=== PATIENT | female | born 1970 | race Caucasian/White ===

== ENCOUNTER 2020-10-27 07:29 | Outpatient (CLI) | payer OTHER, SELFPAY ==
--- NOTE | 2020-10-27 07:42 | CT_ITS ---
WS: [id number] CT ABDOMEN AND PELVIS WITH CONTRAST HISTORY: RUQ PAIN TECHNIQUE: Imaging performed of the abdomen and pelvis with IV contrast. Single phase imaging of the abdomen. Coronal and sagittal reformats are submitted. All CT scans at [facility] use at least one of these dose optimization techniques: automated exposure control; mA and/or kV adjustment per patient size (includes targeted exams where dose is matched to clinical indication); or iterativ e reconstruction. IV CONTRAST: Omnipaque 300; 95 mL IV. Oral contrast: Yes. DLP: 1544.01 mGy.cm COMPARISON: 10/17/2009 Lower thorax: Lung bases are clear. Mild enlargement of the LEFT heart chambers. No hiatal hernia. Liver/biliary system: Mildly enlarged liver with hepatic steatosis. No bile duct dilatation or mass. Gallbladder: Status post cholecystectomy. Pancreas: Normal. Spleen: Normal. Adrenal glands: Normal RIGHT adrenal gland. Well-circumscribed 15 mm mass in the LEFT adrenal gland i s stable since 2008. Right kidney: Normal. Left kidney: Normal. Aorta: Mild atherosclerosis with no aneurysm. Lymphadenopathy: Very small retroperitoneal shoddy lymph nodes. No enlarged lymph nodes. Free fluid: None. GI tract: The appendix is not definitely visualized but there is no evidence for acute appendicitis. There is mild diffuse fecal retention throughout the colon. There is significant wall thickening and narrowing of the lumen of the sigmoid associated with diverticulitis. There is mild inflammatory easley ges and asymmetric wall thickening in the distal sigmoid. Mild pericolonic inflammation. Abdominal wall: Unremarkable abdominal wall. No hernia. Pelvis: Prior hysterectomy. Nondistended urinary bladder. Bones: Unremarkable. CT/CT abdomen pelvis w con* [id number] IMPRESSION: 1. Mild acute diverticulitis superimposed on changes of diverticulosis involvi ng the sigmoid colon. There is marked thickening of the sigmoid wall and narrow ing of the lumen. 2. No abscess or free fluid or free air. 3. Prior cholecystectomy and hysterectomy. 4. LEFT adrenal nodule stable over multiple years, most significant for adenom a.
[2020-10-27] MEDS: iohexol 300 mg/mL 50 mL Btl PO (09:16)
[2020-10-27] MEDS: iohexol 300 mg/mL 100 mL Btl IV (09:16)
== END 2020-10-27 07:30 | disposition home or self-care (01) ==
PROVIDERS: PCP Physician Assistant; Visit Provider Physician Assistant
DX: R10.11 Right upper quadrant pain (principal); K57.32 Diverticulitis of large intestine without perforation or abscess without bleeding; Z90.49 Acquired absence of other specified parts of digestive tract; D35.02 Benign neoplasm of left adrenal gland
CPT/HCPCS: 74177

== ENCOUNTER 2022-05-25 12:08 | Inpatient (IN) | payer OTHER, SELFPAY ==
[2022-05-25] VITALS (12 sets, daily range): BP systolic 128–169; BP diastolic 84–108; PULSE 96–106; RESP 16–24; TEMP 36.7–36.8; O2SAT 94–106; BMI 34.0
--- NOTE | 2022-05-25 14:37 | ECG_ITS ---
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 Measurements Intervals [place] Rate: 104 P: 54 [place]: 162 QRS: -29 QRSD: 101 T: 89 QT: 342 QTc: 451 Interpretive Statements SINUS TACHYCARDIA LEFT ATRIAL ENLARGEMENT [-0.15mV P-WAVE IN V1/V2] BORDERLINE LEFT AXIS DEVIATION [QRS AXIS < -20] POSSIBLE LEFT VENTRICULAR HYPERTROPHY [VOLTAGE CRITERIA PLUS LAE OR QRS WIDENING] NONSPECIFIC T-WAVE ABNORMALITY Compared to ECG 03/19/2017 00:15:08 Atrial abnormality now present T-wave abnormality now present Electronically Signed On 05-27-2022 8:10:51 CDT by Justo Maurer M.D. [id number] f
--- NOTE | 2022-05-25 14:53 | XRR_ITS ---
PROCEDURE INFORMATION: Exam: XR Chest Exam date and time: 05/25/2022 3:16 PM Age: 52 years old Clinical indication: Cough TECHNIQUE: Imaging protocol: Radiologic exam of the chest. Views: 1 view. COMPARISON: CR Chest 2 views* [id number] 03/18/2017 4:21 PM FINDINGS: Lungs: The lung bases are suboptimally assessed due to technique however the upper lungs are clear of focal consolidation. Pleural spaces: Unremarkable. No pleural effusion. No pneumothorax. Heart/Mediastinum: Cardiac silhouette appears moderately enlarged, increased since prior exam. Slight cephalized vascularity suggesting element of mild vascular congestion. Findings may also be related to cardiomegaly and/or pericardial effusion. Echocardiographic correlation may be helpful. Bones/joints: No acute osseous findings. Other findings: Single view was submitted. XR/XR chest 1V portable [id number] IMPRESSION: 1. Interval enlargement of cardiac silhouette size. Probable element of mild vascular congestion. See discussion above. 2. No obvious acute consolidation. Suboptimal lung base assessment. Followup including lateral view may be obtained if clinically indicated.
--- NOTE | 2022-05-25 14:54 | ECG_ITS ---
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 Measurements Intervals [place] Rate: 100 P: 58 [place]: 163 QRS: -32 QRSD: 101 T: 90 QT: 347 QTc: 447 Interpretive Statements SINUS TACHYCARDIA LEFT ATRIAL ENLARGEMENT [-0.15mV P-WAVE IN V1/V2] LEFT AXIS DEVIATION [QRS AXIS < -30] NONSPECIFIC T-WAVE ABNORMALITY Compared to ECG 03/19/2017 00:15:08 Atrial abnormality now present Left-axis deviation now present T-wave abnormality now present Electronically Signed On 05-27-2022 8:10:44 CDT by Justo Maurer M.D. [id number] f
--- NOTE | 2022-05-25 14:56 | W.ED.SOB ---
HPI - SOB/Dyspnea General: Chief Complaint: Shortness of Breath/Dyspnea Stated Complaint: high BP, sent by pastor astudillo Time Seen by Provider: 05/25/22 14:41 Source: patient Mode of arrival: ambulatory Limitations: no limitations History of Present Illness: HPI Narrative: This patient with a known history of COPD and tobacco use presents to our emergency department because of cough increasing shortness of breath and wheezing since . She also complained that she is getting some lower extremity swelling. She denies any chest pain other than painful chest wall with coughing. She denies any known history of congestive heart failure, arrhythmia, coronary artery disease. She does relate she has family members that have congestive heart failure. She states that she is fully immunized against COVID-19 and gets tested twice weekly due to her job requirements. She denies any nausea vomiting or diarrhea. Had 1 previous hospitalization for COPD. MD elicited complaint: shortness of breath, cough and pain with inspiration Pertinent past history: COPD Exacerbating factors: coughing Relieving factors: nothing Known history of: COPD Associated symptoms: Deny abdominal pain, extremity pain, fever(s), hemoptysis, nausea, palpitations, polydipsia, polyuria, syncope or vomiting Related Data: Home oxygen amount: none Review of Systems Const: Denies: fever(s), chills or body aches Eyes: Denies: change in vision ENMT: Denies: odynophagia, change in hearing, nasal congestion or sinus pain Card: Reports: swelling of feet/ankles; Denies: palpitations, irregular heart rhythm or syncope Resp: Reports: dyspnea and wheezing; Denies: hemoptysis GI: Denies: abdominal pain, nausea, vomiting or diarrhea : Denies: flank pain, difficulty voiding, dysuria or urinary frequency Musc: Reports: extremity swelling; Denies: neck pain, back pain or extremity pain Skin/Breast: Denies: rash or pruritus Neuro: Denies: headache(s), numbness in extremities or weakness in extremities Psych: Denies: anxiety, depression or mood swings Endo: Denies: polyuria or polydipsia Physical Exam Narrative: EXAM NARRATIVE: She is alert she is able to talk in complete sentences. No acute distress. Const: COMMON NORMALS: no acute distress, patient oriented x3 and healthy appearing GENERAL APPEARANCE: cooperative and comfortable HENMT: COMMON NORMALS: normocephalic, Normal nasal mucous membranes and turbinates present and moist oral mucous membranes HEAD & SCALP: normocephalic FACE & SINUS: normal facial exam and sinuses nontender NOSE: Normal nasal mucous membranes and turbinates present Eye: COMMON NORMALS: Equal, round and reactive pupils present, EOMs intact bilaterally and conjunctivae normal CONJUNCTIVA: Yes conjunctivae normal PUPIL: Yes Equal, round and reactive pupils present Neck/C-Spine: COMMON NORMALS: full ROM, no lymphadenopathy, supple and no JVD Chest: COMMONS NORMALS: normal inspection of the chest OTHER: Anterior chest wall tenderness. No skin rashes. No ecchymosis. No subcutaneous emphysema. Resp: COMMON NORMALS: No retractions and No use of accessory muscles EFFORT & INSPECTION: Yes able to speak in complete sentences and Yes symmetric chest movement AUSCULTATION: rhonchi and wheezes Cardio: COMMON NORMALS: no JVD, regular rate, regular rhythm, No murmurs present (Cardio) and Peripheral pulses 2+ throughout RATE: regular rate RHYTHM: regular rhythm PERIPHERAL PULSES: Peripheral pulses 2+ throughout GI: COMMON NORMALS: Normal to inspection, nondistended, normoactive bowel sounds present, Soft to palpation and no masses PALPATION: Yes Soft to palpation : COMMON NORMALS: Yes no CVA tenderness BLADDER/KIDNEY EXAM: Yes no CVA tenderness Back/Pelvis: COMMON NORMALS: no CVA tenderness, thoracic and lumbar spine normal to inspection, no thoracic nor lumbar tenderness and thoraco-lumbar ROM normal Extremity: COMMON NORMALS: full ROM, capillary refill normal and no calf tenderness NARRATIVE EXTREMITY EXAM: Trace nonpitting edema of both lower extremities. No calf tenderness. Negative Homans' sign. Good capillary refill. Neuro: COMMON NORMALS: patient oriented x3, moves all extremities, no focal motor deficits and no sensory deficits noted CRANIAL NERVES: Yes CN normal except as noted SPEECH: speech normal Psych: COMMON NORMALS: mental status grossly normal and cooperative Skin: COMMON NORMALS: no rashes or lesions noted, no wounds, turgor normal and no petechiae GENERAL SKIN EXAM: no rashes or lesions noted and turgor normal Course Consultations: Consultation #1: Discussed with on-call hospitalist who agreed with plan for observation and continued work-up and evaluation. Time: 17:00 Vital Signs: Vital signs: Vital Signs Temperature 98.1 F 05/25/22 14:47 Pulse Rate 100 07/16/22 16:30 Respiratory Rate 18 05/25/22 15:09 Blood Pressure 138/84 05/25/22 16:30 Pulse Oximetry 97 05/25/22 16:30 MDM - SOB/Dyspnea Medical Decision Making Patient with history of chest congestion, lower extremity swelling and shortness of breath symptoms with COPD history but no fevers productive cough etc. Her findings today suggest congestive heart failure and pulmonary congestion. This is a new diagnosis for her so I think is appropriate that we put her in observation for diuresis, serial troponins, echocardiogram and other usual evaluation. Low risk for infection and certainly does not strongly suggest thromboembolic events or other concerns at this time. Medical Records I reviewed the patient's medical records. Lab Data I reviewed the patient's lab results. : 05/25/22 15:43 05/25/22 15:43 Labs/Radiology: Radiology Impressions Chest X-Ray 05/25/22 14:53 IMPRESSION: 1. Interval enlargement of cardiac silhouette size. Probable element of mild vascular congestion. See discussion above. 2. No obvious acute consolidation. Suboptimal lung base assessment. Followup including lateral view may be obtained if clinically indicated. Laboratory Results WBC 10.1 10^3/uL (4.0-10.0) H 05/25/22 15:43 RBC 4.90 10^6/uL (4.1-5.3) 05/25/22 15:43 Hgb 14.1 g/dL (11.5-15.3) 05/25/22 15:43 Hct 44.1 % (37.0-47.0) 05/25/22 15:43 MCV 90.0 fl (81-99) 05/25/22 15:43 MCH 28.8 pg (28.0-34.0) 05/25/22 15:43 MCHC 32.0 g/dL (30.0-36.0) 05/25/22 15:43 RDW 15.2 % (12.1-15.1) H 05/25/22 15:43 Plt Count 289 10^3/cmm (130-400) 05/25/22 15:43 MPV 10.0 fL (7.4-10.4) 05/25/22 15:43 Neut % (Auto) 61.9 % 05/25/22 15:43 Lymph % (Auto) 28.2 % 05/25/22 15:43 Creek % (Auto) 6.0 % 05/25/22 15:43 Eos % (Auto) 2.6 % 05/25/22 15:43 Baso % (Auto) 0.9 % 05/25/22 15:43 Neut # (Auto) 6.24 10^3/uL (1.8-7.7) 05/25/22 15:43 Lymph # (Auto) 2.8 10^3/uL (0.8-4.8) 05/25/22 15:43 Creek # (Auto) 0.6 10^3/uL (0.2-0.9) 05/25/22 15:43 Eos # (Auto) 0.3 10^3/uL (0.0-0.8) 05/25/22 15:43 Baso # (Auto) 0.1 10^3/uL (0.0-0.1) 05/25/22 15:43 Nucleated RBC % (auto) 0 % 05/25/22 15:43 Nucleated RBCs # 0.0 /100WBC 05/25/22 15:43 Sodium 141 mmol/L (136-145) 05/25/22 15:43 Potassium 4.0 mmol/L (3.5-5.1) 05/25/22 15:43 Chloride 102 mmol/L (98-107) 05/25/22 15:43 Carbon Dioxide 28 mmol/L (22-29) 05/25/22 15:43 Anion Gap 15.0 (5-19) 05/25/22 15:43 BUN 7 mg/dL (6-20) 05/25/22 15:43 Creatinine 0.6 mg/dL (0.5-0.9) 05/25/22 15:43 GFR Calculation 104.2 mL/min (90-130) 05/25/22 15:43 Glucose 112 mg/dL (65-115) 05/25/22 15:43 Calculated Osmolality 291 mOsm/kg (285-295) 05/25/22 15:43 Calcium 8.6 mg/dL (8.5-10.5) 05/25/22 15:43 Total Bilirubin 0.8 mg/dL (0.15-1.2) 05/25/22 15:43 AST 15 U/L (0-32) 05/25/22 15:43 ALT 10 U/L (0-33) 05/25/22 15:43 Alkaline Phosphatase 96 IU/L (35-105) 05/25/22 15:43 Troponin T Baseline 27 ng/L (0-10) H 05/25/22 15:43 NT-Pro-B Natriuret Pep 1912 pg/mL (0-125) H 05/25/22 15:43 Total Protein 6.9 g/dL (6.6-8.7) 05/25/22 15:43 Albumin 4.2 g/dL (3.5-5.2) 05/25/22 15:43 Globulin 2.7 g/dL (1.3-4.6) 05/25/22 15:43 SARS-CoV-2 Ag (Rapid) Negative (Negative) 05/25/22 15:00 EKG Data EKG 1: I personally reviewed and interpreted this EKG as follows: EKG interpretation time: 15:05 Interpretation: EKG was reviewed she has a ventricular rate of 100 bpm. She has a normal AL interval. She has normal QRS duration. QTc is normal. She has a slight leftward axis suggestive of possible left anterior Heema block. She has some nonspecific ST-T wave changes noted in the V5 and V6 but no other changes noted. Discharge Plan Discharge Patient Disposition: Placed in Observation Clinical Impression: Congestive heart failure Condition: Stable Referrals: Tess Ko PA [Primary Care Provider] - Coding Level of Care Code ED Professional Programmer Analyst for Chg Fwd Exam Comprehensive
[2022-05-25] MEDS: ipratropium-albuterol 3 mL Neb INHALATION ×2 (15:09→21:54)
[2022-05-25 15:50] LABS: Basophils # 0.1 10^3/uL (0.0-0.1); Basophils % 0.9 %; Eosinophils # 0.3 10^3/uL (0.0-0.8); Eosinophils % 2.6 %; Hematocrit 44.1 % (37.0-47.0); Hemoglobin 14.1 g/dL (11.5-15.3); Lymphocytes # 2.8 10^3/uL (0.8-4.8); Lymphocytes % 28.2 %; Mean Corpuscular Hemoglobin 28.8 pg (28.0-34.0); Monocytes # 0.6 10^3/uL (0.2-0.9); Neutrophils # 6.24 10^3/uL (1.8-7.7); Neutrophils % 61.9 %; Nucleated Red Blood Cells % 0 %; Platelet Count 289 10^3/cmm (130-400); Red Cell Distribution Width 15.2 % (12.1-15.1); White Blood Count 10.1 10^3/uL (4.0-10.0)
[2022-05-25 16:18] LABS: Troponin(5th) Baseline 27 ng/L (0-10)
[2022-05-25 16:22] LABS: SARS Covid-2 Antigen Negative (Negative)
[2022-05-25 16:23] LABS: Alanine Aminotransferase 10 U/L (0-33); Albumin Level 4.2 g/dL (3.5-5.2); Alkaline Phosphatase 96 IU/L (35-105); Aspartate Amino Transferase 15 U/L (0-32); Blood Urea Nitrogen 7 mg/dL (6-20); Calcium 8.6 mg/dL (8.5-10.5); Carbon Dioxide 28 mmol/L (22-29); Chloride 102 mmol/L (98-107); Globulin 2.7 g/dL (1.3-4.6); Glomerular Filtration Rate 104.2 mL/min (90-130); Glucose 112 mg/dL (65-115); NT Pro B Type Natriuretic Pept 1912 pg/mL (0-125); Osmolality Calculated 291 mOsm/kg (285-295); Sodium 141 mmol/L (136-145); Total Bilirubin 0.8 mg/dL (0.15-1.2); Total Protein 6.9 g/dL (6.6-8.7)
--- NOTE | 2022-05-25 16:54 | ECG_ITS ---
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 Measurements Intervals [place] Rate: 105 P: 66 [place]: 163 QRS: -36 QRSD: 97 T: 79 QT: 348 QTc: 461 Interpretive Statements SINUS TACHYCARDIA LEFT ATRIAL ENLARGEMENT [-0.15mV P-WAVE IN V1/V2] LEFT AXIS DEVIATION [QRS AXIS < -30] NONSPECIFIC T-WAVE ABNORMALITY Compared to ECG 05/25/2022 15:01:00 No significant changes Electronically Signed On 05-27-2022 18:16:29 CDT by Justo Maurer M.D. [id number]
[2022-05-25] MEDS: FUROsemide 10 mg/mL SDV 4mL 40 MG IVP (16:57)
--- NOTE | 2022-05-25 18:10 | PM.HP ---
Providers/Chief Complaint Admitting Physician: Patrice Mariscal MD Primary Care Provider: Tess Ko Chief Complaint: high BP, sent by pastor astudillo History of Present Illness Alesha Mack is a 52 year old female significant past medical history presented today with chief, shortness of breath. Patient is stating that she started having symptoms this Friday with shortness of breath, orthopnea and PND. She has gained 15 pounds at least. She is active for her age she works for a [employer]. She works 4 days a week. She smokes half a pack a day. Has not seen a PCP in a while. She does not take any medications at home. No recent tick bites. No recent chest pain, fever, nausea or vomiting she is endorsing right upper quadrant pain. In the ER she has been diagnosed with sinus tachycardia, new onset CHF, she has been given IV Lasix Troponin not significantly Review of Systems Const: Denies: chills Eyes: Denies: change in vision ENMT: Denies: throat pain Card: Reports: swelling of feet/ankles, dyspnea on exertion and orthopnea; Denies: chest pain Resp: Reports: dyspnea GI: Reports: abdominal pain : Denies: flank pain Musc: Denies: neck pain Skin/Breast: Denies: rash Neuro: Denies: headache(s) Psych: Denies: anxiety Endo: Denies: polyuria [place]/Lymph: Denies: easy bruising All/Imm: Denies: urticaria Medications/Allergies Home Medications Medication Instructions Recorded Confirmed Last Taken Type albuterol sulfate 90 mcg/actuation 2 puff INHALATION Q4H PRN 05/25/22 05/25/22 Unknown History aerosol inhaler gabapentin 100 mg capsule 100 mg PO BID 05/25/22 05/25/22 05/25/22 History pantoprazole 40 mg tablet,delayed 40 mg PO DAILY 05/25/22 05/25/22 05/25/22 History release Allergies Allergy/AdvReac Type Severity Reaction Status Date / Time No Known Allergies Allergy Verified 05/25/22 12:48 PFSH Acute PFSH: Medical History (Updated 05/25/22 @ 18:20 by Patrice Mariscal MD) No pertinent past medical history Surgical History (Updated 05/25/22 @ 18:20 by Patrice Mariscal MD) No pertinent past surgical history Family History (Updated 05/25/22 @ 18:20 by Patrice Mariscal MD) Other CAD (coronary artery disease) Diabetes Social History (Updated 05/25/22 @ 18:21 by Patrice Mariscal MD) Smoking and tobacco status: current every day smoker cigarettes Number of cigarettes per day: 6-10 Alcohol intake: never Substance/Drug Use: never Household members: spouse Housing: House Vitals/I&O/Wt Last Vital Signs Temp 98.1 F 05/25/22 14:47 Pulse 106 H 05/25/22 17:30 Resp 24 H 05/25/22 17:30 BP 155/92 05/25/22 17:30 Pulse Ox 95 05/25/22 17:30 Weight last 48 hrs Weight 94.347 kg Physical Exam Narrative: Patient is sitting at the bedside Saturating well on room air Sinus tachycardia Signs of fluid overload 2+ pitting edema of legs Right upper quadrant tenderness Abdomen is bloated nontender soft Bilateral breast without adventitious rhonchi or crackles Awake and alert Nonfocal neuro exam Pleasant cooperative No skin ulcers Data : 05/25/22 15:43 05/25/22 15:43 A&P Assessment and plan (1) Sinus tachycardia: Status: Acute (2) New onset of congestive heart failure: Status: Acute Plan New onset CHF EF unknown Will get echo Start gentle diuresis as she is na?ve to Lasix Trend troponin and EKG Check D-dimer Check TSH Monitor urine output overnight Check lipid panel, A1c panel Cardiac diet Full code DVT prophylaxis Lovenox Attestations Medical Necessity Statement*: Anticipating discharge within 48 hours for new onset CHF Time Spent in Patient Care: 35 Coding Level of Care Code Acute Multimedia Specialist for Chg Fwd Diagnoses Sinus tachycardia R00.0 New onset of congestive heart failure I50.9
--- NOTE | 2022-05-25 18:19 | PC.NURSE ---
report called to M/S talked to lyric.
[2022-05-25 19:35] LABS: Troponin 5 2HR 23.86 ng/L (0-10)
[2022-05-25 19:38] LABS: Troponin 5 2HR Delta -3.14 ABS# (0-10)
--- NOTE | 2022-05-25 20:08 | USR_ITS ---
PROCEDURE INFORMATION: Exam: US Abdomen, Limited; Right Upper Quadrant Exam date and time: 05/25/2022 9:21 PM Age: 52 years old Clinical indication: Abdominal pain; Prior surgery; Surgery date: 6+ months; Additional info: Congestive hepatopathy, ruq pain TECHNIQUE: Imaging protocol: Real time ultrasound of the abdomen with image documentation. Limited exam focused on the right upper quadrant. COMPARISON: CT abdomen pelvis w con* [id number] 10/27/2020 9:06 AM FINDINGS: Liver: Liver is mildly enlarged with slightly heterogeneous parenchyma which may be related to mild steatosis or other parenchymal disease. No obvious cirrhosis. No regional ascites. No large hepatic mass however detection of hepatic lesions is limited in this setting. Gallbladder: Gallbladder not visualized.. Biliary ducts: No obvious intrahepatic biliary dilatation. Proximal CBD appears slightly prominent however at 8 mm. Distal CBD is obscured. Pancreas: Pancreas is mostly obscured by bowel gas. Right kidney: Normal. No mass. No hydronephrosis. Aorta: Details are limited due to body habitus and gaseous abdomen. IVC and aorta are poorly seen. Portal venous: Main portal vein is patent with normal flow direction. US/US gall bladder [id number] IMPRESSION: 1. Mild hepatomegaly without cirrhosis. Probable mild steatosis or other parenchymal disease. 2. Minimal extrahepatic biliary ductal dilatation which could be related to normal status post cholecystectomy. However distal CBD obstruction cannot be excluded. Clinical/LFT correlation should be obtained. Followup imaging such as contrast-enhanced MRI/MRCP may also be considered if clinically indicated. Comparison with previous studies may also be helpful if available. 3. Poorly visualized pancreas.
[2022-05-25] MEDS: enoxaparin 40 mg/0.4 mL Syringe SUBCUT (20:34)
[2022-05-25] MEDS: ketorolac 30 mg/mL INJ 15 MG IVP (20:34)
--- NOTE | 2022-05-25 20:54 | ECG_ITS ---
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 Measurements Intervals [place] Rate: 98 P: 18 [place]: 166 QRS: -27 QRSD: 106 T: 12 QT: 370 QTc: 474 Interpretive Statements SINUS RHYTHM POSSIBLE LEFT ATRIAL ENLARGEMENT [-0.1mV P-WAVE IN V1/V2] BORDERLINE LEFT AXIS DEVIATION [QRS AXIS < -20] NONSPECIFIC T-WAVE ABNORMALITY Compared to ECG 05/25/2022 17:11:57 Sinus tachycardia no longer present T-wave abnormality still present Electronically Signed On 05-27-2022 18:16:09 CDT by Justo Maurer M.D. [id number]
[2022-05-25 22:04] LABS: Amphetamines Screen Urine Negative (Negative); Barbiturates Screen Urine Negative (Negative); Benzodiazepines Screen Urine Negative (Negative); Cocaine Screen Urine Negative (Negative); Opiate Screen Urine Negative (Negative); PCP Screen Urine Negative (Negative); THC Screen Urine Negative (Negative)
[2022-05-25 22:47] LABS: D Dimer 0.65 ug/mIFEU (0-0.59)
[2022-05-25 22:59] LABS: Troponin 5 6HR 23.64 ng/L (0-10)
[2022-05-25 23:03] LABS: Chol HDL Ratio 4.12 mg/dL (0.0-4.40); Cholesterol 177 mg/dL (0-200); HDL Cholesterol 43 mg/dL (60-100); LDL Cholesterol Calculated 110 mg/dL (50-129); LDL HDL Ratio 2.56 RATIO (0.00-3.22); Thyroid Stimulating Hormone 1.78 uIU/mL (0.27-4.20); Triglycerides 122 mg/dL (0-150)
[2022-05-25 23:05] LABS: Troponin 5 6HR Delta -3.36 ng/L (0-12)
[2022-05-25 23:24] LABS: Estmated Average Glucose 143; Hemoglobin A1C 6.6 % (4.0-6.0)
[2022-05-26] VITALS (8 sets, daily range): BP systolic 141–150; BP diastolic 72–99; PULSE 94–102; RESP 16–18; TEMP 35.9–36.8; O2SAT 91–94
[2022-05-26] MEDS: FUROsemide 10 mg/mL SDV 10mL 40 MG IVP (04:15)
[2022-05-26 05:43] LABS: Basophils # 0.1 10^3/uL (0.0-0.1); Eosinophils # 0.3 10^3/uL (0.0-0.8); Eosinophils % 3.3 %; Hematocrit 43.6 % (37.0-47.0); Hemoglobin 13.6 g/dL (11.5-15.3); Lymphocytes # 2.7 10^3/uL (0.8-4.8); Lymphocytes % 33.6 %; Mean Corpuscular HGB Conc 31.2 g/dL (30.0-36.0); Mean Corpuscular Hemoglobin 28.6 pg (28.0-34.0); Mean Corpuscular Volume 91.6 fl (81-99); Mean Platelet Volume 9.6 fL (7.4-10.4); Monocytes # 0.6 10^3/uL (0.2-0.9); Neutrophils # 4.37 10^3/uL (1.8-7.7); Nucleated Red Blood Cells % 0 %; Platelet Count 285 10^3/cmm (130-400); Red Blood Count 4.76 10^6/uL (4.1-5.3); Red Cell Distribution Width 15.2 % (12.1-15.1)
[2022-05-26 06:28] LABS: Alanine Aminotransferase 9 U/L (0-33); Albumin Level 3.7 g/dL (3.5-5.2); Alkaline Phosphatase 90 IU/L (35-105); Anion Gap 13.4 (5-19); Aspartate Amino Transferase 13 U/L (0-32); Blood Urea Nitrogen 8 mg/dL (6-20); Calcium 8.8 mg/dL (8.5-10.5); Carbon Dioxide 33 mmol/L (22-29); Chloride 97 mmol/L (98-107); Globulin 3.3 g/dL (1.3-4.6); Glomerular Filtration Rate 87.2 mL/min (90-130); Glucose 123 mg/dL (65-115); Magnesium 1.9 mg/dL (1.7-2.3); Osmolality Calculated 290 mOsm/kg (285-295); Potassium 3.4 mmol/L (3.5-5.1); Sodium 140 mmol/L (136-145); Total Bilirubin 0.6 mg/dL (0.15-1.2)
[2022-05-26] MEDS: sennosides-docusate Tablet 1 TAB PO (09:52)
[2022-05-26] MEDS: acetaminophen 500 mg Tablet PO ×2 (09:52→20:12)
--- NOTE | 2022-05-26 11:36 | P.PN_ITS ---
Subjective Subjective: Patient is showing sinus tachycardia on EKG Is endorsing slightly feeling better Still fluid overloaded Urine output has not been measured respiratory Echo report is pending I will like to keep her here 1 more day patient is agreeable Vitals/I&O/Wt Last Vital Signs Temp 98.2 F 05/26/22 08:13 Pulse 102 H 05/26/22 08:13 Resp 18 05/26/22 08:13 BP 143/89 05/26/22 08:13 Pulse Ox 93 05/26/22 08:13 05/25/22 05/26/22 05/26/22 22:59 06:59 14:59 Intake Total 240 / 240 120 / 360 120 / 120 Output Total 100 / 100 Balance 140 / 140 120 / 260 120 / 120 Weight last 48 hrs Weight 89.981 kg Weight 94.347 kg Physical Exam Narrative: Clinical signs of fluid overload Bilateral breath sounds with mild crackles Abdomen soft Pitting edema of lower extremities Awake and alert Complaining of headache Nonfocal neuro exam Sinus tachycardia Data : 05/26/22 05:28 05/26/22 05:28 A&P Assessment and plan (1) Sinus tachycardia: Status: Acute (2) New onset of congestive heart failure: Status: Acute Plan Signs of fluid overload still present New onset CHF Echo report is pending Hemoglobin A1c consistent with diabetes Patient was counseled I would like to keep her here diurese her aggressively Other doctors on discharge congestive hepatopathy She is sinus tachycardic which could be decompensated mechanism to acute heart failure D-dimer is not remarkably high She is now requiring oxygen Full code Cardiac diet DVT prophylaxis on board Attestations Medical Necessity Statement*: Continue medical management Time Spent in Patient Care: 30 Coding Level of Care Code Acute Musical String Maker for Chg Fwd Diagnoses Sinus tachycardia R00.0 New onset of congestive heart failure I50.9
--- NOTE | 2022-05-26 11:40 | USR_ITS ---
PROCEDURE INFORMATION: Exam: US Duplex Lower Extremity Veins, Bilateral Exam date and time: 05/26/2022 12:56 PM Age: 52 years old Clinical indication: Edema, localized; Lower extremity, bilateral; Additional info: Swelling of legs, tachycardia TECHNIQUE: Imaging protocol: Real-time Duplex ultrasound of the bilateral extremities with 2-D moncada scale, color Doppler flow and spectral waveform analysis with image documentation. Complete exam focused on the bilateral lower extremity veins. COMPARISON: CT abdomen pelvis w con* [id number] 10/27/2020 9:06 AM FINDINGS: Right deep veins: Unremarkable. The common femoral, femoral, proximal profunda femoral and popliteal veins are patent without thrombus. Normal Doppler waveforms. Normal compressibility and/or augmentation response. Calf vein assessment is limited due to body habitus and soft tissue swelling. Right superficial veins: Saphenofemoral junction is patent without thrombus. Left deep veins: The common femoral, femoral, proximal profunda femoral and popliteal veins are patent without thrombus. Normal Doppler waveforms. Normal compressibility and/or augmentation response. Calf vein assessment is limited due to body habitus and soft tissue swelling. Left superficial veins: Saphenofemoral junction is patent without thrombus. Soft tissues: Mild soft tissue edema is present. US/[place] [id number] IMPRESSION: No evidence of deep vein thrombosis.
[2022-05-26] MEDS: FUROsemide 10 mg/mL SDV 10mL 60 MG IVP (17:32)
[2022-05-26] MEDS: potassium chloride ER 20 mEq Tablet 40 MEQ PO (17:32)
--- NOTE | 2022-05-26 20:08 | USCV_ITS ---
Alesha Mack Age: 52 Gender: F : 1970 Exam Date: 05/26/2022 09:09 Ordering Phys: Patrice Mariscal MD Technologist: Matthew Chou [place] [facility] [place]: congestive heart failure BP: 151 / 92 HR: 43 Rhythm: Sinus Technical Quality: Adequate MEASUREMENTS (Male / Female) Normal Values 2D ECHO LV Diastolic Diameter PLAX 6.5 cm 4.2 - 5.9 / 3.9 - 5.3 cm LV Systolic Diameter PLAX 5.1 cm IVS Diastolic Thickness 1.1 cm 0.6 - 1.0 / 0.6 - 0.9 cm IVS Systolic Thickness 1.2 cm LVPW Diastolic Thickness 1.1 cm 0.6 - 1.0 / 0.6 - 0.9 cm LVPW Systolic Thickness 1.4 cm LVOT Diameter 2.1 cm LV Ejection Fraction 2D Teich 35.5 % LV Ejection Fraction MOD 2C 31.7 % LV Ejection Fraction 2C AL 30.7 % LA Diameter 4.6 cm Aorta at Sinotubular Diameter 2.1 cm IVC Diameter 1.7 cm M-MODE LV Diastolic Diameter MM 7.1 cm 4.2 - 5.9 / 3.9 - 5.3 cm LV Systolic Diameter MM 6.1 cm LV Ejection Fraction MM Teich 29.0 % IVS Diastolic Thickness MM 0.8 cm 0.6 - 1.0 / 0.6 - 0.9 cm IVS Systolic Thickness MM 1.4 cm LVPW Diastolic Thickness MM 1.4 cm 0.6 - 1.0 / 0.6 - 0.9 cm LVPW Systolic Thickness MM 1.9 cm RV Diastolic Diameter MM 1.5 cm Aortic Annulus Diameter 2.8 cm LA Ao Ratio MM 2.0 MV E Point Septal Separation 2.3 cm DOPPLER AV Peak Velocity 121.0 cm/s LVOT Peak Velocity 346.7 cm/s AV Area Cont Eq vti 16.0 cm squared AV Area Cont Eq pk 9.7 cm squared MV Area PHT 5.0 cm squared Mitral E to A Ratio 2.3 MV E' Velocity 70.0 cm/s Mitral E to MV E' Ratio 15.5 Mitral E to LV E' Lateral Ratio 14.1 Mitral E to LV E' Septal Ratio 17.1 TR Peak Velocity 188.0 cm/s TR Peak Gradient 14.1 mmHg Right Atrial Pressure 3.0 mmHg Pulmonary Artery Systolic Pressu 17.1 mmHg PV Peak Velocity 99.0 cm/s FINDINGS Left Ventricle Left ventricle is severely dilated. LV systolic function is severely reduced with EF 25 to 30%. Severe global hypokinesis. Grade III diastolic dysfunction Right Ventricle The right ventricle is normal in size and function. Right Atrium The right atrium is normal in size. Left Atrium The left atrium is dilated Mitral Valve Mitral valve is thickened without significant stenosis or prolapse. There is moderate mitral regurgitation. Aortic Valve Structurally normal aortic valve without significant sclerosis or stenosis. There is no aortic regurgitation. Tricuspid Valve Structurally normal tricuspid valve without significant stenosis. Trace tricuspid regurgitation. Insufficient TR jet to calculate RVSP Pulmonic Valve Not well visualized Pericardium Normal pericardium without effusion. Aorta Normal ascending aorta dimension. IVC CONCLUSIONS Left ventricle is severely dilated. LV systolic function is severely reduced with EF of 25-30%. Severe global hypokinesis Grade 3 diastolic dysfunction Left atrium dilated There is moderate mitral regurgitation. Trace tricuspid regurgitation. No comparison studies are available Justo Maurer MD (Electronically Signed) Final Date: 26 May 2022 14:53 S
[2022-05-26] MEDS: enoxaparin 40 mg/0.4 mL Syringe SUBCUT (20:11)
[2022-05-27] VITALS (8 sets, daily range): BP systolic 117–135; BP diastolic 75–91; PULSE 87–103; RESP 16–20; TEMP 36.4–36.7; O2SAT 90–93
[2022-05-27] MEDS: FUROsemide 10 mg/mL SDV 10mL 60 MG IVP (04:18)
[2022-05-27] MEDS: acetaminophen 500 mg Tablet PO ×2 (04:21→15:03)
[2022-05-27 04:45] LABS: Anion Gap 14.5 (5-19); Blood Urea Nitrogen 15 mg/dL (6-20); Calcium 9.2 mg/dL (8.5-10.5); Carbon Dioxide 34 mmol/L (22-29); Chloride 95 mmol/L (98-107); Glomerular Filtration Rate 87.2 mL/min (90-130); Glucose 124 mg/dL (65-115); Osmolality Calculated 290 mOsm/kg (285-295); Potassium 4.5 mmol/L (3.5-5.1); Sodium 139 mmol/L (136-145)
--- NOTE | 2022-05-27 07:38 | P.CONIM_ITS ---
Providers/Reason For Consult Consulting Physician/Specialty*: JUAN CARLOS Robles MD/cardiology Reason for Consult*: Patient with new onset of heart failure and echocardiographic evidence of severe LV systolic dysfunction Requesting Physician: Attending Physician: Patrice Mariscal MD Primary Care Provider: Tess Ko History of Present Illness History of Present Illness Alesha Mack is a 52 year old female with a questionable history of hypertension, COPD, smoking abuse and dyslipidemia is presenting with progressive shortness of breath over the last several months. For the last week or so, she also has been noticing swelling of both lower extremities. She denies any fever or chills. No cough. She has occasional chest cramps that may last for few seconds and goes away by itself. It may happen once a week or so. No other associated symptoms. Has been having some amount of orthopnea. No abdominal pain or dysuria. She has no previous history for any coronary artery disease, myocardial infarction or congestive heart failure. She was seen by the primary care provider last week for these symptoms. She was advised for hospital admission for further evaluation management. Patient has a strong family history of premature atherosclerotic heart disease. Her father had open heart surgery in his 50s. One of her brothers also is known to have some heart problems, who is in his 50s now. 3 of the paternal uncles had myocardial infarction or coronary interventions in their 40s and 50s. One of the paternal aunts also had? Myocardial infarction. Patient smokes half pack a day for the last more than 30 years. No alcohol abuse or any substance abuse. 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 Review of Systems Narrative: CONSTITUTIONAL: No fever or chills. Has been having shortness of breath and easy fatigability as mentioned above. She also may have gained more than 15 pounds the last few weeks EYES: No blurring of vision or other visual disturbances lately. ENT: No hoarseness of voice, auditory disturbances or sore throat. CARDIOVASCULAR: As mentioned above. RESPIRATORY: No significant cough. GASTROINTESTINAL: No hematemesis or melena. GENITOURINARY: No dysuria or hematuria. INTEGUMENTARY: No skin rashes or history of skin cancer. NEURO: No transient ischemic attacks or amaurosis. PSYCHIATRIC: No history of psychosis or major depression. HEMATOLOGIC: No bleeding disorders or significant anemia. ENDOCRINE: No history of polyuria or polydipsia. MUSCULOSKELETAL: Leg swelling for the last week or so. ALLERGY/IMMUNOLOGY: As mentioned above. Medications/Allergies Home Medications Medication Instructions Recorded Confirmed Last Taken Type albuterol sulfate 90 mcg/actuation 2 puff INHALATION Q4H PRN 05/25/22 05/25/22 Unknown History aerosol inhaler gabapentin 100 mg capsule 100 mg PO BID 05/25/22 05/25/22 05/25/22 History pantoprazole 40 mg tablet,delayed 40 mg PO DAILY 05/25/22 05/25/22 05/25/22 History release Allergies Allergy/AdvReac Type Severity Reaction Status Date / Time No Known Allergies Allergy Verified 05/25/22 12:48 Current Medications Generic Name Dose Route Start Last Admin Trade Name Freq PRN Reason Stop Dose Admin Acetaminophen 500 mg 05/25/22 20:08 05/27/22 04:21 Acetaminophen 500 Mg Tablet PO 500 mg Q4H PRN Administration fever Albuterol/Ipratropium 3 ml 05/25/22 20:08 05/25/22 21:54 Ipratropium-Albuterol 3 Ml Neb INHALATION 3 ml Q6H PRN Administration SHORTNESS OF BREATH Enoxaparin Sodium 40 mg 05/25/22 20:30 05/26/22 20:11 Enoxaparin 40 Mg/0.4 Ml Syringe SUBCUT 40 mg Q24H LANDON Administration Senna/Docusate Sodium 1 tab 05/26/22 09:00 05/26/22 09:52 Sennosides-Docusate Tablet PO 1 tab DAILY LANDON Administration PFSH Acute PFSH: Medical History No pertinent past medical history Surgical History No pertinent past surgical history Family History Other CAD (coronary artery disease) Diabetes Social History Smoking and tobacco status: current every day smoker cigarettes Number of cigarettes per day: 6-10 Alcohol intake: never Substance/Drug Use: never Household members: spouse Housing: House Vitals/I&O/Wt Last Vital Signs Temp 97.6 F 05/27/22 04:00 Pulse 97 05/27/22 04:00 Resp 20 H 05/27/22 04:00 BP 129/83 05/27/22 04:00 Pulse Ox 90 05/27/22 04:00 05/26/22 05/27/22 05/27/22 22:59 06:59 14:59 Intake Total 480 / 600 360 / 960 Output Total 3400 / 3400 2500 / 5900 Balance -2920 / -2800 -2140 / -4940 Weight last 48 hrs Weight 198 lb 6 oz Weight 208 lb Physical Exam Narrative: GENERAL: The patient is alert and oriented times three. Not in any acute distress. HEENT: No significant pallor, icterus or lymphadenopathy. The pupils are adin ctant to light. Oral cavity: There are no mucous membrane lesions. Funduscopic examination: The fundus is not visualized NECK: Trachea appears to be central. No masses noted. No JVD or thyromegaly leonarda reciated. No carotid bruit. RESPIRATORY: Chest is symmetrical. No intercostals muscle retraction or any accessory muscle activation. There is no chest wall tenderness. Breath sounds are heard bilaterally. No rales or rhonchi heard. No evidence of any consolidation. BREASTS: Deferred. HEART: The PMI could not be palpated. No palpable precordial events. S1 and S2 are normal. No S3 or S4 heard. No pericardial rub or any click heard. ABDOMEN: No vessel pulsations or distention. No tenderness. No organomegaly appreciated. No abdominal bruit. Bowel sounds are normally heard. : Deferred. RECTAL: Deferred. LYMPHATIC: No lymphadenopathy noted in the neck or groin. EXTREMITIES: Trace edema with no cyanosis. No clubbing. The pulses are symmetrical bilaterally. The radial, femoral, dorsalis pedis and the posterior tibial pulses are palpated and found to be in good volume and amplitude. MUSCULOSKELETAL: No acute joint deformities or swelling. SKIN: There are no significant scars or skin rash noted. NEUROPSYCHIATRIC: The patient is alert and oriented x3. Appears to be in a good mood. The higher functions are grossly within normal limits. No tremors or rigidity noted. Data : 05/26/22 05:28 05/27/22 03:26 Other Labs: Laboratory Last Values WBC 8.0 10^3/uL (4.0-10.0) 07/17/22 05:28 RBC 4.76 10^6/uL (4.1-5.3) 05/26/22 05:28 Hgb 13.6 g/dL (11.5-15.3) 05/26/22 05:28 Hct 43.6 % (37.0-47.0) 05/26/22 05:28 MCV 91.6 fl (81-99) 05/26/22 05:28 MCH 28.6 pg (28.0-34.0) 05/26/22 05:28 MCHC 31.2 g/dL (30.0-36.0) 05/26/22 05:28 RDW 15.2 % (12.1-15.1) H 05/26/22 05:28 Plt Count 285 10^3/cmm (130-400) 05/26/22 05:28 MPV 9.6 fL (7.4-10.4) 05/26/22 05:28 Neut % (Auto) 55.0 % 05/26/22 05:28 Lymph % (Auto) 33.6 % 05/26/22 05:28 Dale % (Auto) 7.0 % 05/26/22 05:28 Eos % (Auto) 3.3 % 05/26/22 05:28 Baso % (Auto) 1.0 % 05/26/22 05:28 Neut # (Auto) 4.37 10^3/uL (1.8-7.7) 05/26/22 05:28 Lymph # (Auto) 2.7 10^3/uL (0.8-4.8) 05/26/22 05:28 Dale # (Auto) 0.6 10^3/uL (0.2-0.9) 05/26/22 05:28 Eos # (Auto) 0.3 10^3/uL (0.0-0.8) 05/26/22 05:28 Baso # (Auto) 0.1 10^3/uL (0.0-0.1) 05/26/22 05:28 Nucleated RBC % (auto) 0 % 05/26/22 05:28 Nucleated RBCs # 0.0 /100WBC 05/26/22 05:28 D-Dimer 0.65 ug/mIFEU (0-0.59) H 05/25/22 22:00 Sodium 139 mmol/L (136-145) 05/27/22 03:26 Potassium 4.5 mmol/L (3.5-5.1) 05/27/22 03:26 Chloride 95 mmol/L (98-107) L 05/27/22 03:26 Carbon Dioxide 34 mmol/L (22-29) H 05/27/22 03:26 Anion Gap 14.5 (5-19) 05/27/22 03:26 BUN 15 mg/dL (6-20) 05/27/22 03:26 Creatinine 0.7 mg/dL (0.5-0.9) 05/27/22 03:26 GFR Calculation 87.2 mL/min (90-130) L 05/27/22 03:26 Glucose 124 mg/dL (65-115) H 05/27/22 03:26 Estimat Average Glucose 143 05/25/22 22:00 Hemoglobin A1c 6.6 % (4.0-6.0) H 05/25/22 22:00 Calculated Osmolality 290 mOsm/kg (285-295) 05/27/22 03:26 Calcium 9.2 mg/dL (8.5-10.5) 05/27/22 03:26 Magnesium 1.9 mg/dL (1.7-2.3) 05/26/22 05:28 Total Bilirubin 0.6 mg/dL (0.15-1.2) 05/26/22 05:28 AST 13 U/L (0-32) 05/26/22 05:28 ALT 9 U/L (0-33) 05/26/22 05:28 Alkaline Phosphatase 90 IU/L (35-105) 05/26/22 05:28 Troponin T Baseline 27 ng/L (0-10) H 05/25/22 15:43 Troponin T 120 Minute 23.86 ng/L (0-10) H 05/25/22 18:30 Delta Troponin T -3.14 ABS# (0-10) L 05/25/22 18:30 Troponin T Hi Sens 6Hr 23.64 ng/L (0-10) H 05/25/22 22:00 Troponin T Hi Sens 6Hr Delta -3.36 ng/L (0-12) L 05/25/22 22:00 NT-Pro-B Natriuret Pep 1912 pg/mL (0-125) H 05/25/22 15:43 Total Protein 7.0 g/dL (6.6-8.7) 05/26/22 05:28 Albumin 3.7 g/dL (3.5-5.2) 05/26/22 05:28 Globulin 3.3 g/dL (1.3-4.6) 05/26/22 05:28 Triglycerides 122 mg/dL (0-150) 05/25/22 22:00 Cholesterol 177 mg/dL (0-200) 05/25/22 22:00 LDL Cholesterol, Calc 110 mg/dL (50-129) 05/25/22 22:00 HDL Cholesterol 43 mg/dL (60-100) L 05/25/22 22:00 LDL/HDL Ratio 2.56 RATIO (0.00-3.22) 05/25/22 22:00 Cholesterol/HDL Ratio 4.12 mg/dL (0.0-4.40) 05/25/22 22:00 TSH 1.78 uIU/mL (0.27-4.20) 05/25/22 22:00 Urine Opiates Screen Negative ng/mL (Negative) 05/25/22 21:00 Ur Barbiturates Screen Negative ng/mL (Negative) 05/25/22 21:00 Ur Phencyclidine Scrn Negative ng/mL (Negative) 05/25/22 21:00 Ur Amphetamines Screen Negative ng/mL (Negative) 05/25/22 21:00 U Benzodiazepines Scrn Negative ng/mL (Negative) 05/25/22 21:00 Urine Cocaine Screen Negative ng/mL (Negative) 05/25/22 21:00 U Marijuana (THC) Screen Negative ng/mL (Negative) 05/25/22 21:00 SARS-CoV-2 Ag (Rapid) Negative (Negative) 05/25/22 15:00 Echo: My impression: Left ventricle is severely dilated. ?LV systolic function is severely reduced with EF of 25-30%. ?Severe global hypokinesis ?Grade 3 diastolic dysfunction ?Left atrium dilated ?There is moderate mitral regurgitation.? ?Trace tricuspid regurgitation.? ?No comparison studies are available EKG 1: My Interpretation: normal sinus rhythm with possible left atrial enlargement. Nonspecific T wave changes. Minimal left axis deviation. EKG computer-generated impression: Chest X-Ray 05/25/22 14:53 IMPRESSION: 1. Interval enlargement of cardiac silhouette size. Probable element of mild vascular congestion. See discussion above. 2. No obvious acute consolidation. Suboptimal lung base assessment. Followup including lateral view may be obtained if clinically indicated. Gallbladder Ultrasound 05/25/22 20:08 IMPRESSION: 1. Mild hepatomegaly without cirrhosis. Probable mild steatosis or other parenchymal disease. 2. Minimal extrahepatic biliary ductal dilatation which could be related to normal status post cholecystectomy. However distal CBD obstruction cannot be excluded. Clinical/LFT correlation should be obtained. Followup imaging such as contrast-enhanced MRI/MRCP may also be considered if clinically indicated. Comparison with previous studies may also be helpful if available. 3. Poorly visualized pancreas. Venous Duplex 05/26/22 11:40 IMPRESSION: No evidence of deep vein thrombosis. A&P Assessment and plan (1) New onset of congestive heart failure: The etiology of the patient's heart failure /LV systolic dysfunction is not clear at this time. It is possible that he may have some form of nonischemic cardiomyopathy. However she has a strong family history for premature atherosclerotic heart disease. Her EKG changes are nonspecific. For further management of the congestive heart failure, a Myocardial perfusion imaging would be appropriate. This was discussed with the patient in detail which is understood well. Status: Acute (2) Cardiomyopathy: I may start the patient on Entresto / 1 tablet. Twice daily. Her blood pressure will be closely monitored. Status: Acute (3) COPD exacerbation: May continue on the current treatment Status: Acute (4) Smoking addiction: Patient is strongly advised to quit smoking. Status: Acute (5) Family history of premature coronary heart disease: In view of the patient is a strong family history, possibility of her having underlying coronary artery disease causing these is a strong consideration. Status: Acute (6) Dyslipidemia: May continue on the current medications. Follow-up evaluations as per schedule. Status: Acute Plan In the event of the patient developing any unusual chest pain, palpitations, SOB or any other new symptoms, advised to contact our office. 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
[2022-05-27] MEDS: sennosides-docusate Tablet 1 TAB PO (08:08)
[2022-05-27] MEDS: acetaZOLAMIDE 250 mg Tablet PO (08:08)
--- NOTE | 2022-05-27 09:09 | PM.PN ---
Subjective Subjective: This morning I have notified the patient and her family that EF is too low and she will need angiogram to rule out ischemic cardiomyopathy, she is showing signs of contraction alkalosis discontinue IV diuretics and use acetazolamide today bicarb is 34 she is hemodynamically stable She is able to lay flat to some extent now Sinus tachycardia has improved no signs of DVT Vitals/I&O/Wt Last Vital Signs Temp 97.7 F 05/27/22 08:00 Pulse 87 05/27/22 08:00 Resp 16 05/27/22 08:00 BP 130/91 05/27/22 08:00 Pulse Ox 93 05/27/22 08:00 05/26/22 05/27/22 05/27/22 22:59 06:59 14:59 Intake Total 480 / 600 360 / 960 140 / 140 Output Total 3400 / 3400 2500 / 5900 Balance -2920 / -2800 -2140 / -4940 140 / 140 Weight last 48 hrs Weight 89.981 kg Weight 94.347 kg Physical Exam Narrative: Patient sitting in her bed Awake and alert Signs of fluid overload Leg swelling slightly improved Sinus tachycardia has improved Abdomen is soft She is awake and alert Nonfocal neuro exam EOMI, PERRLA Data : 05/26/22 05:28 05/27/22 03:26 A&P Assessment and plan (1) Sinus tachycardia: Status: Acute (2) New onset of congestive heart failure: Status: Acute (3) Alkalosis, metabolic: Status: Acute Plan New onset CHF EF extremely low Requested Dr. Robles Might need coronary angiogram D-dimer 0.6 No signs of DVT Sinus tachycardia is improved I do believe sinus tachycardia was in compensation to her new onset heart failure Contraction alkalosis, discontinue IV diuretics I would use acetazolamide today Her bicarb is 34 Troponins were not significantly elevated, family history positive for coronary disease, drug screen negative, tick panel is pending, nonischemic cardiomyopathy concern? She will need LifeVest I would recommend her to take 2 weeks off at least from her work Cardiac diet Dr. Robles has been consulted Full code DVT prophylaxis on board Attestations Medical Necessity Statement*: Continue medical management changed to inpatient Time Spent in Patient Care: 30 Coding Level of Care Code Acute Prepress Operator for Chg Fwd Diagnoses Sinus tachycardia R00.0 New onset of congestive heart failure I50.9 Alkalosis, metabolic E87.3
--- NOTE | 2022-05-27 11:10 | PC.NURSE ---
pt laying in bed on phone. Denies pain at this time.
[2022-05-27] MEDS: cyclobenzaprine 10 mg Tablet 5 MG PO (12:03)
--- NOTE | 2022-05-27 15:29 | PC.NURSE ---
Pt family keeps supplying patient with drinks and is over her fluid restriction amount. Pt has consumed caffeine and is instructed at this time to not consume anymore caffeine.
--- NOTE | 2022-05-27 15:41 | PC.NURSE ---
pt was provided reinforced education about fluid restriction.
--- NOTE | 2022-05-27 16:35 | PC.NURSE ---
Pt laying in bed with eye closed and melissa resp
[2022-05-27] MEDS: sacubitril/valsartan 24-26 mg Tablet 1 EACH PO (17:59)
--- NOTE | 2022-05-27 19:01 | PC.NURSE ---
Bedside report given to Alicia FAN at this time.
[2022-05-27] MEDS: enoxaparin 40 mg/0.4 mL Syringe SUBCUT (20:16)
[2022-05-28] VITALS (23 sets, daily range): BP systolic 88–116; BP diastolic 65–78; PULSE 93–116; RESP 0–31; TEMP 36.5–36.8; O2SAT 88–96
[2022-05-28 05:12] LABS: Basophils # 0.1 10^3/uL (0.0-0.1); Basophils % 1.3 %; Eosinophils # 0.3 10^3/uL (0.0-0.8); Eosinophils % 3.6 %; Hemoglobin 16.8 g/dL (11.5-15.3); Lymphocytes # 2.6 10^3/uL (0.8-4.8); Lymphocytes % 28.8 %; Mean Corpuscular HGB Conc 32.9 g/dL (30.0-36.0); Mean Corpuscular Hemoglobin 28.8 pg (28.0-34.0); Mean Corpuscular Volume 87.3 fl (81-99); Mean Platelet Volume 9.5 fL (7.4-10.4); Monocytes # 0.9 10^3/uL (0.2-0.9); Monocytes % 9.3 %; Neutrophils # 5.16 10^3/uL (1.8-7.7); Neutrophils % 56.7 %; Nucleated Red Blood Cells % 0 %; Platelet Count 290 10^3/cmm (130-400); Red Blood Count 5.84 10^6/uL (4.1-5.3); Red Cell Distribution Width 14.8 % (12.1-15.1); White Blood Count 9.1 10^3/uL (4.0-10.0)
--- NOTE | 2022-05-28 06:00 | NMCV_ITS ---
NM juan carlos perf SPECT r/s* [id number] Alesha Mack Age: 52 Gender: F : 1970 Exam Date: 05/28/2022 06:49 Ordering Phys: Patrice Mariscal MD Technologist: RADHA Hsu Exam Location: [facility] Indications: CHEST PAIN STRESS TEST [facility] IMAGE PROTOCOL Rest/Stress 1 Lexiscan Day Radiopharmaceutical Dose (mCi) Administration Site Administered by Rest: Tc-99m 10.9 IV RADHA Connelly Sestamibi Stress:Tc-99m 33.0 IV RADHA Connelly Sestamibi Rest: 28-May-2022 60 Discovery 630 Stress: 28-May-2022 30 Discovery 630 Images obtained in supine and prone position. 0.4mg Lexiscan. SPECT RESULTS Technical Quality: Excellent Raw Data Analysis: Normal Image Corrections: No attenuation or motion correction applied Summed Stress Score: 13 Summed Rest Score: 6 Summed Difference Score: 7 PERFUSION FINDINGS Areas of moderate to severely decreased tracer uptake in the basal, mid and apical inferior, mid inferolateral, mid anterior, apical septal and LV apex. Significant reversibility was noted in these regions FUNCTIONAL RESULTS (calculated via Gated SPECT) Stress Image LV EF (%): 19 Stress EDV (mL):247 TID: 1 Stress ESV (mL):199 FUNCTIONAL FINDINGS: Segmental wall motion analysis revealed severe diffuse hypokinesia left ventricle. Markedly dilated LV cavity IMPRESSIONS 1. Myocardial perfusion imaging revealing areas of moderate to severely decreased tracer uptake in the inferior, inferolateral, anterior and apical regions with significant reversibility, suggesting ischemia in the distribution of right coronary artery and left anterior descending artery- predominantly with some involvement of the circumflex artery. 2. Markedly diminished LV ejection fraction of 19%. 3. Wall motion normalities as mentioned above. 4. Moderate to markedly dilated LV cavity with an end-systolic volume of 199 mL. No similar previous studies are available for comparison Dr Angelo Robles MD [facility] (Electronically Signed) Final Date: 28 May 2022 12:54 S
--- NOTE | 2022-05-28 07:21 | ECG_ITS ---
[facility] Test Date: 2022-05-28 Pat Name: Alesha Mack Department: Room: 259 Gender: Female General Activities Therapist: Valeri Wylie : 1970 Requested By: Patrice Mariscal Order Number: [id number] Jose MD: Angelo Robles M.D. Interpretive Statements NAME OF STUDY: LEXISCAN SESTAMIBI STRESS TEST INDICATION: Shortness of Breath, PROCEDURE: At the baseline, the EKG revealed sinus rhythm with a rate of 100 bpm. Possible left atrial enlargement. Possible right atrial enlargement. Left axis deviation. The baseline blood pressure was 96/74 mm Hg with a heart rate of 100 beats/min. Lexiscan was infused over a period of 20 seconds. A total of 0.4 milligrams of Lexiscan was infused. The stress phase was continued for a total of 5 minutes. Heart rate at the end of the stress phase was 106 with a blood pressure 105/76. The EKG at the peak infusion revealed no significant changes. Sestamibi was injected 20 seconds after the Lexiscan infusion. Blood pressure at the end of the recovery phase was 91/73 with a heart rate of 106 per minute. CONCLUSION: 1. No significant EKG changes with the LexiScan infusion 2. No LexiScan induced chest pain or cardiac arrhythmia 3. Normal blood pressure and heart rate response 4. Sestamibi/sestamibi perfusion scan pending; see separate report. Electronically Signed On 05-31-2022 11:28:02 CDT by Angelo Robles M.D. [email or web address]
[2022-05-28] MEDS: aminophylline 25 mg/mL SDV 10 mL IVP (07:30)
--- NOTE | 2022-05-28 07:30 | PC.NURSE ---
Report received from Fatmata FAN at this time.
[2022-05-28 10:09] LABS: Alanine Aminotransferase 11 U/L (0-33); Albumin Level 3.7 g/dL (3.5-5.2); Alkaline Phosphatase 93 IU/L (35-105); Aspartate Amino Transferase 18 U/L (0-32); Blood Urea Nitrogen 18 mg/dL (6-20); Calcium 9.6 mg/dL (8.5-10.5); Carbon Dioxide 25 mmol/L (22-29); Chloride 96 mmol/L (98-107); Globulin 3.8 g/dL (1.3-4.6); Glomerular Filtration Rate 74.7 mL/min (90-130); Glucose 117 mg/dL (65-115); Osmolality Calculated 279 mOsm/kg (285-295); Sodium 133 mmol/L (136-145); Total Bilirubin 0.9 mg/dL (0.15-1.2); Total Protein 7.5 g/dL (6.6-8.7)
--- NOTE | 2022-05-28 12:27 | P.PN_ITS ---
Subjective Subjective: Patient is getting stress test today Qualify for sleep study Apneic spells and hypoxia overnight Persistent sinus tachycardia Her blood pressure is low today, hold Entresto Vitals/I&O/Wt Last Vital Signs Temp 98.2 F 05/28/22 11:36 Pulse 103 H 05/28/22 11:36 Resp 20 H 05/28/22 11:36 BP 88/65 05/28/22 11:36 Pulse Ox 92 05/28/22 11:36 05/27/22 05/28/22 05/28/22 22:59 06:59 14:59 Intake Total 967 / 1960 Output Total 400 / 1300 1400 / 2700 Balance 567 / 660 -1400 / -740 Physical Exam Narrative: Patient showing signs of fluid overload S1, S2 sinus tachycardia Signs of fluid overload with bilateral lower extremity edema Abdomen soft Pleasant cooperative Currently on room air Daughter is also at the bedside Data : 05/28/22 05:01 05/28/22 09:20 A&P Assessment and plan (1) Dyslipidemia: Status: Acute (2) Family history of premature coronary heart disease: Status: Acute (3) Smoking addiction: Status: Acute (4) Cardiomyopathy: Status: Acute (5) Acute on chronic systolic heart failure: Status: Acute (6) Alkalosis, metabolic: Status: Acute (7) Sinus tachycardia: Status: Acute (8) New onset of congestive heart failure: Status: Acute Plan Acute CHF exacerbation Reduced ejection fraction Stress test today Hold Entresto Patient is hypotensive I am also holding her diuretics for today Sinus tachycardia D-dimer was unremarkable I do believe this is compensatory mechanism to new onset CHF We will follow-up with cardiology recommendations Patient would also need LifeVest She will also need sleep study at discharge She will stay in the hospital For the primary male after stress test results today Full code Cardiac diet DVT prophylaxis: Lovenox Attestations Medical Necessity Statement*: Continue medical management Time Spent in Patient Care: 30 Coding Level of Care Code Acute Zoning Technician for Davidg Fwd Diagnoses Dyslipidemia E78.5 Family history of premature coronary heart disease Z82.49 Smoking addiction F17.200 Cardiomyopathy I42.9 Acute on chronic systolic heart failure I50.23 Alkalosis, metabolic E87.3 Sinus tachycardia R00.0 New onset of congestive heart failure I50.9
--- NOTE | 2022-05-28 17:04 | P.PN_ITS ---
Subjective Subjective: Patient had a Myocardial perfusion imaging today. She was found to have a areas of reversible defect in the distribution of the left anterior descending artery and right coronary artery. She continues to have exertional dyspnea and weakness. Has significant improvement of the leg swelling. No chest pain. No fever or chills. Has a cough. Medications: Medication Review Details: Current Medications Acetaminophen (Acetaminophen 500 Mg Tablet) 500 mg PO Q4H PRN PRN Reason: pain or fever Last Admin: 05/27/22 15:03 Dose: 500 mg Documented by: Albuterol/Ipratropium (Ipratropium-Albuterol 3 Ml Neb) 3 ml INHALATION Q6H PRN PRN Reason: SHORTNESS OF BREATH Last Admin: 05/25/22 21:54 Dose: 3 ml Documented by: Aspirin (Aspirin 81 Mg Ec Tablet) 81 mg PO DAILY [facility] Last Admin: 05/28/22 09:26 Dose: Not Given Documented by: Cyclobenzaprine HCl (Cyclobenzaprine 10 Mg Tablet) 5 mg PO TID PRN PRN Reason: MUSCLE SPASMS Last Admin: 05/27/22 12:03 Dose: 5 mg Documented by: Enoxaparin Sodium (Enoxaparin 40 Mg/0.4 Ml Syringe) 40 mg SUBCUT Q24H [facility] Last Admin: 05/27/22 20:16 Dose: 40 mg Documented by: Ondansetron HCl (Ondansetron 2 Mg/Ml Sdv 2 Ml) 4 mg IVP Q6H PRN PRN Reason: NAUSEA AND VOMITING Sacubitril/Valsartan (Sacubitril/Valsartan 24-26 Mg Tablet) 1 each PO BID [facility] Last Admin: 05/28/22 09:27 Dose: Not Given Documented by: Senna/Docusate Sodium (Sennosides-Docusate Tablet) 1 tab PO DAILY [facility] Last Admin: 05/28/22 09:27 Dose: Not Given Documented by: Vitals/I&O/Wt Last Vital Signs Temp 98.2 F 05/28/22 15:27 Pulse 116 H 05/28/22 15:27 Resp 16 05/28/22 15:27 BP 109/75 05/28/22 15:27 Pulse Ox 93 05/28/22 15:27 07/19/22 07/19/22 07/19/22 06:59 14:59 22:59 Output Total 1400 / 2700 650 / 650 Balance -1400 / -740 -650 / -650 Physical Exam Narrative: GENERAL: The patient is alert and oriented times three. Not in any acute distress. Obese HEENT: No significant pallor, icterus or lymphadenopathy.Oral cavity: There are no mucous membrane lesions. NECK: Trachea appears to be central. No masses noted. No JVD or thyromegaly appr eciated. RESPIRATORY: Chest is symmetrical. No intercostals muscle retraction or any accessory muscle activation. There is no chest wall tenderness. Breath sounds are heard bilaterally. No rales or rhonchi heard. No evidence of any consolidation. BREASTS: Deferred. HEART: The heart sounds are normal. No S3 or S4. No significant murmurs. No pericardial rub ABDOMEN: No vessel pulsations or distention. No tenderness. No organomegaly appreciated. Bowel sounds are normally heard. : Deferred. RECTAL: Deferred. LYMPHATIC: No lymphadenopathy noted in the neck. EXTREMITIES: Trace edema with no cyanosis. No clubbing. MUSCULOSKELETAL: No acute joint deformities or swelling SKIN: There are no significant rashes or ecchymosis NEUROPSYCHIATRIC: The patient is alert and oriented x3. Appears to be in a good mood. No tremors or rigidity noted. Data : 05/28/22 05:01 05/28/22 09:20 Other Labs: Laboratory Last Values WBC 9.1 10^3/uL (4.0-10.0) 05/28/22 05:01 RBC 5.84 10^6/uL (4.1-5.3) H 05/28/22 05:01 Hgb 16.8 g/dL (11.5-15.3) H 05/28/22 05:01 Hct 51.0 % (37.0-47.0) H 05/28/22 05:01 MCV 87.3 fl (81-99) 05/28/22 05:01 MCH 28.8 pg (28.0-34.0) 05/28/22 05:01 MCHC 32.9 g/dL (30.0-36.0) 05/28/22 05:01 RDW 14.8 % (12.1-15.1) 05/28/22 05:01 Plt Count 290 10^3/cmm (130-400) 05/28/22 05:01 MPV 9.5 fL (7.4-10.4) 05/28/22 05:01 Neut % (Auto) 56.7 % 05/28/22 05:01 Lymph % (Auto) 28.8 % 05/28/22 05:01 Bureau % (Auto) 9.3 % 05/28/22 05:01 Eos % (Auto) 3.6 % 05/28/22 05:01 Baso % (Auto) 1.3 % 05/28/22 05:01 Neut # (Auto) 5.16 10^3/uL (1.8-7.7) 05/28/22 05:01 Lymph # (Auto) 2.6 10^3/uL (0.8-4.8) 05/28/22 05:01 Bureau # (Auto) 0.9 10^3/uL (0.2-0.9) 05/28/22 05:01 Eos # (Auto) 0.3 10^3/uL (0.0-0.8) 05/28/22 05:01 Baso # (Auto) 0.1 10^3/uL (0.0-0.1) 05/28/22 05:01 Nucleated RBC % (auto) 0 % 05/28/22 05:01 Nucleated RBCs # 0.0 /100WBC 05/28/22 05:01 D-Dimer 0.65 ug/mIFEU (0-0.59) H 05/25/22 22:00 Sodium 133 mmol/L (136-145) L 05/28/22 09:20 Potassium 4.0 mmol/L (3.5-5.1) 05/28/22 09:20 Chloride 96 mmol/L (98-107) L 05/28/22 09:20 Carbon Dioxide 25 mmol/L (22-29) 05/28/22 09:20 Anion Gap 16.0 (5-19) 05/28/22 09:20 BUN 18 mg/dL (6-20) 05/28/22 09:20 Creatinine 0.8 mg/dL (0.5-0.9) 05/28/22 09:20 GFR Calculation 74.7 mL/min (90-130) L 05/28/22 09:20 Glucose 117 mg/dL (65-115) H 05/28/22 09:20 Estimat Average Glucose 143 05/25/22 22:00 Hemoglobin A1c 6.6 % (4.0-6.0) H 05/25/22 22:00 Calculated Osmolality 279 mOsm/kg (285-295) L 05/28/22 09:20 Calcium 9.6 mg/dL (8.5-10.5) 05/28/22 09:20 Magnesium 1.9 mg/dL (1.7-2.3) 05/26/22 05:28 Total Bilirubin 0.9 mg/dL (0.15-1.2) 05/28/22 09:20 AST 18 U/L (0-32) 05/28/22 09:20 ALT 11 U/L (0-33) 05/28/22 09:20 Alkaline Phosphatase 93 IU/L (35-105) 05/28/22 09:20 Troponin T Baseline 27 ng/L (0-10) H 05/25/22 15:43 Troponin T 120 Minute 23.86 ng/L (0-10) H 05/25/22 18:30 Delta Troponin T -3.14 ABS# (0-10) L 05/25/22 18:30 Troponin T Hi Sens 6Hr 23.64 ng/L (0-10) H 05/25/22 22:00 Troponin T Hi Sens 6Hr Delta -3.36 ng/L (0-12) L 05/25/22 22:00 NT-Pro-B Natriuret Pep 1912 pg/mL (0-125) H 05/25/22 15:43 Total Protein 7.5 g/dL (6.6-8.7) 05/28/22 09:20 Albumin 3.7 g/dL (3.5-5.2) 05/28/22 09:20 Globulin 3.8 g/dL (1.3-4.6) 05/28/22 09:20 Triglycerides 122 mg/dL (0-150) 05/25/22 22:00 Cholesterol 177 mg/dL (0-200) 05/25/22 22:00 LDL Cholesterol, Calc 110 mg/dL (50-129) 05/25/22 22:00 HDL Cholesterol 43 mg/dL (60-100) L 05/25/22 22:00 LDL/HDL Ratio 2.56 RATIO (0.00-3.22) 05/25/22 22:00 Cholesterol/HDL Ratio 4.12 mg/dL (0.0-4.40) 05/25/22 22:00 TSH 1.78 uIU/mL (0.27-4.20) 05/25/22 22:00 Urine Opiates Screen Negative ng/mL (Negative) 05/25/22 21:00 Ur Barbiturates Screen Negative ng/mL (Negative) 05/25/22 21:00 Ur Phencyclidine Scrn Negative ng/mL (Negative) 05/25/22 21:00 Ur Amphetamines Screen Negative ng/mL (Negative) 05/25/22 21:00 U Benzodiazepines Scrn Negative ng/mL (Negative) 05/25/22 21:00 Urine Cocaine Screen Negative ng/mL (Negative) 05/25/22 21:00 U Marijuana (THC) Screen Negative ng/mL (Negative) 05/25/22 21:00 SARS-CoV-2 Ag (Rapid) Negative (Negative) 05/25/22 15:00 A&P Assessment and plan (1) New onset of congestive heart failure: I discussed with the patient in detail the implications of the Myocardial perfusion imaging results. The test is highly suggesting ischemia in the distribution of the left anterior descending and right coronary artery. Most likely this may be causing the LV dysfunction and the heart failure. For further evaluation of her coronary status, she requires a cardiac catheterization. The risk of bleeding, hematoma, vascular injury, myocardial infarction, CVA, renal failure and other concomitant complications were explained in detail. Patient understood this well and consented to proceed. We may go ahead and schedule her for the procedure in the morning. Status: Acute (2) Cardiomyopathy: Patient is started on Entresto. Seems to be tolerating the medication so far well. After reviewing the cardiac catheterization data, further recommendations will be made. Status: Acute (3) COPD exacerbation: May continue on the current treatment. She may be given an nebulizer treatment prior to the cardiac catheterization. Status: Acute (4) Smoking addiction: Patient is strongly advised to quit smoking. Status: Acute (5) Family history of premature coronary heart disease: Continue the current management for the time being. Status: Acute (6) Dyslipidemia: May continue on the current medications. After reviewing the cardiac catheterization data, further management decisions will be made. Status: Acute Plan Based on the results of the above tests and the patient's clinical progress, further recommendations will be made. Pre cardiac catheterization orders are written Attestations Medical Necessity Statement*: Patient requires continued hospital stay for close monitoring and further management Coding Level of Care Code Acute Data Conversion Operator for Chg Fwd History Expanded Problem Focused Exam Detailed Medical Decision Making Moderate Complexity Diagnoses New onset of congestive heart failure I50.9 Cardiomyopathy I42.9 COPD exacerbation J44.1 Smoking addiction F17.200 Family history of premature coronary heart disease Z82.49 Dyslipidemia E78.5
--- NOTE | 2022-05-28 18:20 | PC.NURSE ---
pt lying in bed resting with eyes closed and equal chest rise.
[2022-05-28] MEDS: cyclobenzaprine 10 mg Tablet 5 MG PO (19:08)
[2022-05-28] MEDS: acetaminophen 500 mg Tablet PO (19:09)
--- NOTE | 2022-05-28 19:18 | PC.NURSE ---
Bedside report given to Fatmata FAN at this time.
[2022-05-28] MEDS: enoxaparin 40 mg/0.4 mL Syringe SUBCUT (20:19)
[2022-05-29] VITALS (73 sets, daily range): BP systolic 77–137; BP diastolic 49–92; PULSE 84–119; RESP 0–36; TEMP 36.4–37; O2SAT 88–97
--- NOTE | 2022-05-29 05:12 | XACV_ITS ---
Exam Room: [facility] Ht: 163 cm Wt: 90 kg BSA: 2.05 m2 Gender: Female : 1970 Any Known Allergies: No known allergies Exam Priority: Routine Procedure(s): Procedure Description: Diagnostic procedure Procedure Description: PCI procedure Procedure Description: Left Heart Catheterization Procedure Description: Drug Eluting Coronary Stent Procedure Description: PTCA Procedure Description: Miscellaneous Procedure Description: ACT Procedure Description: Coronary Angiography Travis HERNANDEZ; Diagnostic Cath Status: Urgent Diagnostic Findings * The left main is a medium caliber vessel with no significant stenotic lesion. * The left anterior descending artery is a medium caliber vessel which was found to have mild diffuse intimal irregularities in the mid and distal segment. No significant stenotic lesions were noted. The first diagonal branch was found to have around 30% ostial narrowing. * The left circumflex artery is a medium caliber vessel which gives off a high obtuse marginal branch. This artery was found to have around 50% proximal narrowing. No other significant stenotic lesions were noted. The mid and distal circumflex artery was found to have minimal intimal irregularities. * The right coronary artery is a medium caliber dominant vessel, found to have mild diffuse disease in the midsegment. The distal segment of the artery was found to have a eccentric ulcerated plaque with 60 to 70% luminal narrowing. The PDA branch of the artery was found to have around 90% ostial narrowing. The PLV branch was found to have minimal intimal regularities. PCI Status: Urgent PCI Indication: Other Interventional Findings * Procedure detail: We engaged RCA with hockey-stick guide catheter. IV heparin was administered to maintain ACT above 250 s. 0.014 cougar guidewire was used to cross RCA stenosis and post cannula distal PDA. We predilated PDA lesion with 2.5 x 12 mm noncompliant balloon. This was followed by placement of 2.75 x 18 mm resolute [place] drug-eluting stent. It was postdilated in the proximal segment with 3.25 x 8 mm NC balloon. We then predilated distal RCA stenosis with 2.5 x 12 mm stent implantation. IVUS 3.0 x 18 mm resolute Tyree drug-eluting stent was placed in the vessel. In the proximal section we postdilated the stent with 3.25 x 8 mm NC balloon. At this time final angiogram was performed that showed excellent stent expansion, no residual stenosis and PATRICIA-3 flow. Guidewire and guide catheter were removed. Patient left the Custom Decorating Consultant in a stable condition. . * Distal Right Coronary Artery: 70% stenosis treated with a AB TREK 2.50X12 RX BALLOON, MDT R TYREE 2.75X18 DEAN, MDT R TYREE 3.0X18 DEAN, and MDT NC EUPHORA RX [id number] BALLOON. 0% residual stenosis, PATRICIA: 3 flow. * Posterior Descending Right: 90% stenosis treated with a AB TREK 2.50X12 RX BALLOON, MDT R TYREE 2.75X18 DEAN, and MDT NC EUPHORA RX 3.50I00IV BALLOON. 0% residual stenosis, PATRICIA: 3 flow. Conclusions 1. 52-year-old white female, presenting with a progressive shortness of breath, clinical features of decompensated heart failure with a severe LV systolic dysfunction. Myocardial perfusion imaging revealing areas of reversible and irreversible defects in the distribution of the right coronary artery and left anterior descending artery. For further evaluation of the patient coronary status, a cardiac catheterization was recommended. She underwent left heart catheterization with left and right coronary angiogram today. The findings are as follows.. 2. Ulcerated moderate to high-grade lesion in the distal right coronary artery. Critical stenosis in the ostium of the PDA branch of the right coronary artery. Mild diffuse disease in the other vessels. LVEDP of 13 mmHg. 3. The angiogram was reviewed and discussed with Dr. Maurer. It was thought to be appropriate to consider PCI of the RCA lesions. Dr. Maurer concurred with this plan. He took over further management of this patient at this point. 4. S/p successful revascularization of distal RCA with DEAN x1 and PDA with DEAN x1. 5. Distal Right Coronary Artery was treated with a Balloon, Drug Eluting Stent, Drug Eluting Stent, and Balloon. 6. Posterior Descending Right was treated with a Balloon, Drug Eluting Stent, and Balloon. Recommendations * Aspirin and Plavix for at least 1 year. * High intensity statin therapy. * Outpatient cardiology follow-up in 4 weeks. Interventional RX Recommendation: PCI w/o planned CABG Diagnostic RX Recommendation: PCI w/o planned CABG LV EDP: 13 mmHg Left Ventriculography Findings: * The LV gram was not performed because of the limitations on the dye usage. LVEDP was 13 mmHg. Pressures Phase:Rest AO : 99 / 85 ( 92 ) @ 7:33:00 AM 108 / 61 ( 77 ) @ 7:45:00 AM 108 / 62 ( 77 ) @ 7:45:00 AM 99 / 66 ( 83 ) @ 7:53:00 AM 110 / 62 ( 83 ) @ 7:53:00 AM 134 / 63 ( 82 ) @ 8:11:00 AM LV : 112 / -12 / 10 @ 7:44:00 AM 110 / -10 / 13 @ 7:45:00 AM Valves Phase:DefaultPhase AV : 2.0 @ 7:24:54 AM AV Mean Gradient: 18.0 @ 7:24:54 AM Clinical Evaluation EBL: 5mL-10mL Procedural Details Procedure Consent Obtained. Pre-Procedure Time Out. Identified patient by full name and date of as verbalized by the patient/guarantor. Does the consent match the physician's order: Yes. Accurate & Complete Informed Consent: Yes. Inpatient/Outpatient History & Physical on Chart: Yes. If H&P is completed, is and addenduem needed: No; If yes, is the addendum complete: N/A. Visualize and Verify Site with Patient/Guarantor: N/A. Relevant Radiology Images available: Yes. Pre-op teaching completed and patient verbalized understanding. The risks, benefits, and alternatives of sedation and/or procedure were discussed by physician. The patient agrees to continue. Procedure started. [facility] Clinical Fraility Score: 3: Managing Well. Custom Decorating Consultant Indications: Suspected CAD. Chest Pain Symptom Assessment: Atypical Angina. Correct patient, site and procedure confirmed by cath team. Current diagnosis: Chest Pain. PERRLA. Strong, equal hand cycle counter bilaterally. Lungs clear x 5 lobes. IV Site on Arrival: 18 gauge in the left anticubital. IV Fluids: 0.9% NaCl at KVO. 0 mL infused prior to chemical laboratory tester. Oxygen started at 2liters/min via nasal canula. right groin was prepped with chloroprep then draped in the usual sterile fashion. right radial was prepped with chloroprep then draped in the usual sterile fashion. Physician notified. Baseline sample Acquired. HR: 101 BPM. Equipment: 6F - Radial. Cardiac Cath Pack. ACIST Manifold Kit Model BT 2000. Heparinized Saline (2 units/mL), 1000 mL bag. Valeri Wylie RN, CHRONIC SPECIALIST was relieved by Douglas Esquivel RRT as monitoring person. Physician arrived. Physician scrubbed in. Immediate Pre-Procedure Time Out. Correct Patient: Yes; Correct Procedure: Yes; Correct Site: Yes; Correct Patient Position: Yes; Correct Supplies: Yes; Dried Flammable Prep: Yes; Blood Products Available: N/A;. Lidocaine 1% infiltrated to the right radial. Arterial access obtained. Wire and needle out. Manual pressure held. Unable to obtain radial access. MD attempting to gain access in the Femoral artery. TR band applied to right wrist. An attempt to gain access to the right radial artery was unsuccessful. Manual pressure was held as needed to stop the bleeding. Lidocaine 1% infiltrated to the right groin. Arterial access obtained with micropuncture set. A 5 djiboutian JL4 catheter in over wire. Multiple views taken of left coronary artery. Catheter removed over the standard wire. A 5 djiboutian JR4 catheter in over wire. Multiple views taken of right coronary artery. Called Dr Maurer to come view images. Catheter removed over the standard wire. A 5 djiboutian Angled Pig catheter in over wire. Dr Maurer arrived. EDP Sample taken: LV 112/-13,10; HR: 106 BPM; SpO2: 93%. Pullback taken: LV 110/-11,13; AO 108/61(77); Mean: 18mmHg, Peak to Peak: 2mmHg, SEP: 12sec/min; HR: 103 BPM; SpO2: 94%. Catheter removed over the standard wire. Side port of sheath attached to Normal Saline flush at KVO to maintain patency. Dr. Maurer scrubbed in to perform intervention. Inventory is CRD 6FR H-STICK GUIDE. Inventory is [employer] [place] XT .014 190cm Str. Guidewire. Sheath upsized to a 6 Fr. 6 djiboutian H-STICK guide catheter was inserted over the wire. [place] guidewire was advanced through the guide catheter to lesion in the distal RCA. Inflation number : 1 A AB TREK 2.50X12 RX BALLOON was prepped and advanced across the R PDA , then inflated to 12 FRANCESCA for 0:07 seconds. Inflation number: 2 The AB TREK 2.50X12 RX BALLOON was reinflated across the R PDA, to 12 FRANCESCA for 0:17 seconds. Inflation number: 1 The AB TREK 2.50X12 RX BALLOON was reinflated across the Dist RCA, to 14 FRANCESCA for 0:13 seconds. Inflation number: 2 The AB TREK 2.50X12 RX BALLOON was reinflated across the Dist RCA, to 14 FRANCESCA for 0:18 seconds. Inflation number: 3 The AB TREK 2.50X12 RX BALLOON was reinflated across the Dist RCA, to 14 FRANCESCA for 0:16 seconds. Balloon out. Inflation Number : 3 A T R TYREE 2.75X18 DEAN -Lot Number# [id number] exp date 12/10/2024 was prepped and advanced across the R PDA. The stent was deployed at 12 FRANCESCA for 0:21 seconds. Inflation number: 4 The stent balloon was then re-inflated across the Dist RCA to 12 FRANCESCA for 0:07 seconds. Stent balloon out over wire. Inflation Number : 5 A MDT R TYREE 3.0X18 DEAN -Lot Number# [id number] exp date 02/07/2025 was prepped and advanced across the Dist RCA. The stent was deployed at 12 FRANCESCA for 0:22 seconds. Stent balloon out over wire. Results checked. Inflation number : 4 A MDT NC EUPHORA RX [id number] BALLOON was prepped and advanced across the R PDA , then inflated to 12 FRANCESCA for 0:17 seconds. Inflation number: 6 The MDT NC EUPHORA RX [id number] BALLOON was reinflated across the Dist RCA, to 14 FRANCESCA for 0:16 seconds. Inflation number: 7 The MDT NC EUPHORA RX 3.68Y53DW BALLOON was reinflated across the Dist RCA, to 14 FRANCESCA for 0:09 seconds. Inflation number: 8 The MDT NC EUPHORA RX 3.92Q34FG BALLOON was reinflated across the Dist RCA, to 14 FRANCESCA for 0:10 seconds. Balloon out. Results checked. Wire out. Guide catheter out. ACT drawn. Results 244 seconds. Therapeutic limits - pre-heparin administration 90-150 seconds and monitoring heparin during a vascular procedure >[address] Maurer scrubbed out. A Suture was successful obtaining hemostatsis at the Right Femoral artery insertion site. Sheath(s) sutured into position with 2-0 silk and sterile 4x4's and Op-site applied over the site. No oozing or signs and symptoms of hematoma noted. Arterial sheath flushed and connected to tranducer and pressure bag with heparinized saline. Post Procedure: Pulses reassessed and unchanged. PERRLA. Strong, equal hand cycle counter bilaterally. No VTE prophylaxis required. Post-op diagnosis: severe stenosis distal RCA and PDA. Complications: none. Estimated blood loss: 5mL-10mL. Total IV fluids: 300 mL. Medication's Wasted: Nitro = 49.8 mg. Medication's Wasted: Heparin = 3500 units. Contrast type used: Omnipaque 300 mgI/mL, 500 mL bottle. Responsiveness - Normal response to verbal stimuli; alert and oriented, PERRLA. Airway - Unaffected, no intervention required; spontaneous ventilation. Circulation: W/N/L, pulses unchanged. Nausea/Vomiting: No. Procedure completed. Patient transferred by bed to [facility]. Access Site Site: Right Femoral artery Sheath Size: 5 Fr Hemostasis Method: Suture Hemostasis Success: Successful Procedure Medications Start: 6:09 AM Stop: 6:09 AM Medication: Versed Amount: 1 mg Route: I.V. Start: 6:09 AM Stop: 6:09 AM Medication: Fentanyl Amount: 50 mcg Route: I.V. Start: 6:20 AM Stop: 6:20 AM Medication: Versed Amount: 1 mg Route: I.V. Start: 6:20 AM Stop: 6:20 AM Medication: Fentanyl Amount: 25 mcg Route: I.V. Start: 6:38 AM Stop: 6:38 AM Medication: Heparin Amount: 1500 units Route: I.V. Start: 6:53 AM Stop: 6:53 AM Medication: Versed Amount: 1 mg Route: I.V. Start: 6:53 AM Stop: 6:53 AM Medication: Fentanyl Amount: 25 mcg Route: I.V. Start: 6:57 AM Stop: 6:57 AM Medication: Heparin Amount: 7000 units Route: I.V. Start: 7:11 AM Stop: 7:11 AM Medication: Nitrogylcerin Amount: 200 mcg Route: I.C. Start: 7:21 AM Stop: 7:21 AM Medication: Heparin Amount: 2000 units Route: I.V. Start: 7:23 AM Stop: 7:23 AM Medication: Plavix Amount: 600 mg Route: P.O. I, the attending physician, have reviewed and verified all procedure medications. Yes, all medications given per verbal order History/Risk Factors Hypertension: No Dyslipidemia: Yes Peripheral Arterial Disease (PAD): No Myocardial Infarction ([place]): No Obesity: Yes Renal Disease: No Tobacco Use: Current/Recent(w/in 1 year) Prior Interventions PCI: No CABG: No Valve Surgery: No Report Signatures Interventional Workflow Finalized by Justo Maurer MD on 06/10/2022 11:34 AM Diagnostic Workflow Finalized by Dr Angelo Robles MD [facility] on 05/30/2022 08:14 PM
[2022-05-29] MEDS: acetaminophen 500 mg Tablet PO (05:24)
[2022-05-29] MEDS: diphenhydrAMINE 50 mg Capsule PO (05:25)
[2022-05-29] MEDS: cyclobenzaprine 10 mg Tablet 5 MG PO ×2 (05:25→12:26)
[2022-05-29] MEDS: sodium chloride 0.9% 1,000 ML 50 ML IV (05:27)
--- NOTE | 2022-05-29 06:07 | P.HPUD_ITS ---
Surgery/Procedure H&P Update DATE OF PROCEDURE: May 29, 2022 DATE H&P PERFORMED: 05/27/22 H&P UPDATE INFORMATION: I have reviewed H&P completed within last 30 days, I have examined patient prior to procedure and No changes to prior documentation PREOP DIAGNOSIS: CHF/ Cardiomyopathy/ASHD PRIMARY INDICATION FOR PROCEDURE: Abnormal stress test/ cardiomyopathy PLANNED PROCEDURE: [facility] with coronary angio and possible PCI PATIENT REASSESSED PRIOR TO SEDATION, WITH NO CHANGE NOTED: Yes PHYSICAL EXAM: alert, oriented x 3, clear to auscultation bilaterally and regular rate & rhythm AIRWAY EVAL/ANESTHESIA PLAN: normal airway, ASA III, Monitored Anesthesia, Local Anesthesia, Risks, benefits & alternatives of sedation and/or procedure discussed and Patient agrees to continue as planned
--- NOTE | 2022-05-29 06:11 | PM.PN ---
Subjective Subjective: Negative fluid balance Hemodynamically stable Sinus tachycardia Plan for angiogram Vitals/I&O/Wt Last Vital Signs Temp 97.6 F 05/29/22 04:00 Pulse 102 H 05/29/22 04:00 Resp 18 05/29/22 04:00 BP 119/85 05/29/22 04:00 Pulse Ox 96 05/29/22 04:00 05/28/22 05/28/22 05/29/22 14:59 22:59 06:59 Intake Total 118 / 118 Output Total 650 / 650 700 / 1350 Balance -650 / -650 118 / -532 -700 / -1232 Physical Exam Narrative: Pleasant cooperative female Saturating well on room air Signs of fluid overload improving Abdomen soft EOMI, PERRLA Nonfocal neuro exam Saturating well without any respiratory difficulty No active chest pain Data : 05/28/22 05:01 05/28/22 09:20 A&P Assessment and plan (1) Dyslipidemia: Status: Acute (2) Family history of premature coronary heart disease: Status: Acute (3) Smoking addiction: Status: Acute (4) COPD exacerbation: Status: Acute (5) Cardiomyopathy: Status: Acute (6) Acute on chronic systolic heart failure: Status: Acute (7) Sinus tachycardia: Status: Acute (8) New onset of congestive heart failure: Status: Acute Plan Ms. Mack has a positive stress test, there is plan for angiogram today For her acute systolic congestive heart failure she she was diuresed aggressively, suffered from contraction alkalosis, she did not get any diuretic yesterday, today I will start low-dose Bumex Sinus tachycardia, no sign of DVT, To rule out ischemic cardiomyopathy she will need an angiogram She will also need LifeVest later on Full code After her angiogram she will get cardiac diet Her hemoglobin A1c was 6.6 She qualified for sleep apnea She will need CPAP and outpatient sleep study Angiogram: She was found to have a high-grade lesion in the ostium of the PDA branch of the right coronary artery.? She had a moderately severe ulcerated lesion at the distal RCA as well Attestations Medical Necessity Statement*: Angiogram Time Spent in Patient Care: 20 Coding Level of Care Code Acute Truck Rental Service Attendant for Melisa Fwpaulette Diagnoses Dyslipidemia E78.5 Family history of premature coronary heart disease Z82.49 Smoking addiction F17.200 COPD exacerbation J44.1 Cardiomyopathy I42.9 Acute on chronic systolic heart failure I50.23 Sinus tachycardia R00.0 New onset of congestive heart failure I50.9
--- NOTE | 2022-05-29 07:24 | PM.PN ---
Subjective Subjective: And underwent left heart catheterization this morning. She was found to have a high-grade lesion in the ostium of the PDA branch of the right coronary artery. She had a moderately severe ulcerated lesion at the distal RCA as well. She is undergoing PCI of these lesions at this point. Medications: Medication Review Details: Current Medications Acetaminophen (Acetaminophen 500 Mg Tablet) 500 mg PO Q4H PRN PRN Reason: pain or fever Last Admin: 05/29/22 05:24 Dose: 500 mg Documented by: Albuterol/Ipratropium (Ipratropium-Albuterol 3 Ml Neb) 3 ml INHALATION Q6H PRN PRN Reason: SHORTNESS OF BREATH Last Admin: 05/25/22 21:54 Dose: 3 ml Documented by: Aspirin (Aspirin 81 Mg Ec Tablet) 81 mg PO DAILY [facility] Last Admin: 05/28/22 09:26 Dose: Not Given Documented by: Cyclobenzaprine HCl (Cyclobenzaprine 10 Mg Tablet) 5 mg PO TID PRN PRN Reason: MUSCLE SPASMS Last Admin: 05/29/22 05:25 Dose: 5 mg Documented by: Enoxaparin Sodium (Enoxaparin 40 Mg/0.4 Ml Syringe) 40 mg SUBCUT Q24H [facility] Last Admin: 05/28/22 20:19 Dose: 40 mg Documented by: Sodium Chloride (Sodium Chloride 0.9%) 1,000 mls @ 50 mls/hr IV .Q20H ONE Stop: 05/29/22 13:24 Last Admin: 05/29/22 05:27 Dose: 50 mls/hr Documented by: Ondansetron HCl (Ondansetron 2 Mg/Ml Sdv 2 Ml) 4 mg IVP Q6H PRN PRN Reason: NAUSEA AND VOMITING Sacubitril/Valsartan (Sacubitril/Valsartan 24-26 Mg Tablet) 1 each PO BID [facility] Last Admin: 05/28/22 09:27 Dose: Not Given Documented by: Senna/Docusate Sodium (Sennosides-Docusate Tablet) 1 tab PO DAILY [facility] Last Admin: 05/28/22 09:27 Dose: Not Given Documented by: Vitals/I&O/Wt Last Vital Signs Temp 97.6 F 05/29/22 04:00 Pulse 102 H 05/29/22 04:00 Resp 18 05/29/22 04:00 BP 119/85 05/29/22 04:00 Pulse Ox 96 05/29/22 04:00 05/28/22 05/29/22 05/29/22 22:59 06:59 14:59 Intake Total 118 / 118 Output Total 700 / 1350 Balance 118 / -532 -700 / -1232 Physical Exam Narrative: GENERAL: The patient is alert and oriented times three. Not in any acute distress. Obese HEENT: No significant pallor, icterus or lymphadenopathy.Oral cavity: There are no mucous membrane lesions. NECK: Trachea appears to be central. No masses noted. No JVD or thyromegaly appreciated. RESPIRATORY: Chest is symmetrical. No intercostals muscle retraction or any accessory muscle activation. There is no chest wall tenderness. Breath sounds are heard bilaterally. No rales or rhonchi heard. No evidence of any consolidation. BREASTS: Deferred. HEART: The heart sounds are normal. No S3 or S4. No significant murmurs. No pericardial rub ABDOMEN: No vessel pulsations or distention. No tenderness. No organomegaly appreciated. Bowel sounds are normally heard. : Deferred. RECTAL: Deferred. LYMPHATIC: No lymphadenopathy noted in the neck. EXTREMITIES: Trace edema with no cyanosis. No clubbing. No hematoma bleeding from the arterial puncture site MUSCULOSKELETAL: No acute joint deformities or swelling SKIN: There are no significant rashes or ecchymosis NEUROPSYCHIATRIC: The patient is alert and oriented x3. Appears to be in a good mood. No tremors or rigidity noted. Data : 05/28/22 05:01 05/28/22 09:20 Other Labs: Laboratory Last Values WBC 9.1 10^3/uL (4.0-10.0) 05/28/22 05:01 RBC 5.84 10^6/uL (4.1-5.3) H 05/28/22 05:01 Hgb 16.8 g/dL (11.5-15.3) H 05/28/22 05:01 Hct 51.0 % (37.0-47.0) H 05/28/22 05:01 MCV 87.3 fl (81-99) 05/28/22 05:01 MCH 28.8 pg (28.0-34.0) 05/28/22 05:01 MCHC 32.9 g/dL (30.0-36.0) 05/28/22 05:01 RDW 14.8 % (12.1-15.1) 05/28/22 05:01 Plt Count 290 10^3/cmm (130-400) 05/28/22 05:01 MPV 9.5 fL (7.4-10.4) 05/28/22 05:01 Neut % (Auto) 56.7 % 05/28/22 05:01 Lymph % (Auto) 28.8 % 05/28/22 05:01 [place] % (Auto) 9.3 % 05/28/22 05:01 Eos % (Auto) 3.6 % 05/28/22 05:01 Baso % (Auto) 1.3 % 05/28/22 05:01 Neut # (Auto) 5.16 10^3/uL (1.8-7.7) 05/28/22 05:01 Lymph # (Auto) 2.6 10^3/uL (0.8-4.8) 05/28/22 05:01 [place] # (Auto) 0.9 10^3/uL (0.2-0.9) 05/28/22 05:01 Eos # (Auto) 0.3 10^3/uL (0.0-0.8) 05/28/22 05:01 Baso # (Auto) 0.1 10^3/uL (0.0-0.1) 05/28/22 05:01 Nucleated RBC % (auto) 0 % 05/28/22 05:01 Nucleated RBCs # 0.0 /100WBC 05/28/22 05:01 D-Dimer 0.65 ug/mIFEU (0-0.59) H 05/25/22 22:00 Sodium 133 mmol/L (136-145) L 05/28/22 09:20 Potassium 4.0 mmol/L (3.5-5.1) 05/28/22 09:20 Chloride 96 mmol/L (98-107) L 05/28/22 09:20 Carbon Dioxide 25 mmol/L (22-29) 05/28/22 09:20 Anion Gap 16.0 (5-19) 05/28/22 09:20 BUN 18 mg/dL (6-20) 05/28/22 09:20 Creatinine 0.8 mg/dL (0.5-0.9) 05/28/22 09:20 GFR Calculation 74.7 mL/min (90-130) L 05/28/22 09:20 Glucose 117 mg/dL (65-115) H 05/28/22 09:20 Estimat Average Glucose 143 05/25/22 22:00 Hemoglobin A1c 6.6 % (4.0-6.0) H 05/25/22 22:00 Calculated Osmolality 279 mOsm/kg (285-295) L 05/28/22 09:20 Calcium 9.6 mg/dL (8.5-10.5) 05/28/22 09:20 Magnesium 1.9 mg/dL (1.7-2.3) 05/26/22 05:28 Total Bilirubin 0.9 mg/dL (0.15-1.2) 05/28/22 09:20 AST 18 U/L (0-32) 05/28/22 09:20 ALT 11 U/L (0-33) 05/28/22 09:20 Alkaline Phosphatase 93 IU/L (35-105) 05/28/22 09:20 Troponin T Baseline 27 ng/L (0-10) H 05/25/22 15:43 Troponin T 120 Minute 23.86 ng/L (0-10) H 05/25/22 18:30 Delta Troponin T -3.14 ABS# (0-10) L 05/25/22 18:30 Troponin T Hi Sens 6Hr 23.64 ng/L (0-10) H 05/25/22 22:00 Troponin T Hi Sens 6Hr Delta -3.36 ng/L (0-12) L 05/25/22 22:00 NT-Pro-B Natriuret Pep 1912 pg/mL (0-125) H 05/25/22 15:43 Total Protein 7.5 g/dL (6.6-8.7) 05/28/22 09:20 Albumin 3.7 g/dL (3.5-5.2) 05/28/22 09:20 Globulin 3.8 g/dL (1.3-4.6) 05/28/22 09:20 Triglycerides 122 mg/dL (0-150) 05/25/22 22:00 Cholesterol 177 mg/dL (0-200) 05/25/22 22:00 LDL Cholesterol, Calc 110 mg/dL (50-129) 05/25/22 22:00 HDL Cholesterol 43 mg/dL (60-100) L 05/25/22 22:00 LDL/HDL Ratio 2.56 RATIO (0.00-3.22) 05/25/22 22:00 Cholesterol/HDL Ratio 4.12 mg/dL (0.0-4.40) 05/25/22 22:00 TSH 1.78 uIU/mL (0.27-4.20) 05/25/22 22:00 Urine Opiates Screen Negative ng/mL (Negative) 05/25/22 21:00 Ur Barbiturates Screen Negative ng/mL (Negative) 05/25/22 21:00 Ur Phencyclidine Scrn Negative ng/mL (Negative) 05/25/22 21:00 Ur Amphetamines Screen Negative ng/mL (Negative) 05/25/22 21:00 U Benzodiazepines Scrn Negative ng/mL (Negative) 05/25/22 21:00 Urine Cocaine Screen Negative ng/mL (Negative) 05/25/22 21:00 U Marijuana (THC) Screen Negative ng/mL (Negative) 05/25/22 21:00 SARS-CoV-2 Ag (Rapid) Negative (Negative) 05/25/22 15:00 A&P Assessment and plan (1) New onset of congestive heart failure: Patient's history of lymphoma nonischemic cardiomyopathy and atherosclerotic heart disease. High-grade lesion in the right coronary artery as mentioned above. She will be started on Plavix along with aspirin. Other medications will be continued. Status: Acute (2) Cardiomyopathy: The Entresto is tolerated fairly well so far. This needs to be uptitrated as the blood pressure tolerates. Status: Acute (3) COPD exacerbation: May continue on the current treatment. She may be given an nebulizer treatment prior to the cardiac catheterization. Status: Acute (4) Smoking addiction: Patient is strongly advised to quit smoking. Status: Acute (5) Dyslipidemia: May continue on the current medications. After reviewing the cardiac catheterization data, further management decisions will be made. Status: Acute Plan We will continue very close monitoring and medication management. Possible discharge home tomorrow. We will go ahead and order for a LifeVest today. Possible discharge home tomorrow Attestations Medical Necessity Statement*: Patient requires continued hospital stay for close monitoring and further management Coding Level of Care Code Acute Network Security Architect for Melisa Fwd History Detailed Exam Detailed Medical Decision Making Moderate Complexity Diagnoses New onset of congestive heart failure I50.9 Cardiomyopathy I42.9 COPD exacerbation J44.1 Smoking addiction F17.200 Dyslipidemia E78.5
--- NOTE | 2022-05-29 07:54 | PC.NURSE ---
received from cardiac prestressed concrete laborer at 0735 via bed.report received.pt is alert and awake and oriented x 4.denies pain at present.st (104) on monitor.right wrist with tr band on and inflated.right hand is warm to touch and with brisk capillary refill.palpabble radial pulse noted distal to tr band.no hematoma noted.right femoral arterial sheath intact to pressurized system.drsg is dry and intact.no hematoma noted.right foot is cool to touch (as is left foot).capillary refill 3-5 sec. dopplerable pt pulse.unable to dopple dp pulse.pt instructed in activity restrictions s/p radial and femoral procedures...and instructed to notify staff for any bleeding,pain,sob,numbness,cp..or for any concerns at all.pt verb understanding of instructions.
[2022-05-29] MEDS: sacubitril/valsartan 24-26 mg Tablet 1 EACH PO (10:27)
[2022-05-29 11:31] LABS: Basophils # 0.1 10^3/uL (0.0-0.1); Basophils % 0.9 %; Eosinophils # 0.2 10^3/uL (0.0-0.8); Eosinophils % 2.1 %; Hematocrit 50.1 % (37.0-47.0); Hemoglobin 15.4 g/dL (11.5-15.3); Lymphocytes # 2.8 10^3/uL (0.8-4.8); Lymphocytes % 34.3 %; Mean Corpuscular HGB Conc 30.7 g/dL (30.0-36.0); Mean Corpuscular Hemoglobin 28.4 pg (28.0-34.0); Mean Corpuscular Volume 92.4 fl (81-99); Mean Platelet Volume 9.7 fL (7.4-10.4); Monocytes # 0.6 10^3/uL (0.2-0.9); Monocytes % 7.9 %; Neutrophils # 4.39 10^3/uL (1.8-7.7); Neutrophils % 54.4 %; Nucleated Red Blood Cells % 0 %; Platelet Count 281 10^3/cmm (130-400); Red Blood Count 5.42 10^6/uL (4.1-5.3); Red Cell Distribution Width 15.3 % (12.1-15.1); White Blood Count 8.1 10^3/uL (4.0-10.0)
[2022-05-29 11:43] LABS: Partial Thromboplastin Time 66.2 SECONDS (23.9-36.7)
[2022-05-29] MEDS: ondansetron 2 mg/ML SDV 2 mL 4 MG IVP (12:26)
[2022-05-29 13:20] LABS: Partial Thromboplastin Time 31.4 SECONDS (23.9-36.7)
[2022-05-29 13:43] LABS: Anion Gap 12.6 (5-19); Blood Urea Nitrogen 18 mg/dL (6-20); Calcium 8.7 mg/dL (8.5-10.5); Carbon Dioxide 24 mmol/L (22-29); Chloride 99 mmol/L (98-107); Glomerular Filtration Rate 104.2 mL/min (90-130); Glucose 149 mg/dL (65-115); Osmolality Calculated 279 mOsm/kg (285-295); Potassium 3.6 mmol/L (3.5-5.1); Sodium 132 mmol/L (136-145)
--- NOTE | 2022-05-29 14:33 | PC.NURSE ---
right femoral arterial sheath removed at 1400.manual pressure applied x 20 min.bp became soft for a short period of time.150 cc ns bolus given.no hematoma noted.site dressed with 2x2 gauze and secured with bioccclusive .pt instructed in activity restrictions s/p femoral sheath pull...and instructed to notify staff immediately for bleeding,sob,cp,dizziness,numbness, or for any concerns at all.pt verb understanding of instructions.
--- NOTE | 2022-05-29 18:25 | PC.NURSE ---
carrie kennedy'paulette by dr vergara due to low bp
--- NOTE | 2022-05-29 18:52 | PC.NURSE ---
transferred to room 250-1 via bed at this time
[2022-05-29] MEDS: atorvastatin 40 mg Tablet PO (20:40)
[2022-05-30] VITALS: BP 102/69; PULSE 109; RESP 12; TEMP 36.9; O2SAT 88
[2022-05-30 03:56] LABS: Basophils # 0.1 10^3/uL (0.0-0.1); Eosinophils # 0.3 10^3/uL (0.0-0.8); Eosinophils % 2.9 %; Hematocrit 49.1 % (37.0-47.0); Hemoglobin 14.7 g/dL (11.5-15.3); Lymphocytes % 28.8 %; Mean Corpuscular HGB Conc 29.9 g/dL (30.0-36.0); Mean Corpuscular Hemoglobin 28.7 pg (28.0-34.0); Mean Corpuscular Volume 95.9 fl (81-99); Monocytes % 9.8 %; Neutrophils # 5.87 10^3/uL (1.8-7.7); Neutrophils % 57.2 %; Nucleated Red Blood Cells % 0 %; Platelet Count 284 10^3/cmm (130-400); Red Blood Count 5.12 10^6/uL (4.1-5.3); Red Cell Distribution Width 15.5 % (12.1-15.1); White Blood Count 10.3 10^3/uL (4.0-10.0)
[2022-05-30 04:00] VITALS: BP 101/65; PULSE 103; RESP 13; TEMP 36.7; O2SAT 90
[2022-05-30 04:05] LABS: Blood Urea Nitrogen 15 mg/dL (6-20); Calcium 8.8 mg/dL (8.5-10.5); Carbon Dioxide 24 mmol/L (22-29); Chloride 102 mmol/L (98-107); Glomerular Filtration Rate 104.2 mL/min (90-130); Glucose 110 mg/dL (65-115); Osmolality Calculated 283 mOsm/kg (285-295); Sodium 136 mmol/L (136-145)
[2022-05-30 04:06] LABS: Anion Gap 14.8 (5-19); Potassium 4.8 mmol/L (3.5-5.1)
[2022-05-30] MEDS: acetaminophen 500 mg Tablet PO (05:49)
[2022-05-30] MEDS: cyclobenzaprine 10 mg Tablet 5 MG PO (05:51)
[2022-05-30 06:00] VITALS: PULSE 101
[2022-05-30 07:33] VITALS: PULSE 100; RESP 16; O2SAT 91
[2022-05-30 08:00] VITALS: BP 112/74; PULSE 103; RESP 16; TEMP 36.7; O2SAT 91
[2022-05-30] MEDS: sennosides-docusate Tablet 1 TAB PO (08:27)
[2022-05-30] MEDS: clopidogrel 75 mg Tablet PO (08:27)
[2022-05-30] MEDS: aspirin 81 mg EC Tablet PO (08:27)
[2022-05-30] MEDS: metoprolol succinate ER (24 HR) 25 mg Tablet 12.5 MG PO (08:27)
--- NOTE | 2022-05-30 09:23 | P.DS_ITS ---
Discharge Providers Date of Admission: 05/27/22 11:42 Date of Discharge: May 30, 2022 Attending Provider at Admission: Patrice Mariscal MD Attending Provider at Discharge: Patrice Mariscal MD Primary Care Provider: Tess Ko Diagnoses at Discharge Discharge Diagnosis (1) Dyslipidemia: Status: Acute (2) Family history of premature coronary heart disease: Status: Acute (3) Smoking addiction: Status: Acute (4) COPD exacerbation: Status: Acute (5) Cardiomyopathy: Status: Acute (6) Acute on chronic systolic heart failure: Status: Acute (7) Sinus tachycardia: Status: Acute (8) New onset of congestive heart failure: Status: Acute Reason for Visit Reason for Visit: high BP, sent by [facility] Course Hospital Course 52-year female who was admitted for management evaluation of shortness of breath. She was diagnosed with new onset congestive heart failure. Her ejection fraction was extremely low, cardiology was consulted who recommended cardiac stress test first which came back positive, she went for coronary angiogram status post 2 stents( Distal RCA and PDA) please refer to cardiology notes for further details. She did not tolerate Entresto, she was getting hypotensive every time she was getting Entresto decision was made to discharge her on aspirin, Plavix, atorvastatin, low-dose metoprolol succinate. She will follow-up with Pooja Venegas within a week and Dr. Robles within a month. We have arranged for LifeVest for her. For congestive heart failure she will get Lasix and potassium supplementation. Her hemoglobin A1c 6.6, she will start taking metformin 3 days after her angiogram. Physical Exam Narrative: Pleasant cooperative female Saturating well on room air Signs of fluid overload improving Abdomen soft EOMI, PERRLA Nonfocal neuro exam Saturating well without any respiratory difficulty No active chest pain ? Discharge Data Studies Completed and Pending Completed Studies During Hospitalization Category Date Time Status CXRP [XR chest 1V portable [id number]] Urgent Exams 05/25/22 14:53 Completed NM juan carlos perf SPECT r/s* [id number] Routine Nuc Med 05/28/22 06:00 Completed CV. echo complete* [id number] Routine Ultrasound 05/26/22 20:08 Completed US gall bladder 22058 Routine Ultrasound 05/25/22 20:08 Completed US venous duplex lower extremity bilat [CV venous Ultrasound 05/26/22 11:40 [place] [id number]] Routine Pending at discharge Category Date Time Status PATTERNMAKER HELPER request for service Routine Exams 05/29/22 05:12 Taken Sestamibi Stress Test Request Routine Exams 05/27/22 11:56 Stop Req Sestamibi Stress Test Request Routine Exams 05/28/22 07:21 Ordered Tick Panel Routine Lab 05/25/22 22:00 Received Radiology Impressions Chest X-Ray 05/25/22 14:53 IMPRESSION: 1. Interval enlargement of cardiac silhouette size. Probable element of mild vascular congestion. See discussion above. 2. No obvious acute consolidation. Suboptimal lung base assessment. Followup including lateral view may be obtained if clinically indicated. Gallbladder Ultrasound 05/25/22 20:08 IMPRESSION: 1. Mild hepatomegaly without cirrhosis. Probable mild steatosis or other parenchymal disease. 2. Minimal extrahepatic biliary ductal dilatation which could be related to normal status post cholecystectomy. However distal CBD obstruction cannot be excluded. Clinical/LFT correlation should be obtained. Followup imaging such as contrast-enhanced MRI/MRCP may also be considered if clinically indicated. Comparison with previous studies may also be helpful if available. 3. Poorly visualized pancreas. Venous Duplex 05/26/22 11:40 IMPRESSION: No evidence of deep vein thrombosis. Laboratory Results WBC 10.3 10^3/uL (4.0-10.0) H 05/30/22 03:12 RBC 5.12 10^6/uL (4.1-5.3) 05/30/22 03:12 Hgb 14.7 g/dL (11.5-15.3) 05/30/22 03:12 Hct 49.1 % (37.0-47.0) H 05/30/22 03:12 MCV 95.9 fl (81-99) 05/30/22 03:12 MCH 28.7 pg (28.0-34.0) 05/30/22 03:12 MCHC 29.9 g/dL (30.0-36.0) L 05/30/22 03:12 RDW 15.5 % (12.1-15.1) H 05/30/22 03:12 Plt Count 284 10^3/cmm (130-400) 05/30/22 03:12 MPV 10.0 fL (7.4-10.4) 05/30/22 03:12 Neut % (Auto) 57.2 % 05/30/22 03:12 Lymph % (Auto) 28.8 % 05/30/22 03:12 [place] % (Auto) 9.8 % 05/30/22 03:12 Eos % (Auto) 2.9 % 05/30/22 03:12 Baso % (Auto) 1.0 % 05/30/22 03:12 Neut # (Auto) 5.87 10^3/uL (1.8-7.7) 05/30/22 03:12 Lymph # (Auto) 3.0 10^3/uL (0.8-4.8) 05/30/22 03:12 [place] # (Auto) 1.0 10^3/uL (0.2-0.9) H 05/30/22 03:12 Eos # (Auto) 0.3 10^3/uL (0.0-0.8) 05/30/22 03:12 Baso # (Auto) 0.1 10^3/uL (0.0-0.1) 05/30/22 03:12 Nucleated RBC % (auto) 0 % 05/30/22 03:12 Nucleated RBCs # 0.0 /100WBC 05/30/22 03:12 APTT 31.4 SECONDS (23.9-36.7) D 05/29/22 12:50 D-Dimer 0.65 ug/mIFEU (0-0.59) H 05/25/22 22:00 Sodium 136 mmol/L (136-145) 05/30/22 03:12 Potassium 4.8 mmol/L (3.5-5.1) 05/30/22 03:12 Chloride 102 mmol/L (98-107) 05/30/22 03:12 Carbon Dioxide 24 mmol/L (22-29) 05/30/22 03:12 Anion Gap 14.8 (5-19) 05/30/22 03:12 BUN 15 mg/dL (6-20) 05/30/22 03:12 Creatinine 0.6 mg/dL (0.5-0.9) 05/30/22 03:12 GFR Calculation 104.2 mL/min (90-130) 05/30/22 03:12 Glucose 110 mg/dL (65-115) 05/30/22 03:12 Estimat Average Glucose 143 05/25/22 22:00 Hemoglobin A1c 6.6 % (4.0-6.0) H 05/25/22 22:00 Calculated Osmolality 283 mOsm/kg (285-295) L 05/30/22 03:12 Calcium 8.8 mg/dL (8.5-10.5) 05/30/22 03:12 Magnesium 1.9 mg/dL (1.7-2.3) 05/26/22 05:28 Total Bilirubin 0.9 mg/dL (0.15-1.2) 05/28/22 09:20 AST 18 U/L (0-32) 05/28/22 09:20 ALT 11 U/L (0-33) 05/28/22 09:20 Alkaline Phosphatase 93 IU/L (35-105) 05/28/22 09:20 Troponin T Baseline 27 ng/L (0-10) H 05/25/22 15:43 Troponin T 120 Minute 23.86 ng/L (0-10) H 05/25/22 18:30 Delta Troponin T -3.14 ABS# (0-10) L 05/25/22 18:30 Troponin T Hi Sens 6Hr 23.64 ng/L (0-10) H 05/25/22 22:00 Troponin T Hi Sens 6Hr Delta -3.36 ng/L (0-12) L 05/25/22 22:00 NT-Pro-B Natriuret Pep 1912 pg/mL (0-125) H 05/25/22 15:43 Total Protein 7.5 g/dL (6.6-8.7) 05/28/22 09:20 Albumin 3.7 g/dL (3.5-5.2) 05/28/22 09:20 Globulin 3.8 g/dL (1.3-4.6) 05/28/22 09:20 Triglycerides 122 mg/dL (0-150) 05/25/22 22:00 Cholesterol 177 mg/dL (0-200) 05/25/22 22:00 LDL Cholesterol, Calc 110 mg/dL (50-129) 05/25/22 22:00 HDL Cholesterol 43 mg/dL (60-100) L 05/25/22 22:00 LDL/HDL Ratio 2.56 RATIO (0.00-3.22) 05/25/22 22:00 Cholesterol/HDL Ratio 4.12 mg/dL (0.0-4.40) 05/25/22 22:00 TSH 1.78 uIU/mL (0.27-4.20) 05/25/22 22:00 Urine Opiates Screen Negative ng/mL (Negative) 05/25/22 21:00 Ur Barbiturates Screen Negative ng/mL (Negative) 05/25/22 21:00 Ur Phencyclidine Scrn Negative ng/mL (Negative) 05/25/22 21:00 Ur Amphetamines Screen Negative ng/mL (Negative) 05/25/22 21:00 U Benzodiazepines Scrn Negative ng/mL (Negative) 05/25/22 21:00 Urine Cocaine Screen Negative ng/mL (Negative) 05/25/22 21:00 U Marijuana (THC) Screen Negative ng/mL (Negative) 05/25/22 21:00 SARS-CoV-2 Ag (Rapid) Negative (Negative) 05/25/22 15:00 Vitals Last Vital Signs Temp 98.0 F 05/30/22 08:00 Pulse 103 H 05/30/22 08:00 Resp 16 05/30/22 08:00 BP 112/74 05/30/22 08:00 Pulse Ox 91 05/30/22 08:00 Discharge Plan Discharge Patient Disposition: Home Condition: Stable Prescriptions: New atorvastatin 40 mg Tablet 40 mg PO BEDTIME Qty: 90 2RF clopidogrel 75 mg Tablet 75 mg PO DAILY Qty: 90 3RF aspirin 81 mg Tablet,Delayed Release (Dr/Ec) 81 mg PO DAILY Qty: 90 3RF metoprolol succinate 25 mg Tablet Extended Release 24 Hr 12.5 mg PO DAILY Qty: 60 2RF metformin 500 mg tablet 500 mg PO DAILY Qty: 60 2RF Lasix 20 mg tablet 20 mg PO DAILY PRN (Reason: weight gain) Qty: 60 1RF potassium chloride 10 mEq tablet extended release 10 meq PO DAILY Qty: 30 1RF Continued pantoprazole 40 mg tablet,delayed release (DR/EC) 40 mg PO DAILY 0RF gabapentin 100 mg capsule 100 mg PO BID 0RF albuterol sulfate 90 mcg/actuation HFA aerosol inhaler 2 puff INHALATION Q4H PRN (Reason: Shortness Of Breath) 0RF Discharge Orders: Discharge Order (Routine); Ordered 05/30/22 Ordered By: Patrice Mariscal Referrals: Angelo Robles MD [Physician] - 1 month Pooja Venegas FNP [Nurse Practitioner] - 4-7 days Tess Ko PA [Primary Care Provider] - 06/03/22 2:30 pm Discharge Diet: Cardiac Discharge Activity: Increase activity as tolerated Patient Instructions: Metoprolol (By mouth), Furosemide (By mouth), Potassium Chloride (By mouth), Aspirin (By mouth), Metformin (By mouth), Atorvastatin (By mouth), Clopidogrel (By mouth), Coronary Angioplasty (DC), Opioid Safety, Post Angiogram Home Care Instructions Activity Restrictions/Additional Instructions: Please start metformin from 06/01 because we want to give you some gap between the angiogram contrast and initiation of metformin You have been diagnosed with severely reduced ejection fraction heart failure you will take Lasix with potassium supplementation, Do not take potassium along, it is to be supplemented with Lasix You will take aspirin, Plavix for at least 1 year Hemoglobin A1c 6.6 that is why you are getting metformin Your blood pressure was running soft on medication which was started by line technician Li I am holding that medication for now, he will get metoprolol succinate low-dose You can take 2 weeks off from work Discharge Attestations Time Spent in Discharge Care*: less than 30 min Quality Metrics Clinical Quality Measures [ No reported AMI, CVA or VTE this stay] Coding Level of Care Code Acute Chg FW DC note Diagnoses Dyslipidemia E78.5 Family history of premature coronary heart disease Z82.49 Smoking addiction F17.200 COPD exacerbation J44.1 Cardiomyopathy I42.9 Acute on chronic systolic heart failure I50.23 Sinus tachycardia R00.0 New onset of congestive heart failure I50.9
--- NOTE | 2022-05-30 09:35 | PM.PN ---
Subjective Subjective: The patient is doing okay with no chest pain or shortness of breath. Her exertional dyspnea has significantly improved. No fever or chills. No hematoma bleeding from the radial arterial puncture site. Medications: Medication Review Details: Current Medications Acetaminophen (Acetaminophen 500 Mg Tablet) 500 mg PO Q4H PRN PRN Reason: pain or fever Last Admin: 05/30/22 05:49 Dose: 500 mg Documented by: Albuterol/Ipratropium (Ipratropium-Albuterol 3 Ml Neb) 3 ml INHALATION Q6H PRN PRN Reason: SHORTNESS OF BREATH Last Admin: 05/25/22 21:54 Dose: 3 ml Documented by: Aspirin (Aspirin 81 Mg Ec Tablet) 81 mg PO DAILY [facility] Last Admin: 05/30/22 08:27 Dose: 81 mg Documented by: Atorvastatin Calcium (Atorvastatin 40 Mg Tablet) 40 mg PO BEDTIME [facility] Last Admin: 05/29/22 20:40 Dose: 40 mg Documented by: Clopidogrel Bisulfate (Clopidogrel 75 Mg Tablet) 75 mg PO DAILY [facility] Last Admin: 05/30/22 08:27 Dose: 75 mg Documented by: Cyclobenzaprine HCl (Cyclobenzaprine 10 Mg Tablet) 5 mg PO TID PRN PRN Reason: MUSCLE SPASMS Last Admin: 05/30/22 05:51 Dose: 5 mg Documented by: Enoxaparin Sodium (Enoxaparin 40 Mg/0.4 Ml Syringe) 40 mg SUBCUT Q24H [facility] Last Admin: 05/28/22 20:19 Dose: 40 mg Documented by: Metoprolol Succinate (Metoprolol Succinate Er (24 Hr) 25 Mg Tablet) 12.5 mg PO DAILY [facility] Last Admin: 05/30/22 08:27 Dose: 12.5 mg Documented by: Ondansetron HCl (Ondansetron 2 Mg/Ml Sdv 2 Ml) 4 mg IVP Q6H PRN PRN Reason: NAUSEA AND VOMITING Last Admin: 05/29/22 12:26 Dose: 4 mg Documented by: Senna/Docusate Sodium (Sennosides-Docusate Tablet) 1 tab PO DAILY [facility] Last Admin: 05/30/22 08:27 Dose: 1 tab Documented by: Vitals/I&O/Wt Last Vital Signs Temp 98.0 F 05/30/22 08:00 Pulse 103 H 05/30/22 08:00 Resp 16 05/30/22 08:00 BP 112/74 05/30/22 08:00 Pulse Ox 91 05/30/22 08:00 05/29/22 05/30/22 05/30/22 22:59 06:59 14:59 Intake Total 444 / 1109 380 / 1489 236 / 236 Output Total 325 / 400 Balance 119 / 709 380 / 1089 236 / 236 Physical Exam Narrative: GENERAL: The patient is alert and oriented times three. Not in any acute distress. HEENT: No significant pallor, icterus or lymphadenopathy.Oral cavity: There are no mucous membrane lesions. NECK: Trachea appears to be central. No masses noted. No JVD or thyromegaly appreciated. RESPIRATORY: Chest is symmetrical. No intercostals muscle retraction or any accessory muscle activation. There is no chest wall tenderness. Breath sounds are heard bilaterally. No rales or rhonchi heard. No evidence of any consolidation. BREASTS: Deferred. HEART: The heart sounds are normal. No S3 or S4. No significant murmurs. No pericardial rub ABDOMEN: No vessel pulsations or distention. No tenderness. No organomegaly appreciated. Bowel sounds are normally heard. : Deferred. RECTAL: Deferred. LYMPHATIC: No lymphadenopathy noted in the neck. EXTREMITIES: No edema or cyanosis. No hematoma or bleeding from the radial artery puncture site. Good distal pulses MUSCULOSKELETAL: No acute joint deformities or swelling SKIN: There are no significant rashes or ecchymosis NEUROPSYCHIATRIC: The patient is alert and oriented x3. Appears to be in a good mood. No tremors or rigidity noted. Data : 05/30/22 03:12 05/30/22 03:12 A&P Assessment and plan (1) New onset of congestive heart failure: The heart failure is currently compensated. Patient is on Entresto and a low-dose of furosemide. May continue the current medications. Status: Acute (2) Cardiomyopathy: The dose of the Entresto need to be uptitrated as outpatient. May continue on the current dose for the time being. The LifeVest is ordered. Status: Acute (3) COPD exacerbation: May continue on the current treatment. She may be given an nebulizer treatment prior to the cardiac catheterization. Status: Acute (4) Smoking addiction: Patient is strongly advised to quit smoking. Status: Acute (5) Dyslipidemia: May continue on the current medications. Need to have a repeat lipid profile in 2 months. Status: Acute Plan If the patient continues to remain stable, may be discharged home on Plavix, aspirin, atorvastatin, metoprolol and other medications. Metformin need to be held for a total of 3 days. Please make an appointment to be seen by the nurse practitioner next week in the office. Appointment with me in the office in 1 month. Patient needs to be discharged with a LifeVest. Attestations Medical Necessity Statement*: If the the patient continues to remain stable, may be discharged home from a cardiac standpoint Coding Level of Care Code Acute Assistant Store Manager for Melisa Fwpaulette History Detailed Exam Detailed Medical Decision Making Moderate Complexity Diagnoses New onset of congestive heart failure I50.9 Cardiomyopathy I42.9 COPD exacerbation J44.1 Smoking addiction F17.200 Dyslipidemia E78.5
--- NOTE | 2022-05-30 10:12 | PC.NURSE ---
Spoke with physician regarding life vest. Life vest is pending approval via insurance. Physician approved patient to be fit as an outpatient. Patient discharge instructions provided, IV removed and patient left facility with daughter.
[2022-05-30 10:45] VITALS: BP 112/74; PULSE 103; RESP 16; TEMP 36.7; O2SAT 91
[2022-05-31 14:14] LABS: Lyme AB Screen <0.90 index
[2022-06-07 17:52] LABS: E. Chaffeensis AB IGG <1:64; E. Chaffeensis AB IGM <1:20; RMSF IGG NOT DETECTED; RMSF IGM NOT DETECTED
== END 2022-05-30 10:46 | disposition home or self-care (01) | DRG 246 ==
LOC: ER 17:01 → MEDSURG 18:02 → MS 2A 05-29 09:02 → CSU 05-29 09:09 → MEDSURG 05-29 20:23
PROVIDERS: Internal Medicine; Internal Medicine Cardiovascular Disease; Admitting Provider Internal Medicine; Emergency Provider Emergency Medicine; PCP Physician Assistant; Visit Provider Internal Medicine
PROC: B2111ZZ Fluoroscopy of Multiple Coronary Arteries using Low Osmolar Contrast (ICD-10-PCS; principal; 2022-05-29 06:00)
DX: I25.118 Atherosclerotic heart disease of native coronary artery with other forms of angina pectoris (principal); I50.21 Acute systolic (congestive) heart failure; E87.3 Alkalosis; J44.1 Chronic obstructive pulmonary disease with (acute) exacerbation; I42.8 Other cardiomyopathies; R00.0 Tachycardia, unspecified; F17.210 Nicotine dependence, cigarettes, uncomplicated; E78.5 Hyperlipidemia, unspecified; E11.9 Type 2 diabetes mellitus without complications; I95.2 Hypotension due to drugs; T50.995A Adverse effect of other drugs, medicaments and biological substances, initial encounter; Z82.49 Family history of ischemic heart disease and other diseases of the circulatory system
CPT/HCPCS: 36415; 71045; 76705; 78452; 80048; 80053; 80061; 80306; 83036; 83735; 83880; 84443; 84484; 85025; 85347; 85378; 85730; 86618; 86666; 86757; 87426; 93005; 93017; 93306; 93452; 93458; 93970; 94640; 94760; 96360; 96372; 96374; 99152; 99153; 99285; A9500; C1725; C1769; C1874; C1887; C1894; C9600; G0378; J0280; J1644; J1650; J1885; J1940; J2250; J2405; J3010; J3490; J7030; Q0163; Q9967

== ENCOUNTER → 2022-06-07 09:39 | Outpatient (BNVA) | payer OTHER, SELFPAY | PROVIDERS: PCP Physician Assistant; Visit Provider Nurse Practitioner Family | DX: I50.23 Acute on chronic systolic (congestive) heart failure (principal); I25.5 Ischemic cardiomyopathy | CPT/HCPCS: 36415; 80048; 83880 ==

== ENCOUNTER 2022-09-05 12:59 | Outpatient (CLI) | payer OTHER, SELFPAY ==
--- NOTE | 2022-09-05 13:30 | USCV_ITS ---
Alesha Mack Age: 52 Gender: F : 1970 Exam Date: 09/05/2022 13:21 Ordering Phys: Lance Landeros MD ([email or web address]) Technologist: [place] [facility] [place]: kishan cardia BP: 140 / 80 HR: 96 Rhythm: Sinus Technical Quality: Adequate MEASUREMENTS (Male / Female) Normal Values 2D ECHO LV Diastolic Diameter PLAX 5.7 cm 4.2 - 5.9 / 3.9 - 5.3 cm LV Systolic Diameter PLAX 4.3 cm IVS Diastolic Thickness 1.1 cm 0.6 - 1.0 / 0.6 - 0.9 cm IVS Systolic Thickness 1.5 cm LVPW Diastolic Thickness 1.4 cm 0.6 - 1.0 / 0.6 - 0.9 cm LVPW Systolic Thickness 1.6 cm LVOT Diameter 2.1 cm LV Ejection Fraction 2D Teich 46.9 % LV Ejection Fraction MOD 2C 41.5 % LV Ejection Fraction 2C AL 40.0 % LA Diameter 4.2 cm Aorta at Sinotubular Diameter 2.2 cm M-MODE Aortic Annulus Diameter 3.4 cm LA Ao Ratio MM 1.4 MV E Point Septal Separation 2.3 cm DOPPLER AV Peak Velocity 123.0 cm/s LVOT Peak Velocity 89.0 cm/s AV Area Cont Eq vti 2.5 cm squared AV Area Cont Eq pk 2.4 cm squared MV Area PHT 5.0 cm squared Mitral E to A Ratio 0.4 MV E' Velocity 26.0 cm/s Mitral E to MV E' Ratio 6.8 Mitral E to LV E' Lateral Ratio 4.8 Mitral E to LV E' Septal Ratio 12.1 TR Peak Velocity 154.3 cm/s TR Peak Gradient 9.5 mmHg TV Peak E Velocity 69.0 cm/s Right Atrial Pressure 3.0 mmHg Pulmonary Artery Systolic Pressu 12.5 mmHg RV Acceleration Time 0.1 s FINDINGS Left Ventricle Moderately increased left ventricular cavity size. Normal left ventricular wall thickness. Severely decreased left ventricular systolic function. Global left ventricular hypokinesis. Grade II/IV diastolic dysfunction, moderately elevated filling pressures. Left ventricular ejection fraction is estimated at 25-30 %. Right Ventricle Normal right ventricular size and systolic function. Normal right ventricular systolic pressure. Right Atrium Mildly increased right atrial size. Left Atrium Mildly increased left atrial size. Mitral Valve Structurally normal mitral valve. Moderate mitral valve regurgitation. Aortic Valve Structurally normal aortic valve without significant sclerosis or stenosis. There is no aortic regurgitation. Tricuspid Valve Structurally normal tricuspid valve. Trace tricuspid valve regurgitation. Pulmonic Valve Pulmonic valve not well visualized. Pericardium Normal pericardium without effusion. Aorta Normal ascending aorta dimension. IVC The inferior vena cava appears normal. CONCLUSIONS Moderately increased left ventricular cavity size. Normal left ventricular wall thickness. Severely decreased left ventricular systolic function. Global left ventricular hypokinesis. Grade II/IV diastolic dysfunction, moderately elevated filling pressures. Left ventricular ejection fraction is estimated at 25-30 %. Mildly increased right atrial size. Mildly increased left atrial size. Structurally normal mitral valve. Moderate mitral valve regurgitation. No significant change since the prior echocardiogram study of 05/26/22 Dr. Lance Landeros MD (Electronically Signed) Final Date: 06 September 2022 12:32 S
== END 2022-09-05 13:00 | disposition home or self-care (01) ==
PROVIDERS: PCP Physician Assistant; Visit Provider Internal Medicine Cardiovascular Disease
DX: I25.5 Ischemic cardiomyopathy (principal); R00.1 Bradycardia, unspecified; I34.0 Nonrheumatic mitral (valve) insufficiency
CPT/HCPCS: 93306

== ENCOUNTER 2022-09-12 12:41 | Emergency (ER) | payer SELFPAY ==
[2022-09-12] VITALS (54 sets, daily range): BP systolic 98–134; BP diastolic 54–78; PULSE 66–88; RESP 14–26; TEMP 36.5; O2SAT 91–98; BMI 33.1
--- NOTE | 2022-09-12 12:54 | XRR_ITS ---
PROCEDURE INFORMATION: Exam: XR Chest Exam date and time: 09/12/2022 1:09 PM Age: 52 years old Clinical indication: Pain; Other: Not specified; Patient HX: BP, hr and o2 dropped, heart PT; Additional info: Cp TECHNIQUE: Imaging protocol: Radiologic exam of the chest. Views: 1 view. COMPARISON: CR (CHEST, ) 05/25/2022 3:16 PM FINDINGS: Lungs: No pulmonary vascular congestion, pulmonary edema or pneumonia. Pleural spaces: No pleural effusion or pneumothorax. Heart/Mediastinum: The cardiac silhouette is not enlarged. The mediastinal contours are normal. Bones/joints: No acute osseous abnormality. XR/XR chest 1V portable [id number] IMPRESSION: No acute finding.
--- NOTE | 2022-09-12 13:02 | ECG_ITS ---
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 Measurements Intervals [place] Rate: 85 P: 28 DE: 160 QRS: -5 QRSD: 101 T: 9 QT: 406 QTc: 484 Interpretive Statements SINUS RHYTHM LEFT VENTRICULAR HYPERTROPHY AND ST-T CHANGE [VOLTAGE CRITERIA PLUS ST/T ABNORMALITY] Compared to ECG 05/25/2022 20:50:09 Left ventricular hypertrophy now present ST (T wave) deviation now present T-wave abnormality no longer present Electronically Signed On 09-12-2022 15:07:26 CDT by Lance Landeros M.D. [id number]
--- NOTE | 2022-09-12 13:04 | ED_ITS ---
HPI - Chest Pain General: Chief Complaint: Chest Pain Stated Complaint: Bp, hr and O2 dropped, heart pt Time Seen by Provider: 09/12/22 13:04 History of Present Illness: Ms. Mack is a 52-year-old lady with significant past medical history of ischemic cardiomyopathy, history of LA with PCI, currently wearing LifeVest presenting to the emergency department due to chest discomfort. She reports perhaps more fatigue over the past few days and was at work earlier today. She had onset of lightheaded feeling and chest discomfort in the left anterior chest with radiation down the left arm. She noted that time her blood pressure was low when she sat. Currently still has some chest discomfort the lightheadedness is largely resolved. Density symptoms at worst moderate to severe. Reports compliance with medication regimen and has not had frequent similar episodes in the past. No other specific changes in health, exacerbating, or alleviating factors identified. Onset (ago): hour(s) Timing of current episode: constant Pain location: left chest Severity: moderate Quality: tightness and heaviness Associated symptoms: Reports other Review of Systems General: Reports: 10 or more systems reviewed and unremarkable except in HPI and below PFSH ED PFSH: Medical History Acute on chronic systolic heart failure Alkalosis, metabolic COPD exacerbation Dyslipidemia Family history of premature coronary heart disease Glucose intolerance New onset of congestive heart failure No pertinent past medical history Sinus tachycardia Smoking addiction Surgical History History of PTCA No pertinent past surgical history Family History Father CAD (coronary artery disease) Diabetes Family/Other CAD (coronary artery disease) Grandmother CAD (coronary artery disease) Cancer Denies family history of Clotting disorder Dementia Chronic kidney disease (CKD) Suicide Anesthesia complication Bleeding disorder Lung disease Stroke Social History Smoking and tobacco status: current every day smoker cigarettes Alcohol intake: former Household members: spouse Housing: House Physical Exam Const: COMMON NORMALS: alert GENERAL APPEARANCE: cooperative and well developed HENMT: COMMON NORMALS: normocephalic and atraumatic HEAD & SCALP: normocephalic and atraumatic Eye: COMMON NORMALS: conjunctivae normal CONJUNCTIVA: Yes conjunctivae norm al SCLERA: sclerae normal Neck/C-Spine: COMMON NORMALS: supple GENERAL: Yes trachea midline Resp: COMMON NORMALS: normal respiratory effort and clear to auscultation bilaterally EFFORT & INSPECTION: Yes able to speak in complete sentences AUSCULTATION: clear to auscultation bilaterally Cardio: COMMON NORMALS: regular rate and regular rhythm RATE: regular rate RHYTHM: regular rhythm GI: COMMON NORMALS: Soft to palpation PALPATION: Yes Soft to palpation and No Tenderness to palpation present (GI) Extremity: GENERAL: Yes normal exam except as noted and Yes edema (1+ symmetric bilateral) Neuro: COMMON NORMALS: moves all extremities SENSORIUM/ORIENTATION: Yes alert and No Orientation impaired Psych: COMMON NORMALS: mental status grossly normal and Normal thought process present THOUGHT PROCESS: Normal thought process present Course Vital Signs: Vital signs: Vital Signs Temperature 97.7 F 09/12/22 12:44 Pulse Rate 73 09/12/22 18:06 Respiratory Rate 18 09/12/22 18:06 Blood Pressure 124/75 09/12/22 18:06 Pulse Oximetry 96 09/12/22 18:06 Oxygen Delivery Me thod 09/12/22 12:44 MDM - Chest Pain Medical Decision Making 52-year-old lady with complex recent history presenting to the emergency room for chest discomfort and near syncope. Symptoms have largely improved and patient is nontoxic on exam but no focal neurologic deficits. EKG showing sinus rhythm with nonspecific ST segment abnormalities. Labs notable for mild leukocytosis, normal hemoglobin. Metabolic panel with hypokalemia and increased creatinine compared to baseline as well as low magnesium. Delta troponin at 2 hours is negative. Electrolyte replenishment ordered and IV fluids given. No lobar consolidation or pneumothorax on chest x-ray. Upon reassessment patient feels improved. Most likely etiology of patient's symptoms is unclear though may be related to dehydration and electrolyte abnormalities. Discussed case with cardiology. The results of ED evaluation were discussed with the patient including possible disposition options, patient is comfortable with outpatient management. Plan to have close follow-up with cardiology. I discussed prescriptions and/or symptomatic cares (if applicable) including appropriate and responsible use, followup plan, and return precautions. The patient verbalized understanding and felt safe for discharge. Medical Records I reviewed the patient's medical records. Lab Data I reviewed the patient's lab results. : 09/12/22 13:20 09/12/22 13:20 Radiology Impressions Chest X-Ray 09/12/22 12:54 IMPRESSION: No acute finding. Laboratory Results WBC 12.6 10^3/uL (4.0-10.0) H 09/12/22 13:20 RBC 4.37 10^6/uL (4.1-5.3) 09/12/22 13:20 Hgb 12.6 g/dL (11.5-15.3) 09/12/22 13:20 Hct 39.9 % (37.0-47.0) 09/12/22 13:20 MCV 91.3 fl (81-99) 09/12/22 13:20 MCH 28.8 pg (28.0-34.0) 09/12/22 13:20 MCHC 31.6 g/dL (30.0-36.0) 09/12/22 13:20 RDW 17.0 % (12.1-15.1) H 09/12/22 13:20 Plt Count 294 10^3/cmm (130-400) 09/12/22 13:20 MPV 9.6 fL (7.4-10.4) 09/12/22 13:20 Neut % (Auto) 63.6 % 09/12/22 13:20 Lymph % (Auto) 25.8 % 09/12/22 13:20 [place] % (Auto) 6.0 % 09/12/22 13:20 Eos % (Auto) 3.0 % 09/12/22 13:20 Baso % (Auto) 1.0 % 09/12/22 13:20 Neut # (Auto) 8.01 10^3/uL (1.8-7.7) H 09/12/22 13:20 Lymph # (Auto) 3.2 10^3/uL (0.8-4.8) 09/12/22 13:20 [place] # (Auto) 0.8 10^3/uL (0.2-0.9) 09/12/22 13:20 Eos # (Auto) 0.4 10^3/uL (0.0-0.8) 09/12/22 13:20 Baso # (Auto) 0.1 10^3/uL (0.0-0.1) 09/12/22 13:20 Nucleated RBC % (auto) 0 % 09/12/22 13:20 Nucleated RBCs # 0.0 /100WBC 09/12/22 13:20 Sodium 136 mmol/L (136-145) 09/12/22 13:20 Potassium 2.8 mmol/L (3.5-5.1) L* 09/12/22 13:20 Chloride 94 mmol/L (98-107) L 09/12/22 13:20 Carbon Dioxide 29 mmol/L (22-29) 09/12/22 13:20 Anion Gap 15.8 (5-19) 09/12/22 13:20 BUN 12 mg/dL (6-20) 09/12/22 13:20 Creatinine 1.4 mg/dL (0.5-0.9) H 09/12/22 13:20 GFR Calculation 39.2 mL/min (90-130) L 09/12/22 13:20 Glucose 107 mg/dL (65-115) 09/12/22 13:20 Calculated Osmolality 282 mOsm/kg (285-295) L 09/12/22 13:20 Calcium 9.2 mg/dL (8.5-10.5) 09/12/22 13:20 Magnesium 1.6 mg/dL (1.7-2.3) L 09/12/22 13:20 Total Bilirubin 0.7 mg/dL (0.15-1.2) 09/12/22 13:20 AST 12 U/L (0-32) 09/12/22 13:20 ALT 10 U/L (0-33) 09/12/22 13:20 Alkaline Phosphatase 105 U/L (35-105) 09/12/22 13:20 Troponin T Baseline 17 ng/L (0-10) H 09/12/22 13:20 Troponin T 120 Minute 14.40 ng/L (0-10) H 09/12/22 15:30 Delta Troponin T -2.60 ABS# (0-10) L 09/12/22 15:30 NT-Pro-B Natriuret Pep 675 pg/mL (0-125) H 09/12/22 13:20 Total Protein 7.6 g/dL (6.6-8.7) 09/12/22 13:20 Albumin 4.0 g/dL (3.5-5.2) 09/12/22 13:20 Globulin 3.6 g/dL (1.3-4.6) 09/12/22 13:20 TSH 2.12 uIU/mL (0.27-4.20) 09/12/22 13:20 Discharge Plan Discharge Patient Disposition: Home Clinical Impression: Chest pain, Hypotension, Dehydration, Hypokalemia, Hypomagnesemia Condition: Stable Prescriptions: No Action Lasix 20 mg tablet 20 mg PO QAM potassium chloride 10 mEq tablet extended release 20 meq PO DAILY lisinopril 10 mg tablet 10 mg PO DAILY Qty: 30 5RF spironolactone 25 mg tablet 25 mg PO DAILY Qty: 30 5RF Rx Instructions: Take 20meq daily, except on Friday take 10meq pantoprazole 40 mg tablet,delayed release (DR/EC) 40 mg PO QAM albuterol sulfate 90 mcg/actuation HFA aerosol inhaler 2 puff INHALATION Q4H PRN (Reason: Shortness Of Breath) atorvastatin 40 mg Tablet 40 mg PO BEDTIME Qty: 90 2RF Tylenol Ex Str Rapid Release 500 mg Tablet 1,000 mg PO Q6H PRN (Reason: Pain) ibuprofen 200 mg Tablet 800 mg PO Q6H PRN (Reason: Pain) metformin 500 mg tablet 500 mg PO QAM metoprolol succinate 50 mg tablet extended release 24 hr 50 mg PO QAM clopidogrel 75 mg tablet 75 mg PO QAM aspirin 81 mg tablet,delayed release (DR/EC) 81 mg PO QAM Discharge Orders: Discharge ED (Routine); Ordered 09/12/22 Ordered By: Merrill Infante Referrals: Lewis oK MD [Primary Care Provider] - Discharge Diet: Usual diet Discharge Activity: Increase activity as tolerated Patient Instructions: Chest Pain (ED), Dehydration (ED), Near Syncope (ED) Activity Restrictions/Additional Instructions: Thank you for visiting the emergency department. You were seen and evaluated for near syncope associated with chest pain. The exact cause of your symptoms is unclear though does not appear to need hospitalization at this time. You were found to be dehydrated and your potassium and magnesium were low. I recommend ensuring that you are staying hydrated. Please increase your potassium supplementation from 10 mEq daily to 20 mEq daily for 5 days and then resume normal 10 mg daily. 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 Return to the emergency department for recurrent symptoms, worsening chest pain, or anything else that you are concerned about a feel needs emergency department evaluation. Stand Alone Forms: Work/School Release Coding Level of Care Code ED Wood Repatcher for Chg Fwd Exam Comprehensive
[2022-09-12 13:30] LABS: Basophils # 0.1 10^3/uL (0.0-0.1); Eosinophils # 0.4 10^3/uL (0.0-0.8); Hematocrit 39.9 % (37.0-47.0); Hemoglobin 12.6 g/dL (11.5-15.3); Lymphocytes # 3.2 10^3/uL (0.8-4.8); Lymphocytes % 25.8 %; Mean Corpuscular HGB Conc 31.6 g/dL (30.0-36.0); Mean Corpuscular Hemoglobin 28.8 pg (28.0-34.0); Mean Corpuscular Volume 91.3 fl (81-99); Mean Platelet Volume 9.6 fL (7.4-10.4); Monocytes # 0.8 10^3/uL (0.2-0.9); Neutrophils # 8.01 10^3/uL (1.8-7.7); Neutrophils % 63.6 %; Nucleated Red Blood Cells % 0 %; Platelet Count 294 10^3/cmm (130-400); Red Blood Count 4.37 10^6/uL (4.1-5.3); White Blood Count 12.6 10^3/uL (4.0-10.0)
[2022-09-12] MEDS: aspirin 81 mg Chew Tablet 324 MG PO (13:45)
[2022-09-12 13:55] LABS: Troponin(5th) Baseline 17 ng/L (0-10)
[2022-09-12 14:12] LABS: Alanine Aminotransferase 10 U/L (0-33); Alkaline Phosphatase 105 U/L (35-105); Anion Gap 15.8 (5-19); Aspartate Amino Transferase 12 U/L (0-32); Blood Urea Nitrogen 12 mg/dL (6-20); Calcium 9.2 mg/dL (8.5-10.5); Carbon Dioxide 29 mmol/L (22-29); Chloride 94 mmol/L (98-107); Creatinine Clr Calc Pharmacy 49.1954; Globulin 3.6 g/dL (1.3-4.6); Glomerular Filtration Rate 39.2 mL/min (90-130); Glucose 107 mg/dL (65-115); Magnesium 1.6 mg/dL (1.7-2.3); NT Pro B Type Natriuretic Pept 675 pg/mL (0-125); Osmolality Calculated 282 mOsm/kg (285-295); Sodium 136 mmol/L (136-145); Thyroid Stimulating Hormone 2.12 uIU/mL (0.27-4.20); Total Bilirubin 0.7 mg/dL (0.15-1.2); Total Protein 7.6 g/dL (6.6-8.7)
[2022-09-12 14:14] LABS: Potassium 2.8 mmol/L (3.5-5.1)
[2022-09-12] MEDS: lidocaine 1% 5 ML in potassium chloride premix 100 ML 50 ML IV (15:18)
[2022-09-12] MEDS: potassium chloride ER 20 mEq Tablet 40 MEQ PO (15:19)
[2022-09-12] MEDS: magnesium sulfate premix 2 GM/50 ML PIGGYBACK IV (15:19)
[2022-09-12] MEDS: sodium chloride 0.9% 500 ML 250 ML IV (15:19)
== END 2022-09-12 18:07 | disposition home or self-care (01) ==
PROVIDERS: Emergency Provider Emergency Medicine; PCP Family Medicine
DX: R07.9 Chest pain, unspecified (principal); I95.9 Hypotension, unspecified; E86.0 Dehydration; E87.6 Hypokalemia; E83.42 Hypomagnesemia; Z79.84 Long term (current) use of oral hypoglycemic drugs; Z79.02 Long term (current) use of antithrombotics/antiplatelets; Z79.82 Long term (current) use of aspirin; J44.9 Chronic obstructive pulmonary disease, unspecified; E78.5 Hyperlipidemia, unspecified; I50.23 Acute on chronic systolic (congestive) heart failure; F17.210 Nicotine dependence, cigarettes, uncomplicated
CPT/HCPCS: 36415; 71045; 80053; 83735; 83880; 84443; 84484; 85025; 93005; 96365; 96366; 96367; 99285; J3475; J3480; J7040

== ENCOUNTER → 2022-09-16 15:15 | Outpatient (BNVA) | payer SELFPAY | PROVIDERS: PCP Family Medicine; Visit Provider Internal Medicine Cardiovascular Disease | DX: R06.02 Shortness of breath (principal) | CPT/HCPCS: 36415; 80048 ==

== ENCOUNTER 2022-12-11 20:34 | Inpatient (IN) | payer OTHER, SELFPAY ==
--- NOTE | 2022-12-11 20:35 | XRR_ITS ---
PROCEDURE INFORMATION: Exam: XR Chest Exam date and time: 12/11/2022 8:42 PM Age: 52 years old Clinical indication: Dyspnea; Additional info: Cp TECHNIQUE: Imaging protocol: Radiologic exam of the chest. Views: 1 view. COMPARISON: CR XR chest 1V portable [id number] 09/12/2022 1:09 PM FINDINGS: Lungs: Unremarkable. No consolidation. Pleural spaces: Unremarkable. No pleural effusion. No pneumothorax. Heart/Mediastinum: Cardiac silhouette is borderline enlarged. There is a pacemaker and ICD monitor extending into the right atrium and right ventricle. Bones/joints: Unremarkable for age. XR/XR chest 1V portable [id number] IMPRESSION: Borderline cardiomegaly otherwise negative chest.
--- NOTE | 2022-12-11 20:36 | ECG_ITS ---
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 Measurements Intervals [place] Rate: 87 P: 12 ME: 167 QRS: -9 QRSD: 105 T: 31 QT: 390 QTc: 472 Interpretive Statements SINUS RHYTHM NONSPECIFIC ST & T-WAVE ABNORMALITY Compared to ECG 09/12/2022 13:02:18 T-wave abnormality now present Left ventricular hypertrophy no longer present ST (T wave) deviation no longer present Electronically Signed On 12-12-2022 8:09:09 OBSTETRICAL NURSE by Justo Maurer M.D. [id number]
[2022-12-11 20:47] VITALS: BP 121/82; PULSE 84; RESP 18; TEMP 36.7; O2SAT 99; BMI 34.7
--- NOTE | 2022-12-11 20:50 | ED_ITS ---
HPI - Dizziness General: Chief Complaint: Dizziness Stated Complaint: Defib, low bp, dizzy Time Seen by Provider: 12/11/22 20:35 Source: patient Mode of arrival: ambulatory Limitations: no limitations History of Present Illness: HPI Narrative: 48-year-old female with a history of congestive heart failure she had had stents placed back in May as well she has ischemic cardiomyopathy with a defibrillator states over the last 2 days has been feeling fatigue along with some malaise she states her blood pressures been running low at home is 121/87 she states she is having some mild chest pains along with back pain. No shortness of breath states she just has felt dizzy lightheaded and weak. Associated symptoms: Reports malaise; Denies chest pain, chills, headache(s), nausea or vomiting Review of Systems Const: Reports: fatigue and malaise; Denies: fever(s), chills, body aches or change in appetite Eyes: Denies: blurry vision or eye discomfort ENMT: Denies: throat pain or dental pain Card: Denies: chest pain Resp: Denies: dyspnea GI: Denies: abdominal pain, nausea, vomiting or diarrhea : Denies: dysuria Musc: Denies: neck pain or back pain Skin/Breast: Denies: rash Neuro: Denies: headache(s) Psych: Denies: depression Carlton/Lymph: Denies: easy bruising All/Imm: Denies: urticaria PFSH ED PFSH: Medical History Acute on chronic systolic heart failure Alkalosis, metabolic COPD exacerbation Dyslipidemia Family history of premature coronary heart disease Glucose intolerance New onset of congestive heart failure No pertinent past medical history Sinus tachycardia Smoking addiction Surgical History History of PTCA No pertinent past surgical history Family History Father CAD (coronary artery disease) Diabetes Family/Other CAD (coronary artery disease) Grandmother CAD (coronary artery disease) Cancer Denies family history of Clotting disorder Dementia Chronic kidney disease (CKD) Suicide Anesthesia complication Bleeding disorder Lung disease Stroke Social History Smoking and tobacco status: current every day smoker cigarettes Alcohol intake: former Household members: spouse Housing: House Physical Exam Const: COMMON NORMALS: no acute distress, patient oriented x3 and healthy ap pearing HENMT: COMMON NORMALS: normocephalic and atraumatic HEAD & SCALP: normocephalic and atraumatic Eye: COMMON NORMALS: Equal, round and reactive pupils present and EOMs intact bilaterally PUPIL: Yes Equal, round and reactive pupils present Neck/C-Spine: COMMON NORMALS: full ROM and supple Chest: COMMONS NORMALS: normal inspection of the chest and normal palpation of entire chest wall Resp: COMMON NORMALS: normal respiratory effort, No retractions, No use of accessory muscles and clear to auscultation bilaterally AUSCULTATION: clear to auscultation bilaterally Cardio: COMMON NORMALS: regular rate, regular rhythm and No murmurs present (Cardio) RATE: regular rate RHYTHM: regular rhythm GI: COMMON NORMALS: Normal to inspection, nondistended, normoactive bowel sounds present, Soft to palpation, non-tender and no masses PALPATION: Yes Soft to palpation Extremity: COMMON NORMALS: normal to inspection and full ROM Neuro: COMMON NORMALS: patient oriented x3, moves all extremities and no focal motor deficits Psych: COMMON NORMALS: mental status grossly normal, Normal thought process pr esent and cooperative THOUGHT PROCESS: Normal thought process present Skin: COMMON NORMALS: no rashes or lesions noted and no wounds GENERAL SKIN EXAM: no rashes or lesions noted Course Vital Signs: Vital signs: Vital Signs Temperature 98.0 F 12/11/22 20:47 Pulse Rate 84 12/11/22 20:47 Respiratory Rate 18 12/11/22 20:47 Blood Pressure 121/82 12/11/22 20:47 Pulse Oximetry 99 12/11/22 20:47 Oxygen Delivery Me thod 12/11/22 20:47 MDM - Dizziness Medical Decision Making Patient presents here with acute kidney injury could be due to medication her troponin here is also elevated which could be due to her kidney function. She is having some chest pain its mild in nature she could also be having an NSTEMI we will trend her troponin and start her on heparin she is currently pain-free I spoke to the hospitalist and will admit at this time. Lab Data 12/11/22 20:10 12/11/22 20:10 Radiology Impressions Chest X-Ray 12/11/22 20:35 IMPRESSION: Borderline cardiomegaly otherwise negative chest. Laboratory Results WBC 12.6 10^3/uL (4.0-10.0) H 12/11/22 20:10 RBC 3.87 10^6/uL (4.1-5.3) L 12/11/22 20:10 Hgb 11.8 g/dL (11.5-15.3) 12/11/22 20:10 Hct 36.8 % (37.0-47.0) L 12/11/22 20:10 MCV 95.1 fl (81-99) 12/11/22 20:10 MCH 30.5 pg (28.0-34.0) 12/11/22 20:10 MCHC 32.1 g/dL (30.0-36.0) 12/11/22 20:10 RDW 13.5 % (12.1-15.1) 12/11/22 20:10 Plt Count 276 10^3/cmm (130-400) 12/11/22 20:10 MPV 9.8 fL (7.4-10.4) 12/11/22 20:10 Neut % (Auto) 58.4 % 12/11/22 20:10 Lymph % (Auto) 31.1 % 12/11/22 20:10 [place] % (Auto) 6.8 % 12/11/22 20:10 Eos % (Auto) 2.6 % 12/11/22 20:10 Baso % (Auto) 0.7 % 12/11/22 20:10 Neut # (Auto) 7.34 10^3/uL (1.8-7.7) 12/11/22 20:10 Lymph # (Auto) 3.9 10^3/uL (0.8-4.8) 12/11/22 20:10 [place] # (Auto) 0.9 10^3/uL (0.2-0.9) 12/11/22 20:10 Eos # (Auto) 0.3 10^3/uL (0.0-0.8) 12/11/22 20:10 Baso # (Auto) 0.1 10^3/uL (0.0-0.1) 12/11/22 20:10 Nucleated RBC % (auto) 0 % 12/11/22 20:10 Nucleated RBCs # 0.0 /100WBC 12/11/22 20:10 PT 13.10 SECONDS (12.1-14.9) 12/11/22 20:10 INR 0.96 (0.8-1.2) 12/11/22 20:10 Sodium 135 mmol/L (136-145) L 12/11/22 20:10 Potassium 3.1 mmol/L (3.5-5.1) L 12/11/22 20:10 Chloride 91 mmol/L (98-107) L 12/11/22 20:10 Carbon Dioxide 26 mmol/L (22-29) 12/11/22 20:10 Anion Gap 21.1 (5-19) H 12/11/22 20:10 BUN 27 mg/dL (6-20) H 12/11/22 20:10 Creatinine 2.5 mg/dL (0.5-0.9) H 12/11/22 20:10 GFR Calculation 20.1 mL/min (90-130) L 12/11/22 20:10 Glucose 125 mg/dL (65-115) H 12/11/22 20:10 Calculated Osmolality 287 mOsm/kg (285-295) 12/11/22 20:10 Calcium 9.0 mg/dL (8.5-10.5) 12/11/22 20:10 Total Bilirubin 0.5 mg/dL (0.15-1.2) 12/11/22 20:10 AST 16 U/L (0-32) 12/11/22 20:10 ALT 8 U/L (0-33) 12/11/22 20:10 Alkaline Phosphatase 119 U/L (35-105) H 12/11/22 20:10 Troponin T Baseline 104 ng/L (0-10) H* 12/11/22 20:10 NT-Pro-B Natriuret Pep 155 pg/mL (0-125) H 12/11/22 20:10 Total Protein 8.0 g/dL (6.6-8.7) 12/11/22 20:10 Albumin 4.1 g/dL (3.5-5.2) 12/11/22 20:10 Globulin 3.9 g/dL (1.3-4.6) 12/11/22 20:10 EKG Data EKG 1: I personally reviewed and interpreted this EKG as follows: EKG interpretation date: 12/11/22 EKG interpretation time: 20:41 Interpretation: nsr hr [address] or t wave abnormalities qrs 105 qtc 435 Critical Care Time Critical Care Time: Critical Care Time: Yes Total Critical Care Time: 45 Attestation: The high probability of a clinically significant, sudden or life threatening deterioration of the patient's cvsystem(s) required my full and direct attention, intervention and personal management. The critical care time is as shown. This time is in addition to time spent performing any reported procedures but includes the following: [x] Data and vital sign review and interpretation [x] Patient assessment, examination and intervention [x] Documentation [x] Medication orders and management Discharge Plan Discharge Patient Disposition: Admitted As Inpatient Clinical Impression: Acute kidney injury, Non-ST elevation RI (NSTEMI) Condition: Stable Prescriptions: No Action Lasix 20 mg tablet 20 mg PO QAM potassium chloride 10 mEq tablet extended release 20 meq PO DAILY lisinopril 10 mg tablet 10 mg PO DAILY Qty: 30 5RF spironolactone 25 mg tablet 25 mg PO DAILY Qty: 30 5RF pantoprazole 40 mg tablet,delayed release (DR/EC) 40 mg PO QAM albuterol sulfate 90 mcg/actuation HFA aerosol inhaler 2 puff INHALATION Q4H PRN (Reason: Shortness Of Breath) atorvastatin 40 mg Tablet 40 mg PO BEDTIME Qty: 90 2RF Tylenol Ex Str Rapid Release 500 mg Tablet 1,000 mg PO Q6H PRN (Reason: Pain) ibuprofen 200 mg Tablet 800 mg PO Q6H PRN (Reason: Pain) metformin 500 mg tablet 500 mg PO QAM metoprolol succinate 50 mg tablet extended release 24 hr 50 mg PO QAM clopidogrel 75 mg tablet 75 mg PO QAM aspirin 81 mg tablet,delayed release (DR/EC) 81 mg PO QAM Referrals: Lewis Ko MD [Primary Care Provider] - Coding Level of Care Code ED 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
[2022-12-11 20:53] LABS: Basophils # 0.1 10^3/uL (0.0-0.1); Basophils % 0.7 %; Eosinophils # 0.3 10^3/uL (0.0-0.8); Eosinophils % 2.6 %; Hematocrit 36.8 % (37.0-47.0); Hemoglobin 11.8 g/dL (11.5-15.3); Lymphocytes # 3.9 10^3/uL (0.8-4.8); Lymphocytes % 31.1 %; Mean Corpuscular HGB Conc 32.1 g/dL (30.0-36.0); Mean Corpuscular Hemoglobin 30.5 pg (28.0-34.0); Mean Corpuscular Volume 95.1 fl (81-99); Mean Platelet Volume 9.8 fL (7.4-10.4); Monocytes # 0.9 10^3/uL (0.2-0.9); Monocytes % 6.8 %; Neutrophils # 7.34 10^3/uL (1.8-7.7); Neutrophils % 58.4 %; Nucleated Red Blood Cells % 0 %; Platelet Count 276 10^3/cmm (130-400); Red Blood Count 3.87 10^6/uL (4.1-5.3); Red Cell Distribution Width 13.5 % (12.1-15.1); White Blood Count 12.6 10^3/uL (4.0-10.0)
[2022-12-11 21:06] LABS: INR 0.96 (0.8-1.2)
[2022-12-11 21:16] LABS: Troponin(5th) Baseline 104 ng/L (0-10)
[2022-12-11 21:21] LABS: Alanine Aminotransferase 8 U/L (0-33); Albumin Level 4.1 g/dL (3.5-5.2); Alkaline Phosphatase 119 U/L (35-105); Anion Gap 21.1 (5-19); Aspartate Amino Transferase 16 U/L (0-32); Blood Urea Nitrogen 27 mg/dL (6-20); Carbon Dioxide 26 mmol/L (22-29); Chloride 91 mmol/L (98-107); Globulin 3.9 g/dL (1.3-4.6); Glomerular Filtration Rate 20.1 mL/min (90-130); Glucose 125 mg/dL (65-115); NT Pro B Type Natriuretic Pept 155 pg/mL (0-125); Osmolality Calculated 287 mOsm/kg (285-295); Potassium 3.1 mmol/L (3.5-5.1); Sodium 135 mmol/L (136-145); Total Bilirubin 0.5 mg/dL (0.15-1.2)
[2022-12-11] MEDS: sodium chloride 0.9% 250 ML IV (21:29)
[2022-12-11] MEDS: acetaminophen 325 mg Tablet 650 MG PO (21:51)
[2022-12-11] MEDS: heparin 5,000 unit/mL INJ 1 mL 4000 UNIT IVP (21:51)
--- NOTE | 2022-12-11 21:52 | PM.HP ---
Providers/Chief Complaint Primary Care Provider: Lewis Ko MD Chief Complaint: Defib, low bp, dizzy History of Present Illness Alesha Mack is a 52 year old female with history of ischemic cardiomyopathy, EF 25 to 30%, status post AICD placement in October 2022, smoking history, COPD, could not tolerate Entresto because of hypotension presented with chief complaint of , low blood pressure In the ER she was diagnosed with NSTEMI, low blood pressure and BALBIR Patient is stating that she has been feeling weak, lethargic and dizzy. She never experienced any chest pain nausea vomiting or febrile events. She is compliant with her medications. She is denying orthopnea, PND but endorsing some dyspnea on exertion. She is denying nausea, vomiting, diarrhea recent febrile events. Review of Systems Const: Denies: fever(s) Eyes: Denies: change in vision ENMT: Denies: throat pain Card: Reports: dyspnea on exertion Resp: Reports: dyspnea GI: Denies: abdominal pain : Denies: flank pain Musc: Denies: neck pain Skin/Breast: Denies: rash Neuro: Denies: headache(s) Psych: Reports: anxiety Endo: Denies: polyuria Carlton/Lymph: Denies: easy bruising All/Imm: Denies: urticaria Medications/Allergies Home Medications Medication Instructions Recorded Confirmed Last Taken Type albuterol sulfate 90 mcg/actuation 2 puff inhalation Q4H PRN 05/25/22 09/16/22 Unknown History aerosol inhaler Shortness Of Breath pantoprazole 40 mg tablet,delayed 40 mg PO QAM 05/25/22 09/16/22 09/12/22 History release atorvastatin 40 mg tablet 40 mg PO BEDTIME #90 tabs 05/30/22 09/16/22 09/11/22 Rx furosemide 20 mg tablet (Lasix) 20 mg PO QAM 07/01/22 09/16/22 09/12/22 History acetaminophen 500 mg tablet 1,000 mg PO Q6H PRN Pain 09/12/22 09/16/22 Unknown History aspirin 81 mg tablet,delayed 81 mg PO QAM 09/12/22 09/16/22 09/12/22 03:00 History release clopidogrel 75 mg tablet 75 mg PO QAM 09/12/22 09/16/22 09/12/22 03:00 History ibuprofen 200 mg tablet 800 mg PO Q6H PRN Pain 09/12/22 09/16/22 09/12/22 History metformin 500 mg tablet 500 mg PO QAM 09/12/22 09/16/22 09/12/22 03:00 History metoprolol succinate 50 mg 50 mg PO QAM 09/12/22 09/16/22 09/12/22 History tablet,extended release 24 hr lisinopril 10 mg tablet 10 mg PO DAILY #30 tabs 09/16/22 09/16/22 Unknown Rx potassium chloride 10 mEq 20 meq PO DAILY 09/16/22 09/16/22 Unknown History tablet,extended release spironolactone 25 mg tablet 25 mg PO DAILY #30 tabs 12/06/22 Unknown Rx Allergies Allergy/AdvReac Type Severity Reaction Status Date / Time sacubitril [From Entresto] AdvReac hypotension Verified 09/16/22 14:28 valsartan [From Entresto] AdvReac hypotension Verified 09/16/22 14:28 PFSH Acute PFSH: Medical History Acute on chronic systolic heart failure Alkalosis, metabolic COPD exacerbation Dyslipidemia Family history of premature coronary heart disease Glucose intolerance New onset of congestive heart failure No pertinent past medical history Sinus tachycardia Smoking addiction Surgical History (Updated 12/11/22 @ 22:56 by Patrice Mariscal MD) History of bilateral ligation of fallopian tubes History of PTCA Hx of cholecystectomy Hx of hysterectomy No pertinent past surgical history Family History Father CAD (coronary artery disease) Diabetes Family/Other CAD (coronary artery disease) Grandmother CAD (coronary artery disease) Cancer Denies family history of Clotting disorder Dementia Chronic kidney disease (CKD) Suicide Anesthesia complication Bleeding disorder Lung disease Stroke Social History Smoking and tobacco status: current every day smoker cigarettes Alcohol intake: former Household members: spouse Housing: House Vitals/I&O/Wt Last Vital Signs Temp 98.0 F 12/11/22 20:47 Pulse 84 12/11/22 20:47 Resp 18 12/11/22 20:47 BP 121/82 12/11/22 20:47 Pulse Ox 99 12/11/22 20:47 O2 Del Method 12/11/22 20:47 Weight last 48 hrs Weight 91.626 kg Physical Exam Narrative: Patient is awake and alert Euvolemic S1, S2 Abdomen soft No signs of edema of legs Currently on room air Currently no chest pain Awake and alert Pleasant and cooperative is at the bedside Blood pressure is stable 130/82 bilirubin Afebrile Appears stated age Data 12/11/22 20:10 12/11/22 20:10 A&P Assessment and plan (1) Acute kidney injury: (2) Non-ST elevation HI (NSTEMI): (3) Smoking addiction: (4) Ischemic cardiomyopathy: Plan Generalized weakness and dizziness Likely related to hypotension Polypharmacy Patient has not tolerated Entresto secondary to low blood pressure in the past as well She takes Lasix, 40 mg daily along with spironolactone, lisinopril. Hold antihypertensive regimen I will give her normal saline until 7 AM, clinically she is not fluid overloaded NSTEMI No active chest pain T wave inversion lateral leads History of stent placement in PDA and RCA Start ACS protocol Continue aspirin Plavix along heparin BALBIR related to hypotension metformin should be discontinued from her home meds Patient is full code Cardiac diet Repeat echo in the morning Hold antihypertensive regimen Active smoker smokes 6 cigarettes a day Attestations Medical Necessity Statement*: Spent more than 2 midnights for NSTEMI Time Spent in Patient Care: 40 Coding Level of Care Code Acute Code for [facility] Diagnoses Acute kidney injury N17.9 Non-ST elevation HI (NSTEMI) I21.4 Smoking addiction F17.200 Ischemic cardiomyopathy I25.5
--- NOTE | 2022-12-11 22:17 | PC.NURSE ---
Heparin drip order discontinued due to incorrect patient weight.
--- NOTE | 2022-12-11 22:22 | ECG_ITS ---
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 Measurements Intervals [place] Rate: 74 P: 43 W[place]: 176 QRS: 0 QRSD: 103 T: -1 QT: 393 QTc: 438 Interpretive Statements SINUS RHYTHM ST DEVIATION AND MODERATE T-WAVE ABNORMALITY, CONSIDER LATERAL ISCHEMIA [-0.1+ mV T-WAVE IN I/aVL/V5/V6] ST DEVIATION AND MODERATE T-WAVE ABNORMALITY, CONSIDER INFERIOR ISCHEMIA [-0.1+ mV T-WAVE IN II/aVF] Compared to ECG 12/11/2022 20:41:59 Possible ischemia now present T-wave abnormality still present Electronically Signed On 12-12-2022 8:09:26 COUNTY HOME DEMONSTRATION AGENT by Justo Maurer M.D. [email or web address] in [id number]
[2022-12-11] MEDS: heparin drip 25,000 UNIT/500 ML PREMIX 21.99 UNIT IV (22:25)
[2022-12-11 22:35] VITALS: BP 130/82; PULSE 86; RESP 21; O2SAT 98
[2022-12-11 22:39] LABS: Troponin 5 2HR Delta 3.3 ABS# (0-10)
[2022-12-11 22:45] VITALS: BP 130/82; PULSE 86; RESP 21; O2SAT 98
[2022-12-11 22:45] LABS: Troponin 5 2HR 107.3 ng/L (0-10)
--- NOTE | 2022-12-11 23:00 | USCV_ITS ---
Frederick Alesha Age: 52 Gender: F : 1970 Exam Date: 12/11/2022 00:06 Ordering Phys: Patrice Mariscal MD Technologist: NEVILLE Exam Location: [facility] [place] Indication: c/o fatigue, malaise, chest pain, dizziness . History of cardiac stenting May 2022; s/p defibrillator October 2022 eval for CHF BP: 111 / 68 HR: 74 Rhythm: Sinus Technical Quality: Adequate MEASUREMENTS (Male / Female) Normal Values 2D ECHO LV Diastolic Diameter PLAX 4.3 cm 4.2 - 5.9 / 3.9 - 5.3 cm LV Systolic Diameter PLAX 3.4 cm IVS Diastolic Thickness 1.9 cm 0.6 - 1.0 / 0.6 - 0.9 cm IVS Systolic Thickness 1.9 cm LVPW Diastolic Thickness 1.7 cm 0.6 - 1.0 / 0.6 - 0.9 cm LVPW Systolic Thickness 1.8 cm LVOT Diameter 2.3 cm LV Ejection Fraction 2D Teich 41.3 % LV Ejection Fraction MOD 2C 51.1 % LV Ejection Fraction 2C AL 52.0 % LA Diameter 3.9 cm LA Width 4.3 cm LA Height 5.1 cm RA Width 3.8 cm RA Height 4.3 cm Aorta at Sinotubular Diameter 2.8 cm IVC Diameter 1.4 cm M-MODE Aortic Annulus Diameter 2.8 cm LA Ao Ratio MM 1.4 MV E Point Septal Separation 0.8 cm DOPPLER AV Peak Velocity 124.0 cm/s LVOT Peak Velocity 69.0 cm/s AV Area Cont Eq vti 2.3 cm squared AV Area Cont Eq pk 2.4 cm squared MV Area PHT 2.8 cm squared Mitral E to A Ratio 0.8 MV E' Velocity 50.5 cm/s Mitral E to MV E' Ratio 17.1 Mitral E to LV E' Lateral Ratio 19.1 Mitral E to LV E' Septal Ratio 15.4 TR Peak Velocity 225.0 cm/s TR Peak Gradient 20.3 mmHg TV Peak E Velocity 60.0 cm/s Right Atrial Pressure 5.0 mmHg Pulmonary Artery Systolic Pressu 25.3 mmHg PV Peak Velocity 108.0 cm/s RV Acceleration Time 0.1 s RV Ejection Time 0.3 s RV AcT/ET 0.3 FINDINGS Left Ventricle Normal left ventricular cavity size. Increased left ventricular wall thickness. Moderately decreased left ventricular systolic function. Left ventricular ejection fraction is estimated at 35 %. Moderate global hypokinesis. Abnormal septal motion. Grade II diastolic dysfunction, moderately elevated filling pressures. Right Ventricle Normal right ventricular size and systolic function. Right ventricular systolic pressure 25.3 mmHg. ICD/pacemaker wire visualized in the right ventricle. Right Atrium Normal right atrial size. Left Atrium Moderately increased left atrial size. Mitral Valve Structurally normal mitral valve. No mitral valve stenosis. Mild mitral valve regurgitation. Aortic Valve Structurally normal trileaflet aortic valve. No aortic valve stenosis. No aortic valve regurgitation. Tricuspid Valve Structurally normal tricuspid valve. Pulmonic Valve Structurally normal pulmonic valve. No pulmonary valve stenosis. Trace pulmonary valve regurgitation. Pericardium Trivial pericardial effusion. No evidence of hemodynamic compromise. Aorta Normal size aortic root and proximal ascending aorta. IVC Normal IVC dimension with >50% respiratory change of the inferior vena cava. CONCLUSIONS 1. Normal left ventricular cavity size. Increased left ventricular wall thickness. Moderately decreased left ventricular systolic function. Left ventricular ejection fraction is estimated at 35 %. Moderate global hypokinesis. Abnormal septal motion. Grade II diastolic dysfunction, moderately elevated filling pressures. 2. When compared to study dated 09/05/22, left ventricular systolic function seems to have improved. Stephenie Davenport MD (Electronically Signed) Final Date: 13 December 2022 12:15 S
[2022-12-11 23:01] VITALS: BP 111/68; BP 130/76; BP 133/76; PULSE 85; PULSE 89; PULSE 95
[2022-12-11] MEDS: heparin drip 25,000 UNIT/500 ML PREMIX 22 UNIT IV (23:16)
[2022-12-11] MEDS: sodium chlor 0.9% + KCl 20 mEq 20 MEQ/1,000 ML BAG 75 MEQ IV (23:16)
[2022-12-11] MEDS: pneumococcal (23 valent) SDV 0.5 mL IM (23:38)
[2022-12-11 23:44] VITALS: BP 111/68; PULSE 80; RESP 28; TEMP 36.6; O2SAT 95
[2022-12-12] VITALS (58 sets, daily range): BP systolic 111–152; BP diastolic 61–74; PULSE 76–99; RESP 14–37; TEMP 36.6–36.7; O2SAT 92–99
[2022-12-12 01:53] LABS: Troponin 5 6HR 97.96 ng/L (0-10)
[2022-12-12 02:28] LABS: Troponin 5 6HR Delta -6.04 ng/L (0-12)
--- NOTE | 2022-12-12 02:36 | ECG_ITS ---
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 Measurements Intervals [place] Rate: 78 P: 83 AR: 169 QRS: -31 QRSD: 106 T: 26 QT: 395 QTc: 450 Interpretive Statements SINUS RHYTHM LEFT AXIS DEVIATION [QRS AXIS < -30] NONSPECIFIC T-WAVE ABNORMALITY Compared to ECG 12/11/2022 22:22:33 Left-axis deviation now present Possible ischemia no longer present T-wave abnormality still present Electronically Signed On 12-12-2022 8:40:25 TRACTOR DISTRIBUTOR by Stephenie Davenport M.D. [id number]
[2022-12-12 04:14] LABS: Basophils # 0.1 10^3/uL (0.0-0.1); Basophils % 0.6 %; Eosinophils # 0.4 10^3/uL (0.0-0.8); Eosinophils % 3.9 %; Hematocrit 34.6 % (37.0-47.0); Hemoglobin 11.2 g/dL (11.5-15.3); Lymphocytes % 36.9 %; Mean Corpuscular HGB Conc 32.4 g/dL (30.0-36.0); Mean Corpuscular Hemoglobin 30.9 pg (28.0-34.0); Mean Corpuscular Volume 95.6 fl (81-99); Mean Platelet Volume 9.5 fL (7.4-10.4); Monocytes # 0.6 10^3/uL (0.2-0.9); Monocytes % 5.5 %; Neutrophils # 5.64 10^3/uL (1.8-7.7); Neutrophils % 52.6 %; Nucleated Red Blood Cells % 0 %; Platelet Count 242 10^3/cmm (130-400); Red Blood Count 3.62 10^6/uL (4.1-5.3); Red Cell Distribution Width 13.3 % (12.1-15.1); White Blood Count 10.7 10^3/uL (4.0-10.0)
[2022-12-12 04:26] LABS: Partial Thromboplastin Time 50.4 SECONDS (23.9-36.7)
[2022-12-12 04:32] LABS: Anion Gap 17.1 (5-19); Blood Urea Nitrogen 25 mg/dL (6-20); Calcium 8.6 mg/dL (8.5-10.5); Carbon Dioxide 25 mmol/L (22-29); Chloride 96 mmol/L (98-107); Glomerular Filtration Rate 29.3 mL/min (90-130); Glucose 160 mg/dL (65-115); Magnesium 1.5 mg/dL (1.7-2.3); Osmolality Calculated 288 mOsm/kg (285-295); Phosphorus 4.1 mg/dL (2.5-4.5); Potassium 3.1 mmol/L (3.5-5.1); Sodium 135 mmol/L (136-145)
[2022-12-12] MEDS: heparin 5,000 unit/mL INJ 1 mL IV (04:38)
[2022-12-12] MEDS: pantoprazole DR 40 mg Tablet PO (04:43)
[2022-12-12] MEDS: clopidogrel 75 mg Tablet PO (04:44)
[2022-12-12] MEDS: aspirin 81 mg EC Tablet PO (04:44)
[2022-12-12 04:45] LABS: Creatinine Clr Calc Pharmacy 39.8878
[2022-12-12 11:00] LABS: Partial Thromboplastin Time 59.5 SECONDS (23.9-36.7)
--- NOTE | 2022-12-12 15:11 | PM.PN ---
Subjective Subjective: Patient was seen and examined this morning, she was complaining of weakness, denied any significant chest pain or shortness of breath. Medications: Medication Review Details: Generic Name Dose Route Start Last Admin Trade Name Marc PRN Reason Stop Dose Admin Aspirin 81 mg 12/12/22 06:00 12/12/22 04:44 Aspirin 81 Mg Ec Tablet PO 81 mg QAM LANDON Administration Clopidogrel Bisulf ate 75 mg 12/12/22 06:00 12/12/22 04:44 Clopidogrel 75 M g Tablet PO 75 mg QAM LANDON Administration Heparin Sodium (Po rcine) 0 unit 12/11/22 22:51 12/12/22 04:38 Heparin 5,000 Un it/Ml Inj 1 Ml IV 1,900 unit PRN PRN Administration Heparin weight-ba se protocol Protocol Heparin Sodium/Sod ium Chloride 25,000 unit in 50 0 mls @ 21.99 mls/ hr 12/11/22 22:30 12/11/22 23:15 Heparin Drip IV 12/12/22 20:00 Infused .[id number] LANDON Infusion 12 UNIT/KG/HR Heparin Sodium/Sod ium Chloride 25,000 unit in 50 0 mls @ 0 mls/hr 12/12/22 20:00 12/12/22 04:34 Heparin Drip IV 13.1 unit/kg/hr .Q0M LANDON 24 mls/hr Titration Protocol Per Protocol Pantoprazole Sodiu m 40 mg 12/12/22 06:00 12/12/22 04:[address] 40 Mg Tablet PO 40 mg QAM LANDON Administration Senna/Docusate Sod ium 1 tab 12/12/22 09:00 12/12/22 08:20 Sennosides-Docus ate Tablet PO Not Given DAILY LANDON Vitals/I&O/Wt Last Vital Signs Temp 97.8 F 12/12/22 03:53 Pulse 87 12/12/22 09:30 Resp 18 12/12/22 09:30 BP 136/74 12/12/22 09:30 Pulse Ox 96 12/12/22 09:30 O2 Del Method 12/12/22 08:00 O2 Flow Rate 2 12/12/22 00:00 12/12/22 12/12/22 12/12/22 06:59 14:59 22:59 Intake Total 374.925 / 624.925 Balance 374.925 / 624.925 Weight last 48 hrs Weight 94.744 kg Weight 91.626 kg Physical Exam Const: COMMON NORMALS: patient oriented x3 HENMT: COMMON NORMALS: normocephalic and atraumatic HEAD & SCALP: normocephalic and atraumatic Resp: COMMON NORMALS: clear to auscultation bilaterally AUSCULTATION: clear to auscultation bilaterally Cardio: COMMON NORMALS: regular rate, regular rhythm, S1 normal heart sound present, S2 normal heart sound present, No gallops present (Cardio), No murmurs present (Cardio), No rub (Cardio) and Peripheral pulses 2+ throughout RATE: regular rate RHYTHM: regular rhythm HEART SOUNDS: S1 normal heart sound present and S2 normal heart sound present PERIPHERAL PULSES: Peripheral pulses 2+ throughout GI: COMMON NORMALS: Normal to inspection, nondistended, normoactive bowel sounds present, Soft to palpation, non-tender, No hepatosplenomegaly present and no masses AUSCULTATION: Yes normoactive bowel sounds PALPATION: Yes Soft to palpation and Yes No hepatosplenomegaly present RECTAL EXAM: deferred Extremity: COMMON NORMALS: no clubbing, cyanosis or edema and no pedal edema Neuro: COMMON NORMALS: patient oriented x3 Data 12/12/22 04:01 12/12/22 04:01 A&P Assessment and plan (1) Acute kidney injury: (2) Non-ST elevation PA (NSTEMI): (3) Smoking addiction: (4) Ischemic cardiomyopathy: Plan 52-year-old female with past medical history of COPD, coronary artery disease, status post recent PCI, ischemic cardiomyopathy, heart failure with reduced ejection fraction with EF of 25 to 30%,s/p AICD placement, came in with chief complaint of generalized weakness, lightheadedness, she was hypotensive at home.Currently being managed for. Assessment: NSTEMI: Patient is complaining of generalized weakness but has denied any shortness of breath, has denied any active chest. Troponin trend: 119-104-107 EKG: S/R, LAD, nonspecific T wave abnormality Most recent 2D echo: Done In August last year: Has shown moderately increased LV cavity size, normal LV wall thickness, LVEF of 25 to 30%, global left ventricular hypokinesis grade 2 out of 4 diastolic dysfunction. Follow repeat limited 2D echo. For now continue with ACS protocol (currently on heparin drip, aspirin Plavix statin ) BALBIR on CKD: Baseline serum creatinine is likely around 0.6-1 Admission serum creatinine 2.5 Likely secondary to hypotension, medication use Hold Lasix, lisinopril, spironolactone, metoprolol Monitor BMP Monitor intake output charting Avoid nephrotoxic's Patient has received gentle IV hydration, serum creatinine is coming down. History of coronary artery disease s/p PCI: Patient has history of PCI done to PDA and RCA Continue aspirin Plavix statin Heart failure with reduced ejection fraction with EF of 25 to 30%,s/p AICD: Currently compensated Continue to hold Lasix Monitor intake output charting Monitor daily weight Monitor electrolytes History of COPD: Currently not in exacerbation DuoNebs as needed CODE STATUS: Full code DVT prophylaxis not needed on therapeutic AC. Attestations Medical Necessity Statement*: Patient is in the hospital for management of NSTEMI. Coding Level of Care Code Acute Code for Chg Fwd Exam Detailed Diagnoses Acute kidney injury N17.9 Non-ST elevation PA (NSTEMI) I21.4 Smoking addiction F17.200 Ischemic cardiomyopathy I25.5
[2022-12-12 17:58] LABS: Partial Thromboplastin Time 50.2 SECONDS (23.9-36.7)
[2022-12-12] MEDS: heparin drip 25,000 UNIT/500 ML PREMIX 26 UNIT IV (19:06)
--- NOTE | 2022-12-12 19:20 | PC.NURSE ---
Spoke with regarding pt complaints of allergy sx. DR solorzano ordered claritin PRN.
[2022-12-12] MEDS: acetaminophen 500 mg Tablet PO (20:01)
[2022-12-12] MEDS: atorvastatin 40 mg Tablet PO (20:01)
[2022-12-12] MEDS: loratadine 10 mg Tablet PO (20:01)
[2022-12-13] VITALS (9 sets, daily range): BP systolic 142–156; BP diastolic 71–87; PULSE 76–87; RESP 17–18; TEMP 36.6–36.8; O2SAT 94–97
[2022-12-13 00:16] LABS: Partial Thromboplastin Time 65.1 SECONDS (23.9-36.7)
[2022-12-13] MEDS: clopidogrel 75 mg Tablet PO (05:46)
[2022-12-13] MEDS: pantoprazole DR 40 mg Tablet PO (05:46)
[2022-12-13] MEDS: aspirin 81 mg EC Tablet PO (05:46)
[2022-12-13 06:37] LABS: Basophils # 0.1 10^3/uL (0.0-0.1); Basophils % 0.8 %; Eosinophils # 0.3 10^3/uL (0.0-0.8); Eosinophils % 4.2 %; Hematocrit 32.6 % (37.0-47.0); Hemoglobin 10.1 g/dL (11.5-15.3); Lymphocytes # 2.6 10^3/uL (0.8-4.8); Lymphocytes % 39.6 %; Mean Corpuscular Hemoglobin 30.9 pg (28.0-34.0); Mean Corpuscular Volume 99.7 fl (81-99); Mean Platelet Volume 10.3 fL (7.4-10.4); Monocytes # 0.4 10^3/uL (0.2-0.9); Monocytes % 5.9 %; Neutrophils # 3.24 10^3/uL (1.8-7.7); Nucleated Red Blood Cells % 0 %; Platelet Count 257 10^3/cmm (130-400); Red Blood Count 3.27 10^6/uL (4.1-5.3); Red Cell Distribution Width 13.4 % (12.1-15.1); White Blood Count 6.6 10^3/uL (4.0-10.0)
[2022-12-13 06:42] LABS: Partial Thromboplastin Time 55.8 SECONDS (23.9-36.7)
[2022-12-13 06:43] LABS: Alanine Aminotransferase 7 U/L (0-33); Albumin Level 3.4 g/dL (3.5-5.2); Alkaline Phosphatase 95 U/L (35-105); Blood Urea Nitrogen 13 mg/dL (6-20); Calcium 8.6 mg/dL (8.5-10.5); Carbon Dioxide 24 mmol/L (22-29); Chloride 106 mmol/L (98-107); Globulin 3.2 g/dL (1.3-4.6); Glomerular Filtration Rate 74.7 mL/min (90-130); Glucose 105 mg/dL (65-115); Osmolality Calculated 290 mOsm/kg (285-295); Sodium 140 mmol/L (136-145); Total Bilirubin 0.3 mg/dL (0.15-1.2); Total Protein 6.6 g/dL (6.6-8.7)
[2022-12-13 06:50] LABS: Anion Gap 14.3 (5-19); Aspartate Amino Transferase 16 U/L (0-32); Potassium 4.3 mmol/L (3.5-5.1)
[2022-12-13] MEDS: spironolactone 25 mg Tablet PO (08:58)
[2022-12-13] MEDS: metoprolol succinate ER (24 HR) 50 mg Tablet PO (08:58)
[2022-12-13] MEDS: acetaminophen 500 mg Tablet PO ×2 (08:58→21:15)
[2022-12-13] MEDS: amlodipine 5 mg Tablet PO (08:58)
[2022-12-13] MEDS: cetirizine 10 mg Tablet PO (13:24)
--- NOTE | 2022-12-13 14:49 | PM.PN ---
Subjective Subjective: Patient was seen and examined this morning, denied any chest pain shortness of breath, lightheadedness dizziness. Medications: Medication Review Details: Generic Name Dose Route Start Last Admin Trade Name Marc PRN Reason Stop Dose Admin Acetaminophen 500 mg 12/11/22 22:51 12/13/22 08:58 Acetaminophen 50 0 Mg Tablet PO 500 mg Q4H PRN Administration fever Aspirin 81 mg 12/12/22 06:00 12/13/22 05:46 Aspirin 81 Mg Ec Tablet PO 81 mg QAM LANDON Administration Atorvastatin Calci um 40 mg 12/12/22 21:00 12/12/22 20:01 Atorvastatin 40 Mg Tablet PO 40 mg BEDTIME LANDON Administration Cetirizine HCl 10 mg 12/13/22 11:45 12/13/22 13:24 Cetirizine 10 Mg Tablet PO 10 mg DAILY LANDON Administration Clopidogrel Bisulf ate 75 mg 12/12/22 06:00 12/13/22 05:46 Clopidogrel 75 M g Tablet PO 75 mg QAM LANDON Administration Heparin Sodium (Po rcine) 0 unit 12/11/22 22:51 12/12/22 04:38 Heparin 5,000 Un it/Ml Inj 1 Ml IV 1,900 unit PRN PRN Administration Heparin weight-ba se protocol Protocol Metoprolol Succina te 50 mg 12/13/22 09:00 12/13/22 08:58 Metoprolol Succi kimberly Er (24 Hr) 50 Mg Tablet PO 50 mg QAM LANDON Administration Pantoprazole Sodiu m 40 mg 12/12/22 06:00 12/13/22 05:[address] 40 Mg Tablet PO 40 mg QAM LANDON Administration Senna/Docusate Sod ium 1 tab 12/12/22 09:00 12/13/22 08:49 Sennosides-Docus ate Tablet PO Not Given DAILY LANDON Spironolactone 25 mg 12/13/22 09:00 12/13/22 08:58 Spironolactone 2 5 Mg Tablet PO 25 mg DAILY LANDON Administration Vitals/I&O/Wt Last Vital Signs Temp 97.8 F 12/12/22 23:48 Pulse 78 12/13/22 14:02 Resp 18 12/13/22 14:02 BP 142/71 12/13/22 10:53 Pulse Ox 95 12/13/22 14:02 O2 Del Method 12/13/22 14:02 O2 Flow Rate 2 12/12/22 00:00 12/12/22 12/13/22 12/13/22 22:59 06:59 14:59 Intake Total 1950.833 / 2310.833 1113.2 / 1113.2 Balance 1950.833 / 2310.833 1113.2 / 1113.2 Weight last 48 hrs Weight 94.393 kg Weight 94.744 kg Weight 91.626 kg Physical Exam Const: COMMON NORMALS: patient oriented x3 HENMT: COMMON NORMALS: normocephalic and atraumatic HEAD & SCALP: normocephalic and atraumatic Resp: COMMON NORMALS: clear to auscultation bilaterally AUSCULTATION: clear to auscultation bilaterally Cardio: COMMON NORMALS: regular rate, regular rhythm, S1 normal heart sound present, S2 normal heart sound present, No gallops present (Cardio), No murmurs present (Cardio), No rub (Cardio) and Peripheral pulses 2+ throughout RATE: regular rate RHYTHM: regular rhythm HEART SOUNDS: S1 normal heart sound present and S2 normal heart sound present PERIPHERAL PULSES: Peripheral pulses 2+ throughout GI: COMMON NORMALS: Normal to inspection, nondistended, normoactive bowel sounds present, Soft to palpation, non-tender, No hepatosplenomegaly present and no masses AUSCULTATION: Yes normoactive bowel sounds PALPATION: Yes Soft to palpation and Yes No hepatosplenomegaly present RECTAL EXAM: deferred Extremity: COMMON NORMALS: no clubbing, cyanosis or edema and no pedal edema Neuro: COMMON NORMALS: patient oriented x3 Data 12/13/22 06:19 12/13/22 06:19 A&P Assessment and plan (1) Acute kidney injury: (2) Non-ST elevation MA (NSTEMI): (3) Smoking addiction: (4) Ischemic cardiomyopathy: Plan 52-year-old female with past medical history of COPD, coronary artery disease, status post recent PCI, ischemic cardiomyopathy, heart failure with reduced ejection fraction with EF of 25 to 30%,s/p AICD placement, came in with chief complaint of generalized weakness, lightheadedness, she was hypotensive at home.Currently being managed for. Assessment: NSTEMI: Likely type II Patient is complaining of generalized weakness but has denied any shortness of breath, has denied any active chest. Troponin trend: 119-104-107 EKG: S/R, LAD, nonspecific T wave abnormality Most recent 2D echo: Done In August last year: Has shown moderately increased LV cavity size, normal LV wall thickness, LVEF of 25 to 30%, global left ventricular hypokinesis grade 2 out of 4 diastolic dysfunction. Repeat limited 2D echo. Normal LV size, moderately decreased LV systolic function with LVEF of 35%, improved EF from prior studies, moderate global hypokinesis, grade 2 diastolic dysfunction. Was on ACS protocol ( heparin drip, aspirin Plavix statin ), has been discontinued, as likely type II NSTEMI. BALBIR on CKD: Resolved Baseline serum creatinine is likely around 0.6-1 Admission serum creatinine 2.5 Likely secondary to hypotension, medication use Hold Lasix, lisinopril, spironolactone, metoprolol Monitor BMP Monitor intake output charting Avoid nephrotoxic's Patient has received gentle IV hydration, serum creatinine is coming down. History of coronary artery disease s/p PCI: Patient has history of PCI done to PDA and RCA Continue aspirin Plavix statin Heart failure with reduced ejection fraction with EF of 25 to 30%,s/p AICD: Currently compensated Continue to hold Lasix Monitor intake output charting Monitor daily weight Monitor electrolytes History of COPD: Currently not in exacerbation DuoNebs as needed CODE STATUS: Full code DVT prophylaxis : On Lovenox Attestations Medical Necessity Statement*: Needs to be in the hospital for medical optimization. Coding Level of Care Code Acute Code for [facility] Diagnoses Acute kidney injury N17.9 Non-ST elevation MA (NSTEMI) I21.4 Smoking addiction F17.200 Ischemic cardiomyopathy I25.5
[2022-12-13] MEDS: atorvastatin 40 mg Tablet PO (21:15)
[2022-12-14] VITALS: BP 162/80; PULSE 87; RESP 17; O2SAT 92
[2022-12-14 03:37] VITALS: BP 152/88; PULSE 79; RESP 12; TEMP 36.6; O2SAT 97
[2022-12-14 04:27] LABS: Basophils # 0.1 10^3/uL (0.0-0.1); Basophils % 0.9 %; Eosinophils # 0.5 10^3/uL (0.0-0.8); Eosinophils % 5.8 %; Hematocrit 32.7 % (37.0-47.0); Hemoglobin 10.3 g/dL (11.5-15.3); Lymphocytes # 2.8 10^3/uL (0.8-4.8); Lymphocytes % 35.2 %; Mean Corpuscular HGB Conc 31.5 g/dL (30.0-36.0); Mean Corpuscular Volume 98.5 fl (81-99); Mean Platelet Volume 10.1 fL (7.4-10.4); Monocytes # 0.5 10^3/uL (0.2-0.9); Monocytes % 6.9 %; Neutrophils # 3.98 10^3/uL (1.8-7.7); Neutrophils % 50.8 %; Nucleated Red Blood Cells % 0 %; Platelet Count 250 10^3/cmm (130-400); Red Blood Count 3.32 10^6/uL (4.1-5.3); Red Cell Distribution Width 13.3 % (12.1-15.1); White Blood Count 7.8 10^3/uL (4.0-10.0)
[2022-12-14 04:46] LABS: Alanine Aminotransferase 7 U/L (0-33); Albumin Level 3.5 g/dL (3.5-5.2); Alkaline Phosphatase 98 U/L (35-105); Anion Gap 13.4 (5-19); Aspartate Amino Transferase 11 U/L (0-32); Blood Urea Nitrogen 12 mg/dL (6-20); Calcium 9.1 mg/dL (8.5-10.5); Carbon Dioxide 26 mmol/L (22-29); Chloride 104 mmol/L (98-107); Globulin 2.9 g/dL (1.3-4.6); Glomerular Filtration Rate 74.7 mL/min (90-130); Glucose 99 mg/dL (65-115); Osmolality Calculated 288 mOsm/kg (285-295); Potassium 4.4 mmol/L (3.5-5.1); Sodium 139 mmol/L (136-145); Total Bilirubin 0.3 mg/dL (0.15-1.2); Total Protein 6.4 g/dL (6.6-8.7)
[2022-12-14] MEDS: aspirin 81 mg EC Tablet PO (05:41)
[2022-12-14] MEDS: pantoprazole DR 40 mg Tablet PO (05:41)
[2022-12-14] MEDS: metoprolol succinate ER (24 HR) 50 mg Tablet PO (05:41)
[2022-12-14] MEDS: clopidogrel 75 mg Tablet PO (05:41)
[2022-12-14] MEDS: enoxaparin 40 mg/0.4 mL Syringe SUBCUT (05:43)
[2022-12-14 05:54] VITALS: PULSE 75
[2022-12-14] MEDS: lisinopril 20 mg Tablet 40 MG PO (08:42)
[2022-12-14] MEDS: cetirizine 10 mg Tablet PO (08:42)
[2022-12-14] MEDS: spironolactone 25 mg Tablet PO (08:42)
[2022-12-14] MEDS: sennosides-docusate Tablet 1 TAB PO (08:43)
[2022-12-14 08:47] VITALS: BP 153/83; PULSE 73; RESP 16; TEMP 37.1; O2SAT 95
--- NOTE | 2022-12-14 08:48 | PM.DCS ---
Discharge Providers Date of Admission: 12/11/22 21:48 Date of Discharge: December 14, 2022 Attending Provider at Admission: Patrice Mariscal MD Attending Provider at Discharge: Thomas Rene MD Primary Care Provider: Lewis Ko MD Diagnoses at Discharge Discharge Diagnosis (1) Acute kidney injury: Status: Acute (2) Non-ST elevation MA (NSTEMI): Status: Acute (3) Smoking addiction: Status: Acute (4) Ischemic cardiomyopathy: Status: Acute Reason for Visit Reason for Visit: Defib, low bp, dizzy Hospital Course Hospital Course 52-year-old female with past medical history of COPD, coronary artery disease, status post recent PCI, ischemic cardiomyopathy, heart failure with reduced ejection fraction with EF of 25 to 30%,s/p AICD placement, came in with chief complaint of generalized weakness, lightheadedness, she was hypotensive at home.she was admitted for the management of NSTEMI : Troponin trend: 119-104-107 EKG: S/R, LAD, nonspecific T wave abnormality,Most recent 2D echo: Done In August last year: Has shown moderately increased LV cavity size, normal LV wall thickness, LVEF of 25 to 30%, global left ventricular hypokinesis grade 2 out of 4 diastolic dysfunction.Repeat limited 2D echo.? Normal LV size, moderately decreased LV systolic function with LVEF of 35%, improved EF from prior studies, moderate global hypokinesis, grade 2 diastolic dysfunction. She Was initially kept on ACS protocol ( heparin drip, aspirin Plavix statin ), which was later discontinued as likely type II NSTEMI. She was also managed for BALBIR on CKD: Baseline serum creatinine is likely around 0.6-1Admission serum creatinine 2.5, Likely secondary to hypotension, medication use initially during the hospital stay Lasix, lisinopril, spironolactone, metoprolol was kept on hold, gradually once the blood pressure stabilized metoprolol spironolactone and lisinopril were resumed on discharge as her blood pressure was at the baseline at the time of discharge, and also BALBIR had resolved. Lasix has been kept on hold on discharge for another couple of days, she has been asked to resume Lasix if she started experiencing shortness of breath, increasing lower extremity, or weight gain greater than 3 pounds in 2 days. Patient was chest pain-free during the hospital stay, generalized weakness had resolved. Overall she responded well to above medical management and was discharged in stable condition to home she will follow cardiology as outpatient. Physical Exam Const: COMMON NORMALS: patient oriented x3 HENMT: COMMON NORMALS: normocephalic and atraumatic HEAD & SCALP: normocephalic and atraumatic Resp: COMMON NORMALS: clear to auscultation bilaterally AUSCULTATION: clear to auscultation bilaterally Cardio: COMMON NORMALS: regular rate, regular rhythm, S1 normal heart sound present, S2 normal heart sound present, No gallops present (Cardio), No murmurs present (Cardio), No rub (Cardio) and Peripheral pulses 2+ throughout RATE: regular rate RHYTHM: regular rhythm HEART SOUNDS: S1 normal heart sound present and S2 normal heart sound present PERIPHERAL PULSES: Peripheral pulses 2+ throughout GI: COMMON NORMALS: Normal to inspection, nondistended, normoactive bowel sounds present, Soft to palpation, non-tender, No hepatosplenomegaly present and no masses AUSCULTATION: Yes normoactive bowel sounds PALPATION: Yes Soft to palpation and Yes No hepatosplenomegaly present RECTAL EXAM: deferred Extremity: COMMON NORMALS: no clubbing, cyanosis or edema and no pedal edema Neuro: COMMON NORMALS: patient oriented x3 Discharge Data Studies Completed and Pending Completed Studies During Hospitalization Category Date Time Status XR chest 1V portable [id number] Stat Exams 12/11/22 20:35 Completed CV. echo complete* [id number] Routine Ultrasound 12/11/22 23:00 Completed Pending at discharge Category Date Time Status CBC Auto Diff [Complete Blood Count w/Auto] AM LABS Lab 12/15/22 04:00 Ordered CMP [Comprehensive Metabolic Panel] AM LABS Lab 12/15/22 04:00 Ordered Radiology Impressions Chest X-Ray 12/11/22 20:35 IMPRESSION: Borderline cardiomegaly otherwise negative chest. Laboratory Results WBC 7.8 10^3/uL (4.0-10.0) 12/14/22 03:33 RBC 3.32 10^6/uL (4.1-5.3) L 12/14/22 03:33 Hgb 10.3 g/dL (11.5-15.3) L 12/14/22 03:33 Hct 32.7 % (37.0-47.0) L 12/14/22 03:33 MCV 98.5 fl (81-99) 12/14/22 03:33 MCH 31.0 pg (28.0-34.0) 12/14/22 03:33 MCHC 31.5 g/dL (30.0-36.0) 12/14/22 03:33 RDW 13.3 % (12.1-15.1) 12/14/22 03:33 Plt Count 250 10^3/cmm (130-400) 12/14/22 03:33 MPV 10.1 fL (7.4-10.4) 12/14/22 03:33 Neut % (Auto) 50.8 % 12/14/22 03:33 Lymph % (Auto) 35.2 % 12/14/22 03:33 Swisher % (Auto) 6.9 % 12/14/22 03:33 Eos % (Auto) 5.8 % 12/14/22 03:33 Baso % (Auto) 0.9 % 12/14/22 03:33 Neut # (Auto) 3.98 10^3/uL (1.8-7.7) 12/14/22 03:33 Lymph # (Auto) 2.8 10^3/uL (0.8-4.8) 12/14/22 03:33 Swisher # (Auto) 0.5 10^3/uL (0.2-0.9) 12/14/22 03:33 Eos # (Auto) 0.5 10^3/uL (0.0-0.8) 12/14/22 03:33 Baso # (Auto) 0.1 10^3/uL (0.0-0.1) 12/14/22 03:33 Nucleated RBC % (auto) 0 % 12/14/22 03:33 Nucleated RBCs # 0.0 /100WBC 12/14/22 03:33 PT 13.10 SECONDS (12.1-14.9) 12/11/22 20:10 INR 0.96 (0.8-1.2) 12/11/22 20:10 APTT 55.8 SECONDS (23.9-36.7) H 12/13/22 06:19 Sodium 139 mmol/L (136-145) 12/14/22 03:33 Potassium 4.4 mmol/L (3.5-5.1) 12/14/22 03:33 Chloride 104 mmol/L (98-107) 12/14/22 03:33 Carbon Dioxide 26 mmol/L (22-29) 12/14/22 03:33 Anion Gap 13.4 (5-19) 12/14/22 03:33 BUN 12 mg/dL (6-20) 12/14/22 03:33 Creatinine 0.8 mg/dL (0.5-0.9) 12/14/22 03:33 GFR Calculation 74.7 mL/min (90-130) L 12/14/22 03:33 Glucose 99 mg/dL (65-115) 12/14/22 03:33 Calculated Osmolality 288 mOsm/kg (285-295) 12/14/22 03:33 Calcium 9.1 mg/dL (8.5-10.5) 12/14/22 03:33 Phosphorus 4.1 mg/dL (2.5-4.5) 12/12/22 04:01 Magnesium 1.5 mg/dL (1.7-2.3) L 12/12/22 04:01 Total Bilirubin 0.3 mg/dL (0.15-1.2) 12/14/22 03:33 AST 11 U/L (0-32) 12/14/22 03:33 ALT 7 U/L (0-33) 12/14/22 03:33 Alkaline Phosphatase 98 U/L (35-105) 12/14/22 03:33 Troponin T Baseline 104 ng/L (0-10) H* 12/11/22 20:10 Troponin T 120 Minute 107.3 ng/L (0-10) H 12/11/22 21:57 Delta Troponin T 3.3 ABS# (0-10) 12/11/22 21:57 Troponin T Hi Sens 6Hr 97.96 ng/L (0-10) H 12/12/22 01:16 Troponin T Hi Sens 6Hr Delta -6.04 ng/L (0-12) L 12/12/22 01:16 NT-Pro-B Natriuret Pep 155 pg/mL (0-125) H 12/11/22 20:10 Total Protein 6.4 g/dL (6.6-8.7) L 12/14/22 03:33 Albumin 3.5 g/dL (3.5-5.2) 12/14/22 03:33 Globulin 2.9 g/dL (1.3-4.6) 12/14/22 03:33 Vitals Last Vital Signs Temp 97.8 F 12/14/22 03:37 Pulse 75 12/14/22 05:54 Resp 12 12/14/22 03:37 BP 152/88 12/14/22 03:37 Pulse Ox 97 12/14/22 03:37 O2 Del Method 12/14/22 03:37 O2 Flow Rate 2 12/12/22 00:00 Discharge Plan Discharge Patient Disposition: Home Condition: Stable Prescriptions: New cetirizine 10 mg Tablet 10 mg PO ONCE PRN (Reason: allergy symptoms) 7 Days Qty: 7 0RF Continued spironolactone 25 mg tablet 25 mg PO DAILY Qty: 30 5RF lisinopril 40 mg Tablet 40 mg PO DAILY potassium 99 mg Tablet 99 mg PO 2XD pantoprazole 40 mg tablet,delayed release (DR/EC) 40 mg PO QAM albuterol sulfate 90 mcg/actuation HFA aerosol inhaler 2 puff INHALATION DAILY PRN (Reason: Shortness Of Breath) atorvastatin 40 mg Tablet 40 mg PO BEDTIME Qty: 90 2RF acetaminophen 500 mg Tablet 1,000 mg PO Q6H PRN (Reason: Pain) ibuprofen 200 mg Tablet 800 mg PO Q6H PRN (Reason: Pain) metformin 500 mg tablet 500 mg PO QAM metoprolol succinate 50 mg tablet extended release 24 hr 50 mg PO QAM clopidogrel 75 mg tablet 75 mg PO QAM aspirin 81 mg tablet,delayed release (DR/EC) 81 mg PO QAM Held furosemide 40 mg Tablet 40 mg PO DAILY Hold Instructions: Resume on 12/19/22. Discharge Orders: Discharge Order (Routine); Ordered 12/14/22 Ordered By: Thomas Rene Referrals: Angelo Robles MD [Physician] - 01/15/23 12:00 am (Please keep follow up with Dr. Robles on January 15.) Tess Ko PA [Physician] - 12/19/22 9:45 am Discharge Diet: Diabetic Patient Instructions: Cetirizine (By mouth), Heart Attack (DC), Acute Kidney Injury (DC), Opioid Safety Activity Restrictions/Additional Instructions: Hold Lasix until Friday12/21/22 UNLESS you start to feel short of breath or gain more than 3lb in one day, then continue to take as prescribed. Discharge Attestations Time Spent in Discharge Care*: less than 30 min Quality Metrics Clinical Quality Measures [ No reported AMI, CVA or VTE this stay] Coding Level of Care Code Acute Code for [facility] Diagnoses Acute kidney injury N17.9 Non-ST elevation MA (NSTEMI) I21.4 Smoking addiction F17.200 Ischemic cardiomyopathy I25.5
[2022-12-14 08:50] VITALS: PULSE 70; RESP 16; O2SAT 96
[2022-12-14 08:51] VITALS: BP 156/83; PULSE 70; RESP 16; TEMP 37.1; O2SAT 96
== END 2022-12-14 09:05 | disposition home or self-care (01) | DRG 682 ==
LOC: ER 21:44 → CSU 22:47
PROVIDERS: Admitting Provider Internal Medicine; Emergency Provider Emergency Medicine; PCP Family Medicine; Visit Provider Internal Medicine
DX: N17.9 Acute kidney failure, unspecified (principal); I21.A1 Myocardial infarction type 2; I50.22 Chronic systolic (congestive) heart failure; I95.9 Hypotension, unspecified; F17.210 Nicotine dependence, cigarettes, uncomplicated; I25.5 Ischemic cardiomyopathy; J44.9 Chronic obstructive pulmonary disease, unspecified; I25.10 Atherosclerotic heart disease of native coronary artery without angina pectoris; Z95.5 Presence of coronary angioplasty implant and graft; N18.9 Chronic kidney disease, unspecified; Z95.810 Presence of automatic (implantable) cardiac defibrillator; Z79.51 Long term (current) use of inhaled steroids; Z79.02 Long term (current) use of antithrombotics/antiplatelets
CPT/HCPCS: 36415; 71045; 80048; 80053; 83735; 83880; 84100; 84484; 85025; 85610; 85730; 90471; 90732; 93005; 93306; 96365; 96372; 96375; 99285; J1644; J1650; J3480; J7050

== ENCOUNTER 2023-11-02 13:48 | Emergency (ER) | payer OTHER, SELFPAY ==
[2023-11-02 14:01] VITALS: BP 162/92; PULSE 101; RESP 16; TEMP 36.8; O2SAT 95
[2023-11-02 14:32] LABS: Basophils # 0.1 10^3/uL (0.0-0.1); Basophils % 0.6 %; Eosinophils # 0.2 10^3/uL (0.0-0.8); Eosinophils % 1.3 %; Hematocrit 38.7 % (36-47); Lymphocytes # 2.6 10^3/uL (0.8-4.8); Lymphocytes % 18.3 %; Mean Corpuscular HGB Conc 31.5 g/dL (30-55); Mean Corpuscular Hemoglobin 29.6 pg (27-33); Mean Corpuscular Volume 93.9 fl (85-98); Mean Platelet Volume 9.5 fL (7.4-10.4); Monocytes # 0.8 10^3/uL (0.2-0.9); Monocytes % 5.9 %; Neutrophils # 10.28 10^3/uL (1.8-7.7); Nucleated Red Blood Cells % 0 %; Platelet Count 326 10^3/cmm (157-399); Red Blood Count 4.12 10^6/uL (3.85-5.65); Red Cell Distribution Width 14.1 % (12.1-15.1); White Blood Count 14.06 10^3/uL (3.29-11.43)
[2023-11-02 14:49] LABS: Alanine Aminotransferase 10 U/L (0-33); Albumin Level 4.3 g/dL (3.5-5.2); Alkaline Phosphatase 118 U/L (35-105); Anion Gap 16.1 (5-19); Aspartate Amino Transferase 15 U/L (0-32); Blood Urea Nitrogen 24 mg/dL (6-20); Calcium 9.8 mg/dL (8.5-10.5); Carbon Dioxide 27 mmol/L (22-29); Chloride 102 mmol/L (98-107); Globulin 3.6 g/dL (1.3-4.6); Glomerular Filtration Rate 29.2 mL/min (90-130); Glucose 139 mg/dL (65-115); Lipase 48 U/L (13-60); Osmolality Calculated 298 mOsm/kg (285-295); Potassium 4.1 mmol/L (3.5-5.1); Sodium 141 mmol/L (136-145); Total Bilirubin 0.5 mg/dL (0.15-1.2); Total Protein 7.9 g/dL (6.6-8.7)
[2023-11-02] MEDS: ondansetron 2 mg/ML SDV 2 mL 4 MG IVP (15:35)
[2023-11-02] MEDS: sodium chloride 0.9% 1,000 ML 999 ML IV (15:35)
--- NOTE | 2023-11-02 15:41 | ED_ITS ---
HPI - Abdominal Pain 2 General: Chief Complaint: Abdominal Pain Stated Complaint: Vomiting for past two days Time Seen by Provider: 11/02/23 15:31 History of Present Illness: Patient presents to the ER complaining of nausea vomiting abdominal pain for the last 2 days. Patient says she has not been able to keep anything down even her medicines. Patient says her pain is in the epigastric area. And she has this somewhat frequent. Patient is currently on Protonix but she has not been able to take it. Patient is not been around anyone has been sick. Patient denies any fevers chills coughs colds constipation diarrhea etc. etc. Review of Systems 2 General: Reports: 10 or more systems reviewed and unremarkable except in HPI and below PFSH ED 2 PFSH: Medical History Non-ST elevation SC (NSTEMI) Acute kidney injury Glucose intolerance Ischemic cardiomyopathy Dyslipidemia Family history of premature coronary heart disease Smoking addiction COPD exacerbation Acute on chronic systolic heart failure Alkalosis, metabolic Sinus tachycardia New onset of congestive heart failure No pertinent past medical history Surgical History Hx of cholecystectomy History of bilateral ligation of fallopian tubes Hx of hysterectomy History of PTCA No pertinent past surgical history Family History Father CAD (coronary artery disease) Diabetes Family/Other CAD (coronary artery disease) Grandmother CAD (coronary artery disease) Cancer Denies family history of Clotting disorder Dementia Chronic kidney disease (CKD) Suicide Anesthesia complication Bleeding disorder Lung disease Stroke Social History Smoking and tobacco/nicotine status: current every day tobacco/nicotine user cigarettes Alcohol intake: former Substance/Drug Use: never Household members: spouse Housing: House Physical Exam 2 Const: COMMON NORMALS: no acute distress, average body habitus, patient oriented x3, no limitations, healthy appearing, alert and well nourished HENMT: COMMON NORMALS: normocephalic, atraumatic, hearing grossly normal bilaterally, external ears normal, Normal external nose present, moist oral mucous membranes and oropharynx normal HEAD & SCALP: normocephalic and atraumatic NOSE: Normal external nose present EXTERNAL EAR: Yes external ears normal Eye: COMMON NORMALS: Equal, round and reactive pupils present, EOMs intact bilaterally, conjunctivae normal and no scleral icterus CONJUNCTIVA: Yes conjunctivae normal PUPIL: Yes Equal, round and reactive pupils present Neck/C-Spine: COMMON NORMALS: full ROM, no lymphadenopathy, supple, no meningeal signs, no JVD and Thyroid normal THYROID: Thyroid normal Chest: COMMONS NORMALS: normal inspection of the chest and normal palpation of entire chest wall Resp: COMMON NORMALS: normal respiratory effort, No retractions, No use of accessory muscles and clear to auscultation bilaterally AUSCULTATION: clear to auscultation bilaterally Cardio: COMMON NORMALS: no JVD, regular rate, regular rhythm, S1 normal heart sound present, S2 normal heart sound present, No gallops present (Cardio), No clicks present (Cardio), No murmurs present (Cardio) and No rub (Cardio) R ATE: regular rate RHYTHM: regular rhythm HEART SOUNDS: S1 normal heart sound present and S2 normal heart sound present GI: COMMON NORMALS: Normal to inspection, nondistended, normoactive bowel sounds present, Soft to palpation, No hepatosplenomegaly present and no masses; negative for non-tender (Mildly tender to palpate over epigastric area) P ALPATION: Yes Soft to palpation and Yes No hepatosplenomegaly present Neuro: COMMON NORMALS: patient oriented x3 SENSORIUM/ORIENTATION: Yes alert MENINGEAL SIGNS: Yes no meningeal signs Course 2 Vital Signs: Vital signs: Vital Signs Temperature 98.2 F 11/02/23 14:01 Pulse Rate 82 11/02/23 17:05 Respiratory Rate 18 11/02/23 17:05 Blood Pressure 156/99 11/02/23 17:05 Pulse Oximetry 93 11/02/23 17:05 Oxygen Delivery Me thod Room Air 11/02/23 17:05 MDM - Abdominal Pain Medical Decision Making Patient presents with 2 days history of vomiting and abdominal pain epigastric region. Lab work was obtained which showed a white count of 14,000 and elevated BUN/creatinine of 24 and 1.8, otherwise labs unremarkable. Patient did receive 1 L normal saline and 4 mg Zofran in the ER. Patient was feeling much better. Patient be discharged to follow-up with her PCP in approximately 7 to 10 days or sooner as needed. Patient be given a prescription for Zofran to go home with. Patient should continue take her Protonix as directed. Differential Diagnosis Likely abdominal pain; Unlikely acute appendicitis, calculus of kidney, constipation, diverticulitis, endometriosis, gastroenteritis, pancreatitis or small bowel obstruction Medical Records I reviewed the patient's medical records. Lab Data I reviewed the patient's lab results. 11/02/23 14:27 11/02/23 14:27 Labs/Radiology: Laboratory Results WBC 14.06 10^3/uL (3.29-11.43) H 11/02/23 14:27 RBC 4.12 10^6/uL (3.85-5.65) 11/02/23 14:27 Hgb 12.20 g/dL (11.27-16.99) 11/02/23 14:27 Hct 38.7 % (36-47) 11/02/23 14: MCV 93.9 fl (85-98) 11/02/23 14: MCH 29.6 pg (27-33) 11/02/23 14:27 MCHC 31.5 g/dL (30-55) 11/02/23 14:27 RDW 14.1 % (12.1-15.1) 11/02/23 14:27 Plt Count 326 10^3/cmm (157-399) 11/02/23 14:27 MPV 9.5 fL (7.4-10.4) 11/02/23 14:27 Neut % (Auto) 73.0 % 11/02/23 14:27 Lymph % (Auto) 18.3 % 11/02/23 14:27 Ramsey % (Auto) 5.9 % 11/02/23 14:27 Eos % (Auto) 1.3 % 11/02/23 14:27 Baso % (Auto) 0.6 % 11/02/23 14:27 Neut # (Auto) 10.28 10^3/uL (1.8-7.7) H 11/02/23 14:27 Lymph # (Auto) 2.6 10^3/uL (0.8-4.8) 11/02/23 14:27 Ramsey # (Auto) 0.8 10^3/uL (0.2-0.9) 11/02/23 14:27 Eos # (Auto) 0.2 10^3/uL (0.0-0.8) 11/02/23 14:27 Baso # (Auto) 0.1 10^3/uL (0.0-0.1) 11/02/23 14:27 Nucleated RBC % (auto) 0 % 11/02/23 14:27 Nucleated RBCs # 0.0 /100WBC 11/02/23 14:27 Sodium 141 mmol/L (136-145) 11/02/23 14:27 Potassium 4.1 mmol/L (3.5-5.1) 11/02/23 14:27 Chloride 102 mmol/L (98-107) 11/02/23 14:27 Carbon Dioxide 27 mmol/L (22-29) 11/02/23 14:27 Anion Gap 16.1 (5-19) 11/02/23 14:27 BUN 24 mg/dL (6-20) H 11/02/23 14:27 Creatinine 1.8 mg/dL (0.5-0.9) H 11/02/23 14:27 GFR Calculation 29.2 mL/min (90-130) L 11/02/23 14:27 Glucose 139 mg/dL (65-115) H 11/02/23 14:27 Calculated Osmolality 298 mOsm/kg (285-295) H 11/02/23 14:27 Calcium 9.8 mg/dL (8.5-10.5) 11/02/23 14:27 Total Bilirubin 0.5 mg/dL (0.15-1.2) 11/02/23 14:27 AST 15 U/L (0-32) 11/02/23 14:27 ALT 10 U/L (0-33) 11/02/23 14:27 Alkaline Phosphatase 118 U/L (35-105) H 11/02/23 14:27 Total Protein 7.9 g/dL (6.6-8.7) 11/02/23 14:27 Albumin 4.3 g/dL (3.5-5.2) 11/02/23 14:27 Globulin 3.6 g/dL (1.3-4.6) 11/02/23 14:27 Lipase 48 U/L (13-60) 11/02/23 14:27 Urine Color Dark yellow (Yellow) 11/02/23 17:10 Urine Appearance Clear (CLEAR) 11/02/23 17:10 Urine pH 5 (5-7) 11/02/23 17:10 Ur Specific Hiland 1.010 (1.005-1.030) 11/02/23 17:10 Urine Protein Trace (Negative) 11/02/23 17:10 Urine Glucose (UA) Norm (Normal) 11/02/23 17:10 Urine Ketones Negative (Negative) 11/02/23 17:10 Urine Blood Neg (Negative) 11/02/23 17:10 Urine Nitrate Negative (Negative) 11/02/23 17:10 Urine Bilirubin 1+ (Negative) H 11/02/23 17:10 Urine Urobilinogen 1 mg/dL (Negative) H 11/02/23 17:10 Ur Leukocyte Esterase Negative (Negative) 11/02/23 17:10 Urine RBC None /hpf (0-2) 11/02/23 17:10 Urine WBC 0-4 /hpf (0-5) H 11/02/23 17:10 Ur Squamous Epith Cells 10-15 /hpf (0-5) H 11/02/23 17:10 Amorphous Sediment Not Reportable 11/02/23 17:10 Urine Bacteria 2+ /hpf (NONE) H 11/02/23 17:10 XR interpretation done by ED provider, pending radiology final review Discharge Plan Discharge Patient Disposition: Home Clinical Impression: Gastritis, Abdominal pain, Nausea & vomiting Condition: Stable Prescriptions: No Action metoprolol succinate 50 mg tablet extended release 24 hr 50 mg PO QAM Qty: 90 3RF spironolactone 25 mg tablet See Rx Instructions .ROUTE .COMPLEX Qty: 30 0RF Dose Instruction: Take 1 tablet by mouth once daily for 30 days Rx Instructions: Take 1 tablet by mouth once daily for 30 days lisinopril 40 mg Tablet 40 mg PO DAILY furosemide 40 mg Tablet 40 mg PO DAILY Hold Instructions: Resume on 12/19/22. potassium 99 mg Tablet 99 mg PO 2XD pantoprazole 40 mg tablet,delayed release (DR/EC) 40 mg PO QAM albuterol sulfate 90 mcg/actuation HFA aerosol inhaler 2 puff INHALATION DAILY PRN (Reason: Shortness Of Breath) atorvastatin 40 mg Tablet 40 mg PO BEDTIME Qty: 90 2RF acetaminophen 500 mg Tablet 1,000 mg PO Q6H PRN (Reason: Pain) ibuprofen 200 mg Tablet 800 mg PO Q6H PRN (Reason: Pain) metformin 500 mg tablet 500 mg PO QAM clopidogrel 75 mg tablet 75 mg PO QAM aspirin 81 mg tablet,delayed release (DR/EC) 81 mg PO QAM Discharge Orders: Discharge ED (Routine); Ordered 11/02/23 Ordered By: Devonte Franz Referrals: Tess Ko PA [Primary Care Provider] - 1 week Patient Instructions: Abdominal Pain (ED) Activity Restrictions/Additional Instructions: Please take all prescriptions as directed. Please push plenty of fluids. Follow-up with your family practice physician within the next 7 to 10 days for further evaluation and treatment as needed. Coding Level of Care Code ED Sales Support Technician for Melisa Muñoz
[2023-11-02] MEDS: lidocaine 2% viscous 15 ML, aluminum-mag hydrox-simethicon 30 ML, sucralfate oral liq 1 GM PO (16:12)
[2023-11-02 16:26] VITALS: BP 155/89; PULSE 83; RESP 18; O2SAT 93
[2023-11-02 16:30] VITALS: BP 155/89; PULSE 91; RESP 18; O2SAT 91
[2023-11-02 17:05] VITALS: BP 156/99; PULSE 82; RESP 18; O2SAT 93
[2023-11-02 17:29] LABS: Blood Urine Neg (Negative); Glucose Urine UA Norm (Normal); Ketones Urine Negative (Negative); Nitrate Urine Negative (Negative); Protein Urine Trace (Negative); Urine Appearance Clear (CLEAR); Urine Color Dark Yellow (Yellow); pH Urine 5 (5-7)
[2023-11-02 17:30] LABS: Add Urine Culture? No; Add Urine Microscopic? YES; Bacteria Urine 2+ /hpf; Bilirubin Urine 1+ (Negative); Leukocyte Esterase Urine Negative (Negative); Urobilinogen Urine 1 mg/dL (Negative); WBC Urine 0-4 /hpf (0-5)
== END 2023-11-02 17:41 | disposition home or self-care (01) ==
PROVIDERS: Emergency Medicine; Emergency Provider Emergency Medicine; PCP Physician Assistant
DX: K29.70 Gastritis, unspecified, without bleeding (principal); Z79.84 Long term (current) use of oral hypoglycemic drugs; Z79.02 Long term (current) use of antithrombotics/antiplatelets; Z79.82 Long term (current) use of aspirin; F17.210 Nicotine dependence, cigarettes, uncomplicated; I25.2 Old myocardial infarction; I25.5 Ischemic cardiomyopathy; E78.5 Hyperlipidemia, unspecified; J44.9 Chronic obstructive pulmonary disease, unspecified; I50.9 Heart failure, unspecified
CPT/HCPCS: 36415; 80053; 81001; 83690; 85025; 96374; 99284; J2405; J7030

== ENCOUNTER 2023-12-28 10:53 | Emergency (ER) | payer OTHER, SELFPAY ==
[2023-12-28] VITALS (8 sets, daily range): BP systolic 112–127; BP diastolic 70–77; PULSE 76–93; RESP 16–17; TEMP 36.6; O2SAT 96–99; BMI 34.9
--- NOTE | 2023-12-28 11:25 | XRR_ITS ---
PROCEDURE INFORMATION: Exam: XR Bilateral Hips Exam date and time: 12/28/2023 12:56 PM Age: 53 years old Clinical indication: Other: Trent hip pain; Additional info: Trauma/pain TECHNIQUE: Imaging protocol: Radiologic exam of the bilateral hips. Views: 2 views of hips with pelvis when performed. COMPARISON: CT abdomen pelvis w con* [id number] 10/27/2020 9:06 AM FINDINGS: Bones/joints: There appears to be a left superior pubic ramus fracture. The rest of the visualized osseous structures are intact. Soft tissues: Unremarkable. XR/XR hip BI 3-4V wo/w pel [id number] IMPRESSION: There appears to be a left superior pubic ramus fracture.
--- NOTE | 2023-12-28 12:39 | W.ED.EXTPRO ---
HPI - Extremity Problem General: Chief complaint: Extremity Injury, Lower Stated complaint: left hip pain Time Seen by Provider: 12/28/23 12:21 History of Present Illness: 53-year-old female presents emergency department complaints of left hip pain. She states that the pain is a 10 out of 10. She states that she did not fall or have any known trauma. She states this morning she was putting her pants on and felt it pop and has been unable to ambulate or stand on it. She states that any movement makes the pain worse and sitting completely still makes it slightly better but it is still very painful. She denies numbness or tingling to the extremity. She states that approximately 1 week ago she did pull a hamstring on the same leg. Review of Systems General: Reports: 10 or more systems reviewed and unremarkable except in HPI and below Musc: Reports: extremity pain and joint pain PFSH ED PFSH: Medical History Non-ST elevation [place] (NSTEMI) Acute kidney injury Glucose intolerance Ischemic cardiomyopathy Dyslipidemia Family history of premature coronary heart disease Smoking addiction COPD exacerbation Acute on chronic systolic heart failure Alkalosis, metabolic Sinus tachycardia New onset of congestive heart failure No pertinent past medical history Surgical History Hx of cholecystectomy History of bilateral ligation of fallopian tubes Hx of hysterectomy History of PTCA No pertinent past surgical history Family History Father CAD (coronary artery disease) Diabetes Family/Other CAD (coronary artery disease) Grandmother CAD (coronary artery disease) Cancer Denies family history of Clotting disorder Dementia Chronic kidney disease (CKD) Suicide Anesthesia complication Bleeding disorder Lung disease Stroke Social History Smoking and tobacco/nicotine status: current every day tobacco/nicotine user cigarettes Alcohol intake: former Substance/Drug Use: never Household members: spouse Housing: House Physical Exam Narrative: EXAM NARRATIVE: Constitutional: the patient appears well nourished and with normal development. Vital signs reviewed as documented. HENMT: Normocephalic, atraumatic. External ears normal appearance without drainage. Nose without drainage, normal appearance. Mucus membranes moist. Neck is supple, No jugular venous distension, trachea is midline, no appreciable carotid bruits. No lymphadenopathy. No meningeal signs. Flexion, extension and lateral rotation is without pain. Eyes: Pupils are equal, round, reactive to light and accommodation. No scleral icterus. Extra-ocular movement are intact. Thorax is symmetrical and with equal rise and fall with respirations. Resp: Lungs are clear to auscultation. No wheezes, rales, crackles or ronchi at present. Cardio: Regular rate and rhythm. Positive S1, S2. No appreciable murmurs, rubs or gallops. GI: Abdominal exam reveals normal bowel sounds to all quadrants. No organomegaly. No obvious palpable masses noted. No hepatomegally appreciated. Soft, non-tender to palpation. Extremity: Extremities are non-edematous and both femoral and pedal pulses are 2+ and equal bilaterally. sensation in all extremities. The left lower leg does appear to be internally rotated, she is tender to palpation to the iliac crest area and also to the posterior aspect of the left hip and gluteus region. Neuro: Alert and oriented x4, person, place, time and situation. Cranial nerves II through XII are grossly intact, there is no focal neurological deficits that I can appreciate at present. Motor strength in the upper and lower extremities are equal and bilateral 5/5. Psych: Cooperative, calm, normal thought process, appropriate judgment. Skin: No lesions, rashes. No gross abnormalities noted. Back: Symmetrical, no obvious deformity, No CVA tenderness Course ED course: I contacted the on-call orthopedic physician Dr. Calero to discuss the patient's radiographic findings and a plan of care. Dr. Calero advised weight bearing as tolerated and pain control and no additional treatment needed.. Reevaluation(s): Reevaluation #1: I discussed the patient's radiographic findings and reevaluation of her pain after she received pain medication. Patient states that her pain is much improved. I did advise her of the orthopedic physicians recommendation of weightbearing as tolerated and they will prescribe the patient both muscle relaxer and Flexeril and have her follow-up with her primary care provider. Time: 13:49 Vital Signs: Vital signs: Vital Signs Temperature 97.9 F 12/28/23 11:06 Pulse Rate 83 12/28/23 14:27 Respiratory Rate 17 12/28/23 13:58 Blood Pressure 127/77 12/28/23 14:27 Pulse Oximetry 98 12/28/23 14:27 Oxygen Delivery Me thod Room Air 12/28/23 13:30 MDM - Extremity (Nontraumatic) Medical Decision Making Physical exam completed and documented I will obtain radiographic examination to evaluate for fracture/dislocation and will provide IV pain medications and muscle relaxer. Medical Records I reviewed the patient's medical records. Lab Data Radiology Impressions Hip/Pelvis X-Ray 12/28/23 11:25 IMPRESSION: There appears to be a left superior pubic ramus fracture. All radiology interpretation(s) finalized by discharge Discharge Plan Discharge Patient Disposition: Home Clinical Impression: Closed fracture of single pubic ramus of pelvis Qualifiers: Encounter type: initial encounter Laterality: left Qualified Code(s): S32.592A - Other specified fracture of left pubis, initial encounter for closed fracture Condition: Stable Prescriptions: New cyclobenzaprine 10 mg tablet 10 mg PO Q8H Qty: 14 0RF hydrocodone-acetaminophen 5-325 mg tablet 1 tab PO Q8H PRN (Reason: pain) Qty: 14 0RF No Action metoprolol succinate 50 mg tablet extended release 24 hr 50 mg PO QAM Qty: 90 3RF spironolactone 25 mg tablet See Rx Instructions .ROUTE .COMPLEX Qty: 30 0RF Dose Instruction: Take 1 tablet by mouth once daily Rx Instructions: Take 1 tablet by mouth once daily lisinopril 40 mg Tablet 40 mg PO DAILY furosemide 40 mg Tablet 40 mg PO DAILY Hold Instructions: Resume on 12/19/22. potassium 99 mg Tablet 99 mg PO 2XD pantoprazole 40 mg tablet,delayed release (DR/EC) 40 mg PO QAM albuterol sulfate 90 mcg/actuation HFA aerosol inhaler 2 puff INHALATION DAILY PRN (Reason: Shortness Of Breath) atorvastatin 40 mg Tablet 40 mg PO BEDTIME Qty: 90 2RF acetaminophen 500 mg Tablet 1,000 mg PO Q6H PRN (Reason: Pain) ibuprofen 200 mg Tablet 800 mg PO Q6H PRN (Reason: Pain) metformin 500 mg tablet 500 mg PO QAM clopidogrel 75 mg tablet 75 mg PO QAM aspirin 81 mg tablet,delayed release (DR/EC) 81 mg PO QAM ondansetron HCl 4 mg tablet 4 mg PO TID PRN (Reason: nausea and vomiting) Qty: 14 0RF Discharge Orders: Discharge ED (Routine); Ordered 12/28/23 Ordered By: Leopoldo Gu Referrals: Tess Ko PA [Primary Care Provider] - Discharge Diet: Advance as tolerated Discharge Activity: Use walker/crutches as instructed Patient Instructions: Opioid Safety, Pain Management Activity Restrictions/Additional Instructions: Activity Restrictions/Additional Instructions: Thank you for choosing [facility] for your healthcare needs today. Please realize that you were seen in the Emergency Department and that we are providing you with an emergency medical screening exam and this may not be a complete and all inclusive of all the testing and or medical work-up that you may need to determine your ailment or severity of your illness. It is very important that you follow-up as instructed with your Primary care provider or Specialist for additional evaluation and to discuss your medical treatment plan. You may return to the Emergency Department should you have concerns or if your condition changes or worsens in any way. Stand Alone Forms: Work/School Release Coding Level of Care Code ED [facility] for Melisa Muñoz
[2023-12-28] MEDS: ketorolac 30 mg/mL INJ IVP (12:52)
[2023-12-28] MEDS: orphenadrine 30 mg/mL Inj 2 mL 60 MG IVP (12:52)
[2023-12-28] MEDS: sodium chloride 0.9% 1,000 ML 999 ML IV (13:49)
[2023-12-28] MEDS: morphine 4 mg/mL SDV 1 mL IVP (13:58)
== END 2023-12-28 14:31 | disposition home or self-care (01) ==
PROVIDERS: Emergency Provider Internal Medicine; PCP Physician Assistant
DX: S32.592A Other specified fracture of left pubis, initial encounter for closed fracture (principal); Z79.82 Long term (current) use of aspirin; Z79.02 Long term (current) use of antithrombotics/antiplatelets; Z79.84 Long term (current) use of oral hypoglycemic drugs; I25.2 Old myocardial infarction; I25.5 Ischemic cardiomyopathy; E78.5 Hyperlipidemia, unspecified; J44.9 Chronic obstructive pulmonary disease, unspecified; I50.23 Acute on chronic systolic (congestive) heart failure; F17.210 Nicotine dependence, cigarettes, uncomplicated; X50.9XXA Other and unspecified overexertion or strenuous movements or postures, initial encounter
CPT/HCPCS: 73522; 96361; 96374; 96375; 99284; E0114; J1885; J2270; J2360; J7030

== ENCOUNTER 2024-01-16 08:36 | Outpatient (CLI) | payer OTHER, SELFPAY ==
--- NOTE | 2024-01-16 08:46 | CT_ITS ---
WS: [id number] CT PELVIS NONCONTRAST HISTORY: PELVIC FX TECHNIQUE: Contiguous imaging is performed of the pelvis without contrast. Coronal and sagittal refor mats are reviewed. All CT scans at [facility] use at least one of these dose optimization reynold hniques: automated exposure control; mA and/or kV adjustment per patient size (includes targeted exam s where dose is matched to clinical indication); or iterative reconstruction. DLP: 1370.78 mGy.cm COMPARISON: Prior CT 10/27/2022, hip radiograph 01/07/2024 Subacute, nondisplaced fracture noted in the LEFT superior and inferior pubic rami. There is callus f ormation around each fracture but the fracture is still evident. There is no displacement. The hips a re negative. No hip fracture. No significant narrowing of either hip joint. Normal SI joints. Mild atherosclerotic plaque in the distal aorta extending into the common iliac arteries. Urinary maribel dder is negative. No free fluid or adenopathy. Facet joint arthropathy at L4-5 and L5-S1. LEFT foraminal disc protrusion at L5-S1. IMPRESSION: 1. Subacute nondisplaced fractures involve the LEFT superior and inferior pubic rami. Callus is deve loping but the fractures are incompletely healed. 2. LEFT foraminal disc protrusion at L5-S1.
--- NOTE | 2024-01-16 08:46 | CT_ITS ---
WS: [id number] CT LUMBAR SPINE, noncontrast. HISTORY: PELVIC FX TECHNIQUE: Contiguous 2.0 mm axial imaging are performed. Sagittal and coronal reformats are submitte d and reviewed. All CT scans at [facility] use at least one of these dose optimization techni ques: automated exposure control; mA and/or kV adjustment per patient size (includes targeted exams w here dose is matched to clinical indication); or iterative reconstruction. IV contrast: None DLP: 1370.78 mGy.cm COMPARISON: None available. Normal posterior lumbar alignment. No fractures or disc space narrowing. There is mild to moderate fa cet joint arthropathy most significant at L4-5 and L5-S1. Pedicles are intact. No sacral fracture or insufficiency fracture. L1-2: Normal. L2-3: Normal. L3-4: Mild diffuse annular disc bulging with ligamentum flavum hypertrophy and facet arthritis. Disc encroachment upon the ventral thecal sac and the subarticular recesses. Mild bilateral foraminal sten osis, LEFT greater than RIGHT. Mild central and subarticular recess stenosis. L4-5: Diffuse moderate annular disc bulging with a LEFT foraminal disc protrusion. Ligamentum flavum and mild facet arthritis. Moderate central and bilateral subarticular recess encroachment. Mild LEFT foraminal stenosis. L5-S1: Mild annular disc bulging, asymmetric to the LEFT. LEFT paracentral and foraminal disc protrus ion contacting the LEFT L5 and S1 nerve roots. Moderate LEFT foraminal stenosis. No RIGHT foraminal s tenosis. Moderate bilateral facet joint arthritis. Degenerative air in the RIGHT L5-S1 facet joint. Calcified plaque in the lower abdominal aorta and iliac arteries. 1.8 cm LEFT adrenal adenoma. IMPRESSION: 1. L3-4: Mild central and bilateral subarticular recess stenosis and mild foraminal stenosis. 2. L4-5: Moderate central and bilateral subarticular recess and mild LEFT foraminal stenosis. 3. L5-S1: Asymmetric disc bulging to the LEFT. LEFT paracentral foraminal disc protrusion contacting the LEFT L5 and S1 nerve roots. Moderate LEFT and no RIGHT foraminal stenosis.
== END 2024-01-16 08:37 | disposition home or self-care (01) ==
LOC: RAD 08:36
PROVIDERS: PCP Physician Assistant; Visit Provider Physician Assistant
DX: S32.512A Fracture of superior rim of left pubis, initial encounter for closed fracture (principal); S32.592A Other specified fracture of left pubis, initial encounter for closed fracture; M51.27 Other intervertebral disc displacement, lumbosacral region; X58.XXXA Exposure to other specified factors, initial encounter
CPT/HCPCS: 72131; 72192

== ENCOUNTER 2024-01-22 12:31 | Outpatient (CLI) | payer OTHER, SELFPAY ==
--- NOTE | 2024-01-22 12:33 | XR_ITS ---
WS: [email or web address] SCREENING DEXA SCAN [employer] CLINICAL INFORMATION: POSTMENOPAUSAL COMPARISON: None. FINDINGS: The L1-L4 bone mineral density measures 0.889 g/cm2. This corresponds to a T score score of -2.4 and Z score of -2.4. Left femoral neck bone mineral density measures 0.711 g/cm2. This corresponds to a T score of -2.4 an d Z score of -2.3. Right femoral neck bone mineral density measures 0.810 g/cm2. This corresponds to a T score -1.6of an d Z score of -1.5. Mean femoral neck bone mineral density measures 0.761 g/cm2. This corresponds to a T score of -2.0 an d Z score of -1.9. IMPRESSION: Osteopenia lumbar spine approaching osteoporosis. Osteopenia femoral necks. Patient's FRAX calculated 10 year probability for major osteoporotic fracture is 32.3% and osteoporot ic hip fracture is 8.3%.
== END 2024-01-22 12:32 | disposition home or self-care (01) ==
LOC: RAD 12:31
PROVIDERS: PCP Physician Assistant; Visit Provider Physician Assistant
DX: Z78.0 Asymptomatic menopausal state (principal); M85.89 Other specified disorders of bone density and structure, multiple sites
CPT/HCPCS: 77080

== ENCOUNTER → 2024-06-24 15:32 | Outpatient (BNVA) | payer MEDICAID, SELFPAY | PROVIDERS: PCP Physician Assistant; Visit Provider Internal Medicine Cardiovascular Disease | DX: I50.22 Chronic systolic (congestive) heart failure (principal) | CPT/HCPCS: 36415; 80048 ==

== ENCOUNTER → 2024-07-01 13:50 | Outpatient (BNVA) | payer MEDICAID, SELFPAY | PROVIDERS: PCP Physician Assistant; Visit Provider Internal Medicine Cardiovascular Disease | DX: R06.02 Shortness of breath (principal); I50.23 Acute on chronic systolic (congestive) heart failure | CPT/HCPCS: 36415; 80048; 83880 ==

== ENCOUNTER 2024-08-12 09:44 | Outpatient (CLI) | payer OTHER, SELFPAY ==
--- NOTE | 2024-08-12 09:54 | XR_ITS ---
WS: [email or web address] Exam: XR pelvis 1-2V* [id number] Date/Time of Exam: 08/12/2024 9:59 AM Reason For Exam: HX OF PELVIS FX, NON UNION There are healed fractures of the superior and inferior LEFT pubic rami. No other sign of pelvic frac ture. Mild DJD of the SI joints. The hips are intact. XR/XR pelvis 1-2V* [id number] IMPRESSION: 1. Healed LEFT pelvic fractures as above. No other significant finding.
--- NOTE | 2024-08-12 09:54 | XR_ITS ---
WS: [email or web address] Exam: XR chest 2V* [id number] Date/Time of Exam: 08/12/2024 9:59 AM Reason For Exam: COPD Comparison 12/11/2022. Lungs are fully inflated and clear. Normal cardiomediastinal silhouette. A cardiac pacer superimposes the LEFT chest. No pleural effusions. Bony structures are intact. XR/XR chest 2V* [id number] IMPRESSION: 1. No acute cardiopulmonary finding.
== END 2024-08-12 09:45 | disposition home or self-care (01) ==
LOC: RAD 09:45
PROVIDERS: PCP Physician Assistant; Visit Provider Family Medicine
DX: Z02.71 Encounter for disability determination (principal); Z95.0 Presence of cardiac pacemaker
CPT/HCPCS: 71046; 72170

== ENCOUNTER 2024-08-12 09:48 | Outpatient (CLI) | payer MEDICAID, SELFPAY ==
--- NOTE | 2024-08-12 12:00 | USCV_ITS ---
Frederick Alesha Age: 54 Gender: F : 1970 Exam Date: 08/12/2024 10:48 Ordering Phys: Angelo Robles MD ([email or web address]) Technologist: ANUEL [place] [facility] [place]: CARDIOM[place]OPATH[place] BP: / HR: 82 Rhythm: Sinus Technical Quality: Adequate MEASUREMENTS (Male / Female) Normal Values 2D ECHO LV Diastolic Diameter PLAX 5.2 cm 4.2 - 5.9 / 3.9 - 5.3 cm IVS Diastolic Thickness 1.7 cm 0.6 - 1.0 / 0.6 - 0.9 cm IVS Systolic Thickness 1.7 cm LVPW Diastolic Thickness 1.2 cm 0.6 - 1.0 / 0.6 - 0.9 cm LVPW Systolic Thickness 1.3 cm LVOT Diameter 2.0 cm LV Ejection Fraction 2D Teich 31.2 % LV Ejection Fraction MOD 4C 54.3 % LV Ejection Fraction MOD 2C 51.6 % LV Ejection Fraction 2C AL 40.2 % LA Diameter 3.4 cm RA Systolic Volume 4C AL 17.6 ml RA Systolic Volume 4C MOD 16.8 ml LA Sys Volume AL 67.8 cm cubed LA Sys Volume Index AL 32.1 cm cubed/m squared Aorta at Sinotubular Diameter 2.8 cm IVC Diameter 1.3 cm M-MODE LA Ao Ratio MM 1.3 AV Cusp Separation MM 2.0 cm DOPPLER AV Peak Velocity 144.0 cm/s LVOT Peak Velocity 98.0 cm/s AV Area Cont Eq vti 2.5 cm squared AV Area Cont Eq pk 2.2 cm squared MV Area PHT 8.4 cm squared Mitral E to A Ratio 0.8 TR Peak Velocity 122.0 cm/s TR Peak Gradient 6.0 mmHg TR Mean Velocity 79.0 cm/s TR Mean Gradient 3.0 mmHg TR Velocity Time Integral 29.5 cm TV Peak E Velocity 61.0 cm/s Right Atrial Pressure 3.0 mmHg Pulmonary Artery Systolic Pressu 9.0 mmHg PV Peak Velocity 99.0 cm/s FINDINGS Left Ventricle Normal LV size with borderline low ejection fraction of 50 to 55%. Moderate hypokinesia of the basal mid inferior wall segment. Grade I/IV diastolic dysfunction (abnormal relaxation filling pattern), normal to mildly elevated filling pressures. Right Ventricle Pacemaker wire in the right ventricle Right Atrium Pacemaker wire in the right atrium Left Atrium Normal left atrial size. Mitral Valve Mild mitral valve regurgitation. Aortic Valve Thickened aortic valve. Tricuspid Valve No gross abnormalities noted Pulmonic Valve Mild pulmonary valve regurgitation. Pericardium Normal pericardium without effusion. Aorta Normal ascending aorta dimension. IVC Inferior vena cava not visualized. CONCLUSIONS Normal LV size with borderline low ejection fraction of 50 to 55%. Moderate hypokinesia of the basal mid inferior wall segment. Grade I/IV diastolic dysfunction (abnormal relaxation filling pattern), normal to mildly elevated filling pressures. Mild mitral valve regurgitation. Thickened aortic valve. Mild pulmonary valve regurgitation. There is no pericardial effusion. There are no intracardiac masses. Compared to the study from 08-10, there is significant improvement in the LV ejection fraction from 35% to 50-55% Dr Angelo Robles MD [facility] (Electronically Signed) Final Date: 18 August 2024 13:31 S
== END 2024-08-12 09:49 | disposition home or self-care (01) ==
LOC: RAD 09:49
PROVIDERS: PCP Physician Assistant; Visit Provider Internal Medicine Cardiovascular Disease
DX: I50.30 Unspecified diastolic (congestive) heart failure (principal); I35.2 Nonrheumatic aortic (valve) stenosis with insufficiency; I51.7 Cardiomegaly; Z95.0 Presence of cardiac pacemaker; R06.09 Other forms of dyspnea
CPT/HCPCS: 36415; 80048; 83880; 93306

== ENCOUNTER → 2024-10-05 13:56 | Outpatient (BNVA) | payer MEDICAID, SELFPAY | PROVIDERS: PCP Physician Assistant; Visit Provider Podiatrist Foot & Ankle Surgery | DX: M79.672 Pain in left foot (principal); R21 Rash and other nonspecific skin eruption | CPT/HCPCS: 73630 ==

== ENCOUNTER 2024-10-22 09:28 | Outpatient (CLI) | payer MEDICAID, SELFPAY ==
--- NOTE | 2024-10-22 09:36 | FL_ITS ---
WS: [email or web address] Exam: FL barium swallow [id number] Date/Time of Exam: 10/22/2024 9:43 AM Reason For Exam: DYSPHAGIA Fluoroscopy time: 1min [id number] minutes # of spot films: 9 Oral pharyngeal phase of swallowing was normal. The esophagus is smooth in contour. No sign of esopha geal stricture or mass. Motility was normal. The esophagus is not displaced. There was no sign of hia jessika hernia or gastroesophageal reflux. FL/FL barium swallow [id number] IMPRESSION: 1. Normal esophagram.
== END 2024-10-22 09:29 | disposition home or self-care (01) ==
PROVIDERS: PCP Physician Assistant; Visit Provider Otolaryngology
DX: R13.10 Dysphagia, unspecified (principal); K21.9 Gastro-esophageal reflux disease without esophagitis; R09.82 Postnasal drip
CPT/HCPCS: 74220

== ENCOUNTER 2024-10-26 10:28 | Outpatient (CLI) | payer MEDICAID, SELFPAY ==
--- NOTE | 2024-10-26 10:32 | FL_ITS ---
WS: [email or web address] Modified barium swallow, 10/26/2024 Clinical Data: Other dysphagia Comparison: Esophagram, 10/22/2024 Fluoroscopy time: 2min [id number] # of spot films: 0 Findings: The patient initiated swallowing with minimal difficulty. There is a small oral residue. There was pr emature spillage with thin liquids. There was minimal vallecular residue but the hypopharynx shows no rmal propulsion. There is no significant penetration or aspiration. The oral tablet passed normally f rom the oral pharynx into the hypopharynx and then the esophagus into the stomach. FL/FL barium swallow modifd [id number] Impression: 1. Minimal oral residue with occasional premature spillage. 2. No significant aspiration or penetration.
== END 2024-10-26 10:29 | disposition home or self-care (01) ==
LOC: RAD 10:28
PROVIDERS: PCP Physician Assistant; Visit Provider Otolaryngology
DX: R13.10 Dysphagia, unspecified (principal); K21.9 Gastro-esophageal reflux disease without esophagitis; R09.82 Postnasal drip; R93.3 Abnormal findings on diagnostic imaging of other parts of digestive tract
CPT/HCPCS: 74230; 92611

== ENCOUNTER 2024-12-08 14:08 | Outpatient (CLI) | payer MEDICAID, SELFPAY ==
[2024-12-08 15:28] LABS: Hepatitis A Antibody IgM Non-Reactive (Nonreactive); Hepatitis B Core AB, Total Non-Reactive (Nonreactive); Hepatitis B Surface AB 178.3 (11.5-1000); Hepatitis B Surface Antigen Non-Reactive (Nonreactive); Hepatitis C Virus Antibody Non-Reactive (Nonreactive)
== END 2024-12-08 14:09 | disposition home or self-care (01) ==
LOC: LAB 14:11
PROVIDERS: PCP Physician Assistant; Visit Provider Nurse Practitioner Family
DX: L43.8 Other lichen planus (principal)
CPT/HCPCS: 86705; 86706; 86709; 86803; 87340

== ENCOUNTER 2024-12-10 04:38 | Inpatient (IN) | payer MEDICAID, SELFPAY ==
[2024-12-10] VITALS (70 sets, daily range): BP systolic 80–180; BP diastolic 44–104; PULSE 79–134; RESP 14–30; TEMP 37.3–38.2; O2SAT 87–100; BMI 37.8; BMI 43.3
--- NOTE | 2024-12-10 04:51 | XRR_ITS ---
PROCEDURE INFORMATION: Exam: XR Chest Exam date and time: 12/10/2024 4:53 AM Age: 54 years old Clinical indication: Dyspnea; Prior surgery; Surgery date: 6+ months; Surgery type: Pacemaker TECHNIQUE: Imaging protocol: Radiologic exam of the chest. Views: 1 view. COMPARISON: CR XR chest 2V* [id number] 01/18/2024 10:02 FINDINGS: Tubes, catheters and devices: A left pacemaker device is present and its leads are in appropriate position. Lungs: There is no consolidation. Pleural spaces: No pleural effusion or pneumothorax. Heart/Mediastinum: The heart and mediastinum are normal in size. Bones/joints: Unremarkable. XR/XR chest 1V portable [id number] IMPRESSION: No acute findings.
--- NOTE | 2024-12-10 04:52 | W.ED.SOB ---
Documented by User: Devonte Franz DO 12/10/24 05:41 HPI - SOB/Dyspnea General: Chief Complaint: Shortness of Breath/Dyspnea Stated Complaint: SOB CHF Time Seen by Provider: 12/10/24 04:52 History of Present Illness: HPI Narrative: Patient presents to the ER with complaints of shortness of breath. This been worsening the last couple days. There is bug going around her house for the last several days. In the last couple days she has went downhill. Patient does have a history of CHF and ischemic cardiomyopathy. Patient is on Lasix. Patient denies any fever or chills. Upon arrival patient was having shortness of breath and working harder to breathe. She was placed on BiPAP almost immediately. Related Data Home Medications Medication Instructions Recorded Confirmed albuterol sulfate 90 mcg/actuation 2 puff inhalation DAILY PRN 05/25/22 10/05/24 aerosol inhaler Shortness Of Breath pantoprazole 40 mg tablet,delayed 40 mg PO QAM 05/25/22 10/05/24 release acetaminophen 500 mg tablet 1,000 mg PO Q6H PRN Pain 09/12/22 10/05/24 aspirin 81 mg tablet,delayed 81 mg PO QAM 09/12/22 10/05/24 release furosemide 40 mg tablet 40 mg PO DAILY 12/11/22 10/05/24 lisinopril 40 mg tablet 40 mg PO DAILY 12/11/22 10/05/24 potassium 99 mg tablet 99 mg PO 2XD 12/11/22 10/05/24 gabapentin 100 mg capsule 100 mg PO BID 06/24/24 10/05/24 budesonide-formoterol HFA 160 1 inh inhalation BID 08/27/24 10/05/24 mcg-4.5 mcg/actuation aerosol inhaler (Symbicort) Previous Rx's Medication Instructions Recorded atorvastatin 40 mg tablet 40 mg PO BEDTIME #90 tabs 05/30/22 ondansetron HCl 4 mg tablet 4 mg PO TID PRN nausea and 11/02/23 vomiting #14 tabs spironolactone 25 mg tablet See Rx Instructions .Route 07/05/24 .COMPLEX #90 tabs metoprolol succinate 50 mg 50 mg PO QAM #90 tabs 08/18/24 tablet,extended release 24 hr fluconazole 150 mg tablet 150 mg PO .QWeekly 4 weeks #4 tabs 08/27/24 triamcinolone acetonide 0.1 % 1 applic topical BID 30 days #454 10/05/24 topical cream grams Allergies Allergy/AdvReac Type Severity Reaction Status Date / Time sacubitril [From Entresto] AdvReac hypotension Verified 10/05/24 14:37 valsartan [From Entresto] AdvReac hypotension Verified 10/05/24 14:37 Review of Systems General: Reports: 10 or more systems reviewed and unremarkable except in HPI and below PFSH ED PFSH: Medical History Non-ST elevation SC (NSTEMI) Acute kidney injury Glucose intolerance Ischemic cardiomyopathy Dyslipidemia Family history of premature coronary heart disease Smoking addiction COPD exacerbation Acute on chronic systolic heart failure Alkalosis, metabolic Sinus tachycardia New onset of congestive heart failure No pertinent past medical history Surgical History Hx of cholecystectomy History of bilateral ligation of fallopian tubes Hx of hysterectomy History of PTCA No pertinent past surgical history Family History Father CAD (coronary artery disease) Diabetes Family/Other CAD (coronary artery disease) Grandmother CAD (coronary artery disease) Cancer Denies family history of Clotting disorder Dementia Chronic kidney disease (CKD) Suicide Anesthesia complication Bleeding disorder Lung disease Stroke Social History Smoking and tobacco/nicotine status: current every day tobacco/nicotine user cigarettes Alcohol intake: former Substance/Drug Use: never Household members: spouse Housing: House Physical Exam Const: COMMON NORMALS: average body habitus, patient oriented x3, no limitations, alert and well nourished HENMT: COMMON NORMALS: normocephalic, atraumatic, hearing grossly normal bilaterally, external ears normal, Normal external nose present and moist oral mucous membranes HEAD & SCALP: normocephalic and atraumatic NOSE: Normal external nose present EXTERNAL EAR: Yes external ears normal Neck/C-Spine: COMMON NORMALS: no JVD Chest: COMMONS NORMALS: normal inspection of the chest and normal palpation of entire chest wall Resp: COMMON NORMALS: negative for normal respiratory effort (Tachypneic) and negative for clear to auscultation bilaterally (Rales and decreased breath sounds bilaterally) AUSCULTATION: not clear to auscultation bilaterally (Rales and decreased breath sounds bilaterally) Cardio: COMMON NORMALS: no JVD, regular rhythm, S1 normal heart sound present and S2 normal heart sound present; negative for regular rate (Mildly tachycardic) RATE: abnormal rate (Mildly tachycardic) RHYTHM: regular rhythm HEART SOUNDS: S1 normal heart sound present and S2 normal heart sound present GI: COMMON NORMALS: Normal to inspection, nondistended, normoactive bowel sounds present, Soft to palpation, non-tender, No hepatosplenomegaly present and no masses PALPATION: Yes Soft to palpation and Yes No hepatosplenomegaly present Neuro: COMMON NORMALS: patient oriented x3 SENSORIUM/ORIENTATION: Yes alert Course Vital Signs: Vital signs: Vital Signs Pulse Rate 128 H 12/10/24 06:38 Respiratory Rate 29 H 12/10/24 06:38 Blood Pressure 121/71 12/10/24 06:38 Pulse Oximetry 99 12/10/24 06:38 Oxygen Delivery Me thod BiPAP 12/10/24 06:38 Oxygen Flow Rate 15 12/10/24 04:54 Fraction of Inspir ed Oxygen 60 12/10/24 05:42 MDM - SOB/Dyspnea Medical Decision Making Patient was not given sepsis bolus due to the fact she has congestive heart failure, elevated BNP, ischemic cardiomyopathy, and is on chronic diuretic therapy. Medical Records I reviewed the patient's medical records. Lab Data I reviewed the patient's lab results. 12/10/24 04:57 12/10/24 04:57 Labs/Radiology: Radiology Impressions Chest X-Ray 12/10/24 04:51 IMPRESSION: No acute findings. Laboratory Results WBC 17.00 10^3/uL (3.29-11.43) H 12/10/24 04:57 RBC 4.54 10^6/uL (3.85-5.65) 12/10/24 04:57 Hgb 12.70 g/dL (11.27-16.99) 12/10/24 04:57 Hct 41.3 % (36-47) 12/10/24 04:57 MCV 91.0 fl (85-98) 12/10/24 04:57 MCH 28.0 pg (27-33) 12/10/24 04:57 MCHC 30.8 g/dL (30-55) 12/10/24 04:57 RDW 18.3 % (12.1-15.1) H 12/10/24 04:57 Plt Count 311 10^3/cmm (157-399) 12/10/24 04:57 MPV 9.9 fL (7.4-10.4) 12/10/24 04:57 Neut % (Auto) 90.1 % 12/10/24 04:57 Lymph % (Auto) 3.8 % 12/10/24 04:57 Stephenson % (Auto) 4.4 % 12/10/24 04:57 Eos % (Auto) 0.1 % 12/10/24 04:57 Baso % (Auto) 0.7 % 12/10/24 04:57 Neut # (Auto) 15.33 10^3/uL (1.8-7.7) H 12/10/24 04:57 Lymph # (Auto) 0.6 10^3/uL (0.8-4.8) L 12/10/24 04:57 Stephenson # (Auto) 0.7 10^3/uL (0.2-0.9) 12/10/24 04:57 Eos # (Auto) 0.0 10^3/uL (0.0-0.8) 12/10/24 04:57 Baso # (Auto) 0.1 10^3/uL (0.0-0.1) 12/10/24 04:57 Nucleated RBC % (auto) 0 % 12/10/24 04:57 Nucleated RBCs # 0.0 /100WBC 12/10/24 04:57 Specimen Type Arterial 12/10/24 05:05 Sample Site Radial, right 12/10/24 05:05 ABG pH 7.16 (7.35-7.45) L* 12/10/24 05:05 ABG pCO2 76.5 mmHg (35-45) H* 12/10/24 05:05 ABG pO2 197.0 mmHg (80.0-100.0) H 12/10/24 05:05 ABG PO2/FiO2 Ratio 197 12/10/24 05:05 ABG HCO3 26.9 mmol/L (22-26) H 12/10/24 05:05 ABG O2 Saturation > 99.1 12/10/24 05:05 ABG Base Excess -3.6 mmol/L (-2.0-2.0) L 12/10/24 05:05 Luis Test Pos 12/10/24 05:05 A-a O2 Gradient 54.2 mmHg (5-10) H 12/10/24 05:05 Hematocrit 40.8 % (37-47) 12/10/24 05:05 Hgb O2 Saturation 95.4 % (95-100) 12/10/24 05:05 Carboxyhemoglobin 4.2 %THgb (0.4-20.1) 12/10/24 05:05 Methemoglobin 0.3 % (0.4-1.5) L 12/10/24 05:05 Total Hemoglobin 13.3 g/dL (12-16) 12/10/24 05:05 Sodium 135.0 mmol/L (131-143) 12/10/24 05:05 Potassium 4.9 mmol/L (3.5-5.0) 12/10/24 05:05 Glucose 247.0 mg/dL (70-115) H 12/10/24 05:05 Ionized Calcium 1.1 mmol/L (1.1-1.4) 12/10/24 05:05 O2 Delivery Device Nrb 12/10/24 05:05 O2 Liters/Min 15.0 % 12/10/24 05:05 FiO2 100.0 % 12/10/24 05:05 Vending Machine Technician ID [email or web address] 12/10/24 05:05 Sodium 133 mmol/L (136-145) L 12/10/24 04:57 Potassium 5.1 mmol/L (3.5-5.1) 12/10/24 04:57 Chloride 92 mmol/L (98-107) L 12/10/24 04:57 Carbon Dioxide 24 mmol/L (22-29) 12/10/24 04:57 Anion Gap 22.1 (5-19) H 12/10/24 04:57 BUN 34 mg/dL (6-20) H 12/10/24 04:57 Creatinine 3.4 mg/dL (0.5-0.9) H 12/10/24 04:57 GFR Calculation 14.0 mL/min (90-130) L 12/10/24 04:57 Glucose 241 mg/dL (65-115) H 12/10/24 04:57 Calculated Osmolality 292 mOsm/kg (285-295) 12/10/24 04:57 Lactic Acid 2.9 mmol/L (0.5-2.2) H 12/10/24 04:57 Calcium 8.2 mg/dL (8.5-10.5) L 12/10/24 04:57 Magnesium 1.9 mg/dL (1.7-2.3) 12/10/24 04:57 Total Bilirubin 0.8 mg/dL (0.15-1.2) 12/10/24 04:57 AST 35 U/L (0-32) H 12/10/24 04:57 ALT 14 U/L (0-33) 12/10/24 04:57 Alkaline Phosphatase 118 U/L (35-105) H 12/10/24 04:57 Troponin T Baseline 20 ng/L (0-10) H 12/10/24 04:57 NT-Pro-B Natriuret Pep 1657 pg/mL (0-125) H 12/10/24 04:57 Total Protein 7.0 g/dL (6.6-8.7) 12/10/24 04:57 Albumin 4.1 g/dL (3.5-5.2) 12/10/24 04:57 Globulin 2.9 g/dL (1.3-4.6) 12/10/24 04:57 Procalcitonin 0.88 ng/mL (0-0.5) H 12/10/24 04:57 Coronavirus (PCR) Negative (Negative) 12/10/24 04:57 Influenza A (PCR) Positive (Negative) 12/10/24 04:57 Influenza Type B (PCR) Negative (Negative) 12/10/24 04:57 RSV (PCR) Negative (Negative) 12/10/24 04:57 All radiology interpretation(s) finalized by discharge Discharge Plan Discharge Patient Disposition: Admitted As Inpatient Admit Provider: Patrice Mariscal Clinical Impression: Influenza A, Acute respiratory failure with hypoxia and hypercapnia Condition: Stable Coding Level of Care Code ED Quality Technician Fiberglass for Chg Fwd Documented by User: Rand Castellanos MD 12/10/24 06:47 HPI - SOB/Dyspnea General: Chief Complaint: Shortness of Breath/Dyspnea Stated Complaint: SOB CHF Time Seen by Provider: 12/10/24 04:52 Related Data Home Medications Medication Instructions Recorded Confirmed albuterol sulfate 90 mcg/actuation 2 puff inhalation DAILY PRN 05/25/22 10/05/24 aerosol inhaler Shortness Of Breath pantoprazole 40 mg tablet,delayed 40 mg PO QAM 05/25/22 10/05/24 release acetaminophen 500 mg tablet 1,000 mg PO Q6H PRN Pain 09/12/22 10/05/24 aspirin 81 mg tablet,delayed 81 mg PO QAM 09/12/22 10/05/24 release furosemide 40 mg tablet 40 mg PO DAILY 12/11/22 10/05/24 lisinopril 40 mg tablet 40 mg PO DAILY 12/11/22 10/05/24 potassium 99 mg tablet 99 mg PO 2XD 12/11/22 10/05/24 gabapentin 100 mg capsule 100 mg PO BID 06/24/24 10/05/24 budesonide-formoterol HFA 160 1 inh inhalation BID 08/27/24 10/05/24 mcg-4.5 mcg/actuation aerosol inhaler (Symbicort) Previous Rx's Medication Instructions Recorded atorvastatin 40 mg tablet 40 mg PO BEDTIME #90 tabs 05/30/22 ondansetron HCl 4 mg tablet 4 mg PO TID PRN nausea and 11/02/23 vomiting #14 tabs spironolactone 25 mg tablet See Rx Instructions .Route 07/05/24 .COMPLEX #90 tabs metoprolol succinate 50 mg 50 mg PO QAM #90 tabs 08/18/24 tablet,extended release 24 hr fluconazole 150 mg tablet 150 mg PO .QWeekly 4 weeks #4 tabs 08/27/24 triamcinolone acetonide 0.1 % 1 applic topical BID 30 days #454 10/05/24 topical cream grams Allergies Allergy/AdvReac Type Severity Reaction Status Date / Time sacubitril [From Entresto] AdvReac hypotension Verified 10/05/24 14:37 valsartan [From Entresto] AdvReac hypotension Verified 10/05/24 14:37 PFSH ED PFSH: Medical History Non-ST elevation SC (NSTEMI) Acute kidney injury Glucose intolerance Ischemic cardiomyopathy Dyslipidemia Family history of premature coronary heart disease Smoking addiction COPD exacerbation Acute on chronic systolic heart failure Alkalosis, metabolic Sinus tachycardia New onset of congestive heart failure No pertinent past medical history Surgical History Hx of cholecystectomy History of bilateral ligation of fallopian tubes Hx of hysterectomy History of PTCA No pertinent past surgical history Family History Father CAD (coronary artery disease) Diabetes Family/Other CAD (coronary artery disease) Grandmother CAD (coronary artery disease) Cancer Denies family history of Clotting disorder Dementia Chronic kidney disease (CKD) Suicide Anesthesia complication Bleeding disorder Lung disease Stroke Social History Smoking and tobacco/nicotine status: current every day tobacco/nicotine user cigarettes Alcohol intake: former Substance/Drug Use: never Household members: spouse Housing: House Course Vital Signs: Vital signs: Vital Signs Pulse Rate 128 H 12/10/24 06:38 Respiratory Rate 29 H 12/10/24 06:38 Blood Pressure 121/71 12/10/24 06:38 Pulse Oximetry 99 12/10/24 06:38 Oxygen Delivery Me thod BiPAP 12/10/24 06:38 Oxygen Flow Rate 15 12/10/24 04:54 Fraction of Inspir ed Oxygen 60 12/10/24 05:42 MDM - SOB/Dyspnea Medical Decision Making Patient was not given sepsis bolus due to the fact she has congestive heart failure, elevated BNP, ischemic cardiomyopathy, and is on chronic diuretic therapy. Patient has respiratory failure with hypercapnia likely from influenza she is started on BiPAP was given 1 L of fluids did not receive the full sepsis bolus due to ischemic cardiomyopathy I spoke to the hospitalist will admit the ICU at this time Lab Data 12/10/24 04:57 12/10/24 04:57 Labs/Radiology: Radiology Impressions Chest X-Ray 12/10/24 04:51 IMPRESSION: No acute findings. Laboratory Results WBC 17.00 10^3/uL (3.29-11.43) H 12/10/24 04:57 RBC 4.54 10^6/uL (3.85-5.65) 12/10/24 04:57 Hgb 12.70 g/dL (11.27-16.99) 12/10/24 04:57 Hct 41.3 % (36-47) 12/10/24 04:57 MCV 91.0 fl (85-98) 12/10/24 04:57 MCH 28.0 pg (27-33) 12/10/24 04:57 MCHC 30.8 g/dL (30-55) 12/10/24 04:57 RDW 18.3 % (12.1-15.1) H 12/10/24 04:57 Plt Count 311 10^3/cmm (157-399) 12/10/24 04:57 MPV 9.9 fL (7.4-10.4) 12/10/24 04:57 Neut % (Auto) 90.1 % 12/10/24 04:57 Lymph % (Auto) 3.8 % 12/10/24 04:57 Stephenson % (Auto) 4.4 % 12/10/24 04:57 Eos % (Auto) 0.1 % 12/10/24 04:57 Baso % (Auto) 0.7 % 12/10/24 04:57 Neut # (Auto) 15.33 10^3/uL (1.8-7.7) H 12/10/24 04:57 Lymph # (Auto) 0.6 10^3/uL (0.8-4.8) L 12/10/24 04:57 Stephenson # (Auto) 0.7 10^3/uL (0.2-0.9) 12/10/24 04:57 Eos # (Auto) 0.0 10^3/uL (0.0-0.8) 12/10/24 04:57 Baso # (Auto) 0.1 10^3/uL (0.0-0.1) 12/10/24 04:57 Nucleated RBC % (auto) 0 % 12/10/24 04:57 Nucleated RBCs # 0.0 /100WBC 12/10/24 04:57 Specimen Type Arterial 12/10/24 05:05 Sample Site Radial, right 12/10/24 05:05 ABG pH 7.16 (7.35-7.45) L* 12/10/24 05:05 ABG pCO2 76.5 mmHg (35-45) H* 12/10/24 05:05 ABG pO2 197.0 mmHg (80.0-100.0) H 12/10/24 05:05 ABG PO2/FiO2 Ratio 197 12/10/24 05:05 ABG HCO3 26.9 mmol/L (22-26) H 12/10/24 05:05 ABG O2 Saturation > 99.1 12/10/24 05:05 ABG Base Excess -3.6 mmol/L (-2.0-2.0) L 12/10/24 05:05 Luis Test Pos 12/10/24 05:05 A-a O2 Gradient 54.2 mmHg (5-10) H 12/10/24 05:05 Hematocrit 40.8 % (37-47) 12/10/24 05:05 Hgb O2 Saturation 95.4 % (95-100) 12/10/24 05:05 Carboxyhemoglobin 4.2 %THgb (0.4-20.1) 12/10/24 05:05 Methemoglobin 0.3 % (0.4-1.5) L 12/10/24 05:05 Total Hemoglobin 13.3 g/dL (12-16) 12/10/24 05:05 Sodium 135.0 mmol/L (131-143) 12/10/24 05:05 Potassium 4.9 mmol/L (3.5-5.0) 12/10/24 05:05 Glucose 247.0 mg/dL (70-115) H 12/10/24 05:05 Ionized Calcium 1.1 mmol/L (1.1-1.4) 12/10/24 05:05 O2 Delivery Device Nrb 12/10/24 05:05 O2 Liters/Min 15.0 % 12/10/24 05:05 FiO2 100.0 % 12/10/24 05:05 Vending Machine Technician ID [email or web address] 12/10/24 05:05 Sodium 133 mmol/L (136-145) L 12/10/24 04:57 Potassium 5.1 mmol/L (3.5-5.1) 12/10/24 04:57 Chloride 92 mmol/L (98-107) L 12/10/24 04:57 Carbon Dioxide 24 mmol/L (22-29) 12/10/24 04:57 Anion Gap 22.1 (5-19) H 12/10/24 04:57 BUN 34 mg/dL (6-20) H 12/10/24 04:57 Creatinine 3.4 mg/dL (0.5-0.9) H 12/10/24 04:57 GFR Calculation 14.0 mL/min (90-130) L 12/10/24 04:57 Glucose 241 mg/dL (65-115) H 12/10/24 04:57 Calculated Osmolality 292 mOsm/kg (285-295) 12/10/24 04:57 Lactic Acid 2.9 mmol/L (0.5-2.2) H 12/10/24 04:57 Calcium 8.2 mg/dL (8.5-10.5) L 12/10/24 04:57 Magnesium 1.9 mg/dL (1.7-2.3) 12/10/24 04:57 Total Bilirubin 0.8 mg/dL (0.15-1.2) 12/10/24 04:57 AST 35 U/L (0-32) H 12/10/24 04:57 ALT 14 U/L (0-33) 12/10/24 04:57 Alkaline Phosphatase 118 U/L (35-105) H 12/10/24 04:57 Troponin T Baseline 20 ng/L (0-10) H 12/10/24 04:57 NT-Pro-B Natriuret Pep 1657 pg/mL (0-125) H 12/10/24 04:57 Total Protein 7.0 g/dL (6.6-8.7) 12/10/24 04:57 Albumin 4.1 g/dL (3.5-5.2) 12/10/24 04:57 Globulin 2.9 g/dL (1.3-4.6) 12/10/24 04:57 Procalcitonin 0.88 ng/mL (0-0.5) H 12/10/24 04:57 Coronavirus (PCR) Negative (Negative) 12/10/24 04:57 Influenza A (PCR) Positive (Negative) 12/10/24 04:57 Influenza Type B (PCR) Negative (Negative) 12/10/24 04:57 RSV (PCR) Negative (Negative) 12/10/24 04:57 Critical Care Time Critical Care Time: Critical Care Time: Yes Total Critical Care Time: 45 Attestation: The high probability of a clinically significant, sudden or life threatening deterioration of the patient's resp system(s) required my full and direct attention, intervention and personal management. The critical care time is as shown. This time is in addition to time spent performing any reported procedures but includes the following: [x] Data and vital sign review and interpretation [x] Patient assessment, examination and intervention [x] Documentation [x] Medication orders and management Discharge Plan Discharge Patient Disposition: Admitted As Inpatient Admit Provider: Patrice Mariscal Clinical Impression: Influenza A, Acute respiratory failure with hypoxia and hypercapnia Condition: Stable Coding Level of Care Code ED Quality Technician [employer]erglass for Melisa Muñoz
[2024-12-10 05:05] LABS: Basophils # 0.1 10^3/uL (0.0-0.1); Basophils % 0.7 %; Eosinophils % 0.1 %; Hematocrit 41.3 % (36-47); Lymphocytes # 0.6 10^3/uL (0.8-4.8); Lymphocytes % 3.8 %; Mean Corpuscular HGB Conc 30.8 g/dL (30-55); Mean Platelet Volume 9.9 fL (7.4-10.4); Monocytes # 0.7 10^3/uL (0.2-0.9); Monocytes % 4.4 %; Neutrophils # 15.33 10^3/uL (1.8-7.7); Neutrophils % 90.1 %; Nucleated Red Blood Cells % 0 %; Platelet Count 311 10^3/cmm (157-399); Red Blood Count 4.54 10^6/uL (3.85-5.65); Red Cell Distribution Width 18.3 % (12.1-15.1)
[2024-12-10 05:11] LABS: ABG PCO2 76.5 mmHg (35-45); ABG PH Result 7.16 (7.35-7.45); Alveolar-Arterial Oxygen Gradi 54.2 mmHg (5-10); Arterial Blood Gas Hematocrit 40.8 % (37-47); Base Excess ABG -3.6 mmol/L (-2.0-2.0); Blood Gas Allen Test Pos; Blood Gas Sample Site Radial, right; Blood Gas Sample Type Arterial; Carboxyhemoglobin 4.2 %THgb (0.4-20.1); HCO3 ABG 26.9 mmol/L (22-26); HGB O2 Sat 95.4 % (95-100); Ionized Calcium Level - ABG 1.1 mmol/L (1.1-1.4); Methemoglobin 0.3 % (0.4-1.5); Oxygen Device NRB; Oxygen Saturation ABG > 99.1; PO2 FiO2 Ratio Arterial Blood 197; Potassium Level - ABG 4.9 mmol/L (3.5-5.0); Total Hemoglobin 13.3 g/dL (12-16)
[2024-12-10 05:24] LABS: Lactic Sepsis W/Reflex 2.9 mmol/L (0.5-2.2)
[2024-12-10 05:26] LABS: Troponin(5th) Baseline 20 ng/L (0-10)
[2024-12-10 05:36] LABS: NT Pro B Type Natriuretic Pept 1657 pg/mL (0-125); Procalcitonin 0.88 ng/mL (0-0.5)
[2024-12-10] MEDS: ipratropium-albuterol 3 mL Neb INHALATION ×2 (05:41→11:11)
[2024-12-10 05:48] LABS: Alanine Aminotransferase 14 U/L (0-33); Albumin Level 4.1 g/dL (3.5-5.2); Alkaline Phosphatase 118 U/L (35-105); Anion Gap 22.1 (5-19); Aspartate Amino Transferase 35 U/L (0-32); Blood Urea Nitrogen 34 mg/dL (6-20); Calcium 8.2 mg/dL (8.5-10.5); Carbon Dioxide 24 mmol/L (22-29); Chloride 92 mmol/L (98-107); Creatinine Clr Calc Pharmacy 18.9488; Globulin 2.9 g/dL (1.3-4.6); Glucose 241 mg/dL (65-115); Magnesium 1.9 mg/dL (1.7-2.3); Osmolality Calculated 292 mOsm/kg (285-295); Potassium 5.1 mmol/L (3.5-5.1); Sodium 133 mmol/L (136-145); Total Bilirubin 0.8 mg/dL (0.15-1.2)
[2024-12-10 05:51] LABS: Covid PCR NEGATIVE (Negative); Influenza A POSITIVE (Negative); Influenza B NEGATIVE (Negative); Respiratory Syncytial Virus Ce NEGATIVE (Negative)
[2024-12-10] MEDS: cefTRIAXone 1,000 mg SDV 1000 MG IVP (06:30)
[2024-12-10] MEDS: sodium chloride 0.9% 1,000 ML 999 ML IV (06:30)
[2024-12-10 06:50] LABS: Reflex Lactate Order REFLEX LACTIC ORDERD
[2024-12-10] MEDS: AZITHROMYCIN ADD-Vantage 500 MG in 0.9% NaCl ADD-Vantage 250 ML 250 MG IV (07:00)
--- NOTE | 2024-12-10 07:31 | ECG_ITS ---
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 Measurements Intervals Rule Rate: 120 P: 0 GA: 0 QRS: -59 QRSD: 97 T: 72 QT: 313 QTc: 444 Interpretive Statements SINUS TACHYCARDIA PATTERN CONSISTENT WITH PULMONARY DISEASE LEFT ANTERIOR FASCICULAR BLOCK [QRS AXIS <= -45, QR IN I, RS IN II] Compared to ECG 12/10/2024 04:49:49 Left anterior fascicular block now present Sinus tachycardia no longer present Left-axis deviation no longer present Electronically Signed On 12-11-2024 13:34:24 SCAFFOLDER by Justo Maurer M.D. [email or web address]
--- NOTE | 2024-12-10 07:37 | P.HP_ITS ---
Providers/Chief Complaint 2 Admitting Physician: Patrice Mariscal MD Primary Care Provider: Tess Ko Chief Complaint: SOB CHF History of Present Illness Alesha Mack is a 54 year old female with history of not oxygen pendant COPD, active smoker, present to the hospital with chief complaint of worsening shortness of breath. Patient is stating that she was in her usual state of health until 24 hours ago when she started getting sick with shortness of breath, she has been noticing loose stools, body aches, low appetite, lack of energy, fever 101, she has been noticing pain on deep coughing, she is able to pinpoint the area of her pain towards her left upper chest. In the ER she was diagnosed with sepsis related to influenza A she received judicious septic bolus secondary to high BNP she was not given full septic bolus, received antibiotics, endorgan damage acute on chronic kidney disease high lactic acid tachypnea tachycardia and fever She is hypercapnic with hypoxic presentation was put on BiPAP, she is awake and alert at time my evaluation Was able to tell me above HPI Patient is stating that she smokes 6 to 8 cigarettes a day, lives alone at home I have requested another ABG, admit to ICU Troponin trending down Review of records revealed that patient has history of ischemic cardiomyopathy, systolic CHF status post ICD 2021, coronary to disease, [employer] pacemaker Heart rate is 122 new onset atrial flutter Review of Systems 2 Const: Reports: fever(s) and chills Eyes: Denies: change in vision ENMT: Denies: throat pain Card: Denies: chest pain Resp: Reports: dyspnea GI: Denies: abdominal pain : Denies: flank pain Musc: Reports: back pain Skin/Breast: Denies: rash Medications/Allergies Home Medications Medication Instructions Recorded Confirmed Last Taken Type albuterol sulfate 90 mcg/actuation 2 puff inhalation DAILY PRN 05/25/22 12/10/24 12/10/22 History aerosol inhaler Shortness Of Breath pantoprazole 40 mg tablet,delayed 40 mg PO QAM 05/25/22 12/10/24 12/10/24 History release atorvastatin 40 mg tablet 40 mg PO BEDTIME #90 tabs 05/30/22 12/10/24 12/09/24 Rx acetaminophen 500 mg tablet 1,000 mg PO Q6H PRN Pain 11/01/2912/10/24 12/10/22 History aspirin 81 mg tablet,delayed 81 mg PO QAM 09/12/22 12/10/24 12/10/24 History release metoprolol succinate 50 mg 50 mg PO QAM #90 tabs 08/18/24 12/10/24 12/10/24 Rx tablet,extended release 24 hr budesonide-formoterol HFA 160 1 inh inhalation BID 08/27/24 12/10/24 12/10/24 History mcg-4.5 mcg/actuation aerosol inhaler (Symbicort) alendronate 70 mg tablet 70 mg PO Q7D 12/10/24 12/10/24 12/06/24 History betamethasone valerate 0.1 % 1 applic topical DAILY 12/10/24 12/10/24 Unknown History topical cream clobetasol 0.05 % topical cream See Rx Instructions .Route .COMPLEX 12/10/24 12/10/24 Unknown History fluticasone propionate 50 1 spray intranasal DAILY 12/10/24 12/10/24 12/10/24 History mcg/actuation nasal spray,suspension furosemide 20 mg tablet 20 mg PO DAILY PRN Edema 12/10/24 12/10/24 Unknown History gabapentin 300 mg capsule 300 mg PO BID 12/10/24 12/10/24 12/10/24 History potassium gluconate 595 mg (99 mg) 595 mg PO DAILY 12/10/24 12/10/24 12/10/24 History tablet ropinirole 1 mg tablet 1 mg PO BEDTIME 12/10/24 12/10/24 12/09/24 History spironolactone 25 mg tablet 25 mg PO DAILY 12/10/24 12/10/24 12/10/24 History tizanidine 4 mg tablet 4 mg PO Q6H PRN muscle spasms 12/10/24 12/10/24 Unknown History triamcinolone acetonide 0.1 % 1 applic topical BID PRN Skin 12/10/24 12/10/24 Unknown History topical cream Irritation Allergies Allergy/AdvReac Type Severity Reaction Status Date / Time sacubitril [From Entresto] AdvReac hypotension Verified 10/05/24 14:37 valsartan [From Entresto] AdvReac hypotension Verified 10/05/24 14:37 PFSH Acute 2 PFSH: Medical History Non-ST elevation [place] (NSTEMI) Acute kidney injury Glucose intolerance Ischemic cardiomyopathy Dyslipidemia Family history of premature coronary heart disease Smoking addiction COPD exacerbation Acute on chronic systolic heart failure Alkalosis, metabolic Sinus tachycardia New onset of congestive heart failure No pertinent past medical history Surgical History Hx of cholecystectomy History of bilateral ligation of fallopian tubes Hx of hysterectomy History of PTCA No pertinent past surgical history Family History Father CAD (coronary artery disease) Diabetes Family/Other CAD (coronary artery disease) Grandmother CAD (coronary artery disease) Cancer Denies family history of Clotting disorder Dementia Chronic kidney disease (CKD) Suicide Anesthesia complication Bleeding disorder Lung disease Stroke Social History Smoking and tobacco/nicotine status: current every day tobacco/nicotine user cigarettes Alcohol intake: former Substance/Drug Use: never Household members: spouse Housing: House Vitals/I&O/Wt Last Vital Signs Pulse 128 H 12/10/24 06:38 Resp 29 H 12/10/24 06:38 BP 121/71 12/10/24 06:38 Pulse Ox 99 12/10/24 06:38 O2 Del Method BiPAP 12/10/24 06:38 O2 Flow Rate 15 12/10/24 04:54 FiO2 60 12/10/24 05:42 12/09/24 12/10/24 12/10/24 22:59 06:59 14:59 Intake Total 0 / 0 Balance 0 / 0 Weight last 48 hrs Weight 90.718 kg Physical Exam 2 Narrative: Good capillary refill Less than 3-second AOx4 Bilateral breath sounds with wheezing Mild sign of fluid overload Abdomen soft Awake and alert GCS 15 On BiPAP Tachycardic heart rate 122 atrial flutter No active chest pain Variable S1-S2 Data 12/10/24 04:57 12/10/24 04:57 Micro: Microbiology 12/10/24 05:09 Blood Culture - Preliminary Blood SPECIMEN COLLECTED 12/10/24 04:57 Blood Culture - Preliminary Blood SPECIMEN COLLECTED A&P Assessment and plan (1) Acute on chronic systolic heart failure: (2) ICD (implantable cardioverter-defibrillator), dual, in situ: (3) Acute on chronic kidney failure: Qualifiers: Acute renal failure type: unspecified Chronic kidney disease stage: s tage 3 (moderate) Chronic kidney disease stage 3 subtype: stage 3b (GFR 30-44) Qualified Code(s): N17.9 - Acute kidney failure, unspecified; N18.32 - Chronic kidney disease, stage 3b (4) Influenza A: (5) COPD exacerbation: (6) Acute respiratory failure with hypoxia and hypercapnia: (7) Sepsis: (8) New onset a-fib: Plan Sepsis related to influenza A Lung x-ray not showing any consolidation Criteria met with tachypnea tachycardia fever leukocytosis endorgan damage and lactic acid Related to influenza A I do not see any infiltrate on lung x-ray, discontinue antibiotics at this point, procalcitonin mildly hide Add steroids, DuoNeb treatment and budesonide Judicious use of IV fluids cannot give liberal IV septic bolus secondary to mild CHF exacerbation and poor EF Hypoxic hypercarbic respiratory distress Patient is stating that she does not use oxygen at home Active smoker Influenza A Repeat ABG Admit to ICU Add IV steroids along DuoNeb treatment Increase lactic acid is secondary to sepsis, increased work of breathing New onset atrial flutter Will give her therapeutic dose of Lovenox once daily regimen secondary to chronic kidney disease Start amiodarone gtt Will need Eliquis at the time of discharge I will discontinue metoprolol succinate that she takes for poor EF cardiomyopathy Active smoker Cardiac diet Will keep her on insulin sliding scale for steroid-induced hyperglycemia events Full code DVT prophylaxis covered with therapeutic Lovenox Attestations 2 Medical Necessity Statement*: More than 2 midnights anticipated Diagnoses Acute on chronic systolic heart failure I50.23 ICD (implantable cardioverter-defibrillator), dual, in situ Z95.810 Acute renal failure superimposed on stage 3b chronic kidney disease, unspecified acute renal failure type N17.9; N18.32 Acute renal failure type: unspecified Chronic kidney disease stage: stage 3 (moderate) Chronic kidney disease stage 3 subtype: stage 3b (GFR 30-44) Influenza A J10.1 COPD exacerbation J44.1 Acute respiratory failure with hypoxia and hypercapnia J96.01; J96.02 Sepsis A41.9 New onset a-fib I48.91
[2024-12-10 08:04] LABS: Arterial Blood Gas Hematocrit 36.9 % (37-47); Base Excess ABG -5.4 mmol/L (-2.0-2.0); Blood Gas Allen Test Pos; Blood Gas Operator Identificat WALCI; Blood Gas Sample Site Radial, right; Blood Gas Sample Type Arterial; HCO3 ABG 25.6 mmol/L (22-26); Oxygen Device BIPAP; PO2 FiO2 Ratio Arterial Blood 363
[2024-12-10 08:06] LABS: ABG PCO2 80.5 mmHg (35-45); ABG PH Result 7.11 (7.35-7.45)
[2024-12-10 09:28] LABS: Alveolar-Arterial Oxygen Gradi 16.9 mmHg (5-10); Arterial Blood Gas Hematocrit 38.8 % (37-47); Base Excess ABG -5.1 mmol/L (-2.0-2.0); Blood Gas Allen Test Pos; Blood Gas Operator Identificat WALCI; Blood Gas Sample Site Radial, right; Blood Gas Sample Type Arterial; HCO3 ABG 25.8 mmol/L (22-26); HGB O2 Sat 92.2 % (95-100); Ionized Calcium Level - ABG 1.1 mmol/L (1.1-1.4); Methemoglobin 1.5 % (0.4-1.5); Oxygen Device BIPAP; Oxygen Saturation ABG 95.6; PO2 ABG 93.5 mmHg (80.0-100.0); PO2 FiO2 Ratio Arterial Blood 207; Potassium Level - ABG 5.3 mmol/L (3.5-5.0); Total Hemoglobin 12.7 g/dL (12-16)
[2024-12-10 09:29] LABS: ABG PH Result 7.12 (7.35-7.45)
[2024-12-10] MEDS: amiodarone 150 MG/100 ML PREMIX 400 MG IV (09:32)
[2024-12-10] MEDS: etomidate 2 mg/mL INJ SDV 10 mL 20 MG IVP (09:53)
--- NOTE | 2024-12-10 09:56 | XR_ITS ---
WS: [id number] Exam: XR chest 1V portable [id number] Date/Time of Exam: 12/10/2024 9:57 AM Reason For Exam: intubation Comparison 12/10/2024. ET tube has been placed and ends about 6 cm above the clarissa in good position. The lungs are clear an d adequately ventilated. Normal cardiomediastinal silhouette. An enteric tube enters the stomach but the tip is out of the [id number]. No pleural effusion. Bony structures are intact. Permanent cardi ac pacer noted over the LEFT chest. XR/XR chest 1V portable [id number] IMPRESSION: 1. No acute cardiopulmonary finding. 2. ET tube and enteric tube both in satisfactory position.
--- NOTE | 2024-12-10 09:56 | W.ED.SOB ---
HPI - SOB/Dyspnea General: Chief Complaint: Shortness of Breath/Dyspnea Stated Complaint: SOB CHF Time Seen by Provider: 12/10/24 04:52 History of Present Illness: HPI Narrative: .. Related Data Home Medications Medication Instructions Recorded Confirmed albuterol sulfate 90 mcg/actuation 2 puff inhalation DAILY PRN 05/25/22 12/10/24 aerosol inhaler Shortness Of Breath pantoprazole 40 mg tablet,delayed 40 mg PO QAM 05/25/22 12/10/24 release acetaminophen 500 mg tablet 1,000 mg PO Q6H PRN Pain 09/12/22 12/10/24 aspirin 81 mg tablet,delayed 81 mg PO QAM 09/12/22 12/10/24 release budesonide-formoterol HFA 160 1 inh inhalation BID 08/27/24 12/10/24 mcg-4.5 mcg/actuation aerosol inhaler (Symbicort) alendronate 70 mg tablet 70 mg PO Q7D 12/10/24 12/10/24 betamethasone valerate 0.1 % 1 applic topical DAILY 12/10/24 12/10/24 topical cream clobetasol 0.05 % topical cream See Rx Instructions .Route .COMPLEX 12/10/24 12/10/24 fluticasone propionate 50 1 spray intranasal DAILY 12/10/24 12/10/24 mcg/actuation nasal spray,suspension furosemide 20 mg tablet 20 mg PO DAILY PRN Edema 12/10/24 12/10/24 gabapentin 300 mg capsule 300 mg PO BID 12/10/24 12/10/24 potassium gluconate 595 mg (99 mg) 595 mg PO DAILY 12/10/24 12/10/24 tablet ropinirole 1 mg tablet 1 mg PO BEDTIME 12/10/24 12/10/24 spironolactone 25 mg tablet 25 mg PO DAILY 12/10/24 12/10/24 tizanidine 4 mg tablet 4 mg PO Q6H PRN muscle spasms 12/10/24 12/10/24 triamcinolone acetonide 0.1 % 1 applic topical BID PRN Skin 12/10/24 12/10/24 topical cream Irritation Previous Rx's Medication Instructions Recorded atorvastatin 40 mg tablet 40 mg PO BEDTIME #90 tabs 05/30/22 metoprolol succinate 50 mg 50 mg PO QAM #90 tabs 08/18/24 tablet,extended release 24 hr Allergies Allergy/AdvReac Type Severity Reaction Status Date / Time sacubitril [From Entresto] AdvReac hypotension Verified 10/05/24 14:37 valsartan [From Entresto] AdvReac hypotension Verified 10/05/24 14:37 [facility] ED PFSH: Medical History Non-ST elevation [place] (NSTEMI) Acute kidney injury Glucose intolerance Ischemic cardiomyopathy Dyslipidemia Family history of premature coronary heart disease Smoking addiction COPD exacerbation Acute on chronic systolic heart failure Alkalosis, metabolic Sinus tachycardia New onset of congestive heart failure No pertinent past medical history Surgical History Hx of cholecystectomy History of bilateral ligation of fallopian tubes Hx of hysterectomy History of PTCA No pertinent past surgical history Family History Father CAD (coronary artery disease) Diabetes Family/Other CAD (coronary artery disease) Grandmother CAD (coronary artery disease) Cancer Denies family history of Clotting disorder Dementia Chronic kidney disease (CKD) Suicide Anesthesia complication Bleeding disorder Lung disease Stroke Social History Smoking and tobacco/nicotine status: current every day tobacco/nicotine user cigarettes Alcohol intake: former Substance/Drug Use: never Household members: spouse Housing: House Procedures Intubation Time out performed: Yes sedative: Etomidate Mg Given: 20 paralytic: Vecuronium Mg Given: 10 Laryngoscope: Ad ET Tube Size: 8 ET Tube Uncuffed: Yes Tube Secured Depth (cm): 24 Tube Secured Location: teeth Tube Placement Confirmation: visualized tube passing through cords, equal breath sounds bilaterally, no breath sounds over epigastrium and confirmation by capnometry Patient Tolerated Procedure: well Intubation Complications: none Course Vital Signs: Vital signs: Vital Signs Pulse Rate 119 H 12/10/24 09:35 Respiratory Rate 29 H 12/10/24 06:38 Blood Pressure 121/71 12/10/24 06:38 Pulse Oximetry 96 12/10/24 09:35 Oxygen Delivery Me thod BiPAP 12/10/24 06:38 Oxygen Flow Rate 15 12/10/24 04:54 Fraction of Inspir ed Oxygen 45 12/10/24 09:35 MDM - SOB/Dyspnea Medical Decision Making Procedure note for patient in the ER that did not erwin patient has her blood gases have had no improvement on BiPAP. Lab Data 12/10/24 04:57 12/10/24 04:57 Labs/Radiology: Radiology Impressions Chest X-Ray 12/10/24 04:51 IMPRESSION: No acute findings. Laboratory Results WBC 17.00 10^3/uL (3.29-11.43) H 12/10/24 04:57 RBC 4.54 10^6/uL (3.85-5.65) 12/10/24 04:57 Hgb 12.70 g/dL (11.27-16.99) 12/10/24 04:57 Hct 41.3 % (36-47) 12/10/24 04:57 MCV 91.0 fl (85-98) 12/10/24 04:57 MCH 28.0 pg (27-33) 12/10/24 04:57 MCHC 30.8 g/dL (30-55) 12/10/24 04:57 RDW 18.3 % (12.1-15.1) H 12/10/24 04:57 Plt Count 311 10^3/cmm (157-399) 12/10/24 04:57 MPV 9.9 fL (7.4-10.4) 12/10/24 04:57 Neut % (Auto) 90.1 % 12/10/24 04:57 Lymph % (Auto) 3.8 % 12/10/24 04:57 Dickey % (Auto) 4.4 % 12/10/24 04:57 Eos % (Auto) 0.1 % 12/10/24 04:57 Baso % (Auto) 0.7 % 12/10/24 04:57 Neut # (Auto) 15.33 10^3/uL (1.8-7.7) H 12/10/24 04:57 Lymph # (Auto) 0.6 10^3/uL (0.8-4.8) L 12/10/24 04:57 Dickey # (Auto) 0.7 10^3/uL (0.2-0.9) 12/10/24 04:57 Eos # (Auto) 0.0 10^3/uL (0.0-0.8) 12/10/24 04:57 Baso # (Auto) 0.1 10^3/uL (0.0-0.1) 12/10/24 04:57 Nucleated RBC % (auto) 0 % 12/10/24 04:57 Nucleated RBCs # 0.0 /100WBC 12/10/24 04:57 Specimen Type Arterial 12/10/24 09:16 Sample Site Radial, right 12/10/24 09:16 ABG pH 7.12 (7.35-7.45) L* 12/10/24 09:16 ABG pCO2 79.0 mmHg (35-45) H* 12/10/24 09:16 ABG pO2 93.5 mmHg (80.0-100.0) 12/10/24 09:16 ABG PO2/FiO2 Ratio 207 12/10/24 09:16 ABG HCO3 25.8 mmol/L (22-26) 12/10/24 09:16 ABG O2 Saturation 95.6 12/10/24 09:16 ABG Base Excess -5.1 mmol/L (-2.0-2.0) L 12/10/24 09:16 Luis Test Pos 12/10/24 09:16 A-a O2 Gradient 16.9 mmHg (5-10) H 12/10/24 09:16 Hematocrit 38.8 % (37-47) 12/10/24 09:16 Hgb O2 Saturation 92.2 % (95-100) L 12/10/24 09:16 Carboxyhemoglobin 2.0 %THgb (0.4-20.1) 12/10/24 09:16 Methemoglobin 1.5 % (0.4-1.5) 12/10/24 09:16 Total Hemoglobin 12.7 g/dL (12-16) 12/10/24 09:16 Sodium 136.0 mmol/L (131-143) 12/10/24 09:16 Potassium 5.3 mmol/L (3.5-5.0) H 12/10/24 09:16 Glucose 135.0 mg/dL (70-115) H 12/10/24 09:16 Ionized Calcium 1.1 mmol/L (1.1-1.4) 12/10/24 09:16 O2 Delivery Device Bipap 12/10/24 09:16 O2 Liters/Min 15.0 % 12/10/24 05:05 FiO2 45.0 % 12/10/24 09:16 Tidal Volume 0.40 12/10/24 09:16 PEEP 8.0 cmH20 12/10/24 09:16 Real Estate Assessor ID Melvi 12/10/24 09:16 Sodium 133 mmol/L (136-145) L 12/10/24 04:57 Potassium 5.1 mmol/L (3.5-5.1) 12/10/24 04:57 Chloride 92 mmol/L (98-107) L 12/10/24 04:57 Carbon Dioxide 24 mmol/L (22-29) 12/10/24 04:57 Anion Gap 22.1 (5-19) H 12/10/24 04:57 BUN 34 mg/dL (6-20) H 12/10/24 04:57 Creatinine 3.4 mg/dL (0.5-0.9) H 12/10/24 04:57 GFR Calculation 14.0 mL/min (90-130) L 12/10/24 04:57 Glucose 241 mg/dL (65-115) H 12/10/24 04:57 Calculated Osmolality 292 mOsm/kg (285-295) 12/10/24 04:57 Lactic Acid 2.9 mmol/L (0.5-2.2) H 12/10/24 04:57 Lactic Acid (Sepsis) 2.0 mmol/L (0.5-2.2) 12/10/24 09:02 Calcium 8.2 mg/dL (8.5-10.5) L 12/10/24 04:57 Magnesium 1.9 mg/dL (1.7-2.3) 12/10/24 04:57 Total Bilirubin 0.8 mg/dL (0.15-1.2) 12/10/24 04:57 AST 35 U/L (0-32) H 12/10/24 04:57 ALT 14 U/L (0-33) 12/10/24 04:57 Alkaline Phosphatase 118 U/L (35-105) H 12/10/24 04:57 Troponin T Baseline 20 ng/L (0-10) H 12/10/24 04:57 Troponin T 120 Minute 23.80 ng/L (0-10) H 12/10/24 06:55 Delta Troponin T 3.80 ABS# (0-10) 12/10/24 06:55 NT-Pro-B Natriuret Pep 1657 pg/mL (0-125) H 12/10/24 04:57 Total Protein 7.0 g/dL (6.6-8.7) 12/10/24 04:57 Albumin 4.1 g/dL (3.5-5.2) 12/10/24 04:57 Globulin 2.9 g/dL (1.3-4.6) 12/10/24 04:57 Procalcitonin 0.88 ng/mL (0-0.5) H 12/10/24 04:57 Coronavirus (PCR) Negative (Negative) 12/10/24 04:57 Influenza A (PCR) Positive (Negative) 12/10/24 04:57 Influenza Type B (PCR) Negative (Negative) 12/10/24 04:57 RSV (PCR) Negative (Negative) 12/10/24 04:57 All radiology interpretation(s) finalized by discharge Discharge Plan Discharge Patient Disposition: Admitted As Inpatient Admit Provider: Patrice Mariscal Clinical Impression: Influenza A, Acute respiratory failure with hypoxia and hypercapnia Condition: Stable Coding Level of Care Code ED Incoming Freight Clerk for Melisa Muñoz
[2024-12-10] MEDS: vecuronium 10 mg SDV IVP (09:57)
[2024-12-10] MEDS: propofol 1,000 MG/100 ML INJ 2.72 MG IV (10:30)
--- NOTE | 2024-12-10 10:32 | ECG_ITS ---
Jelli Test Date: 2024-12-10 Pat Name: Alesha Mack Department: Room: ICU09 Gender: Female [employer]: : 1970 Requested By: Devonte Franz Order Number: [id number] Jose MD: Justo Maurer M.D. Measurements Intervals [place] Rate: 118 P: 73 FL: 167 QRS: -44 QRSD: 99 T: 74 QT: 302 QTc: 423 Interpretive Statements SINUS TACHYCARDIA WITH OCCASIONAL VENTRICULAR PREMATURE COMPLEXES LEFT AXIS DEVIATION [QRS AXIS < -30] POSSIBLE ANTERIOR MYOCARDIAL INFARCTION , OF INDETERMINATE AGE [30 ms Q WAVE IN V3/V4, OR R < 0.2 mV IN V4] Compared to ECG 12/10/2024 07:31:06 Ventricular premature complex(es) now present Left-axis deviation now present Myocardial infarct finding now present Atrial flutter no longer present Left anterior fascicular block no longer present Electronically Signed On 12-11-2024 13:20:24 WRIST CLOSER by Justo Maurer M.D. [id number]
[2024-12-10] MEDS: budesonide 0.5 mg/2 mL Neb INHALATION (10:38)
--- NOTE | 2024-12-10 10:42 | PC.NURSE ---
Patient arrived from the ER intubated and sedated ,unable to follow commands.
[2024-12-10 11:01] LABS: Base Excess ABG -4.3 mmol/L (-2.0-2.0); Blood Gas Allen Test Pos; Blood Gas Operator Identificat CAK; Blood Gas Sample Site Radial, left; Blood Gas Sample Type Arterial; Blood Gas Tidal Volume 0.42; HCO3 ABG 26.2 mmol/L (22-26); Oxygen Device VENT; PO2 FiO2 Ratio Arterial Blood 434
[2024-12-10 11:05] LABS: ABG PCO2 76.7 mmHg (35-45); ABG PH Result 7.14 (7.35-7.45)
[2024-12-10 11:07] LABS: Glucose Point of Care 136 mg/dL (70-110)
[2024-12-10] MEDS: enoxaparin 100 mg/mL Syringe 90 MG SUBCUT (11:10)
[2024-12-10] MEDS: heparin 5,000 unit/mL INJ 1 mL 5000 UNIT SUBCUT ×2 (11:10→23:12)
[2024-12-10] MEDS: methylPREDNISolone sod succ 40 mg/mL INJ IVP ×2 (11:10→17:42)
[2024-12-10 11:44] LABS: Troponin 5 6HR 24.31 ng/L (0-10); Troponin 5 6HR Delta 4.31 ng/L (0-12)
[2024-12-10] MEDS: levalbuterol 1.25 mg/3 mL Neb INHALATION ×4 (13:34→23:41)
[2024-12-10] MEDS: ipratropium 0.5 mg/2.5 mL Neb INHALATION ×4 (13:34→23:41)
[2024-12-10] MEDS: norepinephrine 4 MG/250 ML BAG 30 MG IV (13:55)
[2024-12-10 14:34] LABS: Alveolar-Arterial Oxygen Gradi 14.4 mmHg (5-10); Arterial Blood Gas Hematocrit 37.4 % (37-47); Blood Gas Allen Test Pos; Blood Gas Operator Identificat CAK; Blood Gas Sample Site Radial, left; Blood Gas Sample Type Arterial; Blood Gas Tidal Volume 0.42; Carboxyhemoglobin 1.2 %THgb (0.4-20.1); HCO3 ABG 24.5 mmol/L (22-26); HGB O2 Sat 94.5 % (95-100); Methemoglobin 1.1 % (0.4-1.5); Oxygen Device VENT; Oxygen Saturation ABG 96.7; PO2 ABG 91.1 mmHg (80.0-100.0); PO2 FiO2 Ratio Arterial Blood 227; Potassium Level - ABG 4.8 mmol/L (3.5-5.0); Total Hemoglobin 12.2 g/dL (12-16)
[2024-12-10 14:36] LABS: ABG PCO2 66.5 mmHg (35-45); ABG PH Result 7.17 (7.35-7.45)
--- NOTE | 2024-12-10 16:02 | PM.CCNAC ---
Critical Care Event Note Patient was seen at the bedside this morning. She was on the BiPAP however not following any commands and very lethargic and somnolent. After rigorous cueing patient would open her eyes and would not tell us her name but otherwise was not responding much. Secondary to severe lethargy somnolence and risk of not protecting her airway on the BiPAP decision was made to intubate. Repeat gas was reviewed which was worsened compared to before and now was 7.11/80. She was intubated for CO2 narcosis. Dr. Castellanos ER doctor was requested to intubate the patient in the ER. Patient was subsequently moved to ICU 9. Patient's history reviewed. Spoke to daughter at bedside as well in ICU 9. Continue management as per assessment and plan with the addition of the following Solu-Medrol 40 every 8 hours Propofol, fentanyl Continue amiodarone drip. Switch to broad-spectrum antibiotics vancomycin and Zosyn. PICC line to be placed Start Levophed. Patient hypotensive. Patient febrile fever 100.8. Continue on Tamiflu reduced dose. BALBIR: Creatinine 3.4 this admission. Consult nephrology Patient does appear to be euvolemic at this time. Will hold off on Lasix. Complete sepsis bolus was not given secondary to history of heart failure. Continue sliding scale insulin every 6 hours Switch DuoNeb to Xopenex and ipratropium. I will place on gentle fluid hydration normal saline 75 cc/h. Continue aspirin atorvastatin, metoprolol Protonix 40 IV daily Hold spironolactone recheck ABG check procalcitonin check sputum gm stain culture check blood cultures The high probability of a clinically significant, sudden or life threatening deterioration of the patient's [respiratory cardiovascular] system(s) required my full and direct attention, intervention and personal management. The critical care time is as shown. This time is in addition to time spent performing any reported procedures but includes the following: [x] Data and vital sign review and interpretation [x] Patient assessment, examination and intervention [x] Documentation [x] Medication orders and management Time spent:45 Critical Care Time Code activated: No Critical Care Time (min): 45 Coding Level of Care Code Acute Code for Melisa Fwpaulette
--- NOTE | 2024-12-10 16:08 | PHA.VACGOAL ---
Vancomycin Goal - Goal Vancomycin Goal:: 15-20 mg/L Vancomycin Indication:: Other (SEPSIS) - Therapy Current therapy:: Pip/Tazo Day of therpy:: Day []of [] . Actual body weight (kg): 229 lb 4.492 oz - Data Labs: WBC 17.00 10^3/uL (3.29-11.43) H 12/10/24 04:57 RBC 4.54 10^6/uL (3.85-5.65) 12/10/24 04:57 Hgb 12.70 g/dL (11.27-16.99) 12/10/24 04:57 Hct 41.3 % (36-47) 12/10/24 04:57 MCV 91.0 fl (85-98) 12/10/24 04:57 MCH 28.0 pg (27-33) 12/10/24 04:57 MCHC 30.8 g/dL (30-55) 12/10/24 04:57 RDW 18.3 % (12.1-15.1) H 12/10/24 04:57 Sodium 133 mmol/L (136-145) L 12/10/24 04:57 Potassium 5.1 mmol/L (3.5-5.1) 12/10/24 04:57 Chloride 92 mmol/L (98-107) L 12/10/24 04:57 Carbon Dioxide 24 mmol/L (22-29) 12/10/24 04:57 Anion Gap 22.1 (5-19) H 12/10/24 04:57 BUN 34 mg/dL (6-20) H 12/10/24 04:57 Creatinine 3.4 mg/dL (0.5-0.9) H 12/10/24 04:57 GFR Calculation 14.0 mL/min (90-130) L 12/10/24 04:57 Last dialysis session:: N/A Treatment plan:: new consult Regimen:: LOADING DOSE OF 3000 MG X 1 PER DOSING PROTOCOL. PATIENT WILL RECEIVE INTERMITTENT DOSING POST LOAD DOSE DUE TO RENAL FUNCTION. Follow up:: TROUGH SCHEDULED 12/11 @1996
[2024-12-10 16:17] LABS: Glucose Point of Care 294 mg/dL (70-110)
[2024-12-10] MEDS: insulin lispro 100 unit/1 mL SUBCUT ×2 (16:34→21:14)
[2024-12-10] MEDS: vancomycin 3,000 MG/600 ML PIGGYBACK 200 MG IV (16:35)
[2024-12-10] MEDS: piperacillin-tazobactam 3.375 GM in sodium chloride 0.9% (plus) 50 ML IV (16:35)
[2024-12-10] MEDS: sodium chloride 0.9% 1,000 ML 75 ML IV (16:35)
--- NOTE | 2024-12-10 17:32 | XRR_ITS ---
PROCEDURE INFORMATION: Exam: XR Chest Exam date and time: 12/10/2024 6:26 PM Age: 54 years old Clinical indication: Other vascular access device placement or adjustment; Central line, non-tunnelled; Central line placement TECHNIQUE: Imaging protocol: Radiologic exam of the chest. Views: 1 view. COMPARISON: CR XR chest 1V portable [id number] 12/10/2024 9:57 AM FINDINGS: Limitations: Overlying medical devices provide some limitation in evaluating the lung parenchyma. Tubes, catheters and devices: AICD/pacer device noted in the left chest wall. Endotracheal tube terminates in proper position above the clarissa. Right central line terminates at the cavoatrial junction. Enteric tube terminates in the stomach. Lungs: No apparent consolidation. Pleural spaces: Unremarkable. No pleural effusion. No pneumothorax. Heart/Mediastinum: Unremarkable. No cardiomegaly. Bones/joints: Unremarkable. XR/XR chest 1V portable [id number] IMPRESSION: Proper positioning of support apparatus.
[2024-12-10] MEDS: morphine 4 mg/mL SDV 1 mL IVP (17:43)
[2024-12-10] MEDS: propofol 1,000 MG/100 ML INJ 21.77 MG IV (17:56)
[2024-12-10 17:57] LABS: Glucose Point of Care 322 mg/dL (70-110)
--- NOTE | 2024-12-10 17:58 | PC.NURSE ---
Dr. Martinez came in and placed a central line in the patient. Time out was performed at 1700.
--- NOTE | 2024-12-10 18:08 | ANES.PROC ---
Anesthesia Procedures Procedure/Date: 12/10/24 Central Venous Insert: Central Venous Line: R IJ Time Out Performed: Yes (1700) Consent: requested by attending/covering physician, from other (Family/daughter), risks and benefits reviewed and emergency procedure Central Line: New Anesthesia monitors: pulse oximetry, EKG, BP cuff and oxygen Vein cannulated: right internal jugular Ultrasound used: to identify patency to vessel and to visualize needle entry to vein Post procedure: Obtain Chest X-Ray Additional Comments: Skin cleansed with chloraprep, sterile gown & gloves, sterile full body drape applied over patient. Chloraprep applied again. Lidocaine 1% injected creating skin wheel. US used to visualize R IJ and entry of 18 [id number] into R IJ. Heme aspirated, angio cath advanced, blood return noted.Guide wire inserted and visualized inside the internal jugular with US both in-plane and [id number]. Dilated vessel, then passed 20 cm catheter over guide wire, guide wire removed, all ports aspirated and flushed, catheter sewn in place, sterile dressing applied, CXR ordered.
[2024-12-10] MEDS: fentaNYL 1,000 MCG/100 ML BAG 2.5 MCG IV (19:28)
[2024-12-10] MEDS: propofol 1,000 MG/100 ML INJ 24.49 MG IV (20:36)
[2024-12-10] MEDS: ropinirole 1 mg Tablet PO (20:36)
[2024-12-10] MEDS: atorvastatin 40 mg Tablet PO (20:36)
[2024-12-10 21:05] LABS: Glucose Point of Care 293 mg/dL (70-110)
[2024-12-10] MEDS: CLOBETASOL PROPIONATE TOPICAL (21:15)
[2024-12-10] MEDS: USP TOPICAL (21:15)
[2024-12-10] MEDS: TACROLIMUS 0.1% 1 EACH TOPICAL (21:16)
--- NOTE | 2024-12-10 21:17 | PM.CONSULT ---
Providers/Reason For Consult Consulting Physician/Specialty*: [facility]/Nephrology Reason for Consult*: BALBIR Attending Physician: Shruthi Treviño MD Primary Care Provider: Tess Ko History of Present Illness History of Present Illness Alesha Mack is a 54 year old female Patient is a 54-year-old female with past medical history of ischemic cardiomyopathy, CHF, coronary artery disease, history of ICD placement, COPD-O2 dependent, smoker, hypertension presented to the hospital due to worsening shortness of breath. Patient also reported having loose stools body aches, fever at home. In the emergency department she was tested positive for influenza A and was hypercapnic and hypoxic. Initially patient was placed on BiPAP. Patient remained very lethargic and ended up getting intubated for airway protection. Currently she is on Levophed at 8 mcg/h. Urine output is about 200 cc in the last 24 hours. She is currently on normal saline at 75 cc an hour. Baseline creatinine previously was 0 intake with most recent creatinines been in the range of 1.5-2.3 last year. And creatinine on presentation today is 3.4. Patient currently intubated sedated. Review of Systems Narrative: Other ROS negative Medications/Allergies Home Medications Medication Instructions Recorded Confirmed Last Taken Type albuterol sulfate 90 mcg/actuation 2 puff inhalation DAILY PRN 05/25/22 12/10/24 12/10/22 History aerosol inhaler Shortness Of Breath pantoprazole 40 mg tablet,delayed 40 mg PO QAM 05/25/22 12/10/24 12/10/24 History release atorvastatin 40 mg tablet 40 mg PO BEDTIME #90 tabs 05/30/22 12/10/24 12/09/24 Rx acetaminophen 500 mg tablet 1,000 mg PO Q6H PRN Pain 09/12/22 12/10/24 12/10/22 History aspirin 81 mg tablet,delayed 81 mg PO QAM 09/12/22 12/10/24 12/10/24 History release metoprolol succinate 50 mg 50 mg PO QAM #90 tabs 08/18/24 12/10/24 12/10/24 Rx tablet,extended release 24 hr budesonide-formoterol HFA 160 1 inh inhalation BID 08/27/24 12/10/24 12/10/24 History mcg-4.5 mcg/actuation aerosol inhaler (Symbicort) alendronate 70 mg tablet 70 mg PO Q7D 12/10/24 12/10/24 12/06/24 History betamethasone valerate 0.1 % 1 applic topical DAILY 12/10/24 12/10/24 Unknown History topical cream clobetasol 0.05 % topical cream See Rx Instructions .Route .COMPLEX 12/10/24 12/10/24 Unknown History fluticasone propionate 50 1 spray intranasal DAILY 12/10/24 12/10/24 12/10/24 History mcg/actuation nasal spray,suspension furosemide 20 mg tablet 20 mg PO DAILY PRN Edema 12/10/24 12/10/24 Unknown History gabapentin 300 mg capsule 300 mg PO BID 12/10/24 12/10/24 12/10/24 History potassium gluconate 595 mg (99 mg) 595 mg PO DAILY 12/10/24 12/10/24 12/10/24 History tablet ropinirole 1 mg tablet 1 mg PO BEDTIME 12/10/24 12/10/24 12/09/24 History spironolactone 25 mg tablet 25 mg PO DAILY 12/10/24 12/10/24 12/10/24 History tizanidine 4 mg tablet 4 mg PO Q6H PRN muscle spasms 12/10/24 12/10/24 Unknown History triamcinolone acetonide 0.1 % 1 applic topical BID PRN Skin 12/10/24 12/10/24 Unknown History topical cream Irritation Allergies Allergy/AdvReac Type Severity Reaction Status Date / Time sacubitril [From Entresto] AdvReac hypotension Verified 10/05/24 14:37 valsartan [From Entresto] AdvReac hypotension Verified 10/05/24 14:37 Current Medications Generic Name Dose Route Start Last Admin Trade Name Freq PRN Reason Stop Dose Admin Atorvastatin Calcium 40 mg 12/10/24 21:00 12/10/24 20:36 Atorvastatin 40 Mg Tablet PO 40 mg BEDTIME LANDON Administration Budesonide 0.5 mg 12/10/24 10:36 12/10/24 10:38 Budesonide 0.5 Mg/2 Ml Neb INHALATION 0.5 mg DAILY.RESPIRATORY LNADON Administration Heparin Sodium (Porcine) 5,000 unit 12/10/24 10:36 12/10/24 11:10 Heparin 5,000 Unit/Ml Inj 1 Ml SUBCUT 5,000 unit Q12H LANDON Administration Amiodarone HCl/Dextrose 360 mg in 200 mls @ 0 mls/hr 12/10/24 07:45 12/10/24 17:01 Nexterone IV 0.5 mg/min .Q0M LANDON 16.67 mls/hr Titration Protocol Per Protocol Propofol 1,000 mg in 100 mls @ 0 mls/hr 12/10/24 09:45 12/10/24 20:36 Diprivan IV 45 mcg/kg/min .Q0M LANDON 24.49 mls/hr Administration Protocol Per Protocol Norepinephrine Bitartrate 4 mg in 250 mls @ 0 mls/hr 12/10/24 13:15 12/10/24 17:30 Levophed IV 6 mcg/min .Q0M LANDON 22.5 mls/hr Titration Protocol Per Protocol Piperacillin Sod/Tazobactam 50 mls @ 12.5 mls/hr 12/10/24 16:30 12/10/24 20:31 Sod 3.375 gm/ Sodium Chloride IV Infused Q12H LANDON Infusion Sodium Chloride 1,000 mls @ 75 mls/hr 12/10/24 16:15 12/10/24 16:35 Sodium Chloride 0.9% IV 75 mls/hr .[id number] LANDON Administration Fentanyl 1,000 mcg in 100 mls @ 0 mls/hr 12/10/24 16:45 12/10/24 20:15 Sublimaze IV 100 mcg/hr .Q0M LANDON 10 mls/hr Titration Protocol Per Protocol Insulin Human Lispro 0 unit 12/10/24 16:15 12/10/24 21:14 Insulin Lispro 100 Unit/1 Ml SUBCUT 10 unit Q6H LANDON Administration Protocol Ipratropium [place] 0.5 mg 12/10/24 12:00 12/10/24 20:42 Ipratropium 0.5 Mg/2.5 Ml Neb INHALATION 0.5 mg Q4H.RESPIRATORY LANDON Administration Levalbuterol HCl 1.25 mg 12/10/24 12:00 12/10/24 20:42 Levalbuterol 1.25 Mg/3 Ml Neb INHALATION 1.25 mg Q4H.RESPIRATORY LANDON Administration Methylprednisolone Sodium Succinate 40 mg 12/10/24 10:36 12/10/24 17:42 Methylprednisolone Sod Succ 40 Mg/Ml Inj IVP 40 mg Q8H LANDON Administration Non-Formulary 1 each 12/10/24 21:00 12/10/24 21:16 Medication TOPICAL 1 each Tacrolimus Ointment BID LANDON Administration 0.1% Non-Formulary 1 each 12/10/24 21:00 12/10/24 21:15 Medication TOPICAL 1 each Clobetasol BID LANDON Administration Propionate Cream Custodial , 0.05% Ropinirole HCl 1 mg 12/10/24 21:00 12/10/24 20:36 Ropinirole 1 Mg Tablet PO 1 mg BEDTIME LANDON Administration PFSH Acute PFSH: Medical History Non-ST elevation [place] (NSTEMI) Acute kidney injury Glucose intolerance Ischemic cardiomyopathy Dyslipidemia Family history of premature coronary heart disease Smoking addiction COPD exacerbation Acute on chronic systolic heart failure Alkalosis, metabolic Sinus tachycardia New onset of congestive heart failure No pertinent past medical history Surgical History Hx of cholecystectomy History of bilateral ligation of fallopian tubes Hx of hysterectomy History of PTCA No pertinent past surgical history Family History Father CAD (coronary artery disease) Diabetes Family/Other CAD (coronary artery disease) Grandmother CAD (coronary artery disease) Cancer Denies family history of Clotting disorder Dementia Chronic kidney disease (CKD) Suicide Anesthesia complication Bleeding disorder Lung disease Stroke Social History Smoking and tobacco/nicotine status: current every day tobacco/nicotine user cigarettes Alcohol intake: former Substance/Drug Use: never Household members: spouse Housing: House Vitals/I&O/Wt Last Vital Signs Temp 99.2 F 12/10/24 17:45 Pulse 105 H 12/10/24 20:00 Resp 16 12/10/24 20:45 BP 96/52 12/10/24 19:45 Pulse Ox 91 12/10/24 20:45 O2 Del Method Mechanical Ventilation 12/10/24 20:00 O2 Flow Rate 15 12/10/24 04:54 FiO2 40 12/10/24 20:45 12/10/24 12/10/2425 06:59 14:59 22:59 Intake Total 0 / 0 1409.853 / 1168.636 6360.695 / 2477.548 Output Total 200 / 200 Balance 0 / 0 1409.853 / 1409.853 867.695 / 2277.548 Weight last 48 hrs Weight 104 kg Weight 90.718 kg Physical Exam Narrative: Intubated, sedated, on 40% FiO2 Urinary Catheter Management: Beck: Cath Placed During This Visit: yes Reason for Continuing Indwelling Catheter: Accurate Measurement of Urinary Output in Critically Ill Patients Urinary Catheter Date of Insertion: 12/10/24 Urinary Catheter Time of Insertion: 12:13 Data 12/10/24 04:57 12/10/24 04:57 Micro: Microbiology 12/10/24 10:40 Gram Stain - Final Sputum - Endotracheal Tube Aspirate 12/10/24 12:12 Bacterial Antigens - Final Urine,Clean Catch 12/10/24 05:09 Blood Culture - Preliminary Blood SPECIMEN COLLECTED 12/10/24 04:57 Blood Culture - Preliminary Blood SPECIMEN COLLECTED A&P Assessment and plan (1) Acute on chronic kidney failure: 1. Acute on chronic kidney disease stage III: Baseline creatinine seems to be in the 1.5-2 range. Patient now has BALBIR with a creatinine of 3.4. Etiology of BALBIR most likely ATN in the setting of acute infection and sepsis. -Agree with IV fluids for now, patient currently on pressors -Once patient pressor requirement improves will give as needed doses of Lasix. -May require temporary dialysis if renal function worsens, for now we will observe renal function closely. 2. Sepsis: On pressors, on broad-spectrum antibiotics, has influenza A 3. Hyponatremia: Mild, monitor 4. History of coronary artery disease, cardiomyopathy Patient evaluated using audiovisual cart. Time spent 40 minutes Qualifiers: Acute renal failure type: unspecified Chronic kidney disease stage: stage 3 (moderate) Chronic kidney disease stage 3 subtype: stage 3b (GFR 30-44) Qualified Code(s): N17.9 - Acute kidney failure, unspecified; N18.32 - Chronic kidney disease, stage 3b Consult Attestations Medical Necessity Statement: per [facility] Coding Level of Care Code Acute Code for [facility] Diagnoses Acute renal failure superimposed on stage 3b chronic kidney disease, unspecified acute renal failure type N17.9; N18.32 Acute renal failure type: unspecified Chronic kidney disease stage: stage 3 (moderate) Chronic kidney disease stage 3 subtype: stage 3b (GFR 30-44)
[2024-12-10] MEDS: norepinephrine 4 MG/250 ML BAG 41.25 MG IV (23:13)
[2024-12-11] VITALS (78 sets, daily range): BP systolic 84–144; BP diastolic 45–65; PULSE 81–113; RESP 14–16; TEMP 36.7; O2SAT 92–97
[2024-12-11] MEDS: propofol 1,000 MG/100 ML INJ 21.77 MG IV (00:25)
[2024-12-11] MEDS: methylPREDNISolone sod succ 40 mg/mL INJ IVP ×3 (01:59→17:10)
[2024-12-11] MEDS: fentaNYL 1,000 MCG/100 ML BAG 17.5 MCG IV (02:14)
[2024-12-11] MEDS: ipratropium 0.5 mg/2.5 mL Neb INHALATION ×5 (03:26→20:09)
[2024-12-11] MEDS: levalbuterol 1.25 mg/3 mL Neb INHALATION ×5 (03:26→20:09)
[2024-12-11] MEDS: norepinephrine 4 MG/250 ML BAG 56.25 MG IV (04:03)
[2024-12-11] MEDS: piperacillin-tazobactam 3.375 GM in sodium chloride 0.9% (plus) 50 ML IV (04:04)
[2024-12-11 04:15] LABS: Glucose Point of Care 320 mg/dL (70-110)
[2024-12-11] MEDS: insulin lispro 100 unit/1 mL SUBCUT ×4 (04:15→22:19)
[2024-12-11 04:29] LABS: ABG PCO2 59.2 mmHg (35-45); Arterial Blood Gas Hematocrit 39.7 % (37-47); Blood Gas Operator Identificat SAM; Blood Gas Sample Site Brachial, right; Blood Gas Sample Type Arterial; Blood Gas Tidal Volume 0.52; HCO3 ABG 19.7 mmol/L (22-26); Oxygen Device VENT; PO2 FiO2 Ratio Arterial Blood 226
[2024-12-11] MEDS: sodium chloride 0.9% 1,000 ML 75 ML IV (04:31)
[2024-12-11] MEDS: propofol 1,000 MG/100 ML INJ 27.22 MG IV (05:01)
[2024-12-11] MEDS: aspirin 81 mg EC Tablet PO (05:01)
[2024-12-11 05:36] LABS: Basophils % 0.1 %; Hematocrit 36.2 % (36-47); Lymphocytes # 0.6 10^3/uL (0.8-4.8); Lymphocytes % 4.6 %; Mean Corpuscular HGB Conc 30.4 g/dL (30-55); Mean Corpuscular Hemoglobin 28.2 pg (27-33); Mean Corpuscular Volume 92.8 fl (85-98); Mean Platelet Volume 10.1 fL (7.4-10.4); Monocytes # 0.3 10^3/uL (0.2-0.9); Monocytes % 2.3 %; Neutrophils # 12.48 10^3/uL (1.8-7.7); Neutrophils % 91.8 %; Nucleated Red Blood Cells % 0 %; Platelet Count 254 10^3/cmm (157-399); Red Cell Distribution Width 18.6 % (12.1-15.1); White Blood Count 13.59 10^3/uL (3.29-11.43)
[2024-12-11 05:53] LABS: Blood Urea Nitrogen 49 mg/dL (6-20); C Reactive Protein 237.2 mg/L (0.0-4.9); Calcium 6.8 mg/dL (8.5-10.5); Carbon Dioxide 17 mmol/L (22-29); Chloride 92 mmol/L (98-107); Creatinine Clr Calc Pharmacy 16.9986; Glomerular Filtration Rate 11.3 mL/min (90-130); Glucose 311 mg/dL (65-115); Magnesium 1.9 mg/dL (1.7-2.3); Osmolality Calculated 293 mOsm/kg (285-295); Phosphorus 5.2 mg/dL (2.5-4.5); Sodium 129 mmol/L (136-145)
[2024-12-11 05:55] LABS: Anion Gap 24.7 (5-19); Potassium 4.7 mmol/L (3.5-5.1)
[2024-12-11 07:34] LABS: Glucose Point of Care 293 mg/dL (70-110)
[2024-12-11] MEDS: fentaNYL 2,500 MCG/250 ML BAG 17.5 MCG IV (07:57)
[2024-12-11] MEDS: TACROLIMUS 0.1% 1 EACH TOPICAL ×2 (07:58→17:10)
[2024-12-11] MEDS: USP TOPICAL ×2 (07:58→17:10)
[2024-12-11] MEDS: CLOBETASOL PROPIONATE TOPICAL ×2 (07:58→17:10)
[2024-12-11] MEDS: pantoprazole 40 mg SDV IVP (08:00)
[2024-12-11] MEDS: budesonide 0.5 mg/2 mL Neb INHALATION (08:34)
--- NOTE | 2024-12-11 08:34 | PC.NURSE ---
Daughter at bedside discussed with this nurse that she was working on getting DPOA paperwork, however papers were not yet signed before this admission. Daughter states that patients is currently incarcerated. Daughter instructed that while patient is intubated and sedated DPOA paperers are not able to be signed. Daughter verbalized understanding and stated she would be able to call patients when and if he was needed for decision making.
[2024-12-11] MEDS: norepinephrine 4 MG/250 ML BAG 52.5 MG IV (08:38)
[2024-12-11] MEDS: oseltamivir phosphate 30 mg Capsule PO (08:39)
[2024-12-11] MEDS: albumin 25 G/100 ML BAG 60 G IV ×2 (09:12→17:05)
[2024-12-11] MEDS: propofol 1,000 MG/100 ML INJ 29.94 MG IV ×5 (09:12→23:19)
--- NOTE | 2024-12-11 09:52 | PM.PN ---
Subjective Subjective: remains on vent Medications: Reviewed: Yes Vitals/I&O/Wt Last Vital Signs Temp 98.1 F 12/11/24 08:00 Pulse 88 12/11/24 08:20 Resp 14 12/11/24 08:25 BP 104/54 12/11/24 08:00 Pulse Ox 95 12/11/24 08:25 O2 Del Method Mechanical Ventilation 12/11/24 08:20 O2 Flow Rate 15 12/10/24 04:54 FiO2 50 12/11/24 08:25 12/10/24 12/11/24 12/11/24 22:59 06:59 14:59 Intake Total 1214.570 / 2624.423 1454.991 / 4079.414 463.042 / 463.042 Output Total 200 / 200 225 / 425 Balance 1014.570 / 2424.423 1229.991 / 3654.414 463.042 / 463.042 Weight last 48 hrs Weight 104 kg Weight 104 kg Weight 90.718 kg Physical Exam Narrative: Intubated, sedated, on 40% FiO2 Urinary Catheter Management: Beck: Cath Placed During This Visit: yes Reason for Continuing Indwelling Catheter: Accurate Measurement of Urinary Output in Critically Ill Patients Urinary Catheter Date of Insertion: 12/10/24 Urinary Catheter Time of Insertion: 12:13 Data 12/11/24 05:11 12/11/24 05:11 Micro: Microbiology 12/10/24 05:09 Blood Culture - Preliminary Blood NEGATIVE TO DATE 12/10/24 04:57 Blood Culture - Preliminary Blood NEGATIVE TO DATE 12/10/24 10:40 Gram Stain - Final Sputum - Endotracheal Tube Aspirate 12/10/24 12:12 Bacterial Antigens - Final Urine,Clean Catch A&P Assessment and plan (1) Acute on chronic kidney failure: 1. Acute on chronic kidney disease stage III: Baseline creatinine seems to be in the 1.5-2 range. Patient now has BALBIR with a creatinine of 4.1 , oliguric . Etiology of BALBIR most likely ATN in the setting of acute infection and sepsis. - patient currently on pressors -watch for another 24 hours , and if no improvement will request temporary HD catheter placement and plan for HD - discussed with pt daughter 2. Sepsis: On pressors, on broad-spectrum antibiotics, has influenza A 3. Hyponatremia: Mild, monitor 4. History of coronary artery disease, cardiomyopathy Patient evaluated using audiovisual cart. Time spent 40 minutes Qualifiers: Acute renal failure type: unspecified Chronic kidney disease stage: stage 3 (moderate) Chronic kidney disease stage 3 subtype: stage 3b (GFR 30-44) Qualified Code(s): N17.9 - Acute kidney failure, unspecified; N18.32 - Chronic kidney disease, stage 3b Attestations Medical Necessity Statement*: per [facility] Coding Level of Care Code Acute Code for [facility] Diagnoses Acute renal failure superimposed on stage 3b chronic kidney disease, unspecified acute renal failure type N17.9; N18.32 Acute renal failure type: unspecified Chronic kidney disease stage: stage 3 (moderate) Chronic kidney disease stage 3 subtype: stage 3b (GFR 30-44)
[2024-12-11] MEDS: heparin 5,000 unit/mL INJ 1 mL 5000 UNIT SUBCUT (09:54)
[2024-12-11] MEDS: sodium bicarbonate 150 MEQ in dextrose 5% 1,000 ML 75 MEQ IV (11:06)
[2024-12-11] MEDS: FUROsemide 10 mg/mL SDV 10mL 60 MG IVP (11:06)
--- NOTE | 2024-12-11 11:24 | CTR_ITS ---
PROCEDURE INFORMATION: Exam: CT Chest Without Contrast; Diagnostic Exam date and time: 12/11/2024 12:08 PM Age: 54 years old Clinical indication: Other: Shock; Shortness of breath; On vent; Additional info: Resp failure, shock TECHNIQUE: Imaging protocol: Diagnostic computed tomography of the chest without contrast. Radiation optimization: All CT scans at this facility use at least one of these dose optimization techniques: automated exposure control; mA and/or kV adjustment per patient size (includes targeted exams where dose is matched to clinical indication); or iterative reconstruction. COMPARISON: CR (CHEST, ) 12/10/2024 6:26 PM RADIATION DOSE METRICS: Total DLP (mGy-cm): 1244.44 FINDINGS: Tubes, catheters and devices: ET tube 2 centimeters from clarissa. NG tube place. Left anterior chest wall cardiac device. Lungs: Mild bibasilar distal bronchial wall thickening and mild symmetrical interlobular septal thickening which can be seen with pulmonary edema. Pleural spaces: Unremarkable. No pneumothorax. No pleural effusion. Heart: Unremarkable. No cardiomegaly. No pericardial effusion. Coronary arteries: No coronary artery calcifications. Lymph nodes: Unremarkable. No enlarged lymph nodes. Vasculature: Unremarkable. No aortic aneurysm. Bones/joints: Unremarkable. No acute fracture. Soft tissues: Unremarkable. PROCEDURE INFORMATION: Exam: CT Abdomen And Pelvis Without Contrast Exam date and time: 12/11/2024 12:08 PM Age: 54 years old Clinical indication: Other: Shock; Shortness of breath; On vent; Additional info: Resp failure, shock TECHNIQUE: Imaging protocol: Computed tomography of the abdomen and pelvis without contrast. Radiation optimization: All CT scans at this facility use at least one of these dose optimization techniques: automated exposure control; mA and/or kV adjustment per patient size (includes targeted exams where dose is matched to clinical indication); or iterative reconstruction. COMPARISON: CT pelvis wo con [id number] 01/16/2024 8:52 AM RADIATION DOSE METRICS: Total DLP (mGy-cm): 1244.44 FINDINGS: Tubes, catheters and devices: A balloon bladder catheter is present. Liver: Normal. No mass. Gallbladder and biliary ducts: Gallbladder not visualized. Pancreas: Normal. No ductal dilation. Spleen: Normal. No splenomegaly. Adrenal glands: Low attenuating left adrenal nodule measuring 1.6 x 1.6 centimeters likely representing an adenoma. Kidneys and ureters: Bilateral perinephric fat stranding, no hydronephrosis or obstructing renal stones. Stomach and bowel: Stomach, small bowel, and large bowel are nondilated. Scattered colonic diverticula without any evidence of acute diverticulitis. Appendix: No evidence of appendicitis. Intraperitoneal space: Unremarkable. No free air. No significant fluid collection. Vasculature: Unremarkable. No abdominal aortic aneurysm. Lymph nodes: Unremarkable. No enlarged lymph nodes. Urinary bladder: Unremarkable as visualized. Reproductive: Unremarkable as visualized. Bones/joints: Unremarkable. No acute fracture. Soft tissues: Unremarkable. CT/[place] [id number] IMPRESSION: 1. ET tube 2 centimeters from clarissa. 2. Mild pulmonary edema, no pleural effusion or consolidations. IMPRESSION: 1. Nonspecific bilateral perinephric fat stranding, no obstructing renal stones. 2. No mechanical bowel obstruction. 3. Diverticulosis without any evidence of acute diverticulitis.
--- NOTE | 2024-12-11 11:27 | USR_ITS ---
PROCEDURE INFORMATION: Exam: US Duplex Lower Extremity Veins, Bilateral Exam date and time: 12/11/2024 4:00 PM Age: 54 years old Clinical indication: Screening exam; R/O dvt TECHNIQUE: Imaging protocol: Real-time duplex ultrasound of the bilateral extremities with 2-D moncada scale, color Doppler flow and spectral waveform analysis including responses to compression and other maneuvers (when performed) with image documentation. Complete exam focused on the lower extremity veins. COMPARISON: US renal BI* [id number] 02/26/2023 4:28 PM FINDINGS: Right deep veins: Unremarkable. The common femoral, femoral, proximal profunda femoral and popliteal veins are patent without thrombus. Normal Doppler waveforms. Normal compressibility and/or augmentation response. Left deep veins: Unremarkable. The common femoral, femoral, proximal profunda femoral and popliteal veins are patent without thrombus. Normal Doppler waveforms. Normal compressibility and/or augmentation response. Superficial veins: Greater saphenous veins at the saphenofemoral junctions are patent bilaterally without thrombus. Soft tissues: Subcutaneous edema. US/[place] [id number] IMPRESSION: No evidence of deep vein thrombosis.
--- NOTE | 2024-12-11 12:09 | CTR_ITS ---
PROCEDURE INFORMATION: Exam: CT Head Without Contrast Exam date and time: 12/11/2024 12:12 PM Age: 54 years old Clinical indication: Altered mental status/memory loss; On vent; Additional info: Shock TECHNIQUE: Imaging protocol: Computed tomography of the head without contrast. Radiation optimization: All CT scans at this facility use at least one of these dose optimization techniques: automated exposure control; mA and/or kV adjustment per patient size (includes targeted exams where dose is matched to clinical indication); or iterative reconstruction. COMPARISON: RF FL barium swallow modifd [id number] 10/26/2024 11:07 AM RADIATION DOSE METRICS: Total DLP (mGy-cm): 55011.8 FINDINGS: Tubes, catheters and devices: Partially included ET and feeding tubes. Brain: Normal. No hemorrhage. Unremarkable white matter. No mass effect. Cerebral ventricles: No ventriculomegaly. Paranasal sinuses: Mild mucosal disease of bilateral sphenoid sinuses. Mastoid air cells: Visualized mastoid air cells are well aerated. Bones: Unremarkable. No acute fracture. Soft tissues: Unremarkable. CT/CT head wo con* [id number] IMPRESSION: No large territorial infarct or intracranial bleed.
[2024-12-11] MEDS: vasopressin 40 UNIT/100 ML PREMIX 4.5 UNIT IV (12:28)
[2024-12-11] MEDS: cefepime 2,000 mg SDV 2000 MG IVP (12:47)
[2024-12-11] MEDS: heparin drip 25,000 UNIT/500 ML PREMIX 29 UNIT IV (13:01)
[2024-12-11 13:07] LABS: Glucose Point of Care 285 mg/dL (70-110)
[2024-12-11] MEDS: norepinephrine 4 MG/250 ML BAG 45 MG IV (13:17)
[2024-12-11 14:33] LABS: ABG PH Result 7.13 (7.35-7.45)
[2024-12-11 16:15] LABS: Glucose Point of Care 341 mg/dL (70-110)
[2024-12-11] MEDS: amiodarone 200 mg Tablet 400 MG PO (17:09)
[2024-12-11 17:35] LABS: D Dimer 0.92 ug/mLFEU (0-0.59)
[2024-12-11 17:42] LABS: Vancomycin Trough 30.2 ug/mL (10-15)
--- NOTE | 2024-12-11 18:04 | P.PN_ITS ---
Subjective 2 Subjective: This morning. Daughter updated at bedside Patient is on 14 mics of Levophed, amiodarone drip and 200 of fentanyl 55 propofol. She will be going for CT chest abdomen pelvis soon. Patient remains acidotic. Bicarb drip was started by nephrology. She was having auto PEEP on ventilator. Settings were adjusted by respiratory therapy. Vitals/I&O/Wt Last Vital Signs Temp 98.0 F 12/11/24 16:30 Pulse 105 H 12/11/24 16:30 Resp 14 12/11/24 15:47 BP 111/60 12/11/24 16:30 Pulse Ox 94 12/11/24 16:30 O2 Del Method Mechanical Ventilation 12/11/24 16:30 O2 Flow Rate 15 12/10/24 04:54 FiO2 50 12/11/24 15:47 12/11/24 12/11/24 12/11/24 06:59 14:59 22:59 Intake Total 1454.991 / 4079.414 1113.649 / 1113.649 140 / 1253.649 Output Total 225 / 425 500 / 500 750 / 1250 Balance 1229.991 / 3654.414 613.649 / 613.649 -610 / 3.649 Weight last 48 hrs Weight 104 kg Weight 104 kg Weight 90.718 kg Physical Exam 2 Narrative: General:intubated, sedated HEENT: Normocephalic, atraumatic, EOMI, Cardio: Laying irregularly irregular rate controlled, normal S1-S2 Respiratory: ronchi b/l GI: Abdomen soft, nontender, nondistended, bowel sounds + Extremities: 1+ edema b/l le Urinary Catheter Management: Beck: Cath Placed During This Visit: yes Reason for Continuing Indwelling Catheter: Accurate Measurement of Urinary Output in Critically Ill Patients Urinary Catheter Date of Insertion: 12/10/24 Urinary Catheter Time of Insertion: 12:13 Data 12/11/24 05:11 12/11/24 05:11 Micro: Microbiology 12/10/24 10:40 Gram Stain - Final Sputum - Endotracheal Tube Aspirate Sputum Culture - Preliminary 12/10/24 05:09 Blood Culture - Preliminary Blood NEGATIVE TO DATE 12/10/24 04:57 Blood Culture - Preliminary Blood NEGATIVE TO DATE 12/10/24 12:12 Bacterial Antigens - Final Urine,Clean Catch A&P Assessment and plan (1) Acute on chronic systolic heart failure: (2) Ischemic cardiomyopathy: (3) ICD (implantable cardioverter-defibrillator), dual, in situ: (4) New onset a-fib: (5) Dyslipidemia: (6) Acute on chronic kidney failure: Qualifiers: Acute renal failure type: unspecified Chronic kidney disease stage: s tage 3 (moderate) Chronic kidney disease stage 3 subtype: stage 3b (GFR 30-44) Qualified Code(s): N17.9 - Acute kidney failure, unspecified; N18.32 - Chronic kidney disease, stage 3b (7) Influenza A: (8) Sepsis: (9) Bilateral carpal tunnel syndrome: (10) COPD exacerbation: (11) Acute respiratory failure with hypoxia and hypercapnia: (12) Ventilator dependence: (13) Respiratory failure: (14) CO2 narcosis: (15) Acute renal failure: (16) Shock: Plan #Septic shock #Influenza A positive #Vent dependent respiratory failure #CO2 narcosis #Acute renal failure #Metabolic acidosis secondary to renal failure #New onset atrial flutter #Ischemic cardiomyopathy, defibrillator in place #Acute on chronic congestive systolic heart failure #Smoker #Dyslipidemia #Hypertension #History of NSTEMI #History of CKD -Patient was admitted for sepsis secondary to influenza A. She required BiPAP on admission and was quite acidotic with her initial ABG secondary to CO2 narcosis and component of BALBIR. SHe failed trial of bipap and was intubated. Patient is in renal failure at this time and still remains to be acidotic. She is on vasopressor support requiring 14 mics of Levophed. Patient was on amiodarone drip since admission which has now been transitioned to oral. She does have nonischemic cardiomyopathy with defibrillator in place. -Wean off vasopressors as able. Currently on Levophed and vasopressin. ? Continue bicarb drip ? Continue to monitor urine output ? On 50% FiO2 today. CO2 is improving. ? Check CT chest abdomen pelvis today, check CT head ? Stop amiodarone drip and transition to oral amio twice daily. Heart rate much better controlled at this time. - cultures pending: urine, blood, sputum ordered ? Hold spironolactone ? Continue aspirin atorvastatin -Continue cefepime 2 g every 12 hours and renally dosed vancomycin. ? Nephrology consulted. Patient may require dialysis. Had a long discussion with patient's daughter today. We will continue to assess kidney function and patient's urine output. ? Continue on Tamiflu 30 mg daily renally dosed. ? Continue Solu-Medrol 40 every 8 hours ? Insulin sliding scale every 6 hours moderate dose intensity ? PE cannot be ruled out at this time. D-dimer elevated at 0.92. Venous Dopplers negative for PE. Will place on heparin drip to cover for pulmonary embolism. Heparin to cover for AC for afib as well. ? Continue albumin every 8 hours. check echo, trops Full code DVT prophylaxis: On heparin drip Goals of care discussion with patient's daughter. Patient's daughter states that her dad is currently incarcerated however she is able to communicate with him over the phone. He would like to be aggressive at this time and keep patient full code and continue with any kind of treatment that is needed including dialysis. Attestations 2 Medical Necessity Statement*: critically ill in ICU Critical Care Time: The high probability of a clinically significant, sudden or life threatening deterioration of the patient's [] system(s) required my full and direct attention, intervention and personal management. The critical care time is as shown. This time is in addition to time spent performing any reported procedures but includes the following: [x] Data and vital sign review and interpretation [x] Patient assessment, examination and intervention [x] Documentation [x] Medication orders and management Critical Care Time (min): 50 Coding Level of Care Code Acute Code for Chg Fwd Diagnoses Acute on chronic systolic heart failure I50.23 Ischemic cardiomyopathy I25.5 ICD (implantable cardioverter-defibrillator), dual, in situ Z95.810 New onset a-fib I48.91 Dyslipidemia E78.5 Acute renal failure superimposed on stage 3b chronic kidney disease, unspecified acute renal failure type N17.9; N18.32 Acute renal failure type: unspecified Chronic kidney disease stage: stage 3 (moderate) Chronic kidney disease stage 3 subtype: stage 3b (GFR 30-44) Influenza A J10.1 Sepsis A41.9 Bilateral carpal tunnel syndrome G56.03 COPD exacerbation J44.1 Acute respiratory failure with hypoxia and hypercapnia J96.01; J96.02 Ventilator dependence Z99.11 Respiratory failure J96.90 CO2 narcosis R06.89 Acute renal failure N17.9 Shock R57.9
[2024-12-11] MEDS: fentaNYL 2,500 MCG/250 ML BAG 20 MCG IV (19:51)
[2024-12-11] MEDS: ropinirole 1 mg Tablet PO (20:05)
[2024-12-11] MEDS: atorvastatin 40 mg Tablet PO (20:05)
[2024-12-11] MEDS: norepinephrine 4 MG/250 ML BAG 22.5 MG IV (20:19)
[2024-12-11 21:13] LABS: Partial Thromboplastin Time 209.3 SECONDS (23.9-36.7)
[2024-12-11 22:16] LABS: Glucose Point of Care 341 mg/dL (70-110)
[2024-12-12] VITALS (73 sets, daily range): BP systolic 95–151; BP diastolic 41–102; PULSE 79–110; RESP 14–18; TEMP 36.9–37.2; O2SAT 90–96
[2024-12-12] MEDS: levalbuterol 1.25 mg/3 mL Neb INHALATION ×6 (00:20→20:42)
[2024-12-12] MEDS: ipratropium 0.5 mg/2.5 mL Neb INHALATION ×6 (00:20→20:42)
[2024-12-12] MEDS: sodium bicarbonate 150 MEQ in dextrose 5% 1,000 ML 75 MEQ IV (01:29)
[2024-12-12 01:48] LABS: Basophils % 0.2 %; Hematocrit 31.9 % (36-47); Lymphocytes # 0.9 10^3/uL (0.8-4.8); Mean Corpuscular HGB Conc 30.7 g/dL (30-55); Mean Corpuscular Hemoglobin 28.7 pg (27-33); Mean Corpuscular Volume 93.5 fl (85-98); Mean Platelet Volume 9.8 fL (7.4-10.4); Monocytes # 0.5 10^3/uL (0.2-0.9); Monocytes % 3.8 %; Neutrophils # 10.93 10^3/uL (1.8-7.7); Neutrophils % 86.2 %; Nucleated Red Blood Cells % 0 %; Platelet Count 216 10^3/cmm (157-399); Red Blood Count 3.41 10^6/uL (3.85-5.65); Red Cell Distribution Width 18.5 % (12.1-15.1); White Blood Count 12.66 10^3/uL (3.29-11.43)
[2024-12-12 02:06] LABS: Alanine Aminotransferase 10 U/L (0-33); Albumin Level 3.5 g/dL (3.5-5.2); Alkaline Phosphatase 53 U/L (35-105); Aspartate Amino Transferase 26 U/L (0-32); Blood Urea Nitrogen 45 mg/dL (6-20); Calcium 6.3 mg/dL (8.5-10.5); Carbon Dioxide 22 mmol/L (22-29); Chloride 92 mmol/L (98-107); Creatinine Clr Calc Pharmacy 19.3595; Globulin 2.6 g/dL (1.3-4.6); Glomerular Filtration Rate 13.1 mL/min (90-130); Glucose 314 mg/dL (65-115); Magnesium 1.8 mg/dL (1.7-2.3); Osmolality Calculated 302 mOsm/kg (285-295); Sodium 134 mmol/L (136-145); Total Bilirubin 0.2 mg/dL (0.15-1.2); Total Protein 6.1 g/dL (6.6-8.7)
[2024-12-12 02:10] LABS: Partial Thromboplastin Time 99.9 SECONDS (23.9-36.7)
[2024-12-12] MEDS: cefepime 2,000 mg SDV 2000 MG IVP ×2 (02:37→11:59)
[2024-12-12] MEDS: albumin 25 G/100 ML BAG 60 G IV ×3 (02:37→15:53)
[2024-12-12] MEDS: methylPREDNISolone sod succ 40 mg/mL INJ IVP ×3 (02:39→17:38)
[2024-12-12] MEDS: propofol 1,000 MG/100 ML INJ 29.94 MG IV ×2 (02:53→06:51)
[2024-12-12 03:39] LABS: Glucose Point of Care 329 mg/dL (70-110)
[2024-12-12 03:39] LABS: Glucose Point of Care 350 mg/dL (70-110)
[2024-12-12] MEDS: insulin lispro 100 unit/1 mL SUBCUT ×4 (05:28→21:56)
[2024-12-12] MEDS: aspirin 81 mg EC Tablet PO (05:30)
[2024-12-12 05:37] LABS: ABG PH Result 7.21 (7.35-7.45); Arterial Blood Gas Hematocrit 29.1 % (37-47); Base Excess ABG -4.7 mmol/L (-2.0-2.0); Blood Gas Allen Test Pos; Blood Gas Sample Site Radial, right; Blood Gas Sample Type Arterial; Carboxyhemoglobin 1.1 %THgb (0.4-20.1); HCO3 ABG 23.5 mmol/L (22-26); HGB O2 Sat 96.8 % (95-100); Ionized Calcium Level - ABG 0.9 mmol/L (1.1-1.4); Methemoglobin 0.6 % (0.4-1.5); Oxygen Saturation ABG 98.5; Potassium Level - ABG 3.9 mmol/L (3.5-5.0); Total Hemoglobin 9.5 g/dL (12-16)
[2024-12-12 05:39] LABS: Alveolar-Arterial Oxygen Gradi 22.6 mmHg (5-10); Blood Gas Operator Identificat JDB; Oxygen Device VENT; PO2 FiO2 Ratio Arterial Blood 222
[2024-12-12] MEDS: vasopressin 40 UNIT/100 ML PREMIX 4.5 UNIT IV (06:51)
[2024-12-12] MEDS: norepinephrine 4 MG/250 ML BAG 22.5 MG IV (06:53)
[2024-12-12 07:46] LABS: Glucose Point of Care 278 mg/dL (70-110)
[2024-12-12] MEDS: budesonide 0.5 mg/2 mL Neb INHALATION (08:05)
[2024-12-12] MEDS: fentaNYL 2,500 MCG/250 ML BAG 20 MCG IV ×2 (08:27→20:21)
[2024-12-12] MEDS: pantoprazole 40 mg SDV IVP (09:02)
[2024-12-12] MEDS: amiodarone 200 mg Tablet 400 MG PO ×2 (09:11→17:39)
[2024-12-12] MEDS: oseltamivir phosphate 30 mg Capsule PO (09:11)
[2024-12-12] MEDS: USP TOPICAL ×2 (09:12→17:38)
[2024-12-12] MEDS: TACROLIMUS 0.1% 1 EACH TOPICAL ×2 (09:12→17:38)
[2024-12-12] MEDS: CLOBETASOL PROPIONATE TOPICAL ×2 (09:12→17:38)
[2024-12-12] MEDS: propofol 1,000 MG/100 ML INJ 32.66 MG IV ×2 (10:22→13:03)
[2024-12-12 10:47] LABS: Partial Thromboplastin Time 136.1 SECONDS (23.9-36.7)
--- NOTE | 2024-12-12 11:24 | USCV_ITS ---
Alesha Mack Age: 54 Gender: F : 1970 Exam Date: 12/12/2024 08:33 Ordering Phys: Shruthi Treviño MD Technologist: Sidney Amaya Exam Location: [facility] [place] Indication: shock BP: 128 / 57 HR: 99 Rhythm: Sinus Technical Quality: Adequate MEASUREMENTS (Male / Female) Normal Values 2D ECHO LV Diastolic Diameter PLAX 5.4 cm 4.2 - 5.9 / 3.9 - 5.3 cm IVS Diastolic Thickness 1.4 cm 0.6 - 1.0 / 0.6 - 0.9 cm IVS Systolic Thickness 1.6 cm LVPW Diastolic Thickness 1.8 cm 0.6 - 1.0 / 0.6 - 0.9 cm LVPW Systolic Thickness 2.5 cm LVOT Diameter 2.1 cm LV Ejection Fraction 2D Teich 74.5 % LV Ejection Fraction MOD 4C 75.8 % LV Ejection Fraction MOD 2C 59.0 % LV Ejection Fraction 2C AL 61.1 % LA Diameter 3.6 cm RA Systolic Volume 4C AL 46.0 ml RA Systolic Volume 4C MOD 46.0 ml LA Sys Volume AL 34.3 cm cubed LA Sys Volume Index AL 15.0 cm cubed/m squared Aorta at Sinotubular Diameter 2.5 cm IVC Diameter 2.2 cm M-MODE LA Ao Ratio MM 1.4 AV Cusp Separation MM 1.9 cm DOPPLER AV Peak Velocity 216.0 cm/s LVOT Peak Velocity 135.0 cm/s AV Area Cont Eq vti 1.9 cm squared AV Area Cont Eq pk 2.2 cm squared MV Peak Velocity 134.0 cm/s MV Area PHT 6.6 cm squared Mitral E to A Ratio 0.8 TV Peak Velocity 276.3 cm/s TR Peak Velocity 357.0 cm/s TR Peak Gradient 51.0 mmHg TR Mean Velocity 295.0 cm/s TR Mean Gradient 37.5 mmHg TR Velocity Time Integral 86.5 cm PV Peak Velocity 144.0 cm/s RV Ejection Time 0.3 s FINDINGS Left Ventricle Left ventricle is normal in size. LV systolic function is normal with EF of 55-60%. No regional wall motion abnormalities are seen. Grade 1 diastolic dysfunction Right Ventricle Normal in size and function Right Atrium Normal in size Left Atrium Normal in size Mitral Valve Structurally normal mitral valve. Mild mitral regurgitation. Aortic Valve Aortic valve is thickened. Mild aortic stenosis with aortic valve area 1.74 cm squared and mean gradient across aortic valve of 10 mmHg. Tricuspid Valve Mild tricuspid regurgitation. Insufficient TR jet to calculate RVSP Pulmonic Valve Not well visualized Pericardium Normal Aorta Normal in size IVC Dilated CONCLUSIONS LV systolic function is normal with EF of 55-60%. Grade 1 diastolic dysfunction. Mild mitral regurgitation Mild aortic stenosis Mild tricuspid regurgitation IVC is dilated Justo Maurer MD (Electronically Signed) Final Date: 12 December 2024 12:14 S
[2024-12-12] MEDS: heparin drip 25,000 UNIT/500 ML PREMIX 21 UNIT IV (11:35)
--- NOTE | 2024-12-12 12:01 | P.PN_ITS ---
Subjective 2 Subjective: seen this am remains intubated sedated. abg reviewed, currently on bicarp gtt Urine output improving. 3 L in last 24 hours. Vitals/I&O/Wt Last Vital Signs Temp 99.0 F 12/12/24 07:30 Pulse 89 12/12/24 11:43 Resp 16 12/12/24 11:39 BP 133/54 12/12/24 11:30 Pulse Ox 95 12/12/24 11:39 O2 Del Method Mechanical Ventilation 12/12/24 11:32 O2 Flow Rate 15 12/10/24 04:54 FiO2 50 12/12/24 11:39 12/11/24 12/12/24 12/12/24 22:59 06:59 14:59 Intake Total 985.742 / 2118.766 1774.075 / 3892.841 833.20 / 833.20 Output Total 750 / 1250 1800 / 3050 Balance 235.742 / 868.766 -25.925 / 842.841 833.20 / 833.20 Weight last 48 hrs Weight 114.5 kg Weight 104 kg Physical Exam 2 Narrative: General:intubated, sedated HEENT: Normocephalic, atraumatic, EOMI, Cardio: Laying irregularly irregular rate controlled, normal S1-S2 Respiratory: ronchi b/l GI: Abdomen soft, nontender, nondistended, bowel sounds + Extremities: 1+ edema b/l le Urinary Catheter Management: Beck: Cath Placed During This Visit: yes Reason for Continuing Indwelling Catheter: Accurate Measurement of Urinary Output in Critically Ill Patients Urinary Catheter Date of Insertion: 12/10/24 Urinary Catheter Time of Insertion: 12:13 Data 12/12/24 01:25 12/12/24 01:25 Micro: Microbiology 12/10/24 10:40 Gram Stain - Final Sputum - Endotracheal Tube Aspirate Sputum Culture - Preliminary A&P Assessment and plan (1) Acute on chronic systolic heart failure: (2) Ischemic cardiomyopathy: (3) ICD (implantable cardioverter-defibrillator), dual, in situ: (4) New onset a-fib: (5) Dyslipidemia: (6) Acute on chronic kidney failure: Qualifiers: Acute renal failure type: unspecified Chronic kidney disease stage: s tage 3 (moderate) Chronic kidney disease stage 3 subtype: stage 3b (GFR 30-44) Qualified Code(s): N17.9 - Acute kidney failure, unspecified; N18.32 - Chronic kidney disease, stage 3b (7) Influenza A: (8) Sepsis: (9) Bilateral carpal tunnel syndrome: (10) COPD exacerbation: (11) Acute respiratory failure with hypoxia and hypercapnia: (12) Ventilator dependence: (13) Respiratory failure: (14) CO2 narcosis: (15) Acute renal failure: (16) Shock: Plan #Septic shock #Influenza A positive #Vent dependent respiratory failure #CO2 narcosis #Acute renal failure #Metabolic acidosis secondary to renal failure #New onset atrial flutter #Ischemic cardiomyopathy, defibrillator in place #Acute on chronic congestive systolic heart failure #Smoker #Dyslipidemia #Hypertension #History of NSTEMI #History of CKD -Patient was admitted for sepsis secondary to influenza A. She required BiPAP on admission and was quite acidotic with her initial ABG secondary to CO2 narcosis and component of BALBIR. SHe failed trial of bipap and was intubated. Patient is in renal failure at this time and still remains to be acidotic. She is on vasopressor support requiring 14 mics of Levophed. Patient was on amiodarone drip since admission which has now been transitioned to oral. She does have nonischemic cardiomyopathy with defibrillator in place. -Wean off vasopressors as able. Currently on Levophed and vasopressin. ? Continue bicarb drip ? Continue to monitor urine output ? On 50% FiO2 today. CO2 is improving. ? Check CT chest abdomen pelvis today, check CT head ? Stop amiodarone drip and transition to oral amio twice daily. Heart rate much better controlled at this time. - cultures pending: urine, blood, sputum ordered ? Hold spironolactone ? Continue aspirin atorvastatin -Continue cefepime 2 g every 12 hours and renally dosed vancomycin. ? Nephrology consulted. Patient may require dialysis. Had a long discussion with patient's daughter today. We will continue to assess kidney function and patient's urine output. ? Continue on Tamiflu 30 mg daily renally dosed. ? Continue Solu-Medrol 40 every 8 hours ? Insulin sliding scale every 6 hours moderate dose intensity ? PE cannot be ruled out at this time. D-dimer elevated at 0.92. Venous Dopplers negative for PE. Will place on heparin drip to cover for pulmonary embolism. Heparin to cover for AC for afib as well. ? Continue albumin every 8 hours. check echo, trops Full code DVT prophylaxis: On heparin drip Goals of care discussion with patient's daughter. Patient's daughter states that her dad is currently incarcerated however she is able to communicate with him over the phone. He would like to be aggressive at this time and keep patient full code and continue with any kind of treatment that is needed including dialysis. 12/12/2024 -Seen this morning. Urine output 3 L overnight. Creatinine starting to improve. Metabolic acidosis also improving. pH 7.21 this morning. Fattening 3.6 today. ? Bank trough elevated. Will adjust via pharmacy. ? Continues to be intubated and sedated. FiO2 down to 50%. Vasopressin has been off since overnight. Levophed has been trended down to 6 mics per hour. ? Patient on 200 mics of fentanyl and 55 of propofol. She does follow some commands even with these doses. ? CT chest and pelvis reviewed. Pulm edema noted no pleural effusion or consolidations. Diverticulosis without any evidence of acute diverticulitis. Nonspecific bilateral perinephric fat stranding no obstructing renal stones. CT head negative. ? Continue heparin drip secondary to atrial fibrillation and suspicion of PE with the latter being lower since I believe her shock was secondary to acute renal failure and turn causing respiratory failure. ? Echo has been ordered. Results are pending at this time. ? Due to urine output improving and creatinine improving patient may not require dialysis going forward however will discuss with nephrology. ? Hopefully we can try extubation in next 48 to 72 hours if vent settings further improved. Patient still on 50% FiO2. I do expect that to improve with further diuresis. Family not present at bedside therefore was not able to be updated in person. Full code DVT prophylaxis: Heparin drip Attestations 2 Medical Necessity Statement*: critically ill in ICU Critical Care Time: The high probability of a clinically significant, sudden or life threatening deterioration of the patient's [] system(s) required my full and direct attention, intervention and personal management. The critical care time is as shown. This time is in addition to time spent performing any reported procedures but includes the following: [x] Data and vital sign review and interpretation [x] Patient assessment, examination and intervention [x] Documentation [x] Medication orders and management Critical Care Time (min): 45 Coding Level of Care Code Acute Code for Chg Fwd Diagnoses Acute on chronic systolic heart failure I50.23 Ischemic cardiomyopathy I25.5 ICD (implantable cardioverter-defibrillator), dual, in situ Z95.810 New onset a-fib I48.91 Dyslipidemia E78.5 Acute renal failure superimposed on stage 3b chronic kidney disease, unspecified acute renal failure type N17.9; N18.32 Acute renal failure type: unspecified Chronic kidney disease stage: stage 3 (moderate) Chronic kidney disease stage 3 subtype: stage 3b (GFR 30-44) Influenza A J10.1 Sepsis A41.9 Bilateral carpal tunnel syndrome G56.03 COPD exacerbation J44.1 Acute respiratory failure with hypoxia and hypercapnia J96.01; J96.02 Ventilator dependence Z99.11 Respiratory failure J96.90 CO2 narcosis R06.89 Acute renal failure N17.9 Shock R57.9
[2024-12-12 12:40] LABS: Glucose Point of Care 263 mg/dL (70-110)
[2024-12-12] MEDS: midazolam 1 mg/mL INJ 2 mL 2 MG IVP ×2 (13:38→19:27)
--- NOTE | 2024-12-12 15:18 | P.PN_ITS ---
Subjective 2 Subjective: remains on vent Medications: Reviewed: Yes Vitals/I&O/Wt Last Vital Signs Temp 98.4 F 12/12/24 12:00 Pulse 87 12/12/24 14:36 Resp 16 12/12/24 13:20 BP 100/48 12/12/24 14:00 Pulse Ox 94 12/12/24 14:00 O2 Del Method Mechanical Ventilation 12/12/24 14:00 O2 Flow Rate 15 12/10/24 04:54 FiO2 50 12/12/24 14:00 12/12/24 12/12/24 12/12/24 06:59 14:59 22:59 Intake Total 1774.075 / 3892.841 928.213 / 928.213 Output Total 1800 / 3050 800 / 800 Balance -25.925 / 842.841 128.213 / 128.213 Weight last 48 hrs Weight 114.5 kg Weight 104 kg Physical Exam 2 Narrative: Intubated, sedated, on 40% FiO2 Urinary Catheter Management: Beck: Cath Placed During This Visit: yes Reason for Continuing Indwelling Catheter: Accurate Measurement of Urinary Output in Critically Ill Patients Urinary Catheter Date of Insertion: 12/10/24 Urinary Catheter Time of Insertion: 12:13 Data 12/12/24 01:25 12/12/24 01:25 Micro: Microbiology 12/10/24 10:40 Gram Stain - Final Sputum - Endotracheal Tube Aspirate Sputum Culture - Preliminary A&P Assessment and plan (1) Acute on chronic kidney failure: 1. Acute on chronic kidney disease stage III: Baseline creatinine seems to be in the 1.5-2 range. Patient now has BALBIR with a creatinine of 4.1 , oliguric . Etiology of BALBIR most likely ATN in the setting of acute infection and sepsis. - patient currently on pressors -renal fxn and UOP better, monitor - discussed with pt daughter 2. Sepsis: On pressors, on broad-spectrum antibiotics, has influenza A 3. Hyponatremia: Mild, monitor 4. History of coronary artery disease, cardiomyopathy Patient evaluated using audiovisual cart. Time spent 40 minutes Qualifiers: Acute renal failure type: unspecified Chronic kidney disease stage: s tage 3 (moderate) Chronic kidney disease stage 3 subtype: stage 3b (GFR 30-44) Qualified Code(s): N17.9 - Acute kidney failure, unspecified; N18.32 - Chronic kidney disease, stage 3b Attestations 2 Medical Necessity Statement*: per medicne Coding Level of Care Code Acute Code for Chg Fwd Diagnoses Acute renal failure superimposed on stage 3b chronic kidney disease, unspecified acute renal failure type N17.9; N18.32 Acute renal failure type: unspecified Chronic kidney disease stage: stage 3 (moderate) Chronic kidney disease stage 3 subtype: stage 3b (GFR 30-44)
[2024-12-12] MEDS: propofol 1,000 MG/100 ML INJ 38.1 MG IV ×3 (16:00→21:12)
[2024-12-12 16:12] LABS: Glucose Point of Care 248 mg/dL (70-110)
--- NOTE | 2024-12-12 16:16 | PC.NURSE ---
Telephone order RBV to D/C bicarb drip. See MAR.
[2024-12-12 17:37] LABS: Vancomycin Trough 20.6 ug/mL (10-15)
[2024-12-12 19:58] LABS: Partial Thromboplastin Time 128.6 SECONDS (23.9-36.7)
--- NOTE | 2024-12-12 20:11 | PC.NURSE ---
PTT Dr. Mariscal notified of recent ptt 128.6. Order received to leave heparin drip paused another two hours and recheck ptt.
[2024-12-12] MEDS: atorvastatin 40 mg Tablet PO (20:55)
[2024-12-12] MEDS: ropinirole 1 mg Tablet PO (20:55)
[2024-12-12 21:51] LABS: Glucose Point of Care 223 mg/dL (70-110)
[2024-12-12 22:18] LABS: Partial Thromboplastin Time 65.3 SECONDS (23.9-36.7)
--- NOTE | 2024-12-12 23:00 | PC.NURSE ---
PTT Patient's ptt 65.3. Dr. Mariscal notified; order received to restart heparin drip at 19 ml/hr.
[2024-12-13] VITALS (113 sets, daily range): BP systolic 91–166; BP diastolic 47–83; PULSE 83–126; RESP 16; TEMP 36.8–37.3; O2SAT 88–97; BMI 47.2
[2024-12-13 00:10] LABS: ABG PH Result 7.19 (7.35-7.45); Arterial Blood Gas Hematocrit 30.7 % (37-47); Base Excess ABG -1.6 mmol/L (-2.0-2.0); Blood Gas Operator Identificat SAM; Blood Gas Sample Site Brachial, right; Blood Gas Sample Type Arterial; Blood Gas Tidal Volume 0.52; HCO3 ABG 27.5 mmol/L (22-26); Oxygen Device VENT; PO2 FiO2 Ratio Arterial Blood 220
[2024-12-13] MEDS: ipratropium 0.5 mg/2.5 mL Neb INHALATION ×7 (00:11→23:40)
[2024-12-13] MEDS: levalbuterol 1.25 mg/3 mL Neb INHALATION ×7 (00:11→23:40)
[2024-12-13 00:16] LABS: ABG PCO2 72.2 mmHg (35-45)
--- NOTE | 2024-12-13 00:20 | PC.NURSE ---
Addendum entered by Isela Pandey RN 12/13/24 03:09: Additional order received for 2 gm magnesium sulfate IV once. Original Note: Nimbex Patient noted to have low minute volume alarm on the ventilator with really long, labored expiratory phases. Bilateral expiratory wheezes auscultated. RT notified then at bedside. Dr. Mariscal contacted; order received for versed and a stat ABG. Dr. Mariscal notified of ABG results; order received for Nimbex drip and to paralyze patient.
[2024-12-13] MEDS: magnesium sulfate premix 2 GM/50 ML PIGGYBACK IV (00:25)
[2024-12-13] MEDS: midazolam hcl 100 MG/100 ML BAG IV (00:28)
[2024-12-13] MEDS: albuterol 2.5 mg/3 mL Neb INHALATION ×3 (00:35→01:17)
[2024-12-13] MEDS: albumin 25 G/100 ML BAG 60 G IV ×4 (00:36→23:47)
[2024-12-13] MEDS: propofol 1,000 MG/100 ML INJ 38.1 MG IV (00:36)
--- NOTE | 2024-12-13 00:47 | W.PM.EVENTAC ---
Event Note Event Note: Patient is not pulling good tidal volume, I requested ABG which showed hypercapnia with respiratory acidosis, patient is showing signs of prolonged expiratory phases, concern for significant bronchospasm/status asthmaticus, patient ventilator dyssynchrony, decision was made to sedate patient with Versed, start Nimbex for at least next 24 hours, check CPK every 12 hours, patient currently is on heparin drip, Levophed on hold, propofol, fentanyl, Versed, Nimbex to be initiated, spoke with the nurse, son at the bedside and RT, continuous albuterol treatment along steroids, gave 2 g mag sulfate as well
[2024-12-13] MEDS: cisatracurium 100 MG in sodium chloride 0.9% 50 ML IV (00:51)
--- NOTE | 2024-12-13 01:05 | XRR_ITS ---
PROCEDURE INFORMATION: Exam: XR Chest Exam date and time: 12/13/2024 1:08 AM Age: 54 years old Clinical indication: Shortness of breath; Prior surgery; Surgery date: 6+ months; Surgery type: Pacer; Worsening hypoxia despite mechanical ventilation; Additional info: Respiratory status change TECHNIQUE: Imaging protocol: Radiologic exam of the chest. Views: 1 view. COM[place]ISON[place] [id number] 12/11/2024 12:08 PM FINDINGS: Tubes, catheters and devices: The support lines and tubes are in satisfactory position.There is a dual lead pacer in satisfactory position. Lungs: There is mild bibasilar reticular opacification likely atelectasis.The remaining lungs are clear. Pleural spaces: Unremarkable. No pleural effusion. No pneumothorax. Heart/Mediastinum: The heart size is unchanged. Bones/joints: Unremarkable. XR/XR chest 1V portable [id number] IMPRESSION: 1. The support lines and tubes are in satisfactory position. 2. Bibasilar atelectasis.
[2024-12-13] MEDS: methylPREDNISolone sod succ 40 mg/mL INJ IVP ×4 (02:10→21:57)
[2024-12-13] MEDS: propofol 1,000 MG/100 ML INJ 32.66 MG IV ×3 (02:25→20:34)
[2024-12-13 04:04] LABS: Glucose Point of Care 250 mg/dL (70-110)
[2024-12-13] MEDS: insulin lispro 100 unit/1 mL SUBCUT ×4 (04:06→22:27)
[2024-12-13 04:21] LABS: Alveolar-Arterial Oxygen Gradi 24.6 mmHg (5-10); Arterial Blood Gas Hematocrit 28.9 % (37-47); Base Excess ABG -0.8 mmol/L (-2.0-2.0); Blood Gas Allen Test Pos; Blood Gas Operator Identificat SAM; Blood Gas Sample Site Radial, right; Blood Gas Sample Type Arterial; Blood Gas Tidal Volume 0.52; Carboxyhemoglobin 0.7 %THgb (0.4-20.1); HGB O2 Sat 96.1 % (95-100); Ionized Calcium Level - ABG 0.9 mmol/L (1.1-1.4); Oxygen Device VENT; Oxygen Saturation ABG 97.8; PO2 FiO2 Ratio Arterial Blood 202; Potassium Level - ABG 3.1 mmol/L (3.5-5.0); Total Hemoglobin 9.4 g/dL (12-16)
[2024-12-13 05:08] LABS: Basophils % 0.1 %; Hematocrit 26.3 % (36-47); Lymphocytes # 0.6 10^3/uL (0.8-4.8); Lymphocytes % 7.1 %; Mean Corpuscular HGB Conc 31.9 g/dL (30-55); Mean Corpuscular Volume 90.7 fl (85-98); Mean Platelet Volume 9.9 fL (7.4-10.4); Monocytes # 0.4 10^3/uL (0.2-0.9); Monocytes % 5.1 %; Neutrophils # 6.85 10^3/uL (1.8-7.7); Neutrophils % 85.5 %; Nucleated Red Blood Cells % 0 %; Platelet Count 213 10^3/cmm (157-399); Red Cell Distribution Width 19.2 % (12.1-15.1); White Blood Count 8.02 10^3/uL (3.29-11.43)
[2024-12-13 05:34] LABS: Alanine Aminotransferase 10 U/L (0-33); Albumin Level 3.8 g/dL (3.5-5.2); Alkaline Phosphatase 34 U/L (35-105); Anion Gap 21.3 (5-19); Aspartate Amino Transferase 39 U/L (0-32); Blood Urea Nitrogen 51 mg/dL (6-20); Calcium 6.2 mg/dL (8.5-10.5); Carbon Dioxide 24 mmol/L (22-29); Chloride 92 mmol/L (98-107); Creatinine Clr Calc Pharmacy 25.4687; Glomerular Filtration Rate 16.8 mL/min (90-130); Glucose 248 mg/dL (65-115); Magnesium 2.4 mg/dL (1.7-2.3); Osmolality Calculated 300 mOsm/kg (285-295); Phosphorus 4.8 mg/dL (2.5-4.5); Potassium 3.3 mmol/L (3.5-5.1); Sodium 134 mmol/L (136-145); Total Bilirubin 0.3 mg/dL (0.15-1.2); Total Protein 5.8 g/dL (6.6-8.7)
[2024-12-13 05:35] LABS: Partial Thromboplastin Time 83.8 SECONDS (23.9-36.7)
[2024-12-13] MEDS: propofol 1,000 MG/100 ML INJ 27.22 MG IV (06:04)
--- NOTE | 2024-12-13 06:58 | PC.NURSE ---
Aspirin Order received to hold OG aspirin while paralyzed.
--- NOTE | 2024-12-13 07:00 | PC.NURSE ---
BIS/TO4 BIS Train of 4 0100 42 4 0200 29 4 0400 40 4 0615 35 0 0/4 twitches witnessed at 0615. Nimbex paused per protocol for 30 minutes. Upon reassessment, 4/4 twitches present. Drip restarted at 1/2 the previous rate.
--- NOTE | 2024-12-13 07:15 | P.PN_ITS ---
Subjective 2 Subjective: UOP good Medications: Reviewed: Yes Vitals/I&O/Wt Last Vital Signs Temp 98.3 F 12/13/24 05:00 Pulse 103 H 12/13/24 06:51 Resp 16 12/13/24 06:30 BP 134/58 12/13/24 06:30 Pulse Ox 94 12/13/24 06:30 O2 Del Method Mechanical Ventilation 12/13/24 06:30 O2 Flow Rate 15 12/10/24 04:54 FiO2 50 12/13/24 05:00 12/12/24 12/13/24 12/13/24 22:59 06:59 14:59 Intake Total 1940.556 / 2910.683 781.742 / 3692.425 14.876 / 14.876 Output Total 500 / 1300 600 / 1900 Balance 1440.556 / 1610.683 181.742 / 1792.425 14.876 / 14.876 Weight last 48 hrs Weight 113.5 kg Weight 114.5 kg Physical Exam 2 Narrative: Intubated, sedated, on 40% FiO2 Urinary Catheter Management: Beck: Cath Placed During This Visit: yes Reason for Continuing Indwelling Catheter: Accurate Measurement of Urinary Output in Critically Ill Patients Urinary Catheter Date of Insertion: 12/10/24 Urinary Catheter Time of Insertion: 12:13 Data 12/13/24 05:00 12/13/24 05:00 Micro: Microbiology 12/10/24 10:40 Gram Stain - Final Sputum - Endotracheal Tube Aspirate Sputum Culture - Final A&P Assessment and plan (1) Acute on chronic kidney failure: 1. Acute on chronic kidney disease stage III: Baseline creatinine seems to be in the 1.5-2 range. Patient now has BALBIR with a creatinine of 4.1 , oliguric . Etiology of BALBIR most likely ATN in the setting of acute infection and sepsis. -renal fxn and UOP better, monitor - PRN IV lasix - discussed with pt daughter 2. Sepsis: On pressors, on broad-spectrum antibiotics, has influenza A 3. Hyponatremia: Mild, monitor 4. History of coronary artery disease, cardiomyopathy Patient evaluated using audiovisual cart. Time spent 40 minutes Qualifiers: Acute renal failure type: unspecified Chronic kidney disease stage: s tage 3 (moderate) Chronic kidney disease stage 3 subtype: stage 3b (GFR 30-44) Qualified Code(s): N17.9 - Acute kidney failure, unspecified; N18.32 - Chronic kidney disease, stage 3b Attestations 2 Medical Necessity Statement*: per medicine Coding Level of Care Code Acute Code for Chg Fwd Diagnoses Acute renal failure superimposed on stage 3b chronic kidney disease, unspecified acute renal failure type N17.9; N18.32 Acute renal failure type: unspecified Chronic kidney disease stage: stage 3 (moderate) Chronic kidney disease stage 3 subtype: stage 3b (GFR 30-44)
[2024-12-13] MEDS: budesonide 0.5 mg/2 mL Neb INHALATION ×2 (07:40→19:51)
[2024-12-13 08:07] LABS: Glucose Point of Care 283 mg/dL (70-110)
[2024-12-13] MEDS: USP TOPICAL ×2 (08:57→17:17)
[2024-12-13] MEDS: pantoprazole 40 mg SDV IVP (08:57)
[2024-12-13] MEDS: CLOBETASOL PROPIONATE TOPICAL ×2 (08:57→17:17)
[2024-12-13] MEDS: TACROLIMUS 0.1% 1 EACH TOPICAL ×2 (08:57→17:17)
[2024-12-13 09:27] LABS: Creatine Phosphokinase 3003 U/L (26-192)
[2024-12-13] MEDS: propofol 1,000 MG/100 ML INJ 24.49 MG IV (10:19)
[2024-12-13 12:29] LABS: Glucose Point of Care 227 mg/dL (70-110)
[2024-12-13 12:42] LABS: Estmated Average Glucose 174; Hemoglobin A1C 7.7 % (4.0-6.0)
[2024-12-13] MEDS: sodium chloride 0.9% 1,000 ML 75 ML IV (12:55)
[2024-12-13] MEDS: insulin glargine 100 units/1 mL 10 UNIT SUBCUT (12:59)
[2024-12-13] MEDS: cefepime 1,000 mg SDV 1000 MG IVP (12:59)
[2024-12-13 13:01] LABS: Partial Thromboplastin Time 73.6 SECONDS (23.9-36.7)
[2024-12-13 13:09] LABS: Procalcitonin 0.98 ng/mL (0-0.5); Vitamin B12 451 pg/mL (232-1245)
[2024-12-13 13:19] LABS: Iron 52 ug/dL (37-145); Percent Saturation 33.1 % (20-50); Total Iron Binding Capacity 157 mcg/dl; Unsaturated Iron Binding 105 ug/dL (112-347)
--- NOTE | 2024-12-13 13:25 | PC.NURSE ---
Increase in sedative and paralytic: While performing oral care patient exhibits no response TOF 4/4 Bis reads 47. Patient appears to be sedated and paralyzed, however upon a full turn of patient, patient exhibited coughing reflex. Sedation increased for patient comfort and paralytic increased for vent compliance. See MAR.
[2024-12-13 13:53] LABS: MRSA PCR OZH (swab) NOT DETECTED (Not Detecte)
[2024-12-13] MEDS: propofol 1,000 MG/100 ML INJ 29.94 MG IV ×2 (13:53→23:46)
[2024-12-13] MEDS: cisatracurium 100 MG in sodium chloride 0.9% 50 ML 7.08 MG IV (14:19)
[2024-12-13 16:19] LABS: Glucose Point of Care 258 mg/dL (70-110)
[2024-12-13] MEDS: heparin drip 25,000 UNIT/500 ML PREMIX 17 UNIT IV (16:20)
[2024-12-13] MEDS: artificial tears Op Oint 3.5 gm 1 APPLIC EYE-BOTH (17:18)
[2024-12-13 17:21] LABS: ABG PCO2 50.8 mmHg (35-45); ABG PH Result 7.31 (7.35-7.45); Alveolar-Arterial Oxygen Gradi 24.2 mmHg (5-10); Base Excess ABG -0.7 mmol/L (-2.0-2.0); Blood Gas Allen Test Pos; Blood Gas Operator Identificat GD; Blood Gas Sample Site Radial, left; Blood Gas Sample Type Arterial; Blood Gas Tidal Volume 0.52; Carboxyhemoglobin 0.7 %THgb (0.4-20.1); HCO3 ABG 25.8 mmol/L (22-26); HGB O2 Sat 95.8 % (95-100); Ionized Calcium Level - ABG 0.9 mmol/L (1.1-1.4); Methemoglobin 1.6 % (0.4-1.5); Oxygen Device VENT; Oxygen Saturation ABG 98.2; PO2 FiO2 Ratio Arterial Blood 210; Potassium Level - ABG 3.2 mmol/L (3.5-5.0); Total Hemoglobin 9.1 g/dL (12-16)
[2024-12-13 18:03] LABS: Glucose Point of Care 242 mg/dL (70-110)
--- NOTE | 2024-12-13 18:09 | PC.NURSE ---
BIS/TOF: BIS: 799- 40 999- 42 1200- 42 1400- 45 1600- 43 1800- 51 TOF: 08- 02/12 1200- 02/11 1400- 02/12 1600- 01/11
[2024-12-13 18:12] LABS: Anion Gap 18.3 (5-19); Blood Urea Nitrogen 51 mg/dL (6-20); Calcium 6.6 mg/dL (8.5-10.5); Carbon Dioxide 24 mmol/L (22-29); Chloride 97 mmol/L (98-107); Creatinine Clr Calc Pharmacy 30.6094; Glomerular Filtration Rate 20.9 mL/min (90-130); Glucose 213 mg/dL (65-115); Osmolality Calculated 302 mOsm/kg (285-295); Potassium 3.3 mmol/L (3.5-5.1); Sodium 136 mmol/L (136-145); Vancomycin Trough 16.6 ug/mL (10-15)
--- NOTE | 2024-12-13 18:52 | P.PN_ITS ---
Subjective 2 Subjective: remains on vent Medications: Reviewed: Yes Vitals/I&O/Wt Last Vital Signs Temp 98.9 F 12/13/24 18:00 Pulse 92 12/13/24 18:00 Resp 16 12/13/24 18:21 BP 150/65 12/13/24 18:00 Pulse Ox 95 12/13/24 18:21 O2 Del Method Mechanical Ventilation 12/13/24 18:00 O2 Flow Rate 15 12/10/24 04:54 FiO2 45 12/13/24 18:21 12/13/24 12/13/24 12/13/24 06:59 14:59 22:59 Intake Total 781.742 / 3692.425 489.490 / 489.490 275.783 / 765.273 Output Total 600 / 1900 650 / 650 550 / 1200 Balance 181.742 / 1792.425 -160.510 / -160.510 -274.217 / -434.727 Weight last 48 hrs Weight 113.5 kg Weight 114.5 kg Physical Exam 2 Urinary Catheter Management: Beck: Cath Placed During This Visit: yes Reason for Continuing Indwelling Catheter: Accurate Measurement of Urinary Output in Critically Ill Patients Urinary Catheter Date of Insertion: 12/10/24 Urinary Catheter Time of Insertion: 12:13 Data 12/14/24 01:13 12/14/24 01:13 Micro: Microbiology 12/10/24 10:40 Gram Stain - Final Sputum - Endotracheal Tube Aspirate Sputum Culture - Final A&P Assessment and plan (1) Respiratory failure: In setting of COPD exacerbation due to influenza A. Oxygen supplementation keeping saturation over 88%. Follow-up sputum culture. Check MRSA swab. Follow continue with IV cefepime and vancomycin. Dose vancomycin as per vancomycin random levels. If MRSA swab negative will discontinue vancomycin. (2) Ventilator dependence: Patient has poor lung compliance to the ventilator. Continued to have worsening respiratory acidosis. Ended up needing paralytic agent on 12/12 midnight. Currently on Nimbex, propofol and fentanyl. Will plan to wean paralytic agent within next 24 hours. Oxygen supplementation keeping saturation over 90%. Appreciate ABG. Follow-up sputum culture, blood culture. Appreciate urine output. Increase Solu-Medrol to 40 mg every 6 hour. Pulmicort twice daily, ipratropium, Xopenex every 4 hour. (3) Acute respiratory failure with hypoxia and hypercapnia: Monitor daily ABG. (4) New onset a-fib: Currently rate controlled. Normal sinus rhythm. As patient is on paralytics we will hold off on oral amiodarone. If goes back in A-fib with RVR will plan to start on amiodarone drip versus Cardizem drip. Continue anticoagulation with heparin drip. Echocardiogram shows an EF of 55 to 60% grade 1 diastolic dysfunction, mild MR, mild AAS, dilated IVC. (5) Acute on chronic kidney failure: Baseline creatinine 1.8-2.3. Currently 2.4. Medical reconciliation done for nephrotoxic drugs. Appreciate nephrology recommendations. Start on gentle IV hydration given rhabdomyolysis at 75 cc/h. Monitor urine output. Qualifiers: Acute renal failure type: unspecified Chronic kidney disease stage: s tage 3 (moderate) Chronic kidney disease stage 3 subtype: stage 3b (GFR 30-44) Qualified Code(s): N17.9 - Acute kidney failure, unspecified; N18.32 - Chronic kidney disease, stage 3b (6) CO2 narcosis: (7) COPD exacerbation: (8) Acute on chronic systolic heart failure: Currently patient slightly dehydrated. Concern for rhabdomyolysis with CPK more than 3000. Start patient on NS at 75 cc/h. Lasix as needed. Echocardiogram as above. (9) Ischemic cardiomyopathy: (10) ICD (implantable cardioverter-defibrillator), dual, in situ: (11) Influenza A: Continue supportive treatment. Tamiflu 30 mg BID for 5 days cpurse. Steroid as above. (12) Sepsis: (13) Shock: Maintain mean arterial pressure over 65. Levophed as needed will currently weaned off. (14) Rhabdomyolysis: Monitor CPK twice daily. Fluid as above. Plan Anesthesia: Propofol, fentanyl, Nimbex Glycemic control: Insulin low-dose protocol every 6 hour. Add Lantus 10 units twice daily Nutrition: N.p.o. CODE STATUS: Full code PUD prophylaxis: Protonix OPD prophylaxis DVT prophylaxis: Heparin will be sufficient for DVT prophylaxis Discharge planning: Home with home health versus SNF depending on critical progress Continue with care at ICU This documentation was created by [employer] thaw shed heater tender software. Every effort was made to ensure accuracy of thaw shed heater tender. Any obvious errors or omissions should be clarified with the author of the document. Attestations 2 Medical Necessity Statement*: Requires further hospitalization for management of respiratory failure in setting of influenza A, COPD exacerbation, respiratory acidosis with CO2 narcosis in a patient with ventilator dependence, A-fib with RVR, history of congestive heart failure Critical Care Time: The high probability of a clinically significant, sudden or life threatening deterioration of the patient's [cardiac, pulmonary, renal] system(s) required my full and direct attention, intervention and personal management. The critical care time is as shown. This time is in addition to time spent performing any reported procedures but includes the following: [x] Data and vital sign review and interpretation [x] Patient assessment, examination and intervention [x] Documentation [x] Medication orders and management Critical Care Time (min): 90 Coding Level of Care Code Critical Care >/= 30 minutes Critical care time (in minutes): 90 The high probability of a clinically significant, sudden or life threatening deterioration, as referenced in this documentation, required my full and direct attention, intervention and personal management. The critical care time shown is in addition to time spent performing any reported separately billable procedures and includes the following: [x] Data and vital sign review and interpretation [x ] Patient assessment, examination and intervention [x] Medication orders and management [x] Patient/Family updates as able [x] Care Coordination and Documentation. Other Coding Information This patient has a high probability of clinically significant, sudden or life threatening deterioration of the patient's (neurological/pulmonary/cardiac/renal/ID/endocrine) systems required my full, direct attention, the highest level of physician preparedness for urgent intervention and personal management. I managed/supervised life or organ supporting interventions that required frequent physician assessment. I devoted my full attention in the ICU to the direct care of this patient for the period of time indicated above. Time I spent with family or surrogate(s) is included only if the patient was incapable of providing necessary information or participating in decision making. This time includes the following services provided: Telemetry review Mechanical Ventilation Hemodynamic interpretation, assessment and management Review and interpretation of CXR Review and interpretation of lab values Review and interpretation of microbiologic data and culture results Review of medications and administration Review and interpretation of Nutrition requirements and management Discussion of management with other consultants and services Clinical update to family members Diagnoses Respiratory failure J96.90 Ventilator dependence Z99.11 Acute respiratory failure with hypoxia and hypercapnia J96.01; J96.02 New onset a-fib I48.91 Acute renal failure superimposed on stage 3b chronic kidney disease, unspecified acute renal failure type N17.9; N18.32 Acute renal failure type: unspecified Chronic kidney disease stage: stage 3 (moderate) Chronic kidney disease stage 3 subtype: stage 3b (GFR 30-44) CO2 narcosis R06.89 COPD exacerbation J44.1 Acute on chronic systolic heart failure I50.23 Ischemic cardiomyopathy I25.5 ICD (implantable cardioverter-defibrillator), dual, in situ Z95.810 Influenza A J10.1 Sepsis A41.9 Shock R57.9 Rhabdomyolysis M62.82
[2024-12-13 19:04] LABS: Creatine Phosphokinase 3843 U/L (26-192)
[2024-12-13 20:19] LABS: Partial Thromboplastin Time 58.7 SECONDS (23.9-36.7)
[2024-12-13 20:45] LABS: Free T4 Free Thyroxine 0.68 ng/dL (0.82-1.77); T3 Free 1.2 PG/ML (2.0-4.4)
[2024-12-13] MEDS: fentaNYL 2,500 MCG/250 ML BAG 7.5 MCG IV (21:48)
[2024-12-13 22:28] LABS: Glucose Point of Care 238 mg/dL (70-110)
[2024-12-14] VITALS (78 sets, daily range): BP systolic 112–178; BP diastolic 61–92; PULSE 78–120; RESP 14–24; TEMP 37.1–37.3; O2SAT 89–95
[2024-12-14] MEDS: sodium chloride 0.9% 1,000 ML 125 ML IV ×2 (00:02→08:14)
[2024-12-14] MEDS: cisatracurium 100 MG in sodium chloride 0.9% 50 ML 10.31 MG IV (00:55)
[2024-12-14 01:33] LABS: Lymphocytes # 0.5 10^3/uL (0.8-4.8); Lymphocytes % 9.6 %; Mean Corpuscular HGB Conc 31.9 g/dL (30-55); Mean Corpuscular Volume 90.9 fl (85-98); Mean Platelet Volume 9.8 fL (7.4-10.4); Monocytes # 0.4 10^3/uL (0.2-0.9); Monocytes % 6.7 %; Neutrophils # 4.18 10^3/uL (1.8-7.7); Neutrophils % 80.4 %; Nucleated Red Blood Cells % 0.4 %; Platelet Count 197 10^3/cmm (157-399); Red Blood Count 2.97 10^6/uL (3.85-5.65); Red Cell Distribution Width 19.2 % (12.1-15.1)
[2024-12-14 01:46] LABS: Partial Thromboplastin Time 49.4 SECONDS (23.9-36.7)
[2024-12-14 02:00] LABS: Alanine Aminotransferase 10 U/L (0-33); Albumin Level 4.3 g/dL (3.5-5.2); Alkaline Phosphatase 30 U/L (35-105); Anion Gap 18.3 (5-19); Aspartate Amino Transferase 45 U/L (0-32); Blood Urea Nitrogen 49 mg/dL (6-20); Calcium 6.7 mg/dL (8.5-10.5); Carbon Dioxide 24 mmol/L (22-29); Chloride 100 mmol/L (98-107); Creatinine Clr Calc Pharmacy 33.3921; Glomerular Filtration Rate 23.1 mL/min (90-130); Glucose 213 mg/dL (65-115); Osmolality Calculated 307 mOsm/kg (285-295); Potassium 3.3 mmol/L (3.5-5.1); Sodium 139 mmol/L (136-145); Total Bilirubin 0.4 mg/dL (0.15-1.2); Total Protein 6.3 g/dL (6.6-8.7)
[2024-12-14 02:18] LABS: Chol HDL Ratio 4.65 mg/dL (0.0-4.40); Cholesterol 121 mg/dL (0-200); HDL Cholesterol 26 mg/dL (60-100); LDL Cholesterol Calculated 45 mg/dL (50-129); Magnesium 2.7 mg/dL (1.7-2.3); Triglycerides 251 mg/dL (0-150); VLDL Cholestrol Calculation 50 mg/dL (0-30)
[2024-12-14] MEDS: heparin 5,000 unit/mL INJ 1 mL IVP (02:32)
[2024-12-14 02:33] LABS: Folate Level 6.3 ng/mL (4.8-37.3)
[2024-12-14] MEDS: propofol 1,000 MG/100 ML INJ 29.94 MG IV ×4 (02:43→10:43)
[2024-12-14] MEDS: ipratropium 0.5 mg/2.5 mL Neb INHALATION ×4 (02:47→15:20)
[2024-12-14] MEDS: levalbuterol 1.25 mg/3 mL Neb INHALATION ×4 (02:47→15:20)
[2024-12-14] MEDS: methylPREDNISolone sod succ 40 mg/mL INJ IVP ×3 (04:30→17:07)
[2024-12-14] MEDS: insulin lispro 100 unit/1 mL SUBCUT ×3 (04:58→17:24)
[2024-12-14 05:26] LABS: Glucose Point of Care 219 mg/dL (70-110)
[2024-12-14 05:31] LABS: Creatine Phosphokinase 4133 U/L (26-192)
--- OUTSIDE RECORDS SUMMARY | 2024-12-14 05:41 | XMS_ITS | Encounter Summary ---
Author Organization [employer] Address [address] [place] [address] Care Team Providers Care Utility Service Worker Name Role Phone Unavailable Primary Care Provider Unavailabl e Encounter Details Date Type Department Care Team (Late st Contact Info) Description 12/01/2024 External Device Data [facility] ABSTRACTION Provider, Abstract NO ADDRESS ON FILE Social History Tobacco Use Types Packs/Day Years Used Date Smoking Tobacco: Every Day Cigarettes Smokeless Tobacco: Never Alcohol Use Standard Drinks/Week Comments Not Currently 0 (1 standard drink = 0.6 oz pur e alcohol) Comments Unknown Sex and Gender Information Value Date Recorded Sex Assigned at Not on file 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
--- OUTSIDE RECORDS SUMMARY | 2024-12-14 05:41 | XMS_ITS | Encounter Summary ---
Author Organization [employer] Address 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
--- OUTSIDE RECORDS SUMMARY | 2024-12-14 05:41 | XMS_ITS | Encounter Summary ---
Author Organization [employer] Address 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
--- OUTSIDE RECORDS SUMMARY | 2024-12-14 05:41 | XMS_ITS | Encounter Summary ---
Author Organization [employer] Address 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
--- OUTSIDE RECORDS SUMMARY | 2024-12-14 05:41 | XMS_ITS | Clinical Summary ---
Author Organization [facility] Address [address] [place] [address] Care Team Providers Care Flare Breaker Name Role Phone Unavailable Primary Care Provider Unavailabl e Allergies Active Allergy Reactions Criticality Noted Date Comments Sacubitril-Valsartan Other (See Comments) High 09/25 Blood pressure bottomed Medications atorvastatin (LIPITOR) 40 mg tablet Take 80 mg by mouth daily at bedtime. 08/21/2022 Active clopidogreL (PLAVIX) 75 mg Tablet Take 75 mg by mouth daily. 08/21/2022 Active lisinopriL (PRINIVIL) 10 mg tablet Take 20 mg by mouth daily after supper. 09/16/2022 Active metFORMIN (GLUCOPHAGE) 500 mg tablet Take 500 mg by mouth daily. 09/24/2022 Active metoprolol succinate (TOPROL XL) 50 mg Extended Release 24 hour tablet Take 25 mg by mouth daily. 09/12/2022 Active pantoprazole (PROTONIX) 40 mg Tablet, Delayed Release (E.C.) Take 40 mg by mouth daily. 09/10/2022 Active potassium chloride (KLOR-CON) 10 mEq Extended Release tablet Take 10 mEq by mouth daily. 06/24/2022 Active spironolactone (ALDACTONE) 25 mg tablet TAKE 1 TABLET BY MOUTH ONCE DAILY FOR 30 DAYS 09/17/2022 Active gabapentin (NEURONTIN) 100 mg capsule Take 100 mg by mouth 2 times daily. Active Active Problems Problem Noted Date Diagnosed Date Ischemic dilated cardiomyopathy 09/25/2022 Chronic combined systolic and diastolic CHF, NYH A class 3 09/25/2022 ASHD (arteriosclerotic heart disease) 09/25/2022 Tobacco abuse 09/25/2022 Panlobular emphysema 09/25/2022 Dyslipidemia 09/25/2022 Obesity (BMI 30-39.9) 09/25/2022 Sinus bradycardia 09/25/2022 Encounters Date Type Department Care Team Description 12/07/2024 External Device Data [facility] ABSTRACTION Provider, Abstract 12/01/2024 External Device Data [facility] ABSTRACTION Provider, Abstract 12/01/2024 External Device Data [facility] ABSTRACTION Provider, Abstract 11/16/2024 External Device Data [facility] ABSTRACTION Provider, Abstract 10/12/2024 External Device Data [facility] ABSTRACTION Provider, Abstract from Last 3 Months Social History Tobacco Use Types Packs/Day Years Used Date Smoking Tobacco: Every Day Cigarettes Smokeless Tobacco: Never Tobacco Cessation:Ready to Q uit: Not Asked; Counseling Given: Not Answered Alcohol Use Standard Drinks/Week Comments Not Currently 0 (1 standard drink = 0.6 oz pur e alcohol) Comments Unknown Sex and Gender Information Value Date Recorded Sex Assigned at Not on file Legal Sex Female 3:53 PM 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 POSTING CLERK Gender Identity Not on file Sexual Orientation Not on file Last Filed Vital Signs Vital Sign Reading Time Taken Comments Blood Pressure 161/77 12/03/2022 11:40 AM PRODUCTION POSTING CLERK Pulse 86 12/03/2022 11:40 AM PRODUCTION POSTING CLERK Temperature 36.7 ??C (98.1 ??F) 10/22/2022 1:28 PM CS T Respiratory Rate 18 12/03/2022 11:40 AM PRODUCTION POSTING CLERK Oxygen Saturation 99% 12/03/2022 11:40 AM PRODUCTION POSTING CLERK Inhaled Oxygen Concentration - - Weight 91.2 kg (201 lb) 12/03/2022 11:01 AM PRODUCTION POSTING CLERK Height 160 cm (5' 3 ) 12/03/2022 11:01 AM PRODUCTION POSTING CLERK Body Mass Index 35.61 12/03/2022 11:01 AM PRODUCTION POSTING CLERK Plan of Treatment Health Maintenance Due Date Last Done Comments PNEUMOCOCCAL VACCINE 0-64 YEARS (1 of 2 - PCV) 974 DTAP/TDAP/TD VACCINES (1 - Tdap) 1987 HEPATITIS B VACCINES (1 of 3 - 19+ 3-dose series) 06/1987 CERVICAL CANCER SCREENING 1998 BREAST CANCER SCREENING 2008 COLORECTAL SCREENING 2013 Colorectal Cancer Screening 2013 FIT-DNA Q 3 years 2013 FIT/FOBT Q 1 year 2013 Flex Sig/CT Colonography Q 5 years 2013 ZOSTER VACCINE (1 of 2) 2018 INFLUENZA VACCINE (#1) 2024 Medical Devices Implanted Type Area Living Nurse Device Identifier Shelf Expiration Date Model / Serial / Lot Icd Evera Mri Xt Dr Quinonez [id number] - [facility] - [id number] Implanted:Qty: 1 on 10/22/2022 by Kalyan Wolfe MD at [facility] Defibrillator Left: Chest [employer]- CRM - BULK BUY 02/05/2024 [id number] / [id number] / Lead Pacing Capsure Fix Novus 52cm [id number] - [facility] - [id number] Implanted:Qty: 1 on 10/22/2022 by Kalyan Wolfe MD at [facility] Lead Left: Chest [employer]- CRM - BULK BUY 06/28/2024 [id number] / [id number] / Lead Sprint Quattro Secure 62cm [id number] - [facility] - [id number] Implanted:Qty: 1 on 10/22/2022 by Kalyan Wolfe MD at [facility] Lead Left: Chest [employer]- CRM - BULK BUY 04/18/2024 [id number] / [id number] / Insurance [address] [place], [place] [id number] [place] [address] CHOICE [id number] [place] [address] DISABILITY DETERMINATION Advance Directives For more information, please contact: [phone] * Full Code (Latest Code Status on File) Date Activated Date Inactivated Comments 10/22/2022 1:53 PM 10/22/2022 7:23 PM * Full Code Date Activated Date Inactivated Comments 10/22/2022 8:59 AM 10/22/2022 1:53 PM
--- NOTE | 2024-12-14 06:00 | XRR_ITS ---
PROCEDURE INFORMATION: Exam: XR Chest Exam date and time: 12/14/2024 5:46 AM Age: 54 years old Clinical indication: Shortness of breath; Additional info: Intubated, resp failure TECHNIQUE: Imaging protocol: Radiologic exam of the chest. Views: 1 view. COMPARISON: CR (CHEST, ) 12/13/2024 1:08 AM FINDINGS: Tubes, catheters and devices: No changes in the life-support device positions which are unremarkable. Left chest ICD is unchanged. Lungs: Mild diffuse prominence of the pulmonary interstitium is stable. No consolidation. Pleural spaces: Unremarkable. No pleural effusion. No pneumothorax. Heart/Mediastinum: Unremarkable cardiac silhouette. Bones/joints: Unremarkable. XR/XR chest 1V portable [id number] IMPRESSION: Negative for interval changes.
[2024-12-14 06:14] LABS: ABG PCO2 48.4 mmHg (35-45); ABG PH Result 7.32 (7.35-7.45); Arterial Blood Gas Hematocrit 28.7 % (37-47); Base Excess ABG -1.7 mmol/L (-2.0-2.0); Blood Gas Allen Test Pos; Blood Gas Sample Type Arterial; Carboxyhemoglobin 0.7 %THgb (0.4-20.1); HCO3 ABG 24.6 mmol/L (22-26); HGB O2 Sat 94.9 % (95-100); Methemoglobin 1.7 % (0.4-1.5); Oxygen Saturation ABG 97.3; PO2 ABG 97.3 mmHg (80.0-100.0); Potassium Level - ABG 3.2 mmol/L (3.5-5.0); Total Hemoglobin 9.4 g/dL (12-16)
[2024-12-14 06:16] LABS: Alveolar-Arterial Oxygen Gradi 21.5 mmHg (5-10); Blood Gas Operator Identificat ED; Blood Gas Sample Site Radial, left; Blood Gas Tidal Volume 0.52; Oxygen Device VENT; PO2 FiO2 Ratio Arterial Blood 216
--- NOTE | 2024-12-14 07:19 | PC.NURSE ---
Patient monitored via train of four for paralytic 8pm -2/, 1030pm 0/4, sedation held, 11pm 0/4, 1130 pm 02/11 drip started back at 0.75, 1145pm 01/11, midnight 01/11, 0030 3, 0130 2, 0230 2, 0430 2, 0630 2. Clarification of order for iv fluids recieved from Dr. Mariscal after noticed order change from ns at [address] Olson to NS at 50. Instructed to continue rate of 125. ck rechecked as ordered and called to Dr. Mariscal.
[2024-12-14] MEDS: insulin glargine 100 units/1 mL 10 UNIT SUBCUT ×2 (08:05→17:46)
[2024-12-14] MEDS: budesonide 0.5 mg/2 mL Neb INHALATION (08:10)
[2024-12-14 08:36] LABS: Partial Thromboplastin Time 72.7 SECONDS (23.9-36.7)
[2024-12-14] MEDS: albumin 25 G/100 ML BAG 60 G IV ×2 (08:45→17:08)
[2024-12-14] MEDS: pantoprazole 40 mg SDV IVP (08:45)
[2024-12-14] MEDS: amiodarone 200 mg Tablet 400 MG PO ×2 (08:47→17:26)
[2024-12-14 09:24] LABS: Glucose Point of Care 216 mg/dL (70-110)
[2024-12-14 10:13] LABS: Creatine Phosphokinase 4369 U/L (26-192)
--- NOTE | 2024-12-14 10:54 | P.PN_ITS ---
Subjective 2 Subjective: remains on vent Medications: Reviewed: Yes Vitals/I&O/Wt Last Vital Signs Temp 99.1 F 12/14/24 09:00 Pulse 91 12/14/24 10:00 Resp 16 12/14/24 09:54 BP 155/69 12/14/24 10:00 Pulse Ox 94 12/14/24 10:00 O2 Del Method Mechanical Ventilation 12/14/24 08:00 O2 Flow Rate 15 12/10/24 04:54 FiO2 40 12/14/24 09:54 12/13/24 12/14/24 12/14/24 22:59 06:59 14:59 Intake Total 1128.636 / 1618.126 918.617 / 2536.743 1655.409 / 1655.409 Output Total 850 / 1500 1050 / 2550 Balance 278.636 / 118.126 -131.383 / -13.257 1655.409 / 1655.409 Weight last 48 hrs Weight 113 kg Weight 113.5 kg Physical Exam 2 Narrative: Intubated, sedated, on 40% FiO2 Urinary Catheter Management: Beck: Cath Placed During This Visit: yes Reason for Continuing Indwelling Catheter: Accurate Measurement of Urinary Output in Critically Ill Patients Urinary Catheter Date of Insertion: 12/10/24 Urinary Catheter Time of Insertion: 12:13 Data 12/14/24 01:13 12/14/24 01:13 A&P Assessment and plan (1) Acute on chronic kidney failure: 1. Acute on chronic kidney disease stage III: Baseline creatinine seems to be in the 1.5-2 range. Patient now has BALBIR with a creatinine of 4.1 , oliguric . Etiology of BALBIR most likely ATN in the setting of acute infection and sepsis. -renal fxn and UOP better, Noted elevated CK levels ,on NS @ 125 cc/hr monitor - PRN IV lasix - 2. Sepsis: On pressors, on broad-spectrum antibiotics, has influenza A 3. Hyponatremia: Mild, monitor 4. History of coronary artery disease, cardiomyopathy Patient evaluated using audiovisual cart. Time spent 40 minutes Qualifiers: Acute renal failure type: unspecified Chronic kidney disease stage: s tage 3 (moderate) Chronic kidney disease stage 3 subtype: stage 3b (GFR 30-44) Qualified Code(s): N17.9 - Acute kidney failure, unspecified; N18.32 - Chronic kidney disease, stage 3b PDMP PDMP Reviewed: Not Reviewed Attestations 2 Medical Necessity Statement*: per [facility] Coding Level of Care Code Acute Code for Chg Fwd Diagnoses Acute renal failure superimposed on stage 3b chronic kidney disease, unspecified acute renal failure type N17.9; N18.32 Acute renal failure type: unspecified Chronic kidney disease stage: stage 3 (moderate) Chronic kidney disease stage 3 subtype: stage 3b (GFR 30-44)
[2024-12-14 12:42] LABS: Partial Thromboplastin Time 59.4 SECONDS (23.9-36.7)
[2024-12-14] MEDS: calcium gluconate 0.1 gm/mL 10% SDV 10mL 1 GM IVP (12:44)
[2024-12-14] MEDS: lidocaine 1% 5 ML in potassium chloride premix 100 ML 26.25 ML IV (12:46)
[2024-12-14] MEDS: cefepime 1,000 mg SDV 1000 MG IVP (13:02)
--- NOTE | 2024-12-14 13:02 | PC.NURSE ---
Alberto Mack [phone] can have updates per son Tae.
[2024-12-14] MEDS: propofol 1,000 MG/100 ML INJ 35.38 MG IV ×2 (14:17→17:05)
[2024-12-14 14:27] LABS: ABG PH Result 7.21 (7.35-7.45); Base Excess ABG -4.2 mmol/L (-2.0-2.0); Blood Gas Allen Test Pos; Blood Gas Operator Identificat CAK; Blood Gas Sample Site Radial, left; Blood Gas Sample Type Arterial; Blood Gas Tidal Volume 0.52; Carboxyhemoglobin 0.6 %THgb (0.4-20.1); HCO3 ABG 24.1 mmol/L (22-26); HGB O2 Sat 97.4 % (95-100); Ionized Calcium Level - ABG 1.1 mmol/L (1.1-1.4); Methemoglobin 1.7 % (0.4-1.5); Oxygen Device VENT; Oxygen Saturation ABG > 99.1; PO2 FiO2 Ratio Arterial Blood 577; Total Hemoglobin 9.8 g/dL (12-16)
[2024-12-14 14:29] LABS: ABG PCO2 60.8 mmHg (35-45)
[2024-12-14 16:06] LABS: Glucose Point of Care 205 mg/dL (70-110)
--- NOTE | 2024-12-14 16:13 | P.PN_ITS ---
Subjective 2 Subjective: No acute distress overnight. Patient has remained hemodynamically stable and afebrile. Off Levophed. Continues to remain on Nimbex, propofol and fentanyl. BIMS is controlled. Appreciate ABG on FiO2 45%, PEEP of 10, tidal volume of 520 Medications: Reviewed: Yes Vitals/I&O/Wt Last Vital Signs Temp 99.1 F 12/14/24 09:00 Pulse 104 H 12/14/24 15:24 Resp 24 H 12/14/24 15:24 BP 134/68 12/14/24 14:15 Pulse Ox 91 12/14/24 15:24 O2 Del Method Mechanical Ventilation 12/14/24 15:24 O2 Flow Rate 15 12/10/24 04:54 FiO2 50 12/14/24 15:24 12/14/24 12/14/24 12/14/24 06:59 14:59 22:59 Intake Total 918.617 / 2536.743 1883.534 / 1883.534 Output Total 1050 / 2550 Balance -131.383 / -13.257 1883.534 / 1883.534 Weight last 48 hrs Weight 113 kg Weight 113.5 kg Physical Exam 2 Narrative: General: Sedated, intubated HEENT: PERRLA, pupils bilaterally equal and reactive Chest: Bilateral bronchial breath sounds all over lung gusman occasional rhonchi, decreased air entry over lung gusman CVS: S1-S2 regular, no murmurs, no tachycardia, no gallops, no rubs Abdomen: Soft, nontender, no organomegaly, bowel sounds present Neuro: No focal deficits, no facial deformity, Urinary Catheter Management: Beck: Cath Placed During This Visit: yes Reason for Continuing Indwelling Catheter: Accurate Measurement of Urinary Output in Critically Ill Patients Urinary Catheter Date of Insertion: 12/10/24 Urinary Catheter Time of Insertion: 12:13 Data 12/14/24 01:13 12/14/24 01:13 A&P Assessment and plan (1) Respiratory failure: In setting of COPD exacerbation due to influenza A. Oxygen supplementation keeping saturation over 88%. Follow-up sputum culture. MRSA swab negative. Follow continue with IV cefepime. Discontinue vancomycin.. (2) Ventilator dependence: Patient has poor lung compliance to the ventilator. Continued to have worsening respiratory acidosis. Ended up needing paralytic agent on 02/02 midnight. Currently on Nimbex, propofol and fentanyl. Patient was weaned off Nimbex at became noncompliant with ventilator with high end tidal volume, respiratory acidosis with pH of 7.21 again and hence was placed back on paralytic agent. Oxygen supplementation keeping saturation over 90%. Appreciate ABG. Follow-up sputum culture, blood culture. Appreciate urine output. Continue with Solu-Medrol to 40 mg every 6 hour. Pulmicort twice daily, ipratropium, Xopenex every 4 hour. (3) New onset a-fib: Currently rate controlled. Normal sinus rhythm. Continue with amiodarone 400 mg twice daily. If goes back in A-fib with RVR will plan to start on amiodarone drip versus Cardizem drip. Continue anticoagulation with heparin drip. Echocardiogram shows an EF of 55 to 60% grade 1 diastolic dysfunction, mild MR, mild , dilated IVC. (4) Acute on chronic kidney failure: Baseline creatinine 1.8-2.3. Creatinine back to baseline. Medical reconciliation done for nephrotoxic drugs. Appreciate nephrology recommendations. Continue with gentle IV hydration given rhabdomyolysis at 75 cc/h. Patient overall 8 L positive. Will plan for 40 mg of IV Lasix along with the fluid. Monitor urine output. Qualifiers: Acute renal failure type: unspecified Chronic kidney disease stage: s tage 3 (moderate) Chronic kidney disease stage 3 subtype: stage 3b (GFR 30-44) Qualified Code(s): N17.9 - Acute kidney failure, unspecified; N18.32 - Chronic kidney disease, stage 3b (5) Rhabdomyolysis: CPK continues to trend up. Continue IV fluid as above. Given patient is on high propofol with elevated CPK concern for propofol syndrome. Stop propofol and switch to Versed. (6) Influenza A: Continue supportive treatment. Tamiflu 30 mg BID for 5 days course. Steroid as above. (7) Acute respiratory failure with hypoxia and hypercapnia: Monitor daily ABG. (8) CO2 narcosis: (9) COPD exacerbation: (10) Acute on chronic systolic heart failure: Currently patient slightly dehydrated. Concern for rhabdomyolysis with CPK more than 3000. Start patient on NS at 75 cc/h. Lasix as needed. Echocardiogram as above. (11) Ischemic cardiomyopathy: (12) ICD (implantable cardioverter-defibrillator), dual, in situ: (13) Sepsis: (14) Shock: Maintain mean arterial pressure over 65. Levophed as needed will currently weaned off. Plan Type IIdiabetes mellitus: A1c 7.7. Continue insulin sliding scale every 6 hour. Lantus 10 units twice daily. Hypothyroidism: TSH low. Also has low free T3 and free T4. Concern for euthyroid sick syndrome. Check reverse T3. Patient currently not hyperthermic or hypothermic. For now we will continue to monitor. Patient will need repeat thyroid panel once clinically stable. Goals of care discussion: Discussed in detail with patient's daughter/DPOA over the phone. Also discussed with son at bedside. As patient has failed coming off diuretic agent and would need to continue on paralytic agent patient would benefit for transfer overdose recently where manager development and fire protection equipment technician are available. Both family members are agreeable. Patient's care discussed in detail with multiple manager development from [facility]. Patient has been accepted and placed on transfer list. Will transfer patient to ICU for manager development and fire protection equipment technician as patient remains on paralytic agent because of poor lung compliance. Anesthesia: Propofol, fentanyl, Nimbex Glycemic control: Insulin low-dose protocol every 6 hour. Add Lantus 10 units twice daily Nutrition: N.p.o. CODE STATUS: Full code PUD prophylaxis: Protonix OPD prophylaxis DVT prophylaxis: Heparin will be sufficient for DVT prophylaxis Discharge planning: Home with home health versus SNF depending on critical progress Continue with care at ICU This documentation was created by [employer] digital associate software. Every effort was made to ensure accuracy of digital associate. Any obvious errors or omissions should be clarified with the author of the document. PDMP PDMP Reviewed: Not Reviewed Attestations 2 Medical Necessity Statement*: Requires further hospitalization for management of respiratory failure with ventilator dependence, influenza A leading to COPD exacerbation, CKD, A-fib with RVR as patient remains on paralytic agent Critical Care Time: The high probability of a clinically significant, sudden or life threatening deterioration of the patient's [pulmonary, cardiac, renal] system(s) required my full and direct attention, intervention and personal management. The critical care time is as shown. This time is in addition to time spent performing any reported procedures but includes the following: [x] Data and vital sign review and interpretation [x] Patient assessment, examination and intervention [x] Documentation [x] Medication orders and management Critical Care Time (min): 90 Coding Level of Care Code Critical Care >/= 30 minutes Critical care time (in minutes): 90 The high probability of a clinically significant, sudden or life threatening deterioration, as referenced in this documentation, required my full and direct attention, intervention and personal management. The critical care time shown is in addition to time spent performing any reported separately billable procedures and includes the following: [x] Data and vital sign review and interpretation [x ] Patient assessment, examination and intervention [x] Medication orders and management [x] Patient/Family updates as able [x] Care Coordination and Documentation. Other Coding Information This patient has a high probability of clinically significant, sudden or life threatening deterioration of the patient's (neurological/pulmonary/cardiac/renal/ID/endocrine) systems required my full, direct attention, the highest level of physician preparedness for urgent intervention and personal management. I managed/supervised life or organ supporting interventions that required frequent physician assessment. I devoted my full attention in the ICU to the direct care of this patient for the period of time indicated above. Time I spent with family or surrogate(s) is included only if the patient was incapable of providing necessary information or participating in decision making. This time includes the following services provided: Telemetry review Mechanical Ventilation Hemodynamic interpretation, assessment and management Review and interpretation of CXR Review and interpretation of lab values Review and interpretation of microbiologic data and culture results Review of medications and administration Review and interpretation of Nutrition requirements and management Discussion of management with other consultants and services Clinical update to family members Diagnoses Respiratory failure J96.90 Ventilator dependence Z99.11 New onset a-fib I48.91 Acute renal failure superimposed on stage 3b chronic kidney disease, unspecified acute renal failure type N17.9; N18.32 Acute renal failure type: unspecified Chronic kidney disease stage: stage 3 (moderate) Chronic kidney disease stage 3 subtype: stage 3b (GFR 30-44) Rhabdomyolysis M62.82 Influenza A J10.1 Acute respiratory failure with hypoxia and hypercapnia J96.01; J96.02 CO2 narcosis R06.89 COPD exacerbation J44.1 Acute on chronic systolic heart failure I50.23 Ischemic cardiomyopathy I25.5 ICD (implantable cardioverter-defibrillator), dual, in situ Z95.810 Sepsis A41.9 Shock R57.9
--- NOTE | 2024-12-14 16:45 | P.TS_ITS ---
Transfer Summary Providers Date of Admission: 12/10/24 10:36 Date of Discharge/Transfer: 12/14/24 Attending Provider at Admission: Patrice Mariscal MD Attending Provider at Transfer: Ty Dos Santos MD Primary Care Provider: Tess Ko Transfer Plans: Anticipated date of transfer: 12/14/24 . Diagnoses at Discharge Discharge Diagnosis (1) Respiratory failure: Status: Acute (2) Ventilator dependence: Status: Acute (3) New onset a-fib: Status: Acute (4) Acute on chronic kidney failure: Status: Acute Qualifiers: Acute renal failure type: unspecified Chronic kidney disease stage: stage 3 (moderate) Chronic kidney disease stage 3 subtype: stage 3b (GFR 30-44) Qualified Code(s): N17.9 - Acute kidney failure, unspecified; N18.32 - Chronic kidney disease, stage 3b (5) Rhabdomyolysis: Status: Acute (6) Influenza A: Status: Acute (7) Acute respiratory failure with hypoxia and hypercapnia: Status: Acute (8) CO2 narcosis: Status: Acute (9) COPD exacerbation: Status: Acute (10) Acute on chronic systolic heart failure: Status: Acute (11) Ischemic cardiomyopathy: Status: Acute (12) ICD (implantable cardioverter-defibrillator), dual, in situ: Status: Acute (13) Sepsis: Status: Acute (14) Shock: Status: Acute Reason for Visit Reason for Visit SOB CHF Brief History: History as per HPI: Alesha Mack is a 54 year old female with history of not oxygen pendant COPD, active smoker, present to the hospital with chief complaint of worsening shortness of breath. Patient is stating that she was in her usual state of health until 24 hours ago when she started getting sick with shortness of breath, she has been noticing loose stools, body aches, low appetite, lack of energy, fever 101, she has been noticing pain on deep coughing, she is able to pinpoint the area of her pain towards her left upper chest. In the ER she was diagnosed with sepsis related to influenza A she received judicious septic bolus secondary to high BNP she was not given full septic bolus, received antibiotics, endorgan damage acute on chronic kidney disease high lactic acid tachypnea tachycardia and fever She is hypercapnic with hypoxic presentation was put on BiPAP, she is awake and alert at time my evaluation Was able to tell me above HPI Patient is stating that she smokes 6 to 8 cigarettes a day, lives alone at home I have requested another ABG, admit to ICU Troponin trending down Review of records revealed that patient has history of ischemic cardiomyopathy, systolic CHF status post ICD 2021, coronary to disease, [employer] pacemaker Heart rate is 122 new onset atrial flutter Hospital Course Hospital Course Patient was admitted to the hospital further evaluation and management of hypoxic and hypercapnic respiratory failure in setting of COPD exacerbation from influenza A. She was started on treatment with nebulization, steroids and IV antibiotics for possible superimposed bacterial infection. Blood culture and sputum cultures so far remain negative. Patient failed BiPAP ventilation and was eventually intubated on 12/10. Post intubation patient remained poorly compliant to ventilator because of poor lung compliance requiring high sedation with fentanyl and propofol. On 12/12 midnight patient had to be paralyzed because of worsening respiratory acidosis and poor lung compliance. Post diuretic agent patient's compliance has been better. On 12/14 trial of weaning of paralytic agent was tried which patient failed because of worsening re spiratory acidosis again. Patient's renal function during hospitalization has remained stable and has been continued to be followed up by bmx rider. Patient has worsening rhabdomyolysis most likely in setting of high doses of propofol and hence is being transition from propofol to Versed. Given all of the above patient needs an bond broker and insulation technician for ventilator management while patient is weaned from paralytic agent which unfortunately is not available at current hospital. Care were discussed in detail with bond broker at [facility] who has accepted the patient. She has been transferred in hemodynamically stable condition. Physical Exam Narrative: General: Sedated, intubated HEENT: PERRLA, pupils bilaterally equal and reactive Chest: Bilateral bronchial breath sounds all over lung gusman occasional rhonchi, decreased air entry over lung gusman CVS: S1-S2 regular, no murmurs, no tachycardia, no gallops, no rubs Abdomen: Soft, nontender, no organomegaly, bowel sounds present Neuro: No focal deficits, no facial deformity, Urinary Catheter Management: Beck: Cath Placed During This Visit: yes Reason for Continuing Indwelling Catheter: Accurate Measurement of Urinary Output in Critically Ill Patients Urinary Catheter Date of Insertion: 12/10/24 Urinary Catheter Time of Insertion: 12:13 TS Data Studies Completed and Pending Pending at discharge Category Date Time Status XR chest 1V portable [id number] QAM Exams 12/15/24 06:00 Ordered XR chest 1V portable [id number] QAM Exams 12/16/24 06:00 Ordered ABG FULL [Arterial Blood Gas Full] AM LABS Lab 12/15/24 04:00 Ordered ABG FULL [Arterial Blood Gas Full] AM LABS Lab 12/16/24 04:00 Ordered Blood Culture Stat Lab 12/10/24 05:09 Results CPK [Creatine Phosphokinase] BID Lab 12/14/24 18:00 Ordered MAG [Magnesium] AM LABS Lab 12/15/24 04:00 Ordered MAG [Magnesium] AM LABS Lab 12/16/24 04:00 Ordered Platelet Count Q2D Lab 12/15/24 04:00 Ordered T3 Reverse LC/MS/MS Routine Lab 12/13/24 05:00 Received Vancomycin Random AM LABS Lab 12/15/24 04:00 Ordered Vancomycin Random AM LABS Lab 12/16/24 04:00 Ordered Completed Studies During Hospitalization Category Date Time Status CT chest abdomen pelvis [[place] [id number] Cat Scan 12/11/24 11:24 Completed ] Stat CT head wo con* [id number] Stat Cat Scan 12/11/24 12:09 Completed CXRP [XR chest 1V portable [id number]] Routine Exams 12/10/24 09:56 Completed XR chest 1V portable [id number] QAM Exams 12/14/24 06:00 Completed XR chest 1V portable [id number] Stat Exams 12/10/24 04:51 Completed XR chest 1V portable [id number] Stat Exams 12/10/24 17:32 Completed XR chest 1V portable [id number] Urgent Exams 12/13/24 01:05 Completed CV. echo complete* [id number] Urgent Ultrasound 12/12/24 11:24 Completed US venous duplex lower extremity bilat [CV venous Ultrasound 12/11/24 11:27 [place] [id number]] Urgent Laboratory Last Values WBC 5.20 10^3/uL (3.29-11.43) 12/14/24 01:13 RBC 2.97 10^6/uL (3.85-5.65) L 12/14/24 01:13 Hgb 8.60 g/dL (11.27-16.99) L 12/14/24 01:13 Hct 27.0 % (36-47) L 12/14/24 01:13 MCV 90.9 fl (85-98) 12/14/24 01:13 MCH 29.0 pg (27-33) 12/14/24 01:13 MCHC 31.9 g/dL (30-55) 12/14/24 01:13 RDW 19.2 % (12.1-15.1) H 12/14/24 01:13 Plt Count 197 10^3/cmm (157-399) 12/14/24 01:13 MPV 9.8 fL (7.4-10.4) 12/14/24 01:13 Neut % (Auto) 80.4 % 12/14/24 01:13 Lymph % (Auto) 9.6 % 12/14/24 01:13 [place] % (Auto) 6.7 % 12/14/24 01:13 Eos % (Auto) 0.0 % 12/14/24 01:13 Baso % (Auto) 0.0 % 12/14/24 01:13 Neut # (Auto) 4.18 10^3/uL (1.8-7.7) 12/14/24 01:13 Lymph # (Auto) 0.5 10^3/uL (0.8-4.8) L 12/14/24 01:13 [place] # (Auto) 0.4 10^3/uL (0.2-0.9) 12/14/24 01:13 Eos # (Auto) 0.0 10^3/uL (0.0-0.8) 12/14/24 01:13 Baso # (Auto) 0.0 10^3/uL (0.0-0.1) 12/14/24 01:13 Nucleated RBC % (auto) 0.4 % 12/14/24 01:13 Nucleated RBCs # 0.0 /100WBC 12/14/24 01:13 APTT 59.4 SECONDS (23.9-36.7) H 12/14/24 12:02 D-Dimer 0.30 ug/mLFEU (0-0.59) 12/13/24 05:00 Specimen Type Arterial 12/14/24 14:16 Sample Site Radial, left 12/14/24 14:16 ABG pH 7.21 (7.35-7.45) L 12/14/24 14:16 ABG pCO2 60.8 mmHg (35-45) H* 12/14/24 14:16 ABG pO2 260.0 mmHg (80.0-100.0) H 12/14/24 14:16 ABG PO2/FiO2 Ratio 577 12/14/24 14:16 ABG HCO3 24.1 mmol/L (22-26) 12/14/24 14:16 ABG O2 Saturation > 99.1 12/14/24 14:16 ABG Base Excess -4.2 mmol/L (-2.0-2.0) L 12/14/24 14:16 Luis Test Pos 12/14/24 14:16 A-a O2 Gradient Not Reportable 12/14/24 14:16 Hematocrit 30.0 % (37-47) L 12/14/24 14:16 Hgb O2 Saturation 97.4 % (95-100) 12/14/24 14:16 Carboxyhemoglobin 0.6 %THgb (0.4-20.1) 12/14/24 14:16 Methemoglobin 1.7 % (0.4-1.5) H 12/14/24 14:16 Total Hemoglobin 9.8 g/dL (12-16) L 12/14/24 14:16 Sodium 145.0 mmol/L (131-143) H 12/14/24 14:16 Potassium 4.0 mmol/L (3.5-5.0) 12/14/24 14:16 Glucose 205.0 mg/dL (70-115) H 12/14/24 14:16 Ionized Calcium 1.1 mmol/L (1.1-1.4) 12/14/24 14:16 O2 Delivery Device Vent 12/14/24 14:16 O2 Liters/Min 15.0 % 12/10/24 05:05 FiO2 45.0 % 12/14/24 14:16 Tidal Volume 0.52 12/14/24 14:16 PEEP 10.0 cmH20 12/14/24 14:16 Manager Store ID Cak 12/14/24 14:16 Sodium 139 mmol/L (136-145) 12/14/24 01:13 Potassium 3.3 mmol/L (3.5-5.1) L 12/14/24 01:13 Chloride 100 mmol/L (98-107) 12/14/24 01:13 Carbon Dioxide 24 mmol/L (22-29) 12/14/24 01:13 Anion Gap 18.3 (5-19) 12/14/24 01:13 BUN 49 mg/dL (6-20) H 12/14/24 01:13 Creatinine 2.2 mg/dL (0.5-0.9) H 12/14/24 01:13 GFR Calculation 23.1 mL/min (90-130) L 12/14/24 01:13 Glucose 213 mg/dL (65-115) H 12/14/24 01:13 POC Glucose 205 mg/dL (70-110) H 12/14/24 16:00 Estimat Average Glucose 174 12/13/24 05:00 Hemoglobin A1c 7.7 % (4.0-6.0) H 12/13/24 05:00 Calculated Osmolality 307 mOsm/kg (285-295) H 12/14/24 01:13 Lactic Acid 2.9 mmol/L (0.5-2.2) H 12/10/24 04:57 Lactic Acid (Sepsis) 2.0 mmol/L (0.5-2.2) 12/10/24 09:02 Calcium 6.7 mg/dL (8.5-10.5) L 12/14/24 01:13 Phosphorus 4.8 mg/dL (2.5-4.5) H 12/13/24 05:00 Magnesium 2.7 mg/dL (1.7-2.3) H 12/14/24 01:13 Iron 52 ug/dL (37-145) 12/13/24 05:00 TIBC 157 mcg/dl 12/13/24 05:00 % Saturation 33.1 % (20-50) 12/13/24 05:00 Unsat Iron Binding 105 ug/dL (112-347) L 12/13/24 05:00 Total Bilirubin 0.4 mg/dL (0.15-1.2) 12/14/24 01:13 AST 45 U/L (0-32) H 12/14/24 01:13 ALT 10 U/L (0-33) 12/14/24 01:13 Alkaline Phosphatase 30 U/L (35-105) L 12/14/24 01:13 Creatine Kinase 4369 U/L (26-192) H* 12/14/24 09:02 Troponin T Baseline 20 ng/L (0-10) H 12/10/24 04:57 Troponin T 120 Minute 23.80 ng/L (0-10) H 12/10/24 06:55 Delta Troponin T 3.80 ABS# (0-10) 12/10/24 06:55 Troponin T Hi Sens 6Hr 24.31 ng/L (0-10) H 12/10/24 11:17 Troponin T Hi Sens 6Hr Delta 4.31 ng/L (0-12) 12/10/24 11:17 C-Reactive Protein 237.2 mg/L (0.0-4.9) H 12/11/24 05:11 NT-Pro-B Natriuret Pep 1657 pg/mL (0-125) H 12/10/24 04:57 Total Protein 6.3 g/dL (6.6-8.7) L 12/14/24 01:13 Albumin 4.3 g/dL (3.5-5.2) 12/14/24 01:13 Globulin 2.0 g/dL (1.3-4.6) 12/14/24 01:13 Triglycerides 251 mg/dL (0-150) H 12/14/24 01:13 Cholesterol 121 mg/dL (0-200) 12/14/24 01:13 LDL Cholesterol, Calc 45 mg/dL (50-129) L 12/14/24 01:13 Total VLDL Cholesterol 50 mg/dL (0-30) H 12/14/24 01:13 HDL Cholesterol 26 mg/dL (60-100) L 12/14/24 01:13 Cholesterol/HDL Ratio 4.65 mg/dL (0.0-4.40) H 12/14/24 01:13 Vitamin B12 451 pg/mL (232-1245) 12/13/24 05:00 Folate 6.3 ng/mL (4.8-37.3) 12/14/24 01:13 Procalcitonin 0.98 ng/mL (0-0.5) H 12/13/24 05:00 TSH 0.10 uIU/mL (0.27-4.20) L 12/13/24 05:00 Free T4 0.68 ng/dL (0.82-1.77) L 12/13/24 17:17 Free T3 1.2 PG/ML (2.0-4.4) L 12/13/24 17:17 Nasal MRSA (PCR) Not detected (Not Detecte) 12/13/24 12:25 Vancomycin Trough 16.6 ug/mL (10-15) H 12/13/24 17:17 Random Vancomycin 14.0 ug/mL (20.0-40.0) L 12/14/24 01:13 Coronavirus (PCR) Negative (Negative) 12/10/24 04:57 Influenza A (PCR) Positive (Negative) 12/10/24 04:57 Influenza Type B (PCR) Negative (Negative) 12/10/24 04:57 RSV (PCR) Negative (Negative) 12/10/24 04:57 Radiology Impressions Chest/Abdomen/Pelvis CT 12/11/24 11:24 IMPRESSION: 1. ET tube 2 centimeters from clarissa. 2. Mild pulmonary edema, no pleural effusion or consolidations. IMPRESSION: 1. Nonspecific bilateral perinephric fat stranding, no obstructing renal stones. 2. No mechanical bowel obstruction. 3. Diverticulosis without any evidence of acute diverticulitis. Venous Duplex 12/11/24 11:27 IMPRESSION: No evidence of deep vein thrombosis. Head CT 12/11/24 12:09 IMPRESSION: No large territorial infarct or intracranial bleed. Chest X-Ray 12/14/24 06:00 IMPRESSION: Negative for interval changes. Recent Clincial Data Last Vital Signs Temp 99.1 F 12/14/24 09:00 Pulse 104 H 12/14/24 15:24 Resp 24 H 12/14/24 15:24 BP 134/68 12/14/24 14:15 Pulse Ox 91 12/14/24 15:24 O2 Del Method Mechanical Ventilation 12/14/24 15:24 O2 Flow Rate 15 12/10/24 04:54 FiO2 50 12/14/24 15:24 Vital Signs Temp Pulse Resp BP Pulse Ox O2 Del Method FiO2 12/14/24 15:24 104 H 24 H 91 Mechanical Ventilation 50 12/14/24 14:30 24 H 93 50 12/14/24 14:15 103 H 134/68 89 L 12/14/24 14:00 103 H 12/14/24 14:00 105 H 138/82 92 12/14/24 13:45 106 H 123/72 91 12/14/24 13:30 101 H 133/72 91 12/14/24 13:15 99 160/81 89 L 12/14/24 13:13 16 91 40 12/14/24 13:00 120 H 146/66 89 L 12/14/24 12:45 88 147/65 92 12/14/24 12:30 88 147/65 92 12/14/24 12:15 87 149/66 92 12/14/24 12:00 100 14 95 Mechanical Ventilation 40 12/14/24 12:00 90 151/63 92 12/14/24 11:45 90 146/71 92 12/14/24 11:30 82 147/65 93 12/14/24 11:30 16 93 40 12/14/24 11:15 81 151/64 93 12/14/24 11:00 84 155/66 92 12/14/24 10:45 86 161/72 92 12/14/24 10:30 88 154/67 93 12/14/24 10:15 86 160/69 92 12/14/24 10:00 91 155/69 94 12/14/24 09:54 16 94 40 12/14/24 09:45 92 160/72 93 12/14/24 09:30 92 158/73 94 12/14/24 09:15 93 162/72 94 12/14/24 09:00 99.1 F 95 159/74 93 12/14/24 08:45 97 164/72 93 12/14/24 08:30 96 160/73 93 12/14/24 08:15 86 162/74 94 12/14/24 08:00 87 156/71 94 12/14/24 08:00 45 12/14/24 08:00 87 16 94 Mechanical Ventilation 45 12/14/24 08:00 16 94 45 12/14/24 07:45 83 156/67 94 12/14/24 07:30 81 153/68 94 12/14/24 07:15 78 153/68 94 12/14/24 07:00 78 154/61 94 12/14/24 06:45 79 152/66 94 12/14/24 06:30 78 148/64 94 12/14/24 06:15 78 147/66 93 12/14/24 06:00 80 16 147/61 93 Mechanical Ventilation 45 12/14/24 05:45 85 159/72 94 12/14/24 05:15 160/72 94 12/14/24 05:00 85 16 165/72 93 Intake & Output/Weight 12/12/24 12/13/24 12/14/24 12/15/24 06:59 06:59 06:59 06:59 Intake Total 3892.841 / 3892.841 3692.425 / 3692.425 2536.743 / 2536.743 1883.534 / 1883.534 Output Total 3050 / 3050 1900 / 1900 2550 / 2550 Balance 842.841 / 914.738 9549.425 / 1792.425 -13.257 / -13.257 1883.534 / 1883.534 Weight 114.5 kg 113.5 kg 113 kg Vitals Last Vital Signs Temp 99.1 F 12/14/24 09:00 Pulse 104 H 12/14/24 15:24 Resp 24 H 12/14/24 15:24 BP 134/68 12/14/24 14:15 Pulse Ox 91 12/14/24 15:24 O2 Del Method Mechanical Ventilation 12/14/24 15:24 O2 Flow Rate 15 12/10/24 04:54 FiO2 50 12/14/24 15:24 TS Medications Medications Acetaminophen (Acetaminophen 500 Mg Tablet) 500 mg PO Q4H PRN PRN Reason: fever Albuterol/Ipratropium (Ipratropium-Albuterol 3 Ml Neb) 3 ml INHALATION Q6H PRN PRN Reason: SHORTNESS OF BREATH Amiodarone HCl (Amiodarone 200 Mg Tablet) 400 mg PO BID [facility] Last Admin: 12/14/24 08:47 Dose: 400 mg Artificial Tears (Artificial Tears Op Oint 3.5 Gm) 1 applic EYE-BOTH PRN PRN PRN Reason: DRY EYE(S) Last Admin: 12/13/24 17:18 Dose: 1 applic Aspirin (Aspirin 81 Mg Chew Tablet) 81 mg OG-TUBE QAM [facility] Last Admin: 12/13/24 06:58 Dose: Not Given Atorvastatin Calcium (Atorvastatin 40 Mg Tablet) 40 mg PO BEDTIME [facility] Last Admin: 12/12/24 20:55 Dose: 40 mg Benzonatate (Benzonatate 100 Mg Capsule) 200 mg PO Q6H PRN PRN Reason: COUGH Budesonide (Budesonide 0.5 Mg/2 Ml Neb) 0.5 mg INHALATION DAILY.RESPIRATORY [facility] Last Admin: 12/14/24 08:10 Dose: 0.5 mg Cefepime HCl (Cefepime 1,000 Mg Sdv) 1,000 mg IVP Q24H [facility] Last Admin: 12/14/24 13:02 Dose: 1,000 mg Glucagon (Glucagon 1 Mg/Ml Kit 1 Ml) 1 mg IM ONCE PRN; Protocol PRN Reason: Adult Acute Hypoglycemia Nursing Prot. Heparin Sodium (Porcine) (Heparin 5,000 Unit/Ml Inj 1 Ml) 0 unit IVP PRN PRN; Protocol PRN Reason: Heparin Weight Based Protocol -Subsequent Bolus Last Admin: 12/14/24 02:32 Dose: 2,100 unit Propofol (Diprivan) 1,000 mg in 100 mls @ 0 mls/hr IV .Q0M [facility]; Protocol Last Admin: 12/14/24 14:17 Dose: 65 mcg/kg/min, 35.38 mls/hr Dextrose (D5w) 500 mls @ 0 mls/hr IV ONCE PRN; Protocol PRN Reason: Adult Acute Hypoglycemia Prot Dextrose (D10w) 125 mls @ 750 mls/hr IV PRN PRN; Protocol PRN Reason: Adult Acute Hypoglycemia Nursing Protocol Dextrose (D10w) 250 mls @ 1,000 mls/hr IV PRN PRN; Protocol PRN Reason: Adult Acute Hypoglycemia Nursing Protocol Norepinephrine Bitartrate (Levophed) 4 mg in 250 mls @ 0 mls/hr IV .Q0M [facility]; Protocol Last Titration: 12/12/24 17:44 Dose: 0 mcg/min, 0 mls/hr Fentanyl (Sublimaze) 2,500 mcg in 250 mls @ 0 mls/hr IV .Q0M [facility]; Protocol Last Titration: 12/14/24 13:04 Dose: 100 mcg/hr, 10 mls/hr Albumin Human (Albumin) 25 g in 100 mls @ 60 mls/hr IV Q8H [facility] Last Infusion: 12/14/24 10:29 Dose: Infused Heparin Sodium/Sodium Chloride (Heparin Drip) 25,000 unit in 500 mls @ 0 mls/hr IV CONT [facility]; Protocol Last Admin: 12/14/24 13:08 Dose: Not Given Cisatracurium Besylate 100 mg/ (Sodium Chloride) 100 mls @ 0 mls/hr IV .Q0M [facility]; Protocol Last Titration: 12/14/24 12:27 Dose: 0 mcg/kg/min, 0 mls/hr Sodium Chloride (Sodium Chloride 0.9%) 1,000 mls @ 75 mls/hr IV .[id number] [facility] Last Infusion: 12/14/24 10:42 Dose: 75 mls/hr Midazolam HCl (Versed) 100 mg in 100 mls @ 0 mls/hr IV .Q0M [facility]; Protocol Insulin Glargine (Insulin Glargine 100 Units/1 Ml) 10 unit SUBCUT BID [facility] Insulin Human Lispro (Insulin Lispro 100 Unit/1 Ml) 0 unit SUBCUT Q6H [facility]; Protocol Last Admin: 12/14/24 10:13 Dose: 6 unit Ipratropium [place] (Ipratropium 0.5 Mg/2.5 Ml Neb) 0.5 mg INHALATION Q4H.RESPIRATORY [facility] Last Admin: 12/14/24 15:20 Dose: 0.5 mg Levalbuterol HCl (Levalbuterol 1.25 Mg/3 Ml Neb) 1.25 mg INHALATION Q4H.RESPIRATORY [facility] Last Admin: 12/14/24 15:20 Dose: 1.25 mg Methylprednisolone Sodium Succinate (Methylprednisolone Sod Succ 40 Mg/Ml Inj) 40 mg IVP Q6H [facility] Last Admin: 12/14/24 10:12 Dose: 40 mg Metoprolol Tartrate (Metoprolol Tartrate 1 Mg/1 Ml Sdv 5 Ml) 5 mg IVP Q4H PRN PRN Reason: tachycardia Non-Formulary Medication Tacrolimus Ointment 0.1% 1 each TOPICAL BID [facility] Last Admin: 12/14/24 08:44 Dose: Not Given Non-Formulary Medication Clobetasol Propionate Cream Half-Way , 0.05% 1 each TOPICAL BID [facility] Last Admin: 12/14/24 08:44 Dose: Not Given Ondansetron HCl (Ondansetron 2 Mg/Ml Sdv 2 Ml) 4 mg IVP Q6H PRN PRN Reason: NAUSEA AND VOMITING Oseltamivir Phosphate (Oseltamivir Phosphate 30 Mg Capsule) 30 mg PO DAILY [facility] Stop: 12/15/24 09:01 Last Admin: 12/12/24 09:11 Dose: 30 mg Pantoprazole Sodium (Pantoprazole 40 Mg Sdv) 40 mg IVP DAILY [facility] Last Admin: 12/14/24 08:45 Dose: 40 mg Ropinirole HCl (Ropinirole 1 Mg Tablet) 1 mg PO BEDTIME [facility] Last Admin: 12/12/24 20:55 Dose: 1 mg Discontinued Medications Albuterol Sulfate (Albuterol 2.5 Mg/3 Ml Neb) 2.5 mg INHALATION Q20M [facility] Stop: 12/13/24 01:26 Last Admin: 12/13/24 01:17 Dose: 2.5 mg Albuterol Sulfate (Albuterol 2.5 Mg/3 Ml Neb) Confirm Administered Dose 7.5 mg .ROUTE .STK-MED ONE Stop: 12/13/24 00:35 Last Admin: 12/13/24 01:10 Dose: Not Given Albuterol/Ipratropium (Ipratropium-Albuterol 3 Ml Neb) 3 ml INHALATION ONCE ONE Stop: 12/10/24 04:52 Last Admin: 12/10/24 05:41 Dose: 3 ml Albuterol/Ipratropium (Ipratropium-Albuterol 3 Ml Neb) 3 ml INHALATION Q4H.RESPIRATORY [facility] Last Admin: 12/10/24 11:11 Dose: 3 ml Aspirin (Aspirin 81 Mg Ec Tablet) 81 mg PO QAM [facility] Last Admin: 12/12/24 05:30 Dose: 81 mg Calcium Gluconate (Calcium Gluconate 0.1 Gm/Ml 10% Sdv 10ml) 1 gm IVP ONCE ONE Stop: 12/14/24 11:12 Last Admin: 12/14/24 12:44 Dose: 1 gm Cefepime HCl (Cefepime 2,000 Mg Sdv) 2,000 mg IVP Q12H [facility]; Protocol Last Admin: 12/12/24 11:59 Dose: 2,000 mg Ceftriaxone Sodium (Ceftriaxone 1,000 Mg Sdv) 1,000 mg IVP ONCE ONE; Protocol Stop: 12/10/24 06:21 Last Admin: 12/10/24 06:30 Dose: 1,000 mg Cisatracurium Besylate (Cisatracurium 2 Mg/Ml Sdv 10ml) Confirm Administered Dose 100 mg .ROUTE .STK-MED ONE Stop: 12/13/24 00:24 Enoxaparin Sodium (Enoxaparin 100 Mg/Ml Syringe) 90 mg SUBCUT DAILY [facility] Last Admin: 12/10/24 11:10 Dose: 90 mg Etomidate (Etomidate 2 Mg/Ml Inj Sdv 10 Ml) 20 mg IVP NOW ONE Stop: 12/10/24 09:44 Last Admin: 12/10/24 09:53 Dose: 20 mg Furosemide (Furosemide 20 Mg Tablet) 20 mg PO DAILY PRN PRN Reason: Edema Furosemide (Furosemide 10 Mg/Ml Sdv 10ml) 60 mg IVP ONCE ONE Stop: 12/11/24 08:30 Last Admin: 12/11/24 11:06 Dose: 60 mg Furosemide (Furosemide 10 Mg/Ml Sdv 4ml) 40 mg IVP ONCE ONE Stop: 12/14/24 16:34 Heparin Sodium (Porcine) (Heparin 5,000 Unit/Ml Inj 1 Ml) 5,000 unit SUBCUT Q12H [facility] Last Admin: 12/11/24 09:54 Dose: 5,000 unit Heparin Sodium (Porcine) (Heparin 5,000 Unit/Ml Inj 1 Ml) 0 unit IVP ONCE ONE; Protocol Stop: 12/11/24 11:28 Last Admin: 12/11/24 13:04 Dose: Not Given Sodium Chloride (Sodium Chloride 0.9%) 1,000 mls @ 999 mls/hr IV .Q1H1M ONE Stop: 12/10/24 07:03 Last Infusion: 12/10/24 08:40 Dose: Infused Sodium Chloride (Sodium Chloride 0.9%) 1,000 mls @ 999 mls/hr IV .Q1H1M [facility] Stop: 12/10/24 08:30 Last Admin: 12/10/24 07:01 Dose: Not Given Azithromycin 500 mg/ Sodium (Chloride) 250 mls @ 250 mls/hr IV ONCE ONE; Protocol Stop: 12/10/24 07:19 Last Infusion: 12/10/24 09:33 Dose: Infused Amiodarone HCl/Dextrose (Nexterone) 150 mg in 100 mls @ 400 mls/hr IV ONCE ONE Stop: 12/10/24 07:59 Last Infusion: 12/10/24 10:29 Dose: Infused Amiodarone HCl/Dextrose (Nexterone) 360 mg in 200 mls @ 0 mls/hr IV .Q0M [facility]; Protocol Last Admin: 12/11/24 12:31 Dose: 0.5 mg/min, 16.67 mls/hr Vancomycin HCl / Sodium (Chloride) 250 mls @ 0 mls/hr [id number] PROTOCOL [facility]; Protocol Piperacillin Sod/Tazobactam (Sod / Sodium Chloride) 50 mls @ 0 mls/hr [id number] [facility]; Protocol Piperacillin Sod/Tazobactam (Sod 3.375 gm/ Sodium Chloride) 50 mls @ 12.5 mls/hr IV Q12H [facility] Last Infusion: 12/11/24 08:10 Dose: Infused Vancomycin HCl (Vancocin) 3,000 mg in 600 mls @ 200 mls/hr IV ONCE ONE Stop: 12/10/24 19:29 Last Infusion: 12/10/24 20:31 Dose: Infused Sodium Chloride (Sodium Chloride 0.9%) 1,000 mls @ 75 mls/hr IV .[id number] [facility] [place] Last Admin: 12/11/24 04:31 Dose: 75 mls/hr Fentanyl (Sublimaze) 1,000 mcg in 100 mls @ 0 mls/hr IV .Q0M [facility]; Protocol Last Admin: 12/11/24 02:14 Dose: 175 mcg/hr, 17.5 mls/hr Sodium Bicarbonate 150 meq/ (Dextrose) 1,150 mls @ 75 mls/hr IV .[id number] [facility] [place] Last Infusion: 12/12/24 16:15 Dose: 0 mls/hr Vasopressin (Vasostrict) 40 unit in 100 mls @ 4.5 mls/hr IV CONT [facility] [place] Last Admin: 12/14/24 10:43 Dose: Not Given Magnesium Sulfate (Magnesium Sulfate Premix) 2 gm in 50 mls @ 50 mls/hr IV ONCE ONE Stop: 12/13/24 00:47 Last Infusion: 12/13/24 01:32 Dose: Infused Midazolam HCl (Versed) 100 mg in 100 mls @ 0 mls/hr IV .Q0M [facility]; Protocol Last Titration: 12/13/24 06:20 Dose: 0 mg/hr, 0 mls/hr Sodium Chloride (Sodium Chloride 0.9%) Confirm Administered Dose 50 mls @ as directed .ROUTE .STK-MED ONE Stop: 12/13/24 00:28 Sodium Chloride (Sodium Chloride 0.9%) 1,000 mls @ 50 mls/hr IV .Q20H [facility] Last Infusion: 12/14/24 00:01 Dose: Infused Sodium Chloride (Sodium Chloride 0.9%) 1,000 mls @ 50 mls/hr IV .Q20H [facility] Lidocaine HCl 5 ml/ Potassium (Chloride) 105 mls @ 26.25 mls/hr IV ONCE ONE Stop: 12/14/24 15:23 Last Admin: 12/14/24 12:46 Dose: 26.25 mls/hr Midazolam HCl (Versed) 100 mg in 100 mls @ 0 mls/hr IV .Q0M [facility] [place]; Protocol Insulin Glargine (Insulin Glargine 100 Units/1 Ml) 10 unit SUBCUT QAM [facility] [place] Last Admin: 12/14/24 08:05 Dose: 10 unit Insulin Human Lispro (Insulin Lispro 100 Unit/1 Ml) 0 unit SUBCUT WM&BEDTIME [facility] [place]; Protocol Last Admin: 12/10/24 11:09 Dose: Not Given Methylprednisolone Sodium Succinate (Methylprednisolone Sod Succ 40 Mg/Ml Inj) 40 mg IVP Q8H [facility] Last Admin: 12/13/24 10:30 Dose: 40 mg Methylprednisolone Sodium Succinate (Methylprednisolone Sod Succ 40 Mg/Ml Inj) 40 mg IVP Q6H [place] Midazolam HCl (Midazolam 1 Mg/Ml Inj 2 Ml) 2 mg IVP Q4H PRN PRN Reason: AGITATION Last Admin: 12/12/24 19:27 Dose: 2 mg Morphine Sulfate (Morphine 4 Mg/Ml Sdv 1 Ml) 4 mg IVP ONCE ONE Stop: 12/10/24 16:47 Last Admin: 12/10/24 17:43 Dose: 4 mg Pantoprazole Sodium (Pantoprazole Dr 40 Mg Tablet) 40 mg PO QAM [place] Potassium Chloride (Potassium Chloride Er 20 Meq Tablet) 40 meq PO ONCE ONE Stop: 12/14/24 16:34 Vancomycin HCl (Vancomycin 1,000 Mg Sdv (Pharmacy Mix)) 0 mg XX PRN PRN PRN Reason: Pharmacy to Dose Vecuronium [place] (Vecuronium 10 Mg Sdv) 10 mg IVP ONCE ONE Stop: 12/10/24 09:44 Last Admin: 12/10/24 09:57 Dose: 10 mg Allergies sacubitril (From Entresto) Adverse Reaction (Verified 10/05/24 14:37) hypotension tried in the hospital valsartan (From Entresto) Adverse Reaction (Verified 10/05/24 14:37) hypotension tried in the hospital Home Medications albuterol sulfate 90 mcg/actuation aerosol inhaler 2 puff inhalation DAILY PRN Shortness Of Breath 05/25/22 [History Confirmed 12/10/24] pantoprazole 40 mg tablet,delayed release 40 mg PO QAM 05/25/22 [History Confirmed 12/10/24] atorvastatin 40 mg tablet 40 mg PO BEDTIME #90 tabs 05/30/22 [Rx Confirmed 12/10/24] acetaminophen 500 mg tablet 1,000 mg PO Q6H PRN Pain 09/12/22 [History Confirmed 12/10/24] aspirin 81 mg tablet,delayed release 81 mg PO QAM 09/12/22 [History Confirmed 12/10/24] metoprolol succinate 50 mg tablet,extended release 24 hr 50 mg PO QAM #90 tabs 08/18/24 [Rx Confirmed 12/10/24] budesonide-formoterol HFA 160 mcg-4.5 mcg/actuation aerosol inhaler (Symbicort) 1 inh inhalation BID 08/27/24 [History Confirmed 12/10/24] alendronate 70 mg tablet 70 mg PO Q7D 12/10/24 [History Confirmed 12/10/24] betamethasone valerate 0.1 % topical cream 1 applic topical DAILY 12/10/24 [History Confirmed 12/10/24] clobetasol 0.05 % topical cream See Rx Instructions .Route .COMPLEX 12/10/24 [History Confirmed 12/10/24] fluticasone propionate 50 mcg/actuation nasal spray,suspension 1 spray intranasal DAILY 12/10/24 [History Confirmed 12/10/24] furosemide 20 mg tablet 20 mg PO DAILY PRN Edema 12/10/24 [History Confirmed 12/10/24] gabapentin 300 mg capsule 300 mg PO BID 12/10/24 [History Confirmed 12/10/24] potassium gluconate 595 mg (99 mg) tablet 595 mg PO DAILY 12/10/24 [History Confirmed 12/10/24] ropinirole 1 mg tablet 1 mg PO BEDTIME 12/10/24 [History Confirmed 12/10/24] spironolactone 25 mg tablet 25 mg PO DAILY 12/10/24 [History Confirmed 12/10/24] tizanidine 4 mg tablet 4 mg PO Q6H PRN muscle spasms 12/10/24 [History Confirmed 12/10/24] triamcinolone acetonide 0.1 % topical cream 1 applic topical BID PRN Skin Irritation 12/10/24 [History Confirmed 12/10/24] Discharge Plan Discharge Patient Disposition: Home Condition: Stable Prescriptions: No Action budesonide-formoterol [Symbicort] 160-4.5 mcg/actuation HFA aerosol inhaler 1 inh inhalation BID metoprolol succinate 50 mg tablet extended release 24 hr 50 mg PO QAM Qty: 90 3RF ropinirole 1 mg tablet 1 mg PO BEDTIME tizanidine 4 mg tablet 4 mg PO Q6H PRN (Reason: muscle spasms) alendronate 70 mg tablet 70 mg PO Q7D Rx Instructions: Friday clobetasol 0.05 % cream See Rx Instructions .ROUTE .COMPLEX Rx Instructions: APPLY TWICE DAILY TO DARK PATCHES OF LEGS UNTIL RESOLVED. NOT FOR USE ON FACE,GROIN, OR SKIN FOLDS. USE FOR NO MORE THAN 2 WEEKS PER MONTH. betamethasone valerate 0.1 % cream 1 applic TOPICAL DAILY gabapentin 300 mg capsule 300 mg PO BID furosemide 20 mg tablet 20 mg PO DAILY PRN (Reason: Edema) fluticasone propionate 50 mcg/actuation spray,suspension 1 spray INTRANASAL DAILY potassium gluconate 595 mg (99 mg) Tablet 595 mg PO DAILY triamcinolone acetonide 0.1 % cream 1 applic topical BID PRN (Reason: Skin Irritation) spironolactone 25 mg tablet 25 mg PO DAILY pantoprazole 40 mg tablet,delayed release (DR/EC) 40 mg PO QAM albuterol sulfate 90 mcg/actuation HFA aerosol inhaler 2 puff INHALATION DAILY PRN (Reason: Shortness Of Breath) atorvastatin 40 mg Tablet 40 mg PO BEDTIME Qty: 90 2RF acetaminophen 500 mg Tablet 1,000 mg PO Q6H PRN (Reason: Pain) aspirin 81 mg tablet,delayed release (DR/EC) 81 mg PO QAM Discharge Orders: Transfer Out of Facility (Order); Ordered 12/14/24 Ordered By: Ty Dos Santos Referrals: Tess Ko PA [Primary Care Provider] - Patient Instructions: Opioid Safety Transfer Attestations Time Spent in Transfer Care: critical care time Critical Care Time (min): 70 Specific Discharge Activities: educating patient, educating and/or supporting family/caregiver, discussing with pcp/other providers, discussing with showcase trimmer/social workers/dc planners, documenting/other paperwork and evaluating patient/reviewing data Status at Transfer: Cognitive status at transfer: other ; Behavioral status at transfer: cooperative ; Functional status at transfer: bed bound ; Overall status at transfer: patient is not back to baseline Quality Metrics Clinical Quality Measures [ No reported AMI, CVA or VTE this stay] Coding Level of Care Code Critical Care >/= 30 minutes Critical care time (in minutes): 70 The high probability of a clinically significant, sudden or life threatening deterioration, as referenced in this documentation, required my full and direct attention, intervention and personal management. The critical care time shown is in addition to time spent performing any reported separately billable procedures and includes the following: [x] Data and vital sign review and interpretation [x ] Patient assessment, examination and intervention [x] Medication orders and management [x] Patient/Family updates as able [x] Care Coordination and Documentation. Other Coding Information This patient has a high probability of clinically significant, sudden or life threatening deterioration of the patient's (neurological/pulmonary/cardiac/renal/ID/endocrine) systems required my full, direct attention, the highest level of physician preparedness for urgent intervention and personal management. I managed/supervised life or organ supporting interventions that required frequent physician assessment. I devoted my full attention in the ICU to the direct care of this patient for the period of time indicated above. Time I spent with family or surrogate(s) is included only if the patient was incapable of providing necessary information or participating in decision making. This time includes the following services provided: Telemetry review Mechanical Ventilation Hemodynamic interpretation, assessment and management Review and interpretation of CXR Review and interpretation of lab values Review and interpretation of microbiologic data and culture results Review of medications and administration Review and interpretation of Nutrition requirements and management Discussion of management with other consultants and services Clinical update to family members Diagnoses Respiratory failure J96.90 Ventilator dependence Z99.11 New onset a-fib I48.91 Acute renal failure superimposed on stage 3b chronic kidney disease, unspecified acute renal failure type N17.9; N18.32 Acute renal failure type: unspecified Chronic kidney disease stage: stage 3 (moderate) Chronic kidney disease stage 3 subtype: stage 3b (GFR 30-44) Rhabdomyolysis M62.82 Influenza A J10.1 Acute respiratory failure with hypoxia and hypercapnia J96.01; J96.02 CO2 narcosis R06.89 COPD exacerbation J44.1 Acute on chronic systolic heart failure I50.23 Ischemic cardiomyopathy I25.5 ICD (implantable cardioverter-defibrillator), dual, in situ Z95.810 Sepsis A41.9 Shock R57.9
[2024-12-14] MEDS: FUROsemide 10 mg/mL SDV 4mL 40 MG IVP (17:04)
[2024-12-14] MEDS: midazolam hcl 100 MG/100 ML BAG IV (17:06)
[2024-12-14] MEDS: potassium chloride ER 20 mEq Tablet 40 MEQ PO (17:24)
[2024-12-14] MEDS: sodium chloride 0.9% 1,000 ML 75 ML IV (18:31)
--- NOTE | 2024-12-14 18:37 | PC.NURSE ---
Patient received transfer orders to [facility]. Report called. [facility] [place] arrival anticipated soon for ramp agent. Family updated.
[2024-12-14] MEDS: cisatracurium 100 MG in sodium chloride 0.9% 50 ML 6.87 MG IV (18:57)
--- NOTE | 2024-12-14 18:57 | PC.NURSE ---
SH here at [id number]
[2024-12-22 14:10] LABS: T3 Reverse LC/MS/MS 75 ng/dL (8-25)
== END 2024-12-14 19:16 | disposition short-term general hospital (02) | DRG 870 ==
LOC: ER 05:54 → ICU 06:44
PROVIDERS: Emergency Medicine; Internal Medicine; Admitting Provider Internal Medicine; Emergency Provider Emergency Medicine; PCP Physician Assistant; Visit Provider Student in an Organized Health Care Education/Training Program
DX: A41.9 Sepsis, unspecified organism (principal); I50.23 Acute on chronic systolic (congestive) heart failure; J96.01 Acute respiratory failure with hypoxia; R65.21 Severe sepsis with septic shock; J96.02 Acute respiratory failure with hypercapnia; Z99.11 Dependence on respirator [ventilator] status; N17.9 Acute kidney failure, unspecified; M62.82 Rhabdomyolysis; J44.1 Chronic obstructive pulmonary disease with (acute) exacerbation; E87.20 Acidosis, unspecified; E87.1 Hypo-osmolality and hyponatremia; I48.92 Unspecified atrial flutter; J10.1 Influenza due to other identified influenza virus with other respiratory manifestations; I48.91 Unspecified atrial fibrillation; N18.32 Chronic kidney disease, stage 3b; I25.5 Ischemic cardiomyopathy; Z95.810 Presence of automatic (implantable) cardiac defibrillator; F17.210 Nicotine dependence, cigarettes, uncomplicated; Z79.82 Long term (current) use of aspirin; I25.2 Old myocardial infarction; E78.5 Hyperlipidemia, unspecified; G56.03 Carpal tunnel syndrome, bilateral upper limbs; Z82.49 Family history of ischemic heart disease and other diseases of the circulatory system
CPT/HCPCS: 36415; 36416; 36592; 36600; 51702; 70450; 71045; 71250; 74176; 80048; 80051; 80053; 80061; 80202; 82330; 82550; 82607; 82746; 82803; 82805; 82962; 83036; 83540; 83550; 83605; 83735; 83880; 84100; 84145; 84439; 84443; 84481; 84482; 84484; 85025; 85378; 85730; 86140; 86403; 87040; 87070; 87205; 87637; 93005; 93306; 93970; 94002; 94003; 94640; 94660; 94664; 94799; 96365; 96366; 96372; 96374; 96376; 99291; A4222; J0283; J0456; J0612; J0692; J0696; J1644; J1650; J1815; J1940; J2250; J2270; J2470; J2543; J2598; J2704; J2919; J3010; J3370; J3475; J3480; J3490; J7030; J7050; J7070; J7613; J7614; J7626; J7644; P9046; Q3014